=== PATIENT | female | born 1975 | race Caucasian/White ===

== ENCOUNTER 2020-07-16 17:00 | Emergency (ER) | payer MEDICAID ==
[~2020-07-16] VITALS: Ht 160 cm; Wt 83.9 kg
[2020-07-16 20:06] VITALS: BP 154/108
[2020-07-16] MEDS ORDERED: ONDANSETRON ODT 4 MG TAB PO ONE (21:00)
[2020-07-16] MEDS ORDERED: HYDROcodone-ACET 5/325MG TAB PO ONE (21:00)
== END 2020-07-16 21:43 | disposition home or self-care (01) ==
LOC: ER 17:00
DX: K04.7 Periapical abscess without sinus (principal); F17.210 Nicotine dependence, cigarettes, uncomplicated; J45.909 Unspecified asthma, uncomplicated; F15.10 Other stimulant abuse, uncomplicated; Z88.6 Allergy status to analgesic agent
CPT/HCPCS: 70486; 99284; Q0162

== ENCOUNTER 2024-02-20 23:34 | Inpatient (IN) | payer MEDICAID ==
[~2024-02-20] VITALS: Ht 160 cm; Wt 82.0 kg
[2024-02-21] MEDS: hydrALAZINE HCL 20 MG/ML VL IM ONE (00:45)
[2024-02-21 00:54] LABS: Basophils # (auto) 0.1 10 ^3/uL (0-0.2); Basophils % (auto) 0.9 % (0.0-2.0); Eosinophils # (auto) 0 10 ^3/uL (0-0.8); Eosinophils % (auto) 0.5 % (0.0-7.0); Hematocrit 50.8 % (36.0-46.0); Hemoglobin 16.5 g/dL (12.2-16.2); Lymphocytes # (auto) 1.8 10 ^3/uL (0.4-5.4); Lymphocytes % (auto) 23.4 % (10.0-50.0); Mean Corpuscular Hemoglobin 28.7 pg (28.0-32.0); Mean Corpuscular Hgb Conc. 32.5 g/dL (32.0-36.0); Mean Corpuscular Volume 88.1 fL (80.0-100.0); Monocytes # (auto) 0.4 10 ^3/uL (0-1.3); Monocytes % (auto) 5.8 % (0.0-12.0); Neutrophils # (auto) 5.4 10 ^3/uL (1.6-8.6); Neutrophils % (auto) 69.4 % (37.0-80.0); Red Blood Cells 5.76 10^6/uL (4.0-5.20); Red Cell Distribution Width 17.9 % (11.8-14.3); White Blood Cell 7.8 10^3/uL (4.4-10.8)
[2024-02-21 01:08] LABS: Alanine Aminotransferase 27 U/L (7-40); Alkaline Phosphatase 154 U/L (46-116); Anion Gap 9 (5-15); Aspartate Aminotransferase 30 U/L (13-40); BUN/Creatinine Ratio 10.4 (10.0-20.0); Blood Urea Nitrogen 15 mg/dL (9-23); Calcium 9.9 mg/dL (8.7-10.4); Carbon Dioxide 26 mmol/L (20-30); Chloride 107 mmol/L (98-107); Glucose 137 mg/dL (74-106); Potassium 4.8 mmol/L (3.5-5.1); Sodium 142 mmol/L (136-145)
[2024-02-21 01:09] LABS: Bilirubin, Total 1.2 mg/dL (0.2-1.0)
[2024-02-21] MEDS: ASPirin 81 mg TAB PO ONE (01:47)
[2024-02-21] MEDS: NITROGLYCERIN 2% OINT 1GM PKG TD ONE (01:47)
[2024-02-21 02:35] VITALS: PULSE 83; RESP 18; TEMP 98.2; O2SAT 93
[2024-02-21] MEDS ORDERED: ACETAMINOPHEN 325 MG TAB PO PRN (03:00)
[2024-02-21] MEDS ORDERED: ONDANSETRON HCL 4 MG/2 ML VIAL IV PRN (03:00)
[2024-02-21] MEDS ORDERED: DOCUSATE SOD 100 MG CAP PO PRN (03:00)
[2024-02-21] MEDS ORDERED: NITROGLYCERIN 0.4 MG SL TAB SL PRN (03:45)
[2024-02-21 04:24] LABS: Urine Bacteria None Seen /hpf (None Seen)
[2024-02-21 04:36] LABS: Urine Blood TRACE /uL (Negative); Urine Clarity Clear (Clear); Urine Color Light-Yellow (Yellow); Urine Protein, UAD 1+ (Negative); Urine Specific Gravity 1.011 (1.001-1.035); Urine Urobilinogen Normal (Negative); Urine WBC 5 /hpf (0 - 5)
[2024-02-21] MEDS: SODIUM CHLOR 0.9% PF (SALINE LOCK) 10ML VIAL/SYR IV SCH (06:00)
[2024-02-21] MEDS: amLODIPine BESYLATE 5 MG TAB PO ONE (06:41)
[2024-02-21 07:30] VITALS: PULSE 85; RESP 20; O2SAT 95
[2024-02-21] MEDS: hydrALAZINE HCL 20 MG/ML VL IV PRN (08:34)
[2024-02-21 09:47] LABS: Magnesium 1.8 mg/dL (1.6-2.6)
[2024-02-21 10:00] VITALS: BP 147/88; PULSE 92; RESP 18; O2SAT 93
[2024-02-21 10:00] LABS: Amphetamine Screen, Urine Pos (NEGATIVE); Barbiturate Scree,Urine Neg (NEGATIVE); Benzodiazephine Screen, Urine Neg (NEGATIVE); Cocaine Screen, Urine Neg (NEGATIVE); Opiate Scree,Urine Neg (NEGATIVE); Phencyclidine Screen, Urine Neg (NEGATIVE)
[2024-02-21] MEDS ORDERED: CARVEDILOL 12.5 MG TAB PO SCH ×2 (10:00)
[2024-02-21] MEDS ORDERED: amLODIPine BESYLATE 5 MG TAB PO SCH ×2 (10:00)
[2024-02-21] MEDS ORDERED: FUROSEMIDE 40 MG/4 ML VIAL IV SCH ×2 (10:00→18:00)
[2024-02-21] MEDS ORDERED: ASPirin 81 mg TAB PO SCH (10:00)
[2024-02-21 10:01] LABS: Cannabinoid Screen, Urine Neg (NEGATIVE)
[2024-02-21] MEDS ORDERED: ACCU-CHEK COMFORT CURVE STRIP VI ONE (11:15)
[2024-02-21] MEDS ORDERED: MAGNESIUM OXIDE 400 MG TAB PO ONE (11:15)
[2024-02-21] MEDS ORDERED: DEXTROSE (50%) 50ML SYRG IV ONE (11:15)
[2024-02-21] MEDS ORDERED: InsuLIN REG 1unit/0.01ml Soln (100units/ml) SC ONE (11:15)
[2024-02-21] MEDS ORDERED: cefTRIAXone 1GM/50ML D5W 50 ML IV ONE (11:15)
[2024-02-21] MEDS ORDERED: ATORVASTATIN 20 MG TAB PO SCH (22:00)
[2024-02-22] MEDS ORDERED: cefTRIAXone 1GM/50ML D5W 50 ML IV SCH (09:00)
== END 2024-02-21 10:10 | disposition left against medical advice (07) | DRG 383 ==
LOC: ER 23:34 → TELE 02-21 03:48
PROVIDERS: ADMIT Nurse Practitioner Family; ATTEND Internal Medicine
DX: L03.115 Cellulitis of right lower limb (principal); I21.A1 Myocardial infarction type 2; I50.23 Acute on chronic systolic (congestive) heart failure; N17.9 Acute kidney failure, unspecified; I42.7 Cardiomyopathy due to drug and external agent; I16.1 Hypertensive emergency; I13.0 Hypertensive heart and chronic kidney disease with heart failure and stage 1 through stage 4 chronic kidney disease, or unspecified chronic kidney disease; F15.129 Other stimulant abuse with intoxication, unspecified; F17.210 Nicotine dependence, cigarettes, uncomplicated; J44.9 Chronic obstructive pulmonary disease, unspecified; E11.22 Type 2 diabetes mellitus with diabetic chronic kidney disease; N18.9 Chronic kidney disease, unspecified; E66.9 Obesity, unspecified; Z88.5 Allergy status to narcotic agent; Z68.32 Body mass index [BMI] 32.0-32.9, adult; Z91.199 Patient's noncompliance with other medical treatment and regimen due to unspecified reason
CPT/HCPCS: 36415; 71045; 80053; 80061; 80307; 81001; 83036; 83735; 83880; 84443; 84484; 85025; 93005; G0378

== ENCOUNTER 2024-09-09 19:18 | Inpatient (IN) | payer MEDICAID ==
[~2024-09-09] VITALS: Ht 160 cm; Wt 76.0 kg
[~2024-09-09 19:18] MED LIST: ALBU108A5 IN; ATOR10TA PO
--- NOTE | 2024-09-09 19:39 | ED.PDOC ---
HPI Comments A 49 year old female presents to the ED with a chief complaint of chest pain onset yesterday. Patient states she was 6 months sober, did Methamphetamine yesterday ans shortly after began experiencing chest pain as well as shortness of breath. Patient noticed the pain radiates to LT shoulder and LT arm. [place] She is also experiencing cough with phlegm as well as nausea. Has a past medical history of CHF, asthma. No other symptoms or modifying factors present at this time. Chief Complaint: Chest Pain Time Seen by MD: 19:23 Primary Care Provider: SHANE Lee Notes: Medications, Allergies Allergies: Coded Allergies: Codeine (Verified Allergy, Unknown, 07/16/20) Morphine (Verified Allergy, Unknown, 07/16/20) Information Source: Patient Mode of Arrival: Ambulatory Severity: Moderate Timing: Days Duration: Since onset Prehospital treatment: None Location: Chest (L) Radiation: Shoulder (L), Arm (L) Quality: Tightness Cardiac Risk Factors: Drugs Associated Signs and Symptoms: SOB, N/V Past Medical History PAST MEDICAL HISTORY: Asthma, CHF Surgical History: Denies all surgeries [employer] History: No Pertinent [employer] History Family History Family History: Reviewed,noncontributory to illness, No family hx of Cancer, No family hx of DM, No family hx of Heart boo, No family hx of HTN, No family hx ofKidney boo, No family hx of Liver boo, No family hx of Lung boo, No family hx of Stroke Social History Smoker: Cigarettes, Less Than 1 Pack/Day Alcohol: Denies ETOH Use Drugs: Methamphetamine Lives In: Home Constitutional: denies: chills, diaphoresis, fatigue, fever, malaise, sweats, weakness, others EENTM: denies: blurred vision, double vision, ear bleeding, ear discharge, ear drainage, ear pain, ear ringing, eye pain, eye redness, hearing loss, mouth pain, mouth swelling, nasal discharge, nose bleeding, nose congestion, nose pain , photophobia, tearing, throat pain, throat swelling, voice changes, others Respiratory: reports: cough, shortness of breath; denies: hemoptysis, orthopnea, SOB at rest, SOB with excertion, stridor, wheezing, others Cardiovascular: reports: chest pain, left arm pain; denies: dizzy spells, diaphoresis, Dyspnea on exertion, edema, irregular heart beat, lightheadedness, palpitations, PND, syncope, others Gastrointestinal: reports: nausea; denies: abdomen distended, abdominal pain, blood streaked bowels, constipated, diarrhea, dysphagia, difficulty swallowing, hematemesis, melena, poor appetite, poor fluid intake, rectal bleeding, rectal pain, vomiting, others Genitourinary: denies: abnormal vagina bleeding, burning, dyspareunia, dysuria, flank pain, frequency, hematuria, incontinence, pain, , vagina discharge, urgency, others Neurological: denies: dizziness, fainting, headache, left sided numbness, left sided weakness, numbness, paresthesia, pre-existing deficit, right sided numbness, right sided weakness, seizure, speech problems, tingling, tremors, weakness, others Musculoskeletal: denies: back pain, gout, joint pain, joint swelling, muscle pain, muscle stiffness, neck pain, others Integumetry: denies: bruises, change in color, change in hair/nails, dryness, laceration, lesions, lumps, rash, wounds, others Allergic/Immunocompromised: denies: Difficulty Healing, Frequent Infections, Hives, Itching, others Hematologic/Lymphatic: denies: anemia, blood clots, easy bleeding, easy bruising, swollen glands, others Endocrine: denies: excessive hunger, excessive sweating, excessive thirst, excessive urination, flushing, intolerance to cold, intolerance to heat, unexplained weight gain, unexplained weight loss, others Psychiatric: denies: anxiety, bipolar disorder, depression, hopeless, panic disorder, schizophrenia, sleepless, suicidal, others All Other Systems: Reviewed and Negative Physical Exam General Appearance: No Apparent Distress, Normal HEENT: Normal ENT Inspection, Pharynx Normal, TMs Normal Neck: Full Range of Motion, Non-Tender, Normal, Normal Inspection Respiratory: Chest Non-Tender, Lungs Clear, No Accessory Muscle Use, No Respiratory Distress, Normal Breath Sounds Cardiovascular: No Edema, No JVD, No Murmur, No Gallop, Normal Peripheral Pulses, Regular Rate/Rhythm Breast Exam: Deferred Gastrointestinal: No Organomegaly, Non Tender, No Pulsatile Mass, Normal Bowel Sounds, Soft Genitalia: Deferred Pelvic: Deferred Rectal: Deferred Extremities: No calf tenderness, Normal capillary refill, Normal inspection, Normal range of motion, Non-tender, No pedal edema Musculoskeletal : Apperance: Normal Neurologic: Alert, coordinator of genetic services II-XII nml as Tested, No Motor Deficits, Normal Affect, Normal Mood, No Sensory Deficits Cerebellar Function: Normal Reflexes: Normal Skin: Dry, Normal Color, Warm Lymphatic: No Adenopathy Was a procedure done? Was a procedure done?: No CP Differential Dx Differential Diagnosis: MAT, PAC's Differential Diagnosis: HTN Essential, HTN Accelerated Differential Diagnosis: Gastritis, Myocardial Infarction, Pericarditis X-Ray, Labs, Meds, VS Vital Signs Date Time Temp Pulse Resp B/P (MAP) Pulse Ox O2 Delivery O2 Flow Rate FiO2 09/09/24 19:37 97.3 109 22 112/82 (92) 95 09/09/24 19:21 106 Lab Test 09/09/24 19:32 Range/Units White Blood Count 7.8 4.4-10.8 10^3/uL Red Blood Count 5.60 H 4.0-5.20 10^6/uL Hemoglobin 17.2 H 12.2-16.2 g/dL Hematocrit 52.4 H 36.0-46.0 % Mean Corpuscular Volume 93.5 80.0-100.0 fL Mean Corpuscular Hemoglobin 30.6 28.0-32.0 pg Mean Corpuscular Hemoglobin Concent 32.7 32.0-36.0 g/dL Red Cell Distribution Width 15.2 H 11.8-14.3 % Platelet Count 195 140-450 10^3/uL Mean Platelet Volume 8.4 6.9-10.8 fL Neutrophils (%) (Auto) 73.2 37.0-80.0 % Lymphocytes (%) (Auto) 19.5 10.0-50.0 % Monocytes (%) (Auto) 6.2 0.0-12.0 % Eosinophils (%) (Auto) 0.4 0.0-7.0 % Basophils (%) (Auto) 0.7 0.0-2.0 % Neutrophils # (Auto) 5.7 1.6-8.6 10 ^3/uL Lymphocytes # (Auto) 1.5 0.4-5.4 10 ^3/uL Monocytes # (Auto) 0.5 0-1.3 10 ^3/uL Eosinophils # (Auto) 0 0-0.8 10 ^3/uL Basophils # (Auto) 0.1 0-0.2 10 ^3/uL Nucleated Red Blood Cells 0.1 % Sodium Level 141 136-145 mmol/L Potassium Level 3.6 3.5-5.1 mmol/L Chloride Level 104 98-107 mmol/L Carbon Dioxide Level 28 20-31 mmol/L Anion Gap 9 5-15 Blood Urea Nitrogen 12 9-23 mg/dL Creatinine 1.34 H 0.550-1.02 mg/dL Glomerular Filtration Rate Calc 48 >90 mL/min BUN/Creatinine Ratio 9.0 L 10.0-20.0 Serum Glucose 188 H 74-106 mg/dL Calcium Level 9.5 8.7-10.4 mg/dL Troponin I High Sensitivity 366 *H </=34 ng/L [place] [id number] Ph: [phone] DIAGNOSTIC IMAGING Diagnostic Imaging Report : [id number] Signed PATIENT: ZOFIA FUNEZ ACCT: [id number] UNIT: [id number] : 1975 LOC: ER ROOM / BED: / AGE / SEX: 49 / F ADM STATUS: REG ER SERVICE 25 ORDERING PHYSICIAN: TOM LAKHANI MD PROCEDURE(s): CXR2 - CHEST TWO VIEWS ROUTINE REASON: chest pain ORDER NUMBER(s): [id number], ACCESSION NUMBER(s): [id number] CHEST RADIOGRAPH Indication: chest pain Technique: Frontal and lateral view of the chest was obtained Comparison: 02/21/2024 FINDINGS: Lines and Tubes: None Lungs: Clear Pleura: There is a 3-4 cm round soft tissue mass at the right cardiophrenic angle which is not significantly changed from 02/21/2024. No pneumothorax. Cardiomediastinal contours: Unremarkable Bones: Unremarkable IMPRESSION: 1. Stable cardiac size 2. No infiltrates or effusions. 3. Stable soft tissue mass of the right cardiophrenic angle. ATED BY: DARIEL GUILLAUME Jr., DO DICTATED DATE/TIME: 09/09/242004 SIGNED BY: DARIEL GUILLAUME Jr., DO SIGNED DATE/TIME: 09/09/242004 CC: Time of 1ST Reevaluation: 19:53 Reevaluation 1ST: Unchanged Patient Education/Counseling: Diagnosis, Treatment, Prognosis Family Education/Counseling: No Family Present Additional Information I reviewed the following notes from patient's past medical encounters: The following tests were ordered, and results were reviewed by me: TROP, TROP, TROP, EKG, CBC, BMP, XY CHEST 2 VIEWS, EKG, EKG I reviewed and agreed with the following test results read by other providers: XY CHEST 2 VIEWS I discussed treatment and results with medical personnel and: patient Departure 1 Departure Time of Disposition: 21:10 (Patient presented with chest pain that was concerning for possible STEMI, ACS, PE, Pneumonia, Muscle Strain, COPD, Dissection. Data: 1. I ordered and reviewed the result of at least 3 labs including a CBC, BMP, and Troponin. 2. I independently interpreted the following tests: EKG which shows sinus arrythmia and Chest X-ray which shows benign chest.Risk:This patient has a high risk of morbidity due to further diagnostic testing or treatment and may suffer from an acute cardiac or respiratory disorder. Workup reveals nstemi and patient should be admitted for further workup and possible expert consultation. ) Impression: Primary Impression: Acute chest pain Additional Impression: NSTEMI (non-ST elevated myocardial infarction) Disposition: 09 ADMITTED INPATIENT Admit to: Med Surg Condition: Serious Critical Care Note Critical Care Time?: Yes Critical care comment: Acute chest pain Authorized and Performed by: Tom Lakhani MD Total critical care time: Approximately 38 minutes Due to a high probability of clinically significant, life threatening deterioration, the patient required my highest level of preparedness to intervene emergently and I personally spent this critical care time directly and personally managing the patient. This critical care time included obtaining a history; examining the patient; pulse oximetry; ordering and review of studies; arranging urgent treatment with development of a management plan; evaluation of patient's response to treatment; frequent reassessment; and, discussions with other providers. This critical care time was performed to assess and manage the high probability of imminent, life-threatening deterioration that could result in multi-organ failure. It was exclusive of separately billable procedures and treating other patients and teaching time. Please see my other sections and the rest of the note for further information on patient assessment and treatment. Stability Stability form required: No Heart Score Heart Score: Heart Score Response (Comments) Value History Moderate Suspicious 1 EKG Repolarization Disturb 1 Age 45-64 1 Risk Factors 1 or 2 risk factors 1 Troponin >3 x's Normal limit 2 Total 6 I personally scribed for TOM LAKHANI MD ([email or web address]) on 09/09/24 at 19:39. Electronically submitted by Arline Hawley ([email or web address]). I personally scribed for TOM LAKHANI MD ([email or web address]) on 09/09/24 at 19:50. Electronically submitted by Arline Hawley ([email or web address]). I personally scribed for TOM LAKHANI MD ([email or web address]) on 09/09/24 at 20:29. Electronically submitted by Arline Hawley ([email or web address]). TOM LAKHANI MD Sep 09, 2024 19:39
[2024-09-09 19:56] LABS: Basophils # (auto) 0.1 10 ^3/uL (0-0.2); Basophils % (auto) 0.7 % (0.0-2.0); Eosinophils # (auto) 0 10 ^3/uL (0-0.8); Eosinophils % (auto) 0.4 % (0.0-7.0); Hematocrit 52.4 % (36.0-46.0); Hemoglobin 17.2 g/dL (12.2-16.2); Lymphocytes # (auto) 1.5 10 ^3/uL (0.4-5.4); Lymphocytes % (auto) 19.5 % (10.0-50.0); Mean Corpuscular Hemoglobin 30.6 pg (28.0-32.0); Mean Corpuscular Hgb Conc. 32.7 g/dL (32.0-36.0); Mean Corpuscular Volume 93.5 fL (80.0-100.0); Monocytes # (auto) 0.5 10 ^3/uL (0-1.3); Monocytes % (auto) 6.2 % (0.0-12.0); Neutrophils # (auto) 5.7 10 ^3/uL (1.6-8.6); Neutrophils % (auto) 73.2 % (37.0-80.0); Nucleated Red Blood Cells % 0.1 %; Platelet Count (auto) 195 10^3/uL (140-450); Red Cell Distribution Width 15.2 % (11.8-14.3); White Blood Cell 7.8 10^3/uL (4.4-10.8)
[2024-09-09 20:06] LABS: Chloride 104 mmol/L (98-107); Potassium 3.6 mmol/L (3.5-5.1); Sodium 141 mmol/L (136-145)
[2024-09-09 20:07] LABS: Anion Gap 9 (5-15); Calcium 9.5 mg/dL (8.7-10.4); Carbon Dioxide 28 mmol/L (20-31)
--- NOTE | 2024-09-09 20:07 | DVH ---
CHEST RADIOGRAPH Indication: chest pain Technique: Frontal and lateral view of the chest was obtained Comparison: 02/21/2024 FINDINGS: Lines and Tubes: None Lungs: Clear Pleura: There is a 3-4 cm round soft tissue mass at the right cardiophrenic angle which is not signif icantly changed from 02/21/2024. No pneumothorax. Cardiomediastinal contours: Unremarkable Bones: Unremarkable IMPRESSION: 1. Stable cardiac size 2. No infiltrates or effusions. 3. Stable soft tissue mass of the right cardiophrenic angle.
[2024-09-09 20:12] LABS: Blood Urea Nitrogen 12 mg/dL (9-23)
[2024-09-09 20:14] LABS: Glucose 188 mg/dL (74-106)
[2024-09-09] MEDS: NITROGLYCERIN 0.4 MG SL TAB SL ONE (21:30)
[2024-09-09] MEDS: ASPirin 81 mg TAB PO ONE (21:31)
[2024-09-09 21:38] VITALS: PULSE 93; RESP 16; O2SAT 99
[2024-09-09 21:53] LABS: INR 1.16 (0.9-1.15); Partial Thromboplastin Time 26.9 SEC (24.5-34.5); Prothrombin Time 12.2 sec (9.3-11.8)
[2024-09-09] MEDS ORDERED: METOPROLOL SUCCINATE XL 50 MG TAB PO ONE (22:15)
[2024-09-09] MEDS ORDERED: NITROGLYCERIN 0.4 MG SL TAB SL PRN (22:15)
[2024-09-09] MEDS ORDERED: MORPHINE SULFATE INJ 2 MG/ml SYRG IV PRN (22:15)
[2024-09-09] MEDS ORDERED: CLOPIDOGREL BISULFATE 75 MG TAB PO ONE (22:15)
[2024-09-09 22:23] VITALS: PULSE 99; RESP 23; O2SAT 94
[2024-09-09] MEDS: LISINOPRIL 20 MG TAB PO ONE (22:32)
[2024-09-09] MEDS: amLODIPine BESYLATE 5 MG TAB PO ONE (22:33)
--- NOTE | 2024-09-09 22:41 | DVHHPRES ---
History of Present Illness Resident Creating Document: ROSEANNA CORDOVACAROLINA RESIDENT History of Present Illness Patient is a 49-year-old female with a past medical history described below came to the ED after she felt left-sided chest pain and dizziness since the morning. Patient reports that she has a long history of methamphetamine use and was off drugs for the last 6 months but yesterday and today she smoked methamphetamine following which had a brief nosebleed and left-sided chest pain pressure-like, intensity 10/10, radiating to the left neck and the left upper arm, associated with shortness of breath and sweating and palpitations. Patient came to the hospital for further evaluation. On arrival to the ED 12 lead ECG showed sinus rhythm with a heart rate about 100 per minute, no acute ST segment or T-wave abnormalities. Troponins were trended were elevated with 366--> 355-->355. Past medical history: Congestive heart failure, COPD, type 2 diabetes mellitus, hypertension Past surgical history left breast mass lumpectomy, 3 C sections Social history: Patient lives with boyfriend and has a history of methamphetamine smoking for 30 years but was off methamphetamine as reported for the last 6 months, smokes a pack of cigarettes a day for the last 30 years reports to be not smoking since the last 1 month, denies alcohol, marijuana Home medications: Metformin 500 mg b.i.d., metoprolol tartrate 50 mg b.i.d., lisinopril 20 mg q.d., Lasix 20 mg q.d., amlodipine 10 mg q.d., albuterol 2 puffs b.i.d. patient reports that she has not been taking her medications recently the last 2-3 months Review of Systems Review of Systems Patient seen and examined at bedside Elevated blood pressure at 197 /125 mmHg, heart rate 80-95 per minute, SpO2 more than 92% on room air Patient reports headache pressure-like sensation, dizziness, nausea, Denies shortness of breath, chest pain, palpitations. Allergies: Coded Allergies: Codeine (Verified Allergy, Unknown, 07/16/20) Morphine (Verified Allergy, Unknown, 07/16/20) Medications Current Medications Medications Dose Ordered Sig/[facility] Route Start Time Stop Time Status Last Admin Dose Admin Heparin Sodium/ Dextrose 250 ml @ 9 mls/hr Q24H IV 09/09/24 22:30 Nitroglycerin 0.4 mg Q5MINP PRN SL 09/09/24 22:15 Morphine Sulfate 2 mg Q30M PRN IV 09/09/24 22:15 UNV Atorvastatin Calcium 40 mg HS PO 09/10/24 22:00 Exam Vital Signs Vital Signs Date Time Temp Pulse Resp B/P (MAP) Pulse Ox O2 Delivery O2 Flow Rate FiO2 09/09/24 22:33 201/146 09/09/24 21:38 93 16 99 Room Air* 0 99 21 09/09/24 21:34 97.4 97.4 Exam Physical Examination Constitutional: Alert and oriented to time, place and person the patient appears to be in mild distress from the headache and nausea. Gen - no pallor, no icterus, no cyanosis, no clubbing, no LAD, 2 to 3+ pedal edema bilaterally. Skin - Patients skin is warm and dry. HEENT - normocephalic, atraumatic, dry mucous membranes. Neck - full ROM, no LAD, JVD Pulmonary - B/L air entry positive but breath sounds decreased, no crackles , no wheezing cardiovascular - normal S1,S2 heard. no murmurs heard. peripheral pulses radial 2+, pedal 2+. GI - soft abdomen without tenderness to palpation . no hepatospleenomegaly. Bowel sounds normoactive Neurological - Patient is A/O X 3 . Bilateral upper extremity strength 5/5, bilateral lower extremity strength 5/5, no facial muscle weakness, normal speech, no tremor, no sensory deficiets. Labs/Xrays Labs Test 09/09/24 21:00 09/09/24 19:32 Range/Units Troponin I High Sensitivity 355 *H </=34 ng/L White Blood Count 7.8 4.4-10.8 10^3/uL Red Blood Count 5.60 H 4.0-5.20 10^6/uL Hemoglobin 17.2 H 12.2-16.2 g/dL Hematocrit 52.4 H 36.0-46.0 % Mean Corpuscular Volume 93.5 80.0-100.0 fL Mean Corpuscular Hemoglobin 30.6 28.0-32.0 pg Mean Corpuscular Hemoglobin Concent 32.7 32.0-36.0 g/dL Red Cell Distribution Width 15.2 H 11.8-14.3 % Platelet Count 195 140-450 10^3/uL Mean Platelet Volume 8.4 6.9-10.8 fL Neutrophils (%) (Auto) 73.2 37.0-80.0 % Lymphocytes (%) (Auto) 19.5 10.0-50.0 % Monocytes (%) (Auto) 6.2 0.0-12.0 % Eosinophils (%) (Auto) 0.4 0.0-7.0 % Basophils (%) (Auto) 0.7 0.0-2.0 % Neutrophils # (Auto) 5.7 1.6-8.6 10 ^3/uL Lymphocytes # (Auto) 1.5 0.4-5.4 10 ^3/uL Monocytes # (Auto) 0.5 0-1.3 10 ^3/uL Eosinophils # (Auto) 0 0-0.8 10 ^3/uL Basophils # (Auto) 0.1 0-0.2 10 ^3/uL Nucleated Red Blood Cells 0.1 % Prothrombin Time 12.2 H 9.3-11.8 sec Prothrombin Time INR 1.16 H 0.9-1.15 Activated Partial Thromboplast Time 26.9 24.5-34.5 SEC Assessment/Plan Assessment/Plan Assessment # Acute chest pain, NSTEMI # ?NSTEMI type I # ?NSTEMI type II d/t HTN emergency, Methamphetamine use # Hypertensive emergency # Acute exacerbation of chronic heart failure systolic versus diastolic # ?pulmonary HTN # UTI likely acute cystitis # right mild pleural effusion # suspected CAP pneumonia d/t ?gram+/-, ?atypical bacteria # polysubstance abuse Plan - 12 lead ECG shows sinus rhythm, heart rate 100 per minute, no acute ST segment or T-wave abnormalities, right axis deviation - troponins trended 366--> 355--> 355 - head CT without contrast shows no acute intracranial abnormality - chest CT without contrast shows 1. 3.7 x 5.4 cm anterior right pericardial cyst accounting for the abnormality on chest radiograph. 2. Mild cardiomegaly, Small right pleural effusion and chest wall edema. 3. Cluster of tiny nodular and tree-in-bud opacities in the left upper lobe which could reflect atypical infection or respiratory bronchiolitis. 4. Dilatation of the main pulmonary artery which can be seen in the setting of pulmonary hypertension. - given loading dose of aspirin 325 mg and Plavix 300 mg - started on heparin drip - given amlodipine 10 mg, lisinopril 20 mg daily - Lasix 40 mg IV once - on ceftriaxone 1 g IV daily and azithromycin 500mg IV - clonidine 0.1 mg q.4 p.r.n. - echo pending - cardiology consult pending Goals of care discussed with the patient for over 27 minutes. Full code Plan discussed with Dr. Barragan Plan discussed with: Patient My Orders Orders - KIMBERLY CORDOVA RESIDENT Procedure Category Date Status Time Admit ADMIT 09/09/24 Transmitted 22:04 Nitroglycerin PHA 09/09/24 In Process Sublingual (Ntrostat 22:15 Morphine Sulfate PHA 09/09/24 Pending Injection 22:15 Oxygen By Nasal RT 09/09/24 Transmitted Cannula 22:04 Stat Ekg For Chest LIDIA 09/09/24 In Process Pain 22:04 Notify Md Of Changes LIDIA 09/09/24 In Process From Base 22:04 Audiometrist For LIDIA 09/09/24 In Process 24 Hours 22:04 Emergency Dysrhythmia LIDIA 09/09/24 In Process Protocol 22:04 Comprehensive LAB 09/09/24 In Process Metabolic Panel 22:06 B-Type Natriuretic LAB 09/09/24 In Process Peptide 22:06 Urinalysis LAB 09/09/24 Logged 22:06 Drug Screen LAB 09/09/24 Logged 22:06 Covid19 Antigen Maddie LAB 09/09/24 Logged Rapid Influenza A&B LAB 09/09/24 Logged 22:06 Hemoglobin A1c LAB 09/09/24 In Process 22:06 Lipid Panel LAB 09/09/24 In Process 22:06 Thyroid Stimulating LAB 09/09/24 In Process Hormone 22:[address] 09/09/24 Logged 22:11 Test, Urine LAB 09/09/24 Logged 22:11 Atorvastatin (Lipitor) PHA 09/10/24 In Process 22:00 Date of Service: Sep 09, 2024 Billing Provider: OMERO BARRAGAN MD Common Visit Codes: [id number] INP/OBS CARE (HIGH) KIMBERLY CORDOVA RESIDENT Sep 09, 2024 22:41 OMERO BARRAGAN MD Sep 10, 2024 11:52
[2024-09-09 23:00] LABS: Alanine Aminotransferase 26 U/L (7-40); Anion Gap 10 (5-15); Aspartate Aminotransferase 33 U/L (13-40); BUN/Creatinine Ratio 9.2 (10.0-20.0); Bilirubin, Total 1.2 mg/dL (0.2-1.0); Blood Urea Nitrogen 12 mg/dL (9-23); Carbon Dioxide 26 mmol/L (20-31); Cholesterol 105 mg/dL (< 200); HDL Cholesterol 44 mg/dL (40-59); LDL Cholesterol 51 mg/dL (< 100); Potassium 4.9 mmol/L (3.5-5.1); Sodium 144 mmol/L (136-145); Triglycerides 87 mg/dL (< 150)
[2024-09-09 23:02] LABS: Alkaline Phosphatase 166 U/L (46-116); Chloride 108 mmol/L (98-107); Glucose 133 mg/dL (74-106)
[2024-09-09] MEDS: ATORVASTATIN 20 MG TAB PO ONE (23:07)
[2024-09-09] MEDS: FUROSEMIDE 40 MG/4 ML VIAL IV ONE (23:09)
[2024-09-09] MEDS: hydrALAZINE HCL 20 MG/ML VL IV ONE (23:10)
[2024-09-09] MEDS: HEPARIN SODIUM (PORCINE) 5000 UNITS/ML 1ML VIAL IV ONE (23:14)
[2024-09-09 23:29] LABS: COVID19 ANTIGEN SOFIA FIA NEGATIVE (NEGATIVE); Rapid Influenza A Negative (Negative); Rapid Influenza B Negative (Negative)
[2024-09-09] MEDS: HEPARIN DRIP/D5W 100UNITS/ML 250 ML IV SCH (23:32)
--- NOTE | 2024-09-09 23:59 | DVH ---
CLINICAL HISTORY: HTN urg,Headache, numbness weakness r side, r/o acute stroke TECHNIQUE: Helical imaging carried out from skull base to vertex without intravenous contrast. This e xam was performed according to our departmental dose optimization program. Up-to-date CT equipment an d radiation dose reduction techniques are utilized as appropriate. COMPARISON: None FINDINGS: Mild patchy low attenuation throughout the cerebral white matter consistent with nonspecific white ma tter disease. The ventricles and subarachnoid spaces are normal in size and configuration. There is no midline meek ft or mass effect. The archuleta white matter interfaces are maintained. The basal cisterns are patent. Th ere is no evidence of acute intracranial hemorrhage or extra-axial fluid collection. The mastoid air cells and visualized paranasal sinuses are well-aerated aside from mild mucosal thickening of an ante rior right ethmoid air cell.. IMPRESSION: 1. No acute intracranial abnormality. 2. Mild chronic microvascular ischemic change.
[2024-09-10] VITALS (7 sets, daily range): BP systolic 136–155; BP diastolic 72–105; PULSE 86–102; RESP 17–20; TEMP 97.6–98.2; O2SAT 92–97
[2024-09-10 00:40] LABS: Urine Bacteria FEW /hpf (None Seen); Urine Blood 1+ /uL (Negative); Urine Budding Yeast OCCASIONAL /hpf (None Seen); Urine Clarity Clear (Clear); Urine Color Light-Yellow (Yellow); Urine Protein, UAD 2+ (Negative); Urine Specific Gravity 1.009 (1.001-1.035); Urine Squamous Epithelial Cell FEW /hpf (<5); Urine Urobilinogen Normal (Negative); Urine WBC 59 /hpf (0 - 5); Urine WBC Clumps PRESENT /hpf (None Seen)
[2024-09-10] MEDS ORDERED: cloNIDine HCL 0.1 MG TAB PO PRN (00:45)
--- NOTE | 2024-09-10 02:32 | DVH ---
CLINICAL HISTORY: soft tiss. mass r CP angle,rule out pneumonia, pl effusion, TECHNIQUE: CT of the chest was performed without intravenous contrast. This exam was performed accord ing to our departmental dose optimization program. Up-to-date CT equipment and radiation dose reducti on techniques are utilized as appropriate. [Radimetrics Exposure Report] COMPARISON: None FINDINGS: Lower Neck: Unremarkable Axilla, Mediastinum and Linda: No oral axillary or mediastinal lymphadenopathy. Limited evaluation of the linda in the absence of intravenous contrast. Heart and Great Vessels: There is a 3.7 x 5.5 cm anterior right pericardial cyst on series 3 image 40 . There is mild cardiomegaly. Trace pericardial effusion. The thoracic aorta is normal in caliber. D ilatation of the main pulmonary artery measuring 3.7 cm on series 2, image 50. Airway, Lungs and Pleura: Trachea and central airways are patent. There is a small right pleural effu arsh. Linear bibasilar scarring or atelectasis. Cluster of tiny nodular and tree-in-bud opacities in the left upper lobe on series 3, image 17. Upper Abdomen: There is cholelithiasis in a normal caliber gallbladder. Nodular contour of the liver. Atrophic pancreas. Chest Wall and Osseous Structures: Mild chest wall edema. No destructive osseous lesion. Minor thora cic spondylosis. IMPRESSION: 1. There is a 3.7 x 5.4 cm anterior right pericardial cyst accounting for the abnormality on chest ra diograph. 2. Mild cardiomegaly, Small right pleural effusion and chest wall edema. 3. Cluster of tiny nodular and tree-in-bud opacities in the left upper lobe which could reflect atypi eric infection or respiratory bronchiolitis. 4. Dilatation of the main pulmonary artery which can be seen in the setting of pulmonary hypertension . 5. Cholelithiasis. 6. Nodular contour of the liver which could reflect fibrosis or cirrhosis. Correlate with liver enzym es and clinical history.
[2024-09-10] MEDS: MELATONIN 5 MG TAB PO ONE (03:35)
[2024-09-10 04:05] LABS: Amphetamine Screen, Urine Pos (NEGATIVE); Barbiturate Scree,Urine Neg (NEGATIVE); Benzodiazephine Screen, Urine Neg (NEGATIVE); Opiate Scree,Urine Neg (NEGATIVE); Phencyclidine Screen, Urine Neg (NEGATIVE)
[2024-09-10 04:06] LABS: Cannabinoid Screen, Urine Neg (NEGATIVE); Cocaine Screen, Urine Neg (NEGATIVE)
[2024-09-10] MEDS ORDERED: METF-370 PO (04:52)
[2024-09-10] MEDS ORDERED: AMLO1TAB23 PO (04:52)
[2024-09-10] MEDS ORDERED: LISI20TA56 PO (04:52)
[2024-09-10] MEDS ORDERED: METO1TAB77 PO (04:52)
[2024-09-10] MEDS ORDERED: ASPI1TAB20 PO (04:52)
[2024-09-10] MEDS ORDERED: FURO1TAB33 PO (04:52)
[2024-09-10] MEDS ORDERED: ALBU0.084 IN (04:52)
--- NOTE | 2024-09-10 07:12 | ECG ---
[facility] Test Date: 2024-09-09 Test Time: 22:37:51 Pat Name: ZOFIA FUNEZ Department: ER [facility] Gender: F [employer] Photograph: : 1975 Requested By: TOM LAKHANI Order Number: [id number] Reading MD: Hugh Guerrero Measurements Intervals [place] Rate: 95 P: 83 MA: 146 QRS: 143 QRSD: 103 T: -24 QT: 369 QTc: 464 Interpretive Statements Sinus rhythm Biatrial enlargement Low voltage, precordial leads RVH with secondary repolarization abnrm Electronically Signed On 09-10-2024 14:20:45 PST by Hugh Guerrero Please click the below link to view image of tracing.
[2024-09-10 07:23] LABS: INR 1.19 (0.9-1.15); Partial Thromboplastin Time 27.9 SEC (24.5-34.5); Prothrombin Time 12.5 sec (9.3-11.8)
[2024-09-10 08:13] LABS: Basophils # (auto) 0 10 ^3/uL (0-0.2); Basophils % (auto) 0.5 % (0.0-2.0); Eosinophils # (auto) 0 10 ^3/uL (0-0.8); Eosinophils % (auto) 0.4 % (0.0-7.0); Hematocrit 51.3 % (36.0-46.0); Hemoglobin 17.3 g/dL (12.2-16.2); Lymphocytes # (auto) 1.6 10 ^3/uL (0.4-5.4); Lymphocytes % (auto) 19.3 % (10.0-50.0); Mean Corpuscular Hemoglobin 30.8 pg (28.0-32.0); Mean Corpuscular Hgb Conc. 33.7 g/dL (32.0-36.0); Mean Corpuscular Volume 91.6 fL (80.0-100.0); Monocytes # (auto) 0.7 10 ^3/uL (0-1.3); Monocytes % (auto) 8.5 % (0.0-12.0); Neutrophils # (auto) 6.1 10 ^3/uL (1.6-8.6); Neutrophils % (auto) 71.3 % (37.0-80.0); Nucleated Red Blood Cells % 0.2 %; Platelet Count (auto) 174 10^3/uL (140-450); Red Cell Distribution Width 15.2 % (11.8-14.3); White Blood Cell 8.5 10^3/uL (4.4-10.8)
[2024-09-10 08:58] LABS: Chloride 105 mmol/L (98-107); Sodium 140 mmol/L (136-145)
[2024-09-10 08:59] LABS: Anion Gap 9 (5-15); Calcium 9.5 mg/dL (8.7-10.4); Carbon Dioxide 26 mmol/L (20-31); Potassium 3.2 mmol/L (3.5-5.1)
[2024-09-10 09:04] LABS: BUN/Creatinine Ratio 11.3 (10.0-20.0); Blood Urea Nitrogen 12 mg/dL (9-23)
[2024-09-10 09:08] LABS: Glucose 111 mg/dL (74-106)
[2024-09-10] MEDS: ASPirin 81 mg TAB PO SCH (09:10)
[2024-09-10] MEDS: LISINOPRIL 20 MG TAB PO SCH (09:10)
[2024-09-10] MEDS: cefTRIAXone 1GM/50ML D5W 50 ML IV ONE (09:11)
[2024-09-10 10:27] LABS: Hepatitis B Surface Antigen Negative (Negative); Hepatitis C Antibody Negative (Negative)
--- NOTE | 2024-09-10 10:54 | DVHCONRES ---
Date Seen: Sep 10, 2024 Resident Creating Document: DELFINA SIMPSON RESIDENT Referring Physician Darryn Byrne MD History of Present Illness This is a 49-year-old female with a past medical history congestive heart failure, COPD, type 2 diabetes and hypertension presented to ED with a chief complaints of left sided chest pain and dizziness yesterday morning. According to the patient, she has been having chest pain for the past 3 days. It was insidious in onset but yesterday had pressure-like sensation with intensity 10/10, radiating to the left neck and the left upper arm, associated with shortness of breath, sweating and palpitations. Patient denied any known aggravating factors and she did not take any medications to relieve the pain. Patient has decided to come to the ED for evaluation. Patient also noted her legs were swollen bilaterally; And she complains of fatigue with minimal exertion. Patient states she is unable to walk about a block if she walks and come pack comes back she must sit down and catch her breath because she feels extremely tired. she also noticed around the same time that she had a nosebleed. 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 She has has been intermittent with a is and her last usage was 2 days ago. In the ED, initial vitals showed temperature of 97.3, HR:109, RR: 22, BP: 201/146. Initial blood work showed hemoglobin of 17.2, Plt: 195, lipid panels unremarkable; hemoglobin A1c 7.0, Troponin was 366, 355, BNP:1311.93 and toxicology revealed presence of amphetamines. Twelve lead EKG shows sinus tachycardia with without evidence ischemic changes. Her current home medications include: Metformin 500 mg b.i.d ( She does not take)., metoprolol tartrate 50 mg b.i.d., lisinopril 20 mg q.d., Lasix 20 mg q.d., amlodipine 10 mg q.d., albuterol 2 puffs b.i.d. patient reports that she has not been taking her medications recently the last 2-3 months Past Medical History Congestive heart failure, COPD, type 2 diabetes mellitus, hypertension Past Surgical History left breast mass lumpectomy, 3 C sections Family History: Patient reports no known family medical history. 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 Denies alcohol, marijuana Allergies: Coded Allergies: Codeine (Verified Allergy, Unknown, 07/16/20) Morphine (Verified Allergy, Unknown, 07/16/20) Home Meds Reported Medications Albuterol Sulfate (Albuterol Sulfate Hfa) 108 Mcg/Act Aer, 108 MCG IN UD for 28 Days, #18 09/10/24 Atorvastatin Calcium (Lipitor) 10 Mg Tab, 1 TAB PO DAILY for 90 Days, #90 09/10/24 Amlodipine Besylate (Amlodipine Besylate) 10 Mg Tab, 1 TAB PO DAILY, #30 TAB 5 Refills 09/10/24 Metformin Hydrochloride (Metformin Hcl) 500 Mg Tab, 1 TAB PO BID, #60 TAB 3 Refills 09/10/24 Aspirin (Aspir-81) 81 Mg Tab, 1 TAB PO DAILY, #30 TAB 5 Refills 09/10/24 Metoprolol Tartrate (Lopressor) 50 Mg Tab, 1 TAB PO BID, #60 TAB 5 Refills 09/10/24 Lisinopril (Lisinopril) 20 Mg Tab, 1 TAB PO DAILY, #30 TAB 5 Refills 09/10/24 Furosemide (Lasix) 20 Mg Tb, 1 TAB PO DAILY, #90 TAB 1 Refill 09/10/24 Current Medications Current Medications Medications (Trade) Dose Ordered Sig/Carl Route PRN Reason Start Time Stop Time Status Last Admin Heparin Sodium/ Dextrose 250 ml @ 9 mls/hr Q24H IV 09/09/24 22:30 Hold 09/09/24 23:32 Nitroglycerin (Ntrostat Sublingual) 0.4 mg Q5MINP PRN SL FOR CHEST PAIN 09/09/24 22:15 Morphine Sulfate 2 mg Q30M PRN IV FOR CHEST PAIN 09/09/24 22:15 Hold Atorvastatin Calcium (Lipitor) 40 mg HS PO 09/10/24 22:00 Clonidine HCl (Catapres Tablet) 0.1 mg Q4HP PRN PO SBP>170 09/10/24 00:45 Aspirin 81 mg DAILY PO 09/10/24 10:00 09/10/24 09:10 Amlodipine Besylate (Norvasc Tablet) 10 mg DAILY PO 09/11/24 10:00 Lisinopril (Zestril Tablet) 20 mg DAILY PO 09/10/24 10:00 09/10/24 09:10 Ceftriaxone Sodium 50 ml @ 100 mls/hr DAILY@09 IV 09/11/24 09:00 Azithromycin 250 ml @ 125 mls/hr DAILY IV 09/10/24 10:00 Review of Systems Constitutional: Denies fever no chills no feeling of malaise HEENT: headache pressure-like sensation, dizziness, nausea Cardiovascular: Denies chest pain, palpitation, orthopnea, PND; pedal edema Respiratory: shortness of breath, cough, thick whitish sputum production; No hemoptysis, GI: Denies abdominal pain, nausea, vomiting, diarrhea, hematemesis, hematochezia, : urgency and frequency ( on lasix); No hematuria, Endocrine: Denies unintentional weight gain or weight loss, feeling of hot flashes, [place]: Denies easy bruising, bleeding disorders, epistaxis Musculoskeletal: Denies joint pains, muscle aches Psych: No evidence of depression, tyrell, suicidal ideation Vital Signs Vital Signs Date Time Temp Pulse Resp B/P (MAP) Pulse Ox O2 Delivery O2 Flow Rate FiO2 09/10/24 09:10 150/105 09/10/24 09:00 97.6 94 20 92 97.6 09/10/24 04:00 Room Air* 0 21 Physical Exam General examination- Not in acute distress, looked flushed HEENT: PEERLA, no acute nasal discharge Chest: S1-S2 audible, rate and rhythm regular, no murmur; No raised JVP Lung: CTAB, no wheeze or rhonchi Abdomen: Distend, BS+,Mild tenderness, no organomegaly Musculoskeletal: no acute joint swelling or tenderness Lower extremity: resolving venous stasis, leg edema Neurological: cranial nerves intact, no acute dysarthria or dysphagia Psychiatry-- Normal mood and affect Skin- no acute rash or purpura, tattoos Labs/Diagnostic Data Labs Test 09/10/24 06:44 09/10/24 00:00 09/09/24 22:42 09/09/24 22:37 Range/Units White Blood Count 8.5 4.4-10.8 10^3/uL Red Blood Count 5.60 H 4.0-5.20 10^6/uL Hemoglobin 17.3 H 12.2-16.2 g/dL Hematocrit 51.3 H 36.0-46.0 % Mean Corpuscular Volume 91.6 80.0-100.0 fL Mean Corpuscular Hemoglobin 30.8 28.0-32.0 pg Mean Corpuscular Hemoglobin Concent 33.7 32.0-36.0 g/dL Red Cell Distribution Width 15.2 H 11.8-14.3 % Platelet Count 174 140-450 10^3/uL Mean Platelet Volume 8.8 6.9-10.8 fL Neutrophils (%) (Auto) 71.3 37.0-80.0 % Lymphocytes (%) (Auto) 19.3 10.0-50.0 % Monocytes (%) (Auto) 8.5 0.0-12.0 % Eosinophils (%) (Auto) 0.4 0.0-7.0 % Basophils (%) (Auto) 0.5 0.0-2.0 % Neutrophils # (Auto) 6.1 1.6-8.6 10 ^3/uL Lymphocytes # (Auto) 1.6 0.4-5.4 10 ^3/uL Monocytes # (Auto) 0.7 0-1.3 10 ^3/uL Eosinophils # (Auto) 0 0-0.8 10 ^3/uL Basophils # (Auto) 0 0-0.2 10 ^3/uL Nucleated Red Blood Cells 0.2 % Prothrombin Time 12.5 H 9.3-11.8 sec Prothrombin Time INR 1.19 H 0.9-1.15 Activated Partial Thromboplast Time 27.9 24.5-34.5 SEC Sodium Level 140 136-145 mmol/L Potassium Level 3.2 L 3.5-5.1 mmol/L Chloride Level 105 98-107 mmol/L Carbon Dioxide Level 26 20-31 mmol/L Anion Gap 9 5-15 Blood Urea Nitrogen 12 9-23 mg/dL Creatinine 1.06 H 0.550-1.02 mg/dL Glomerular Filtration Rate Calc 64 >90 mL/min BUN/Creatinine Ratio 11.3 10.0-20.0 Serum Glucose 111 H 74-106 mg/dL Calcium Level 9.5 8.7-10.4 mg/dL Hepatitis B Surface Antigen Negative Negative Hepatitis C Antibody Negative Negative Urine Color Light-yellow Yellow Urine Clarity Clear Clear Urine pH 6.0 5.0-9.0 Urine Specific [place] 1.009 1.001-1.035 Urine Protein 2+ H Negative Urine Ketones Negative Negative Urine Blood 1+ H Negative /uL Urine Nitrite Negative Negative Urine Bilirubin Negative Negative Urine Urobilinogen Normal Negative mg/dL Urine Leukocyte Esterase 3+ Negative /uL Urine RBC 19 0 - 4 /hpf Urine WBC 59 0 - 5 /hpf Urine WBC Clumps Present None Seen /hpf Urine Squamous Epithelial Cells Few <5 /hpf Urine Bacteria Few H None Seen /hpf Urine Yeast (Budding) Occasional None Seen /hpf Urine Glucose Normal Normal mg/dL Urine Test Negative Negative Urine Opiates Screen Neg NEGATIVE Urine Fentanyl Screen Neg NEGATIVE Urine Barbiturates Screen Neg NEGATIVE Urine Phencyclidine Screen Neg NEGATIVE Urine Amphetamines Screen Pos NEGATIVE Urine Benzodiazepines Screen Neg NEGATIVE Urine Cocaine Screen Neg NEGATIVE Urine Cannabinoids Screen Neg NEGATIVE Troponin I High Sensitivity 355 *H </=34 ng/L Influenza Type A Antigen Negative Negative Influenza Type B Antigen Negative Negative SARS-CoV-2 Antigen (Rapid) Negative NEGATIVE Test 09/09/24 21:00 09/09/24 19:32 Range/Units Total Bilirubin 1.2 H 0.2-1.0 mg/dL Aspartate Amino Transferase (AST) 33 13-40 U/L Alanine Aminotransferase (ALT) 26 7-40 U/L Alkaline Phosphatase 166 H 46-116 U/L Total Protein 7.0 5.7-8.2 g/dL Albumin 4.0 3.2-4.8 g/dL Triglycerides Level 87 < 150 mg/dL Cholesterol Level 105 < 200 mg/dL LDL Cholesterol 51 < 100 mg/dL HDL Cholesterol 44 40-59 mg/dL Thyroid Stimulating Hormone (TSH) 3.67 0.55-4.78 uIU/mL Hemoglobin A1c 7.0 H <5.7 % A1C B-Type Natriuretic Peptide 1311.93 0-100 pg/mL Assessment Acute on chronic decompensated HFpEF --> BNP: 1311.93 --> Echo: pending --> Lasix 40mg bid ---> Initiate GMDT ( uptitrated as needed Lisinopril, SGLT2i and Carvediol) Critical Pulmonary hypertension --> RVSP: 88 --> Massively dilated RV ---> Continue amlodipine --> CTA to rule out PE (CTA is negative for PE) Acute hypoxic respiratory failure --> obtain ABG --> Spo2 : 91% --> Patient refused the abg NSTEMI type 2 --> Troponin 366,355 --> Ekg shows sinus tachycardia with no evidence of abnormal ST elevation or depression --> Secondary to hypertensive Emergency --> Treat the underlying condition Hypertensive emergency --> BP: 201/146 ( initial reading) --> Lisinopril, Amlodipine and Carvediol --> Hydralazine 10 mg SBP> 150 PRN Diabetes type II --> A1c: 7.0 --> Glucose: 188--> 111 --> sliding scale Amphetamine user --> use for 30 years --> Extensive education on stopping drug use and patient encouraged to see help for detoxification Chronic Kidney Disease --> ( [place] [address]) --> Cr: 1.34--> 1.06 ( Cr: 1.44, February 2024) --> Monitor closely as patient is on Lasix Thank you for allowing us to participate in the care of this patient. Please call if you have any questions or concerns. Plan discussed with: Patient Visit Coding Cardiology RES Date of Service: Sep 10, 2024 Billing Provider: PATRICK OWENS MD Cardiology Common Codes: 94115-[id number] INP/OBS CARE (High) Cardiology Consultation Codes: [id number] CONSULT <45MIN DELFINA SIMPSON RESIDENT Sep 10, 2024 10:54
[2024-09-10] MEDS: FUROSEMIDE 40 MG/4 ML VIAL IV ONE (13:47)
[2024-09-10] MEDS: POTASSIUM CHL 20 Meq TABLET PO ONE (13:47)
[2024-09-10] MEDS: IOHEXOL 350 MG/ML 100ML IJ ONE (14:22)
[2024-09-10] MEDS: AZITHROMYCIN 500MG/ 250ML 250 ML IV SCH (14:42)
--- NOTE | 2024-09-10 15:10 | DVH ---
CTA CHEST INDICATION: Critical pul htn, rule out PE TECHNIQUE: Multidetector CTA of the chest was performed of the chest with 100 cc of intravenous contr ast. PULMONARY ANGIOGRAPHY PROTOCOL was utilized using a bolus-tracking technique centered on the amaya n pulmonary artery. Axial, coronal and sagittal multiplanar and MIP reformats were performed. Radiation Dose Information: CT Dose: CTDI volume is 29.6 mGy. Dose-length product is 711.91 mGy*cm The dose indicators for CT are the volume Computed Tomography (CT) Dose Index (CTDIvol) and the Dose Length Product (DLP), and are measured in units of mGy and mGy-cm, respectively. These indicators are not patient dose, but values generated from the CT scanner acquisition factors. The report includes radiation exposure data for exposures received during this examination. Comparison: 09/09/2024. Findings: Pulmonary artery: There is no evidence of a pulmonary arterial filling defect to suggest pulmonary e mbolism. The main pulmonary artery prominent in size which can be seen in setting of pulmonary arteri al hypertension. Lungs/Pleura: There is stable small right pleural effusion. There is mild atelectasis in the right l ower lobe. There is small area of tree-in-bud nodular opacity in the posterior left upper lobe. There is mild scarring versus atelectasis in the left lower lobe. Heart/Vascular Structures: There is cardiomegaly. There is no pericardial effusion. There is a 5.4 cm pericardial cysts along the right lower heart border. Lymph Nodes: There is no evidence of thoracic lymphadenopathy. Musculoskeletal: No acute osseous abnormality. Upper abdomen: There are gallstones in the gallbladder. IMPRESSION: 1. There is no evidence of a pulmonary arterial filling defect to suggest pulmonary embolism. 2. The main pulmonary artery is prominent in size which can be seen the setting of pulmonary arterial hypertension. 3. Cardiomegaly. Stable 5.4 cm pericardial cyst along the right lower heart border. 4. Stable small right pleural effusion mild atelectasis in the right lower lobe. There is a small are a of tree-in-bud nodular opacity in the posterior left upper lobe. 5. Cholelithiasis. HS:Y
[2024-09-10] MEDS: FLUCONAZOLE 100 MG TAB PO ONE (17:46)
[2024-09-10] MEDS: FUROSEMIDE 40 MG/4 ML VIAL IV SCH (17:46)
--- NOTE | 2024-09-10 17:47 | DVHSR ---
APPROVED REPORT EXAM: Two-dimensional and M-mode echocardiogram with Doppler and color Doppler. Blood Pressure: 136/72 mmHg INDICATION ? acute hf exacerbation RISK FACTORS Height: 5'3, Weight: 146 DIMENSIONS LVDd3.4 (3.8-5.7cm)LA (2D)3.3 (1.9-4.0cm)Aortic Root3.1 (2.0-3.7cm) LVDs2.3 (2.5-4.0cm)LA (MM) (1.9-4.0cm)Aortic Cusp Exc1.8 (1.5-2.0cm) EF (%) 55.0 (55-70%)Rt. Atrium5.7 (1.9-4.0cm)Asc. Aorta cm IVSd1.1 (0.7-1.1cm)RV (D) (1.8-2.4cm) PWd1.4 (0.7-1.1cm) Mitral Valve MitralMitral Stenosis E wave0.52m/sMV Mean GR.mmHg A wave0.89m/sMV Peak GR.96mmHg E/A ratio0.62D MVAcm2 DECEL [id number] 1/2 Timems Aortic Valve Aortic ValveAortic Stenosis V11.10m/Janes Mean GR.4mmHg V21.35m/Janes Peak GR.7mmHg LVOT Diameter2.0 (1.8-2.4cm)Doppler AVA2.56cm2 Pulmonic Valve V20.95m/s Tricuspid Valve TR Velocity4.28m/s [id number] Conclusion Severely dilated right ventricle. Severely reduced right ventricular systolic function severely elev ated right ventricular systolic [id number] mm of mercury. Normal left ventricular size and dimension. Normal left ventricular systolic function, there is D sh aped septum likely due to increased right ventricular pressure. Normal-sized left atrium. Severely dilated right atrium Normal aortic valve structure and function. Normal mitral valve structure and function. There is severe torrential tricuspid valve regurgitation. There is moderate pulmonary valve regurgitation. No significant pericardial effusion.
--- NOTE | 2024-09-10 18:18 | DVHPNRES ---
Progress Note Date Seen: Sep 10, 2024 Resident Creating Document: TAYE ALMONTE RESIDENT Medical Necessity Reason Pt with a Central, PICC or Fol: No Subjective Review of Systems Patient is a 49 years old female with past medical history of congestive heart failure, COPD, diabetes mellitus type 2, hypertension, anxiety, substance abuse methamphetamine came with a complaint of chest pain. As per patient patient has been having chest pain started 2 days before, sudden onset, 10/10 severity maximum, nature, radiating to the neck and left arm, no aggravating. Patient reported she smoked amphetamine 2 days before. Patient reported her shortness of breath has been getting worse for last 7 days. Limited patient also endorsed sweating and palpitation with the chest pain. Patient also reported some dizziness for last few days. On further inquiry patient reported he she has chronic leg swelling endorsed CN lately she has been having increased SOB micturition and urgency. Patient denied any fever, acute joint redness or swelling, sick contact, dysarthria or change in vision. On arrival to the ED 12 lead ECG showed sinus rhythm with a heart rate about 100 per minute, no acute ST segment or T-wave abnormalities. Troponins were trended were elevated with 366--> 355-->355, BNP 1311. Other lab workup revealed polycythemic with a hemoglobin 17.2, serum creatinine 1.31, HGB A1c 7, serum bilirubin 1.2, alkaline phosphatase 166, TSH 3.67, UDS positive for amphetamine. Urinalysis positive for UTI with leukocyte esterase 3+, WBC 59, RBC 19, occasional yeast, bacteria few. cCX-ray revealed-There is a 3-4 cm round soft tissue mass at the right cardiophrenic angle which is not significantly changed from 02/21/2024.1.CT head- No acute intracranial abnormality. Mild chronic microvascular ischemic change.1. There is a 3.7 x 5.4 cm anterior right pericardial cyst accounting for the abnormality on chest radiograph. Mild cardiomegaly, Small right pleural effusion and chest wall edema. Cluster of tiny nodular and tree-in-bud opacities in the left upper lobe which could reflect atypical infection or respiratory bronchiolitis. Dilatation of the main pulmonary artery which can be seen in the setting of pulmonary hypertension. Cholelithiasis. Nodular contour of the liver which could reflect fibrosis or cirrhosis. Correlate with liver enzymes and clinical history. CT angio of the chest- There is no evidence of a pulmonary arterial filling defect to suggest pulmonary embolism. The main pulmonary artery is prominent in size which can be seen the setting of pulmonary arterial hypertension. Cardiomegaly. Stable 5.4 cm pericardial cyst along the right lower heart border. Stable small right pleural effusion mild atelectasis in the right lower lobe. There is a small area of tree-in-bud nodular opacity in the posterior left upper lobe. Cholelithiasis. Echo 2D- Severely dilated right ventricle. Severely reduced right ventricular systolic function severely elevated right ventricular systolic [id number] mm of mercury. Normal left ventricular size and dimension. Normal left ventricular systolic function, there is D shaped septum likely due to increased right ventricular pressure. Normal-sized left atrium. Severely dilated right atrium. There is severe torrential tricuspid valve regurgitation. There is moderate pulmonary valve regurgitation. Past medical history: Congestive heart failure, COPD, type 2 diabetes mellitus, hypertension Past surgical history left breast mass lumpectomy, 3 C sections Social history: Patient lives with boyfriend and has a history of methamphetamine smoking for 30 years but was off methamphetamine as reported for the last 6 months, smokes a pack of cigarettes a day for the last 30 years reports to be not smoking since the last 1 month, denies alcohol, marijuana Home medications: Metformin 500 mg b.i.d., metoprolol tartrate 50 mg b.i.d., lisinopril 20 mg q.d., Lasix 20 mg q.d., amlodipine 10 mg q.d., albuterol 2 puffs b.i.d. patient reports that she has not been taking her medications recently the last 2-3 months ROS Gastrointestinal- denies any rectal bleeding, nausea or vomiting Musculoskeletal-denies acute joint swelling or tenderness or redness Neurological- denies acute dysarthria, dysphagia, change in vision Psychiatry- denies depression or SI or HI Skin- denies acute rash or purpura Objective vital signs Vital Sign Date Time Temp Pulse Resp B/P (MAP) Pulse Ox O2 Delivery O2 Flow Rate FiO2 09/10/24 17:46 148/106 09/10/24 13:00 97.9 90 20 93 97.9 09/10/24 08:00 Room Air* 0 21 Total Intake and Output 09/09/24 09/09/24 09/10/24 15:00 23:00 07:00 Intake Total 258 ml Balance 258 ml medications Current Medications Medications Dose Ordered Sig/Carl Route Start Time Stop Time Status Last Admin Dose Admin Nitroglycerin 0.4 mg Q5MINP PRN SL 09/09/24 22:15 Morphine Sulfate 2 mg Q30M PRN IV 09/09/24 22:15 Hold Atorvastatin Calcium 40 mg HS PO 09/10/24 22:00 Clonidine HCl 0.1 mg Q4HP PRN PO 09/10/24 00:45 Aspirin 81 mg DAILY PO 09/10/24 10:00 09/10/24 09:10 81 MG Amlodipine Besylate 10 mg DAILY PO 09/11/24 10:00 Lisinopril 20 mg DAILY PO 09/10/24 10:00 09/10/24 09:10 20 MG Ceftriaxone Sodium 50 ml @ 100 mls/hr DAILY@09 IV 09/11/24 09:00 Azithromycin 250 ml @ 125 mls/hr DAILY IV 09/10/24 10:00 09/10/24 14:42 125 MLS/HR Carvedilol 12.5 mg Q12HR PO 09/10/24 22:00 Furosemide 40 mg BIDD IV 09/10/24 18:00 09/10/24 17:46 40 MG Fluconazole 100 mg DAILY PO 09/11/24 10:00 Examination General examination- awake, alert, conversant, HEENT- PEERLA, no acute nasal discharge Cardiovascular- S1-S2 audible, rate and rhythm regular, no murmur Respiratory- bilateral lung crackles++ Gastrointestinal-nontender, bowel sound+. Nondistended Musculoskeletal-no acute joint swelling or tenderness or redness# Lower extremity- bilateral leg edema++ Neurological- cranial nerves intact, no acute dysarthria or dysphagia Psychiatry- denies depression or SI or HI Skin- no acute rash or purpura laboratory and microbiology Laboratory Tests 09/10/24 06:44 Test 09/10/24 06:44 Range/Units Serum Glucose 111 H 74-106 mg/dL Problem List/Assessment/Plan Problem List/Assessment/Plan Acute chest pain-rule out ACS Non STEMI type 2 Acute hypoxic respiratory failure due to acute on chronic HFpEF Acute pneumonitis acute on chronic HFrEF Hypertensive emergency Critical pulmonary hypertension Diabetes mellitus type 2 Polycythemia REBEL on CKD UTI COPD Substance abuse amphetamine Anxiety anterior right pericardial cyst Cholelithiasis Dilated right pulmonary artery Suspected liver fibrosis or cirrhosis Echo 2D-Severely dilated right ventricle. Severely reduced right ventricular systolic function severely elevated right ventricular systolic [id number] mm of mercury. Normal left ventricular size and dimension. Normal left ventricular systolic function, there is D shaped septum likely due to increased right ventricular pressure. Normal-sized left atrium. Severely dilated right atrium There is severe torrential tricuspid valve regurgitation. There is moderate pulmonary valve regurgitation. Continue injection Lasix 40 mg IV b.i.d. Continue lisinopril 20 mg p.o. daily Aspirin 81 mg p.o. daily Atorvastatin 40 mg p.o. q.h.s. Continue amlodipine 10 mg p.o. daily Continue ceftriaxone 1 g IV daily Continue azithromycin 5 mg IV daily Continue Diflucan 100 mg p.o. daily Continue other medication as prescribed Continue sildenafil 20 mg p.o. t.i.d. as prescribed Goals of care/advance care planning; FULL CODE; discussed with the patient >15 minutes PUD prophylaxis: Famotidine DVT prophylaxis: Lovenox Plan discussed with Dr. Barragan, nursing staff, patient Total time spent on patient evaluation, chart review, assessment and plan, discussion discussion >30 minutes Plan discussed with: Patient Plan discussed with: Patient, Other (RN) My Orders My Orders Orders - TAYE ALMONTE Procedure Category Date Status Time Fluconazole Tablet PHA 09/11/24 In Process (Diflucan Tablet) 10:00 Date of Service: Sep 10, 2024 Billing Provider: OMERO BARRAGAN MD Common Visit Codes: [id number] INP/OBS CARE(HIGH) TAYE ALMONTE Sep 10, 2024 18:18 OMERO BARRAGAN MD Sep 11, 2024 08:43
[2024-09-10] MEDS ORDERED: SPIRONOLACTONE 25 MG TAB PO ONE (20:15)
[2024-09-10] MEDS: SILDENAFIL CITRATE 20 MG TAB PO SCH (20:27)
[2024-09-10] MEDS: FAMOTIDINE 20 MG TAB PO SCH (21:44)
[2024-09-10] MEDS: ATORVASTATIN 20 MG TAB PO SCH (21:45)
[2024-09-10] MEDS: CARVEDILOL 12.5 MG TAB PO SCH (21:45)
[2024-09-11] VITALS (8 sets, daily range): BP systolic 110–149; BP diastolic 59–80; PULSE 68–90; RESP 16–19; TEMP 97–98.5; O2SAT 90–98
[2024-09-11 07:43] LABS: Basophils # (auto) 0 10 ^3/uL (0-0.2); Basophils % (auto) 0.7 % (0.0-2.0); Eosinophils # (auto) 0 10 ^3/uL (0-0.8); Eosinophils % (auto) 0.7 % (0.0-7.0); Hematocrit 48.7 % (36.0-46.0); Hemoglobin 16.1 g/dL (12.2-16.2); Lymphocytes # (auto) 1.6 10 ^3/uL (0.4-5.4); Lymphocytes % (auto) 21.5 % (10.0-50.0); Mean Corpuscular Hemoglobin 30.5 pg (28.0-32.0); Mean Corpuscular Volume 92.3 fL (80.0-100.0); Monocytes # (auto) 0.5 10 ^3/uL (0-1.3); Monocytes % (auto) 6.7 % (0.0-12.0); Neutrophils # (auto) 5.1 10 ^3/uL (1.6-8.6); Neutrophils % (auto) 70.4 % (37.0-80.0); Platelet Count (auto) 205 10^3/uL (140-450); Red Blood Cells 5.28 10^6/uL (4.0-5.20); Red Cell Distribution Width 14.8 % (11.8-14.3); White Blood Cell 7.3 10^3/uL (4.4-10.8)
[2024-09-11 08:16] LABS: Alanine Aminotransferase 21 U/L (7-40); Anion Gap 7 (5-15); BUN/Creatinine Ratio 15.4 (10.0-20.0); Blood Urea Nitrogen 20 mg/dL (9-23); Calcium 9.6 mg/dL (8.7-10.4); Carbon Dioxide 26 mmol/L (20-31); Chloride 104 mmol/L (98-107); Magnesium 1.9 mg/dL (1.6-2.6); Potassium 3.9 mmol/L (3.5-5.1); Sodium 137 mmol/L (136-145)
[2024-09-11 08:17] LABS: Albumin 3.7 g/dL (3.2-4.8); Aspartate Aminotransferase 24 U/L (13-40); Bilirubin, Total 0.9 mg/dL (0.2-1.0)
[2024-09-11 08:18] LABS: Alkaline Phosphatase 150 U/L (46-116); Glucose 126 mg/dL (74-106); Total Protein 6.3 g/dL (5.7-8.2)
[2024-09-11] MEDS: cefTRIAXone 1GM/50ML D5W 50 ML IV SCH (09:04)
[2024-09-11] MEDS: ENOXAPARIN SOD 40 MG/0.4 ML SYRINGE SC SCH (09:05)
[2024-09-11] MEDS: FLUCONAZOLE 100 MG TAB PO SCH (09:05)
[2024-09-11] MEDS: amLODIPine BESYLATE 5 MG TAB PO SCH (09:07)
[2024-09-11] MEDS: DOXYCYCLINE 100MG/250ML 250 ML IV ONE (09:45)
[2024-09-11] MEDS ORDERED: EMPAGLIFLOZIN 10 MG TAB PO SCH (10:00)
[2024-09-11] MEDS ORDERED: SPIRONOLACTONE 25 MG TAB PO SCH (10:00)
[2024-09-11] MEDS: DOXYCYCLINE 100MG/250ML 250 ML IV SCH (11:34)
--- NOTE | 2024-09-11 16:01 | DVHPN2 ---
Consult Progress Note Date Seen: Sep 11, 2024 Subjective Patient reports: No new complaints Review of Systems: HEENT:Abnormal (Headache) Objective vital signs Vital Sign Date Time Temp Pulse Resp B/P (MAP) Pulse Ox O2 Delivery O2 Flow Rate FiO2 09/11/24 12:46 97.6 86 18 114/75 (88) 92 97.6 09/11/24 07:37 Nasal Cannula* 3 32 Total Intake and Output 09/10/24 09/10/24 09/11/24 15:00 23:00 07:00 Intake Total 50 ml 2050 ml 720 ml Output Total 100 ml Balance 50 ml 2050 ml 620 ml medications Current Medications Medications Dose Ordered Sig/Carl Route Start Time Stop Time Status Last Admin Dose Admin Nitroglycerin 0.4 mg Q5MINP PRN SL 09/09/24 22:15 Hold Morphine Sulfate 2 mg Q30M PRN IV 09/09/24 22:15 Hold Atorvastatin Calcium 40 mg HS PO 09/10/24 22:00 09/10/24 21:45 40 MG Clonidine HCl 0.1 mg Q4HP PRN PO 09/10/24 00:45 Aspirin 81 mg DAILY PO 09/10/24 10:00 09/11/24 09:06 81 MG Amlodipine Besylate 10 mg DAILY PO 09/11/24 10:00 09/11/24 09:07 10 MG Lisinopril 20 mg DAILY PO 09/10/24 10:00 09/11/24 09:05 20 MG Ceftriaxone Sodium 50 ml @ 100 mls/hr DAILY@09 IV 09/11/24 09:00 09/11/24 09:04 100 MLS/HR Carvedilol 12.5 mg Q12HR PO 09/10/24 22:00 09/11/24 09:06 12.5 MG Furosemide 40 mg BIDD IV 09/10/24 18:00 09/11/24 06:26 40 MG Fluconazole 100 mg DAILY PO 09/11/24 10:00 09/11/24 09:05 100 MG Sildenafil Citrate 20 mg TID@08,14,20 PO 09/10/24 20:00 09/11/24 13:43 20 MG Enoxaparin Sodium 40 mg DAILY SC 09/11/24 10:00 09/11/24 09:05 40 MG Famotidine 20 mg Q12HR PO 09/10/24 22:00 09/11/24 09:06 20 MG Doxycycline Hyclate 250 ml @ 125 mls/hr Q12H IV 09/11/24 09:45 09/11/24 11:34 125 MLS/HR Doxycycline Monohydrate 100 mg Q12HR PO 09/12/24 22:00 laboratory and microbiology Laboratory Tests 09/11/24 07:10 Test 09/11/24 07:10 Range/Units Serum Glucose 126 H 74-106 mg/dL Problem List/Assessment/Plan Problem List/Assessment/Plan Acute on chronic decompensated HFpEF --> BNP: 1311.93 --> Echo: EF: 55% --> Lasix 40mg bid ---> Initiate GMDT (uptitrated as needed Lisinopril, SGLT2i and Carvedilol) Critical Pulmonary hypertension --> RVSP: 88 --> Massively dilated RV ---> Sildenafil --> CTA to rule out PE ( CTA is negative for PE) Acute hypoxic respiratory failure --> obtain ABG --> Spo2: 91% --> Patient refused the abg NSTEMI type 2 --> Troponin 366,355 --> Ekg shows sinus tachycardia with no evidence of abnormal ST elevation or depression --> Secondary to hypertensive Emergency --> Treat the underlying condition Hypertensive emergency --> BP: 201/146 ( initial reading) --> Lisinopril, Amlodipine and Carvedilol --> Hydralazine 10 mg SBP> 150 PRN Diabetes type II --> A1c: 7.0 --> Glucose: 188--> 111 --> sliding scale 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 There is not further testing from cardiac standpoint. Will sign off. Please call if you have any questions or concerns or reconsult Plan discussed with: Patient Date of Service: Sep 11, 2024 Billing Provider: PATRICK OWENS MD Cardiology Common Codes: [id number] CARE-EACH +30MIN DELFINA SIMPSON RESIDENT Sep 11, 2024 16:01
--- NOTE | 2024-09-11 19:54 | DVHPNRES ---
Progress Note Date Seen: Sep 11, 2024 Resident Creating Document: TAYE ALMONTE RESIDENT Has the PT tested + for MRSA If YES, has PT been informed?: No Medical Necessity Reason Pt with a Central, PICC or Fol: No Subjective Review of Systems Patient is a 49 years old female with past medical history of congestive heart failure, COPD, diabetes mellitus type 2, hypertension, anxiety, substance abuse methamphetamine came with a complaint of chest pain. As per patient patient has been having chest pain started 2 days before, sudden onset, 10/10 severity maximum, nature, radiating to the neck and left arm, no aggravating. Patient reported she smoked amphetamine 2 days before. Patient reported her shortness of breath has been getting worse for last 7 days. Limited patient also endorsed sweating and palpitation with the chest pain. Patient also reported some dizziness for last few days. On further inquiry patient reported he she has chronic leg swelling endorsed CN lately she has been having increased SOB micturition and urgency. Patient denied any fever, acute joint redness or swelling, sick contact, dysarthria or change in vision. On arrival to the ED 12 lead ECG showed sinus rhythm with a heart rate about 100 per minute, no acute ST segment or T-wave abnormalities. Troponins were trended were elevated with 366--> 355-->355, BNP 1311. Other lab workup revealed polycythemic with a hemoglobin 17.2, serum creatinine 1.31, HGB A1c 7, serum bilirubin 1.2, alkaline phosphatase 166, TSH 3.67, UDS positive for amphetamine. Urinalysis positive for UTI with leukocyte esterase 3+, WBC 59, RBC 19, occasional yeast, bacteria few. cCX-ray revealed-There is a 3-4 cm round soft tissue mass at the right cardiophrenic angle which is not significantly changed from 02/21/2024.1.CT head- No acute intracranial abnormality. Mild chronic microvascular ischemic change.1. There is a 3.7 x 5.4 cm anterior right pericardial cyst accounting for the abnormality on chest radiograph. Mild cardiomegaly, Small right pleural effusion and chest wall edema. Cluster of tiny nodular and tree-in-bud opacities in the left upper lobe which could reflect atypical infection or respiratory bronchiolitis. Dilatation of the main pulmonary artery which can be seen in the setting of pulmonary hypertension. Cholelithiasis. Nodular contour of the liver which could reflect fibrosis or cirrhosis. Correlate with liver enzymes and clinical history. CT angio of the chest- There is no evidence of a pulmonary arterial filling defect to suggest pulmonary embolism. The main pulmonary artery is prominent in size which can be seen the setting of pulmonary arterial hypertension. Cardiomegaly. Stable 5.4 cm pericardial cyst along the right lower heart border. Stable small right pleural effusion mild atelectasis in the right lower lobe. There is a small area of tree-in-bud nodular opacity in the posterior left upper lobe. Cholelithiasis. Echo 2D- Severely dilated right ventricle. Severely reduced right ventricular systolic function severely elevated right ventricular systolic [id number] mm of mercury. Normal left ventricular size and dimension. Normal left ventricular systolic function, there is D shaped septum likely due to increased right ventricular pressure. Normal-sized left atrium. Severely dilated right atrium. There is severe torrential tricuspid valve regurgitation. There is moderate pulmonary valve regurgitation. Past medical history: Congestive heart failure, COPD, type 2 diabetes mellitus, hypertension Past surgical history left breast mass lumpectomy, 3 C sections Social history: Patient lives with boyfriend and has a history of methamphetamine smoking for 30 years but was off methamphetamine as reported for the last 6 months, smokes a pack of cigarettes a day for the last 30 years reports to be not smoking since the last 1 month, denies alcohol, marijuana Home medications: Metformin 500 mg b.i.d., metoprolol tartrate 50 mg b.i.d., lisinopril 20 mg q.d., Lasix 20 mg q.d., amlodipine 10 mg q.d., albuterol 2 puffs b.i.d. patient reports that she has not been taking her medications recently the last 2-3 months ROS Gastrointestinal- denies any rectal bleeding, nausea or vomiting Musculoskeletal-denies acute joint swelling or tenderness or redness Neurological- denies acute dysarthria, dysphagia, change in vision Psychiatry- denies depression or SI or HI Skin- denies acute rash or purpura Patient was seen today for clinical evaluation. Labs and chart reviewed. Clinically improving. By Cardiology, recommendation reviewed and appreciated. Objective vital signs Vital Sign Date Time Temp Pulse Resp B/P (MAP) Pulse Ox O2 Delivery O2 Flow Rate FiO2 09/11/24 18:05 110/71 09/11/24 16:46 98.5 81 18 92 98.5 09/11/24 07:37 Nasal Cannula* 3 32 Total Intake and Output 09/10/24 09/10/24 09/11/24 15:00 23:00 07:00 Intake Total 50 ml 2050 ml 720 ml Output Total 100 ml Balance 50 ml 2050 ml 620 ml medications Current Medications Medications Dose Ordered Sig/Carl Route Start Time Stop Time Status Last Admin Dose Admin Nitroglycerin 0.4 mg Q5MINP PRN SL 09/09/24 22:15 Hold Morphine Sulfate 2 mg Q30M PRN IV 09/09/24 22:15 Hold Atorvastatin Calcium 40 mg HS PO 09/10/24 22:00 09/10/24 21:45 40 MG Clonidine HCl 0.1 mg Q4HP PRN PO 09/10/24 00:45 Aspirin 81 mg DAILY PO 09/10/24 10:00 09/11/24 09:06 81 MG Amlodipine Besylate 10 mg DAILY PO 09/11/24 10:00 09/11/24 09:07 10 MG Lisinopril 20 mg DAILY PO 09/10/24 10:00 09/11/24 09:05 20 MG Ceftriaxone Sodium 50 ml @ 100 mls/hr DAILY@09 IV 09/11/24 09:00 09/11/24 09:04 100 MLS/HR Carvedilol 12.5 mg Q12HR PO 09/10/24 22:00 09/11/24 09:06 12.5 MG Furosemide 40 mg BIDD IV 09/10/24 18:00 09/11/24 18:05 40 MG Fluconazole 100 mg DAILY PO 09/11/24 10:00 09/11/24 09:05 100 MG Sildenafil Citrate 20 mg TID@08,14,20 PO 09/10/24 20:00 09/11/24 13:43 20 MG Enoxaparin Sodium 40 mg DAILY SC 09/11/24 10:00 09/11/24 09:05 40 MG Doxycycline Hyclate 250 ml @ 125 mls/hr Q12H IV 09/11/24 09:45 09/11/24 11:34 125 MLS/HR Doxycycline Monohydrate 100 mg Q12HR PO 09/12/24 22:00 Famotidine 20 mg DAILY PO 09/12/24 10:00 Examination General examination- awake, alert, conversant, HEENT- PEERLA, no acute nasal discharge Cardiovascular- S1-S2 audible, rate and rhythm regular, no murmur Respiratory- bilateral lung crackles++ Gastrointestinal-nontender, bowel sound+. Nondistended Musculoskeletal-no acute joint swelling or tenderness or redness# Lower extremity- bilateral leg edema++ Neurological- cranial nerves intact, no acute dysarthria or dysphagia Psychiatry- denies depression or SI or HI Skin- no acute rash or purpura laboratory and microbiology Laboratory Tests 09/11/24 07:10 Test 09/11/24 07:10 Range/Units Serum Glucose 126 H 74-106 mg/dL Problem List/Assessment/Plan Problem List/Assessment/Plan Acute chest pain-rule out ACS Non STEMI type 2 Acute hypoxic respiratory failure due to acute on chronic HFpEF Acute pneumonitis acute on chronic HFrEF Hypertensive emergency Critical pulmonary hypertension Diabetes mellitus type 2 Polycythemia REBEL on CKD UTI COPD Substance abuse amphetamine Anxiety anterior right pericardial cyst Cholelithiasis Dilated right pulmonary artery Suspected liver fibrosis or cirrhosis Echo 2D-Severely dilated right ventricle. Severely reduced right ventricular systolic function severely elevated right ventricular systolic [id number] mm of mercury. Normal left ventricular size and dimension. Normal left ventricular systolic function, there is D shaped septum likely due to increased right ventricular pressure. Normal-sized left atrium. Severely dilated right atrium There is severe torrential tricuspid valve regurgitation. There is moderate pulmonary valve regurgitation. Continue injection Lasix 40 mg IV b.i.d. Continue lisinopril 20 mg p.o. daily Aspirin 81 mg p.o. daily Atorvastatin 40 mg p.o. q.h.s. Continue amlodipine 10 mg p.o. daily Carvedilol 12.5 mg p.o. q.12 hours Continue ceftriaxone 1 g IV daily Continue doxycycline 100 mg p.o. b.i.d. Continue Diflucan 100 mg p.o. daily Continue other medication as prescribed Continue sildenafil 20 mg p.o. t.i.d. as prescribed Goals of care/advance care planning; FULL CODE; discussed with the patient >15 minutes PUD prophylaxis: Famotidine DVT prophylaxis: Lovenox Plan discussed with Dr. Barragan, nursing staff, patient Total time spent on patient evaluation, chart review, assessment and plan, discussion discussion >30 minutes Plan discussed with: Patient Plan discussed with: Patient, Other (RN) My Orders My Orders Orders - BABU,MOHAMMED RESIDENT Procedure Category Date Status Time Doxycycline PHA 09/11/24 In Process 100mg/250ml 09:45 Doxycycline Tablet PHA 09/12/24 In Process (Vibramycin Tablet) 22:00 Famotidine Tablet PHA 09/12/24 In Process (Pepcid Tablet) 10:00 Pharmacy [facility] 09/11/24 In Process Clarification: 18:30 Date of Service: Sep 12, 2024 Billing Provider: OMERO BARRAGAN MD Common Visit Codes: [id number] INP/OBS CARE(MOD) TAYE ALMONTE RESIDENT Sep 11, 2024 19:54 OMERO BARRAGAN MD Sep 12, 2024 10:36
[2024-09-12 01:00] VITALS: BP_SYST 119; BP_SYST 135; BP_DIAS 50; BP_DIAS 70; PULSE 77; PULSE 88; RESP 18; TEMP 97.8; O2SAT 93
[2024-09-12 05:00] VITALS: BP 129/84; PULSE 79; RESP 18; TEMP 98.6; O2SAT 95
[2024-09-12 08:00] VITALS: PULSE 82; RESP 16; O2SAT 98
[2024-09-12 09:00] VITALS: BP 147/66; PULSE 76; RESP 18; TEMP 97.4; O2SAT 93
[2024-09-12] MEDS: FAMOTIDINE 20 MG TAB PO SCH (09:31)
[2024-09-12 10:13] LABS: Basophils # (auto) 0 10 ^3/uL (0-0.2); Basophils % (auto) 0.5 % (0.0-2.0); Eosinophils # (auto) 0 10 ^3/uL (0-0.8); Eosinophils % (auto) 0.3 % (0.0-7.0); Hematocrit 47.7 % (36.0-46.0); Hemoglobin 16.3 g/dL (12.2-16.2); Lymphocytes # (auto) 1.6 10 ^3/uL (0.4-5.4); Lymphocytes % (auto) 21.6 % (10.0-50.0); Mean Corpuscular Hemoglobin 31.2 pg (28.0-32.0); Mean Corpuscular Hgb Conc. 34.2 g/dL (32.0-36.0); Mean Corpuscular Volume 91.3 fL (80.0-100.0); Monocytes # (auto) 0.5 10 ^3/uL (0-1.3); Monocytes % (auto) 6.7 % (0.0-12.0); Neutrophils # (auto) 5.2 10 ^3/uL (1.6-8.6); Neutrophils % (auto) 70.9 % (37.0-80.0); Nucleated Red Blood Cells % 0.1 %; Platelet Count (auto) 210 10^3/uL (140-450); Red Blood Cells 5.22 10^6/uL (4.0-5.20); Red Cell Distribution Width 14.8 % (11.8-14.3); White Blood Cell 7.3 10^3/uL (4.4-10.8)
[2024-09-12 10:22] LABS: Alanine Aminotransferase 17 U/L (7-40); Anion Gap 9 (5-15); Aspartate Aminotransferase 27 U/L (13-40); BUN/Creatinine Ratio 15.2 (10.0-20.0); Calcium 9.5 mg/dL (8.7-10.4); Carbon Dioxide 28 mmol/L (20-31); Chloride 100 mmol/L (98-107); Magnesium 1.7 mg/dL (1.6-2.6); Potassium 3.5 mmol/L (3.5-5.1); Sodium 137 mmol/L (136-145)
[2024-09-12 10:23] LABS: Albumin 3.7 g/dL (3.2-4.8); Bilirubin, Total 0.8 mg/dL (0.2-1.0); Total Protein 6.4 g/dL (5.7-8.2)
[2024-09-12 10:31] LABS: Alkaline Phosphatase 147 U/L (46-116); Blood Urea Nitrogen 23 mg/dL (9-23); Glucose 175 mg/dL (74-106)
[2024-09-12] MEDS ORDERED: AMOX875T4 PO (10:33)
[2024-09-12] MEDS ORDERED: DOXY-286 PO (10:33)
[2024-09-12] MEDS ORDERED: FURO1TAB33 PO (10:34)
[2024-09-12] MEDS ORDERED: SILD20TA12 OR (10:36)
--- NOTE | 2024-09-12 10:39 | DVHDSRES ---
Discharge Summary Date of Admission Resident Creating Document: TAYE ALMONTE RESIDENT Sep 09, 2024 at 22:04 Date of Discharge: Sep 12, 2024 Admitting Diagnosis Acute hypoxic respiratory failure Labs/Diagnostic Data: Laboratory Results Test 09/12/24 09:40 09/10/24 06:44 09/10/24 00:00 09/09/24 22:42 White Blood Count 7.3 10^3/uL (4.4-10.8) Red Blood Count 5.22 10^6/uL (4.0-5.20) Hemoglobin 16.3 g/dL (12.2-16.2) Hematocrit 47.7 % (36.0-46.0) Mean Corpuscular Volume 91.3 fL (80.0-100.0) Mean Corpuscular Hemoglobin 31.2 pg (28.0-32.0) Mean Corpuscular Hemoglobin Concent 34.2 g/dL (32.0-36.0) Red Cell Distribution Width 14.8 % (11.8-14.3) Platelet Count 210 10^3/uL (140-450) Mean Platelet Volume 8.2 fL (6.9-10.8) Neutrophils (%) (Auto) 70.9 % (37.0-80.0) Lymphocytes (%) (Auto) 21.6 % (10.0-50.0) Monocytes (%) (Auto) 6.7 % (0.0-12.0) Eosinophils (%) (Auto) 0.3 % (0.0-7.0) Basophils (%) (Auto) 0.5 % (0.0-2.0) Neutrophils # (Auto) 5.2 10 ^3/uL (1.6-8.6) Lymphocytes # (Auto) 1.6 10 ^3/uL (0.4-5.4) Monocytes # (Auto) 0.5 10 ^3/uL (0-1.3) Eosinophils # (Auto) 0 10 ^3/uL (0-0.8) Basophils # (Auto) 0 10 ^3/uL (0-0.2) Nucleated Red Blood Cells 0.1 % Sodium Level 137 mmol/L (136-145) Potassium Level 3.5 mmol/L (3.5-5.1) Chloride Level 100 mmol/L (98-107) Carbon Dioxide Level 28 mmol/L (20-31) Anion Gap 9 (5-15) Blood Urea Nitrogen 23 mg/dL (9-23) Creatinine 1.51 mg/dL (0.550-1.02) Glomerular Filtration Rate Calc 42 mL/min (>90) BUN/Creatinine Ratio 15.2 (10.0-20.0) Serum Glucose 175 mg/dL (74-106) Calcium Level 9.5 mg/dL (8.7-10.4) Magnesium Level 1.7 mg/dL (1.6-2.6) Total Bilirubin 0.8 mg/dL (0.2-1.0) Aspartate Amino Transferase (AST) 27 U/L (13-40) Alanine Aminotransferase (ALT) 17 U/L (7-40) Alkaline Phosphatase 147 U/L (46-116) Total Protein 6.4 g/dL (5.7-8.2) Albumin 3.7 g/dL (3.2-4.8) Prothrombin Time 12.5 sec (9.3-11.8) Prothrombin Time INR 1.19 (0.9-1.15) Activated Partial Thromboplast Time 27.9 SEC (24.5-34.5) Hepatitis B Surface Antigen Negative (Negative) Hepatitis C Antibody Negative (Negative) Urine Color Light-yellow (Yellow) Urine Clarity Clear (Clear) Urine pH 6.0 (5.0-9.0) Urine Specific [place] 1.009 (1.001-1.035) Urine Protein 2+ (Negative) Urine Ketones Negative (Negative) Urine Blood 1+ /uL (Negative) Urine Nitrite Negative (Negative) Urine Bilirubin Negative (Negative) Urine Urobilinogen Normal mg/dL (Negative) Urine Leukocyte Esterase 3+ /uL (Negative) Urine RBC 19 /hpf (0 - 4) Urine WBC 59 /hpf (0 - 5) Urine WBC Clumps Present /hpf (None Seen) Urine Squamous Epithelial Cells Few /hpf (<5) Urine Bacteria Few /hpf (None Seen) Urine Yeast (Budding) Occasional /hpf (None Urine Glucose Normal mg/dL (Normal) Urine Test Negative (Negative) Urine Opiates Screen Neg (NEGATIVE) Urine Fentanyl Screen Neg (NEGATIVE) Urine Barbiturates Screen Neg (NEGATIVE) Urine Phencyclidine Screen Neg (NEGATIVE) Urine Amphetamines Screen Pos (NEGATIVE) Urine Benzodiazepines Screen Neg (NEGATIVE) Urine Cocaine Screen Neg (NEGATIVE) Urine Cannabinoids Screen Neg (NEGATIVE) Troponin I High Sensitivity 355 ng/L (</=34) Test 09/09/24 22:37 09/09/24 21:00 09/09/24 19:32 Influenza Type A Antigen Negative (Negative) Influenza Type B Antigen Negative (Negative) SARS-CoV-2 Antigen (Rapid) Negative (NEGATIVE) Triglycerides Level 87 mg/dL (< 150) Cholesterol Level 105 mg/dL (< 200) LDL Cholesterol 51 mg/dL (< 100) HDL Cholesterol 44 mg/dL (40-59) Thyroid Stimulating Hormone (TSH) 3.67 uIU/mL (0.55-4.78) Hemoglobin A1c 7.0 % A1C (<5.7) B-Type Natriuretic Peptide 1311.93 pg/mL (0-100) Other Laboratory Tests 09/12/24 09:40 Brief Hx & Hospital Course: Patient is a 49 years old female with past medical history of congestive heart failure, COPD, diabetes mellitus type 2, hypertension, anxiety, substance abuse methamphetamine came with a complaint of chest pain. As per patient patient has been having chest pain started 2 days before, sudden onset, 10/10 severity maximum, nature, radiating to the neck and left arm, no aggravating. Patient reported she smoked amphetamine 2 days before. Patient reported her shortness of breath has been getting worse for last 7 days. Limited patient also endorsed sweating and palpitation with the chest pain. Patient also reported some dizziness for last few days. On further inquiry patient reported he she has chronic leg swelling endorsed CN lately she has been having increased SOB micturition and urgency. Patient denied any fever, acute joint redness or swelling, sick contact, dysarthria or change in vision. On arrival to the ED 12 lead ECG showed sinus rhythm with a heart rate about 100 per minute, no acute ST segment or T-wave abnormalities. Troponins were trended were elevated with 366--> 355-->355, BNP 1311. Other lab workup revealed polycythemic with a hemoglobin 17.2, serum creatinine 1.31, HGB A1c 7, serum bilirubin 1.2, alkaline phosphatase 166, TSH 3.67, UDS positive for amphetamine. Urinalysis positive for UTI with leukocyte esterase 3+, WBC 59, RBC 19, occasional yeast, bacteria few. cCX-ray revealed-There is a 3-4 cm round soft tissue mass at the right cardiophrenic angle which is not significantly changed from 02/21/2024.1.CT head- No acute intracranial abnormality. Mild chronic microvascular ischemic change.1. There is a 3.7 x 5.4 cm anterior right pericardial cyst accounting for the abnormality on chest radiograph. Mild cardiomegaly, Small right pleural effusion and chest wall edema. Cluster of tiny nodular and tree-in-bud opacities in the left upper lobe which could reflect atypical infection or respiratory bronchiolitis. Dilatation of the main pulmonary artery which can be seen in the setting of pulmonary hypertension. Cholelithiasis. Nodular contour of the liver which could reflect fibrosis or cirrhosis. Correlate with liver enzymes and clinical history. CT angio of the chest- There is no evidence of a pulmonary arterial filling defect to suggest pulmonary embolism. The main pulmonary artery is prominent in size which can be seen the setting of pulmonary arterial hypertension. Cardiomegaly. Stable 5.4 cm pericardial cyst along the right lower heart border. Stable small right pleural effusion mild atelectasis in the right lower lobe. There is a small area of tree-in-bud nodular opacity in the posterior left upper lobe. Cholelithiasis. Echo 2D- Severely dilated right ventricle. Severely reduced right ventricular systolic function severely elevated right ventricular systolic [id number] mm of mercury. Normal left ventricular size and dimension. Normal left ventricular systolic function, there is D shaped septum likely due to increased right ventricular pressure. Normal-sized left atrium. Severely dilated right atrium. There is severe torrential tricuspid valve regurgitation. There is moderate pulmonary valve regurgitation. During hospitalization patient was treated conservatively. Patient was seen by Cardiology, recommendation reviewed and appreciated. patient's symptoms improved gradually. Patient was adamant about going home. And was breathing well in room temperature. Patient was discharged home with Augmentin 875 mg p.o. b.i.d. for 7 days, doxycycline 1 tab p.o. b.i.d. for 7 days, Lasix 20 mg p.o. b.i.d. , sildenafil sided 20 mg p.o. t.i.d.. Patient was also advised to resume other home medications. Patient was advised to follow up at the discharge clinic at [facility] in 1 week. Patient was also advised to follow up with the cardiovascular specialist in 2-4 weeks. Patient was counseled about the effect of substance abuse on health. Patient's meds were sent to the pharmacy electronically. Patient was clinically stable on discharge Past medical history: Congestive heart failure, COPD, type 2 diabetes mellitus, hypertension Past surgical history left breast mass lumpectomy, 3 C sections Social history: Patient lives with boyfriend and has a history of methamphetamine smoking for 30 years but was off methamphetamine as reported for the last 6 months, smokes a pack of cigarettes a day for the last 30 years reports to be not smoking since the last 1 month, denies alcohol, marijuana Home medications: Metformin 500 mg b.i.d., metoprolol tartrate 50 mg b.i.d., lisinopril 20 mg q.d., Lasix 20 mg q.d., amlodipine 10 mg q.d., albuterol 2 puffs b.i.d. patient reports that she has not been taking her medications recently the last 2-3 months General examination- awake, alert, conversant, HEENT- PEERLA, no acute nasal discharge Cardiovascular- S1-S2 audible, rate and rhythm regular, no murmur Respiratory- bilateral lung crackles+ Gastrointestinal-nontender, bowel sound+. Nondistended Musculoskeletal-no acute joint swelling or tenderness or redness Lower extremity- bilateral leg edema+ Neurological- cranial nerves intact, no acute dysarthria or dysphagia Psychiatry- denies depression or SI or HI Skin- no acute rash or purpura Operations or Procedures Diagnostic Imaging Report : [id number] Signed PATIENT: ZOFIA FUNEZ ACCT: [id number] UNIT: [id number] : 1975 LOC: ER ROOM / BED: / AGE / SEX: 49 / F ADM STATUS: REG ER SERVICE 25 ORDERING PHYSICIAN: TOM LAKHANI MD PROCEDURE(s): CXR2 - CHEST TWO VIEWS ROUTINE REASON: chest pain ORDER NUMBER(s): [id number], ACCESSION NUMBER(s): [id number] CHEST RADIOGRAPH Indication: chest pain Technique: Frontal and lateral view of the chest was obtained Comparison: 02/21/2024 FINDINGS: Lines and Tubes: None Lungs: Clear Pleura: There is a 3-4 cm round soft tissue mass at the right cardiophrenic angle which is not significantly changed from 02/21/2024. No pneumothorax. Cardiomediastinal contours: Unremarkable Bones: Unremarkable IMPRESSION: 1. Stable cardiac size 2. No infiltrates or effusions. 3. Stable soft tissue mass of the right cardiophrenic angle. ATED BY: DARIEL GUILLAUME Jr., DO DICTATED DATE/TIME: 09/09/242004 SIGNED BY: DARIEL GUILLAUME Jr., SIGNED DATE/TIME: 09/09/242004 CC: DIAGNOSTIC IMAGING Diagnostic Imaging Report : [id number] Signed PATIENT: ZOFIA FUNEZ ACCT: [id number] UNIT: [id number] : 1975 LOC: TELE ROOM / BED: [address] [place] [address] AGE / SEX: 49 / F ADM STATUS: ADM IN SERVICE 10 ORDERING PHYSICIAN: KIMBERLY CORDOVA RESIDENT PROCEDURE(s): HWOCT - HEAD WITHOUT CONTRAST REASON: HTN urg,Headache, numbness weakness r side, r/o acute stroke ORDER NUMBER(s): [id number], ACCESSION NUMBER(s): [id number] CLINICAL HISTORY: HTN urg,Headache, numbness weakness r side, r/o acute stroke TECHNIQUE: Helical imaging carried out from skull base to vertex without intravenous contrast. This exam was performed according to our departmental dose optimization program. Up-to-date CT equipment and radiation dose reduction techniques are utilized as appropriate. COMPARISON: None FINDINGS: Mild patchy low attenuation throughout the cerebral white matter consistent with nonspecific white matter disease. The ventricles and subarachnoid spaces are normal in size and configuration. There is no midline shift or mass effect. The archuleta white matter interfaces are maintained. The basal cisterns are patent. There is no evidence of acute intracranial hemorrhage or extra-axial fluid collection. The mastoid air cells and visualized paranasal sinuses are well-aerated aside from mild mucosal thickening of an anterior right ethmoid air cell.. IMPRESSION: 1. No acute intracranial abnormality. 2. Mild chronic microvascular ischemic change. ATED BY: SIS SCHUMACHER MD DICTATED DATE/TIME: 09/09/24 8485 SIGNED BY: SIS SCHUMACHER MD SIGNED DATE/TIME: 09/09/24 0829 CC: DIAGNOSTIC IMAGING Diagnostic Imaging Report : [id number] Signed PATIENT: ZOFIA FUNEZ ACCT: [id number] UNIT: [id number] : 1975 LOC: TELE ROOM / BED: 1016-ERT / A AGE / SEX: 49 / F ADM STATUS: ADM IN SERVICE 50 ORDERING PHYSICIAN: KIMBERLY CORDOVA RESIDENT PROCEDURE(s): CX2CT - CHEST WITHOUT CONTRAST REASON: soft tiss. mass r CP angle,rule out pneumonia, pl effusion, ORDER NUMBER(s): [id number], ACCESSION NUMBER(s): [id number] CLINICAL HISTORY: soft tiss. mass r CP angle,rule out pneumonia, pl effusion, TECHNIQUE: CT of the chest was performed without intravenous contrast. This exam was performed according to our departmental dose optimization program. Up-to-date CT equipment and radiation dose reduction techniques are utilized as appropriate. [Radimetrics Exposure Report] COMPARISON: None FINDINGS: Lower Neck: Unremarkable Axilla, Mediastinum and Linda: No oral axillary or mediastinal lymphadenopathy. Limited evaluation of the linda in the absence of intravenous contrast. Heart and Great Vessels: There is a 3.7 x 5.5 cm anterior right pericardial cyst on series 3 image 40. There is mild cardiomegaly. Trace pericardial effusion. The thoracic aorta is normal in caliber. Dilatation of the main pulmonary artery measuring 3.7 cm on series 2, image 50. Airway, Lungs and Pleura: Trachea and central airways are patent. There is a small right pleural effusion. Linear bibasilar scarring or atelectasis. Cluster of tiny nodular and tree-in-bud opacities in the left upper lobe on series 3, image 17. Upper Abdomen: There is cholelithiasis in a normal caliber gallbladder. Nodular contour of the liver. Atrophic pancreas. Chest Wall and Osseous Structures: Mild chest wall edema. No destructive osseous lesion. Minor thoracic spondylosis. IMPRESSION: 1. There is a 3.7 x 5.4 cm anterior right pericardial cyst accounting for the abnormality on chest radiograph. 2. Mild cardiomegaly, Small right pleural effusion and chest wall edema. 3. Cluster of tiny nodular and tree-in-bud opacities in the left upper lobe which could reflect atypical infection or respiratory bronchiolitis. 4. Dilatation of the main pulmonary artery which can be seen in the setting of pulmonary hypertension. 5. Cholelithiasis. 6. Nodular contour of the liver which could reflect fibrosis or cirrhosis. Correlate with liver enzymes and clinical history. ATED BY: SIS SCHUMACHER MD DICTATED DATE/TIME: 09/10/24229 SIGNED BY: SIS SCHUMACHER MD SIGNED DATE/TIME: 09/10/24229 CC: DIAGNOSTIC IMAGING Diagnostic Imaging Report : [id number] Signed PATIENT: ZOFIA FUNEZ ACCT: [id number] UNIT: [id number] : 1975 LOC: [facility] ROOM / BED: 029 / A AGE / SEX: 49 / F ADM STATUS: ADM IN SERVICE 1143 ORDERING PHYSICIAN: DELFINA SIMPSON RESIDENT PROCEDURE(s): CTACH - CT ANGIO CHEST CONTRAST REASON: Critical pul htn, rule out PE ORDER NUMBER(s): [id number], ACCESSION NUMBER(s): [id number] CTA CHEST INDICATION: Critical pul htn, rule out PE TECHNIQUE: Multidetector CTA of the chest was performed of the chest with 100 cc of intravenous contrast. PULMONARY ANGIOGRAPHY PROTOCOL was utilized using a bolus-tracking technique centered on the main pulmonary artery. Axial, coronal and sagittal multiplanar and MIP reformats were performed. Radiation Dose Information: CT Dose: CTDI volume is 29.6 mGy. Dose-length product is 711.91 mGy*cm The dose indicators for CT are the volume Computed Tomography (CT) Dose Index (CTDIvol) and the Dose Length Product (DLP), and are measured in units of mGy and mGy-cm, respectively. These indicators are not patient dose, but values generated from the CT scanner acquisition factors. The report includes radiation exposure data for exposures received during this examination. Comparison: 09/09/2024. Findings: Pulmonary artery: There is no evidence of a pulmonary arterial filling defect to suggest pulmonary embolism. The main pulmonary artery prominent in size which can be seen in setting of pulmonary arterial hypertension. Lungs/Pleura: There is stable small right pleural effusion. There is mild atelectasis in the right lower lobe. There is small area of tree-in-bud nodular opacity in the posterior left upper lobe. There is mild scarring versus atelectasis in the left lower lobe. Heart/Vascular Structures: There is cardiomegaly. There is no pericardial effusion. There is a 5.4 cm pericardial cysts along the right lower heart border. Lymph Nodes: There is no evidence of thoracic lymphadenopathy. Musculoskeletal: No acute osseous abnormality. Upper abdomen: There are gallstones in the gallbladder. IMPRESSION: 1. There is no evidence of a pulmonary arterial filling defect to suggest pulmonary embolism. 2. The main pulmonary artery is prominent in size which can be seen the setting of pulmonary arterial hypertension. 3. Cardiomegaly. Stable 5.4 cm pericardial cyst along the right lower heart border. 4. Stable small right pleural effusion mild atelectasis in the right lower lobe. There is a small area of tree-in-bud nodular opacity in the posterior left upper lobe. 5. Cholelithiasis. HS:Y ATED BY: NICHOLAS CARBONE MD DICTATED DATE/TIME: 09/10/24 150 SIGNED BY: NICHOLAS CARBONE MD SIGNED DATE/TIME: 09/10/24 150 CC: Condition at Discharge: Stable Final Diagnosis/Problems List Acute chest pain-likely from methamphetamine use Non STEMI type 2 Acute hypoxic respiratory failure due to acute on chronic HFpEF Acute pneumonitis acute on chronic HFpEF Hypertensive emergency Critical pulmonary hypertension Diabetes mellitus type 2 Polycythemia REBEL on CKD UT COPD Substance abuse amphetamine Anxiety anterior right pericardial cyst Cholelithiasis Dilated right pulmonary artery Suspected liver fibrosis or cirrhosis Discharge Disposition: Home Discharge Instruct/Medications Diet: Consistent carbohydrate, Cardiac 2g Na,low cholest Activity: Light activity Follow Up/Referral: Please follow up at the discharge clinic at [facility] in 1 week Please follow up with the cardiovascular specialist in 2-4 weeks Please be compliant with the meds as prescribed Patient was counseled about the effect of methamphetamine on health Medications: Lasix 20 mg p.o. b.i.d. Sildenafil 20 mg p.o. t.i.d. Aspirin 81 mg p.o. daily Atorvastatin 40 mg q.h.s. Doxycycline 100 mg p.o. b.i.d. Augmentin 875 mg p.o. b.i.d. for 5 days Diflucan 100 mg p.o. daily for 3 days Resume other home medications Discharge Statement: "Patient was advised to return to the ER or call 911 if any headaches, dizziness, shortness of breath, chest pain, abdominal pain, bleeding, fevers, or worsening of medical condition. Patient was counseled about treatment plan, medications, possible side effects, patientverbalized understanding. All questions were answered to the best of my ability. This discharge took greater then 30 minutes in planning, reviewing documentation, counseling the patient, and discussing with other team members." ASSESSMENT ASSESSMENT Assessment Acute chest pain-likely from methamphetamine use Non STEMI type 2 Acute hypoxic respiratory failure due to acute on chronic HFpEF Acute pneumonitis acute on chronic HFpEF Hypertensive emergency Critical pulmonary hypertension Diabetes mellitus type 2 Polycythemia REBEL on CKD UTI COPD Substance abuse amphetamine Anxiety anterior right pericardial cyst Cholelithiasis Dilated right pulmonary artery Suspected liver fibrosis or cirrhosis Date of Service: Sep 12, 2024 Billing Provider: OMERO BARRAGAN MD Common Visit Codes: 11645-NRA/OBS DISCH DAY >30min TAYE ALMONTE RESIDENT Sep 12, 2024 10:39 OMERO BARRAGAN MD Sep 13, 2024 10:20
[2024-09-12 12:46] VITALS: BP 114/64; PULSE 91; RESP 18; TEMP 98.7; O2SAT 92
[2024-09-12 13:36] VITALS: BP 147/66; PULSE 76; RESP 16; TEMP 37.1; O2SAT 97
[2024-09-12] MEDS ORDERED: FLUC100T PO (14:52)
[2024-09-12] MEDS ORDERED: DOXYCYCLINE 100 MG TAB/CAP PO SCH (22:00)
--- NOTE | 2024-09-13 05:07 | ECG ---
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
--- NOTE | 2024-09-14 13:00 | ECG ---
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
== END 2024-09-12 17:05 | disposition home or self-care (01) | DRG 133 ==
LOC: ER 19:18 → TELE 22:04 → TELE-WESTW 09-10 02:30
PROVIDERS: ADMIT Internal Medicine; ATTEND Internal Medicine
DX: J96.01 Acute respiratory failure with hypoxia (principal); I21.A1 Myocardial infarction type 2; I50.43 Acute on chronic combined systolic (congestive) and diastolic (congestive) heart failure; N17.9 Acute kidney failure, unspecified; I27.20 Pulmonary hypertension, unspecified; J15.9 Unspecified bacterial pneumonia; I13.0 Hypertensive heart and chronic kidney disease with heart failure and stage 1 through stage 4 chronic kidney disease, or unspecified chronic kidney disease; E11.22 Type 2 diabetes mellitus with diabetic chronic kidney disease; D75.1 Secondary polycythemia; F17.210 Nicotine dependence, cigarettes, uncomplicated; I16.1 Hypertensive emergency; F41.9 Anxiety disorder, unspecified; K80.20 Calculus of gallbladder without cholecystitis without obstruction; N39.0 Urinary tract infection, site not specified; N18.9 Chronic kidney disease, unspecified; J44.89 Other specified chronic obstructive pulmonary disease; I07.1 Rheumatic tricuspid insufficiency; I37.1 Nonrheumatic pulmonary valve insufficiency; T43.625A Adverse effect of amphetamines, initial encounter; J98.4 Other disorders of lung; K74.00 Hepatic fibrosis, unspecified; K74.60 Unspecified cirrhosis of liver; Z79.4 Long term (current) use of insulin; Q24.8 Other specified congenital malformations of heart; Y92.89 Other specified places as the place of occurrence of the external cause; Z79.899 Other long term (current) drug therapy
CPT/HCPCS: 36415; 70450; 71046; 71250; 71275; 80048; 80053; 80061; 80307; 81001; 81025; 83036; 83735; 83880; 84443; 84484; 85025; 85610; 85730; 86803; 87340; 87426; 87804; 93005; 93306; 96374; 96375; 99291; G0378; J3490

== ENCOUNTER 2024-12-07 23:26 | Inpatient (IN) | payer MEDICAID ==
[~2024-12-07] VITALS: Ht 160 cm; Wt 85.2 kg
[~2024-12-07 23:26] MED LIST changes: +AMLO1TAB23 PO; +AMOX875T4 PO; +ASPI1TAB20 PO; +DOXY-286 PO; +FLUC100T PO; +FURO1TAB33 PO; +FURO20TA3 PO; +LISI20TA56 PO; +METF-370 PO; +METO1TAB77 PO; +SILD20TA12 OR
[2024-12-08] VITALS (8 sets, daily range): BP systolic 106–140; BP diastolic 63–90; PULSE 80–95; RESP 18–23; O2SAT 92–99
[2024-12-08 01:00] LABS: Basophils # (auto) 0.1 10 ^3/uL (0-0.2); Basophils % (auto) 1.3 % (0.0-2.0); Eosinophils # (auto) 0 10 ^3/uL (0-0.8); Eosinophils % (auto) 0.1 % (0.0-7.0); Hematocrit 52.7 % (36.0-46.0); Hemoglobin 17.2 g/dL (12.2-16.2); Lymphocytes # (auto) 1.4 10 ^3/uL (0.4-5.4); Lymphocytes % (auto) 21.3 % (10.0-50.0); Mean Corpuscular Hemoglobin 30.7 pg (28.0-32.0); Mean Corpuscular Hgb Conc. 32.6 g/dL (32.0-36.0); Monocytes # (auto) 0.4 10 ^3/uL (0-1.3); Monocytes % (auto) 6.2 % (0.0-12.0); Neutrophils # (auto) 4.8 10 ^3/uL (1.6-8.6); Neutrophils % (auto) 71.1 % (37.0-80.0); Nucleated Red Blood Cells % 0.2 %; Platelet Count (auto) 192 10^3/uL (140-450); Red Blood Cells 5.61 10^6/uL (4.0-5.20); Red Cell Distribution Width 16.5 % (11.8-14.3); White Blood Cell 6.8 10^3/uL (4.4-10.8)
[2024-12-08] MEDS: cloNIDine HCL 0.1 MG TAB PO ONE (01:04)
[2024-12-08 01:18] LABS: Alanine Aminotransferase 30 U/L (7-40); Albumin 4.1 g/dL (3.2-4.8); Anion Gap 10 (5-15); BUN/Creatinine Ratio 11.2 (10.0-20.0); Blood Urea Nitrogen 14 mg/dL (9-23); Calcium 10.1 mg/dL (8.7-10.4); Carbon Dioxide 26 mmol/L (20-31); Chloride 106 mmol/L (98-107); Potassium 3.9 mmol/L (3.5-5.1); Sodium 142 mmol/L (136-145); Total Protein 6.8 g/dL (5.7-8.2)
[2024-12-08 01:25] LABS: Alkaline Phosphatase 160 U/L (46-116); Aspartate Aminotransferase 40 U/L (13-40); Bilirubin, Total 1.9 mg/dL (0.2-1.0); Glucose 127 mg/dL (74-106)
--- NOTE | 2024-12-08 01:25 | DVH ---
CHEST RADIOGRAPH Indication: SOB Technique: Single frontal view of the chest was obtained COMPARISON: XY CHEST PORTABLE on DOS: 09/09/2024 FINDINGS / IMPRESSION: Lines and Tubes: None Lungs / Pleura: Lung volumes are low. Small right-sided pleural effusion and atelectasis/consolidatio n at the right lung base. Pulmonary vascular congestion. Cardiomediastinal contours: Mild cardiomegaly.
[2024-12-08] MEDS: FUROSEMIDE 40 MG/4 ML VIAL IV ONE ×2 (01:34→10:57)
[2024-12-08] MEDS: ASPirin 325 MG TAB PO ONE (01:34)
[2024-12-08] MEDS: HYDROcodone-ACET 5/325MG TAB PO ONE (02:09)
[2024-12-08] MEDS: NITROGLYCERIN 0.4 MG SL TAB SL ONE (02:14)
[2024-12-08] MEDS: hydrALAZINE HCL 20 MG/ML VL IV ONE (02:14)
[2024-12-08 02:23] LABS: Urine Bacteria None Seen /hpf (None Seen)
--- NOTE | 2024-12-08 02:25 | ED.PDOC ---
SOB-HPI HPI Comments 49-year-old female with past medical history pertinent for HTN, CHF, asthma, presents to ED for shortness of breath x2 weeks, associated with chest pressure and left shoulder pain. Patient currently rates her pain as 9/10 in severity. Patient denies any fever, chills, nausea, vomiting. She reports using meth yesterday. She states that she is noncompliant with her prescribed medications. Chief Complaint: Shortness of Breath Time Seen by MD: 23:42 Primary Care Provider: SHANE Lee notes: Nurses Notes, Medications, Allergies Mode of Arrival: Ambulatory Past Medical History PAST MEDICAL HISTORY: Asthma, CHF, HTN Surgical History: Denies all surgeries SALES SUPPORT SPECIALIST History: No Pertinent SALES SUPPORT SPECIALIST History Family History Family History: Reviewed,noncontributory to illness, No family hx of Cancer, No family hx of DM, No family hx of Heart boo, No family hx of HTN, No family hx o fKidney boo, No family hx of Liver boo, No family hx of Lung boo, No family hx of Stroke Social History Smoker: Cigarettes, Less Than 1 Pack/Day Alcohol: Denies ETOH Use Drugs: Methamphetamine Lives In: Home Constitutional: denies: chills, diaphoresis, fatigue, fever, malaise, sweats, weakness, others EENTM: denies: blurred vision, double vision, ear bleeding, ear discharge, ear drainage, ear pain, ear ringing, eye pain, eye redness, hearing loss, mouth pain, mouth swelling, nasal discharge, nose bleeding, nose congestion, nose pain, photophobia, tearing, throat pain, throat swelling, voice changes, others Respiratory: reports: SOB at rest, shortness of breath, SOB with excertion; denies: cough, hemoptysis, orthopnea, stridor, wheezing, others Cardiovascular: reports: chest pain; denies: dizzy spells, diaphoresis, Dyspnea on exertion, edema, irregular heart beat, left arm pain, lightheadedness, palpitations, PND, syncope, others Gastrointestinal: denies: abdomen distended, abdominal pain, blood streaked bowels, constipated, diarrhea, dysphagia, difficulty swallowing, hematemesis, melena, nausea, poor appetite, poor fluid intake, rectal bleeding, rectal pain, vomiting, others Genitourinary: denies: abnormal vagina bleeding, burning, dyspareunia, dysuria, flank pain, frequency, hematuria, incontinence, pain, , vagina di scharge, urgency, others Neurological: denies: dizziness, fainting, headache, left sided numbness, left sided weakness, numbness, paresthesia, pre-existing deficit, right sided numbness, right sided weakness, seizure, speech problems, tingling, tremors, weakness, others Musculoskeletal: denies: back pain, gout, joint pain, joint swelling, muscle pain, muscle stiffness, neck pain, others Integumetry: denies: bruises, change in color, change in hair/nails, dryness, laceration, lesions, lumps, rash, wounds, others Allergic/Immunocompromised: denies: Difficulty Healing, Frequent Infections, Hives, Itching, others Hematologic/Lymphatic: denies: anemia, blood clots, easy bleeding, easy bruising, swollen glands, others Endocrine: denies: excessive hunger, excessive sweating, excessive thirst, excessive urination, flushing, intolerance to cold, intolerance to heat, unexplained weight gain, unexplained weight loss, others Psychiatric: denies: anxiety, bipolar disorder, depression, hopeless, panic disorder, schizophrenia, sleepless, suicidal, others All Other Systems: Reviewed and Negative Physical Exam General Appearance: Mild Distress, Normal HEENT: Normal ENT Inspection, Pharynx Normal, TMs Normal Neck: Full Range of Motion, Non-Tender, Normal, Normal Inspection Respiratory: Chest Non-Tender, No Accessory Muscle Use, Respiratory Distress, Other (Decreased breath sounds in all lung rudolph.) Cardiovascular: No Edema, No JVD, No Murmur, No Gallop, Normal Peripheral Pulses, Regular Rate/Rhythm Breast Exam: Deferred Gastrointestinal: No Organomegaly, Non Tender, No Pulsatile Mass, Normal Bowel Sounds, Soft Genitalia: Deferred Pelvic: Deferred Rectal: Deferred Extremities: Leg edema (2+ pitting edema bilaterally.), No calf tenderness, Normal capillary refill, Normal inspection, Normal range of motion, Non-tender Musculoskeletal : Apperance: Normal Neurologic: Alert, gas analyst II-XII nml as Tested, No Motor Deficits, Normal Affect, Normal Mood, No Sensory Deficits Cerebellar Function: Normal Reflexes: Normal Skin: Dry, Normal Color, Warm Lymphatic: No Adenopathy EKG EKG : Pulse Rate (adult): 92 Pledger: Normal Cardiac Rhythm: NSR Block: None Hypertrophy: LAE ST: Nonsp Was a procedure done? Was a procedure done?: No Differential Dx Differential Diagnosis: Asthma, Bronchitis, CHF, Myocardial infarction, Pneumothorax X-Ray, Labs, Meds, VS Vital Signs Date Time Temp Pulse Resp B/P (MAP) Pulse Ox O2 Delivery O2 Flow Rate FiO2 12/08/24 02:28 93 24 172/107 (128) 12/08/24 02:25 92 12/08/24 02:14 206/146 12/08/24 02:04 206/146 12/08/24 02:00 22 206/146 (166) 92 12/08/24 01:34 185/140 12/08/24 01:04 196/143 12/08/24 00:53 90 20 92 Nasal Cannula* 3 32 12/08/24 00:51 98.0 92 25 199/135 (156) 91 98.0 12/08/24 00:36 93 12/08/24 00:06 92 12/07/24 23:50 94 Nasal Cannula* 4 36 12/07/24 23:50 97.9 98 24 195/137 (156) 88 97.9 Lab Test 12/08/24 01:17 12/08/24 00:25 Range/Units Troponin I High Sensitivity 342 *H 331 *H </=34 ng/L White Blood Count 6.8 4.4-10.8 10^3/uL Red Blood Count 5.61 H 4.0-5.20 10^6/uL Hemoglobin 17.2 H 12.2-16.2 g/dL Hematocrit 52.7 H 36.0-46.0 % Mean Corpuscular Volume 94.0 80.0-100.0 fL Mean Corpuscular Hemoglobin 30.7 28.0-32.0 pg Mean Corpuscular Hemoglobin Concent 32.6 32.0-36.0 g/dL Red Cell Distribution Width 16.5 H 11.8-14.3 % Platelet Count 192 140-450 10^3/uL Mean Platelet Volume 8.0 6.9-10.8 fL Neutrophils (%) (Auto) 71.1 37.0-80.0 % Lymphocytes (%) (Auto) 21.3 10.0-50.0 % Monocytes (%) (Auto) 6.2 0.0-12.0 % Eosinophils (%) (Auto) 0.1 0.0-7.0 % Basophils (%) (Auto) 1.3 0.0-2.0 % Neutrophils # (Auto) 4.8 1.6-8.6 10 ^3/uL Lymphocytes # (Auto) 1.4 0.4-5.4 10 ^3/uL Monocytes # (Auto) 0.4 0-1.3 10 ^3/uL Eosinophils # (Auto) 0 0-0.8 10 ^3/uL Basophils # (Auto) 0.1 0-0.2 10 ^3/uL Nucleated Red Blood Cells 0.2 % Sodium Level 142 136-145 mmol/L Potassium Level 3.9 3.5-5.1 mmol/L Chloride Level 106 98-107 mmol/L Carbon Dioxide Level 26 20-31 mmol/L Anion Gap 10 5-15 Blood Urea Nitrogen 14 9-23 mg/dL Creatinine 1.25 H 0.550-1.02 mg/dL Glomerular Filtration Rate Calc 52 >90 mL/min BUN/Creatinine Ratio 11.2 10.0-20.0 Serum Glucose 127 H 74-106 mg/dL Lactic Acid Level 1.9 0.4-2.0 mmol/L Calcium Level 10.1 8.7-10.4 mg/dL Total Bilirubin 1.9 H 0.2-1.0 mg/dL Aspartate Amino Transferase (AST) 40 13-40 U/L Alanine Aminotransferase (ALT) 30 7-40 U/L Alkaline Phosphatase 160 H 46-116 U/L B-Type Natriuretic Peptide 1331.91 0-100 pg/mL Total Protein 6.8 5.7-8.2 g/dL Albumin 4.1 3.2-4.8 g/dL Current Medications Medications (Trade) Dose Ordered Sig/Carl Route Start Time Stop Time Status Last Admin Clonidine HCl (Catapres Tablet) 0.2 mg ONCE ONCE PO 12/08/24 01:00 12/08/24 01:01 DC 12/08/24 01:04 Furosemide (Lasix Injection) 40 mg ONCE ONCE IV 12/08/24 01:15 12/08/24 01:16 DC 12/08/24 01:34 Aspirin 325 mg ONCE ONCE PO 12/08/24 01:30 12/08/24 01:31 DC 12/08/24 01:34 Acetaminophen/ Hydrocodone Bitart ([place] 5/325MG Tab) 1 tab ONCE ONCE PO 12/08/24 02:00 12/08/24 02:06 DC 12/08/24 02:09 Hydralazine HCl (Apresoline Injection) 20 mg ONCE ONCE IV 12/08/24 02:15 12/08/24 02:16 DC 12/08/24 02:14 X-Ray, Labs, Meds, VS Comment CXR FINDINGS / IMPRESSION: Lines and Tubes: None Lungs / Pleura: Lung volumes are low. Small right-sided pleural effusion and at electasis/consolidation at the right lung base. Pulmonary vascular congestion. Cardiomediastinal contours: Mild cardiomegaly. MDM: Patient with history as above presented with shortness of breath. History obtained from patient. Patient was nontoxic, stable, afebrile, ambulatory, mild distress. Exam as above. Labs reviewed. CBC did not show leukocytosis. CMP did not show significant electrolyte abnormalities. Creatinine mildly elevated at 1.25. BUN within normal limits. Troponin was elevated 331 and 342. Pending 3rd troponin. BNP elevated at 1331.9. Urinalysis pending. Independently reviewed imaging. Chest x-ray showed pulmonary vascular congestion with pleural effusion. Reviewed external records. All findings were discussed with the christ ent. Differential diagnosis considered. Overall presentation is consistent with NSTEMI, CHF exacerbation, hypertensive emergency. Low suspicion for STEMI, pneumonia. Patient was treated with clonidine, hydralazine, IV Lasix, however her blood pressure remained high. Also ordered nitroglycerin, however patient denied because she states it makes her "pass out". Patient also continued to have shortness of breath with 2 L on nasal cannula. Patient will be placed on an oxygen mask. Patient will be admitted for further evaluation due to NSTEMI and acute CHF exacerbation. Disposition: Admit This medical document was created using the Wheel[employer] dictation system. Although this document has been carefully reviewed, there may still be some phonetic and typographical errors, which are due to imperfections of the software program, and do not reflect any compromise in the patient's medical care. Time of 1ST Reevaluation: 02:21 Reevaluation 1ST: Unchanged Patient Education/Counseling: Diagnosis, Treatment, Prognosis, Need For Follow Up Family Education/Counseling: No Family Present Departure 1 Departure Time of Disposition: 02:21 Impression: Primary Impression: Non-STEMI (non-ST elevated myocardial infarction) Additional Impressions: CHF exacerbation Qualified Codes: I50.9 - Heart failure, unspecified Elevated troponin Hypertensive emergency Disposition: 09 ADMITTED INPATIENT Condition: Fair Critical Care Note Critical Care Time?: Yes (30 min-critical care time only) Critical care comment: The patient's condition required urgent complex decision-making to assess and prevent vital organ system failure. In order to prevent imminent or life threatening deterioration in the patient's condition, management required frequent reassessment of the clinical status at bedside, of vital signs, res ponse to interventions and consultations with other providers. Stability Stability form required: No Heart Score Heart Score: Heart Score Response (Comments) Value History Moderate Suspicious 1 EKG Repolarization Disturb 1 Age 45-64 1 Risk Factors >3 or Hx ASHD 2 Troponin >3 x's Normal limit 2 Total 7 SAULMAYELIN RACHEL [facility] Dec 08, 2024 02:25
[2024-12-08 02:43] LABS: Urine Blood 3+ /uL (Negative); Urine Clarity Turbid (Clear); Urine Color Yellow (Yellow); Urine Hyaline Cast FEW /lpf (0 - 2); Urine Mucus FEW (None Seen); Urine Protein, UAD 3+ (Negative); Urine Specific Gravity 1.027 (1.001-1.035); Urine Squamous Epithelial Cell MOD /hpf (<5); Urine Urobilinogen 4 mg/dL (Negative); Urine WBC 14 /HPF (0-5)
[2024-12-08] MEDS: LORazepam 2MG/ML-1ML VIAL IV ONE (02:45)
[2024-12-08] MEDS: FUROSEMIDE 100 MG/10ML VIAL IV ONE (04:03)
[2024-12-08] MEDS ORDERED: NITROGLYCERIN 0.4 MG SL TAB SL PRN (04:15)
[2024-12-08] MEDS ORDERED: MORPHINE SULFATE INJ 2 MG/ml SYRG IV PRN (04:15)
[2024-12-08] MEDS ORDERED: ACETAMINOPHEN 325 MG TAB PO PRN (04:15)
[2024-12-08] MEDS ORDERED: ONDANSETRON HCL 4 MG/2 ML VIAL IV PRN (04:15)
--- NOTE | 2024-12-08 04:42 | DVHHP2 ---
History of Present Illness Reason for Visit: Shortness of breath History of Present Illness 49-year-old female presents for evaluation of shortness for breath. Patient with a history of congestive heart failure is noncompliant with her medications. She is last reported using methamphetamine yesterday. Reports worsening short ness for breath over the past one-week with associated chest pressure and lower extremity swelling. No cough or fever. No other acute complaints reported. Past Medical History Hypertension, asthma, congestive heart failure, dyslipidemia, pulmonary hypertension Past Surgical History Denies Family History Noncontributory Smoke: <1 pack per day ALCOHOL: occassional Drugs: Other (Methamphetamine) Review of Systems Review of Systems Review of systems are currently negative otherwise addressed in HPI. Allergies: Coded Allergies: Codeine (Verified Allergy, Unknown, 07/16/20) Morphine (Verified Allergy, Unknown, 07/16/20) Medications Current Medications Medications Dose Ordered Sig/Carl Route Start Time Stop Time Status Last Admin Dose Admin Furosemide 20 mg BIDD IV 12/08/24 06:00 Sildenafil Citrate 20 mg TID@08,14,20 PO 12/08/24 08:00 Atorvastatin Calcium 10 mg HS PO 12/08/24 22:00 Amlodipine Besylate 10 mg DAILY PO 12/08/24 10:00 Lisinopril 20 mg DAILY PO 12/08/24 10:00 Metoprolol Tartrate 50 mg BID PO 12/08/24 10:00 Hydralazine HCl 10 mg Q6HP PRN IV 12/08/24 04:15 Ondansetron HCl 4 mg Q4HP PRN IV 12/08/24 04:15 Acetaminophen 650 mg Q6HP PRN PO 12/08/24 04:15 Nitroglycerin 0.4 mg Q5MINP PRN SL 12/08/24 04:15 Morphine Sulfate 2 mg Q30M PRN IV 12/08/24 04:15 Aspirin 162 mg DAILY PO 12/08/24 10:00 Exam Vital Signs Vital Signs Date Time Temp Pulse Resp B/P (MAP) Pulse Ox O2 Delivery O2 Flow Rate FiO2 12/08/24 03:30 90 22 141/90 (107) 92 12/08/24 03:00 97.8 97.8 12/08/24 00:53 Nasal Cannula* 3 32 Exam Gen: 49-year-old female in mild distress Skin: Warm, dry, normal color and texture, no rash. HEENT: Normocephalic atraumatic, mucous membranes moist and pink. Neck: Cervical and supraclavicular nodes normal without enlargement, trachea is midline, thyroid gland is normal without masses. Pulmonary: Clear to auscultation and percussion bilaterally. Cardiac: Regular rate and rhythm. No murmur Abdomen: Soft, nontender, nondistended, bowel sounds present all 4 quadrants, no guarding, no rigidity, no organomegaly. Extremities: No cyanosis, clubbing, plus two bilateral pedal edema Neuro: Cranial nerves II through XII grossly intact, normal affect and speech, no focal motor deficits. Labs/Xrays ORDERING PHYSICIAN: MAYELIN HUGHES PROCEDURE(s): CXRP - CHEST PORTABLE REASON: SOB ORDER NUMBER(s): [id number], ACCESSION NUMBER(s): [id number] CHEST RADIOGRAPH Indication: SOB Technique: Single frontal view of the chest was obtained COMPARISON: XY CHEST PORTABLE on DOS: 09/09/2024 FINDINGS / IMPRESSION: Lines and Tubes: None Lungs / Pleura: Lung volumes are low. Small right-sided pleural effusion and atelectasis/consolidation at the right lung base. Pulmonary vascular congestion. Cardiomediastinal contours: Mild cardiomegaly. ATED BY: CODEY GONG MD ORDERING PHYSICIAN: KIMBERLY CORDOVA RESIDENT PROCEDURE(s): ECIDC - ECHO 2D MODE CARDIAC DOP REASON: ?acute hf exacerbation ORDER NUMBER(s): [id number], ACCESSION NUMBER(s): [id number] APPROVED REPORT EXAM: Two-dimensional and M-mode echocardiogram with Doppler and color Doppler. Blood Pressure: 136/72 mmHg INDICATION ? acute hf exacerbation RISK FACTORS Height: 5'3, Weight: 146 DIMENSIONS LVDd 3.4 (3.8-5.7cm) LA (2D) 3.3 (1.9-4.0cm) Aortic Root 3.1 (2.0- 3.7cm) LVDs 2.3 (2.5-4.0cm) LA (MM) (1.9-4.0cm) Aortic Cusp Exc 1.8 (1.5-2.0cm) EF (%) 55.0 (55-70%) Rt. Atrium 5.7 (1.9-4.0cm) Asc. Aorta cm IVSd 1.1 (0.7-1.1cm) RV (D) (1.8-2.4cm) PWd 1.4 (0.7-1.1cm) Mitral Valve Mitral Mitral Stenosis E wave 0.52m/s MV Mean GR. mmHg A wave 0.89m/s MV Peak GR. 96mmHg E/A ratio 0.6 2D MVA cm2 DECEL Time 140ms PRESS 1/2 Time ms Aortic Valve Aortic Valve Aortic Stenosis V1 1.10m/s AO Mean GR. 4mmHg V2 1.35m/s AO Peak GR. 7mmHg LVOT Diameter 2.0 (1.8-2.4cm) Doppler ETHAN 2.56cm2 Pulmonic Valve V2 0.95m/s Tricuspid Valve TR Velocity 4.28m/s RVSP 88mmHg Conclusion Severely dilated right ventricle. Severely reduced right ventricular systolic function severely elevated right ventricular systolic [id number] mm of mercury. Normal left ventricular size and dimension. Normal left ventricular systolic function, there is D shaped septum likely due to increased right ventricular pressure. Normal-sized left atrium. Severely dilated right atrium Normal aortic valve structure and function. Normal mitral valve structure and function. There is severe torrential tricuspid valve regurgitation. There is moderate pulmonary valve regurgitation. No significant pericardial effusion. SIGNED BY: PATRICK OWENS MD SIGNED DATE/TIME: 09/10/24 4837 Labs Test 12/08/24 03:20 12/08/24 00:25 12/08/24 00:15 Range/Units Troponin I High Sensitivity 323 *H </=34 ng/L White Blood Count 6.8 4.4-10.8 10^3/uL Red Blood Count 5.61 H 4.0-5.20 10^6/uL Hemoglobin 17.2 H 12.2-16.2 g/dL Hematocrit 52.7 H 36.0-46.0 % Mean Corpuscular Volume 94.0 80.0-100.0 fL Mean Corpuscular Hemoglobin 30.7 28.0-32.0 pg Mean Corpuscular Hemoglobin Concent 32.6 32.0-36.0 g/dL Red Cell Distribution Width 16.5 H 11.8-14.3 % Platelet Count 192 140-450 10^3/uL Mean Platelet Volume 8.0 6.9-10.8 fL Neutrophils (%) (Auto) 71.1 37.0-80.0 % Lymphocytes (%) (Auto) 21.3 10.0-50.0 % Monocytes (%) (Auto) 6.2 0.0-12.0 % Eosinophils (%) (Auto) 0.1 0.0-7.0 % Basophils (%) (Auto) 1.3 0.0-2.0 % Neutrophils # (Auto) 4.8 1.6-8.6 10 ^3/uL Lymphocytes # (Auto) 1.4 0.4-5.4 10 ^3/uL Monocytes # (Auto) 0.4 0-1.3 10 ^3/uL Eosinophils # (Auto) 0 0-0.8 10 ^3/uL Basophils # (Auto) 0.1 0-0.2 10 ^3/uL Nucleated Red Blood Cells 0.2 % Sodium Level 142 136-145 mmol/L Potassium Level 3.9 3.5-5.1 mmol/L Chloride Level 106 98-107 mmol/L Carbon Dioxide Level 26 20-31 mmol/L Anion Gap 10 5-15 Blood Urea Nitrogen 14 9-23 mg/dL Creatinine 1.25 H 0.550-1.02 mg/dL Glomerular Filtration Rate Calc 52 >90 mL/min BUN/Creatinine Ratio 11.2 10.0-20.0 Serum Glucose 127 H 74-106 mg/dL Lactic Acid Level 1.9 0.4-2.0 mmol/L Calcium Level 10.1 8.7-10.4 mg/dL Total Bilirubin 1.9 H 0.2-1.0 mg/dL Aspartate Amino Transferase (AST) 40 13-40 U/L Alanine Aminotransferase (ALT) 30 7-40 U/L Alkaline Phosphatase 160 H 46-116 U/L B-Type Natriuretic Peptide 1331.91 0-100 pg/mL Total Protein 6.8 5.7-8.2 g/dL Albumin 4.1 3.2-4.8 g/dL Urine Color Yellow Yellow Urine Clarity Turbid H Clear Urine pH 6.0 5.0-9.0 Urine Specific [place] 1.027 1.001-1.035 Urine Protein 3+ H Negative Urine Ketones Negative Negative Urine Blood 3+ H Negative /uL Urine Nitrite Negative Negative Urine Bilirubin 1+ H Negative Urine Urobilinogen 4 H Negative mg/dL Urine Leukocyte Esterase Trace Negative /uL Urine RBC 102 0 - 4 /hpf Urine Microscopic WBC 14 H 0-5 /HPF Urine Squamous Epithelial Cells Mod <5 /hpf Urine Calcium Oxalate Crystals Mod None Seen Urine Bacteria None seen None Seen /hpf Urine Hyaline Casts Few 0 - 2 /lpf Urine Mucus Few None Seen Urine Glucose Normal Normal mg/dL Assessment/Plan Assessment/Plan Assessment Acute on chronic congestive heart failure NSTEMI type 2 Hypertensive urgency Methamphetamine abuse Noncompliant Pulmonary hypertension Plan Admit the patient to telemetry to the hospitalist Cardiology consultation Resume home medications Continue treatment per orders. Plan discussed with: Patient My Orders Orders - HAWKINSALYSON RUBI AGACNP Procedure Category Date Status Time * Cardiology Consult CONS 12/08/24 Transmitted 04:01 Furosemide Injection PHA 12/08/24 In Process (Lasix Injection) 06:00 Sildenafil Citrate PHA 12/08/24 In Process (Revatio) 08:00 Atorvastatin (Lipitor) PHA 12/08/24 In Process 22:00 Amlodipine Tablet PHA 12/08/24 In Process (Norvasc Tablet) 10:00 Lisinopril Tablet PHA 12/08/24 In Process (Zestril Tablet) 10:00 Metoprolol Tartrate PHA 12/08/24 In Process Tablet (Lopressor Ta 10:00 Hydralazine Injection PHA 12/08/24 In Process (Apresoline Inject 04:15 Basic Metabolic Panel LAB 12/09/24 Verified 04:00 Admit ADMIT 12/08/24 Transmitted 04:01 Ondansetron Hcl PHA 12/08/24 In Process (Zofran) 04:15 Cardiac DIET 12/08/24 Transmitted Diet-2gna,Lofat,Lochol Breakfast Condition: Fair [facility] 12/08/24 In Process 04:01 Acetaminophen Tablet PHA 12/08/24 In Process (Tylenol Tablet) 04:15 Bedrest With Bathroom [facility] 12/08/24 In Process Privileg 04:01 Nitroglycerin PHA 12/08/24 In Process Sublingual (Ntrostat 04:15 Morphine Sulfate PHA 12/08/24 In Process Injection 04:15 Stat Ekg For Chest [facility] 12/08/24 In Process Pain 04:01 Notify Md Of Changes [facility] 12/08/24 In Process From Base 04:01 Bulldozer Operator For [facility] 12/08/24 In Process 24 Hours 04:01 Emergency Dysrhythmia [facility] 12/08/24 In Process Protocol 04:01 Rhythm Strips Once [facility] 12/08/24 In Process Every Shift 04:01 Oxygen By Nasal RT 12/08/24 Transmitted Cannula 04:01 Aspirin Tablet [facility] 12/08/24 In Process 10:00 Date of Service: Dec 08, 2024 Billing Provider: ALYSON HAWKINS Common Visit Codes: [id number] INP/OBS CARE (HIGH) ALYSON HAWKINS Dec 08, 2024 04:42
[2024-12-08 05:23] LABS: COVID19 ANTIGEN SOFIA FIA NEGATIVE (NEGATIVE); Rapid Influenza A Negative (Negative); Rapid Influenza B Negative (Negative)
[2024-12-08] MEDS: FUROSEMIDE 20 MG/2 ML VIAL IV SCH ×2 (06:00→18:17)
[2024-12-08] MEDS: hydrALAZINE HCL 20 MG/ML VL IV PRN (07:22)
[2024-12-08] MEDS: SILDENAFIL CITRATE 20 MG TAB PO SCH (09:10)
[2024-12-08 09:30] LABS: Base Excess 0.9 mmol/L (-2.0-3.0)
--- NOTE | 2024-12-08 09:44 | DVH ---
Bilateral lower extremity venous duplex Clinical History: to rule out DVT Comparison: None Technique: Duplex Doppler evaluation of the deep venous systems of both lower extremities from the co mmon femoral veins to the popliteal veins including color Doppler and spectral/pulsed waveform analys is was performed. Findings: RIGHT SIDE: The common femoral vein demonstrates appropriate compressibility and waveform variability. There is compressibility/patency of the great saphenous vein at the proximal thigh. The femoral vein demonstrates appropriate compressibility and waveform variability. The deep femoral vein demonstrates appropriate compressibility and waveform variability. The popliteal vein demonstrates appropriate compressibility and waveform variability. There is color flow at the tibioperoneal trunk and in the posterior tibial vein. LEFT SIDE: The common femoral vein demonstrates appropriate compressibility and waveform variability. There is compressibility/patency of the great saphenous vein at the proximal thigh. The femoral vein demonstrates appropriate compressibility and waveform variability. The deep femoral vein demonstrates appropriate compressibility and waveform variability. The popliteal vein demonstrates appropriate compressibility and waveform variability. There is color flow at the tibioperoneal trunk and in the posterior tibial vein. Impression: 1. No right or left femoropopliteal venous thrombosis.
--- NOTE | 2024-12-08 09:50 | DVHINCON2 ---
Date Seen: Dec 08, 2024 Referring Physician MARYA Glynn Reason for Consultation CHF History of Present Illness This is a 49-year-old female who presented to the emergency room with a chief complaint of shortness of breath for two weeks. At time of assessment, the patient was found agitated and with acute SOB and associated SPO2s at 80% on 6LPM via simple mask. Information mostly obtained from records which indicate the patient presented with complaints of progressive shortness of breath associated with KINSEY, bilateral lower extremity edema, and substernal chest pain radiating to the left upper extremity. She admits to recent methamphetamine use the day prior to admission. She underwent multiple 12 lead electrocardiogram revealing a sinus rhythm with nonspecific ST changes. Troponin levels have remained flat in the 300s ng/L. Denies following up in the outpatient setting with a primary certifed refrigeration operator. SBP upon arrival was found up to the 200s mmHg. 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 Past Medical History Past medical history reviewed. No other significant than mentioned above. Past Surgical History Left lumpectomy C-sections x3 Abortions x4 Family History: Patient reports no known family medical history. Family History Family history reviewed. Social History See HPI. Denies any use of alcohol. Allergies: Coded Allergies: Codeine (Verified Allergy, Unknown, 07/16/20) Morphine (Verified Allergy, Unknown, 07/16/20) Home Meds Active Scripts Sildenafil Citrate (SILDENAFIL CITRATE) 20 Mg Tab, 20 MG OR TID for 30 Days, #90 TAB Prov:TAYE ALMONTE RESIDENT 09/12/24 Reported Medications Furosemide (Furosemide) 20 Mg Tab, 1 TAB PO DAILY for 90 Days, #90 12/08/24 Albuterol Sulfate (Albuterol Sulfate Hfa) 108 Mcg/Act Aer, 108 MCG IN UD for 28 Days, #18 09/10/24 Atorvastatin Calcium (Lipitor) 10 Mg Tab, 1 TAB PO DAILY for 90 Days, #90 09/10/24 Amlodipine Besylate (Amlodipine Besylate) 10 Mg Tab, 1 TAB PO DAILY for 90 Days, #90 09/10/24 Metformin Hydrochloride (Metformin Hcl) 500 Mg Tab, 1 TAB PO BID for 90 Days, #180 09/10/24 Aspirin (Aspir-81) 81 Mg Tab, 1 TAB PO DAILY for 30 Days, #30 09/10/24 Metoprolol Tartrate (Lopressor) 50 Mg Tab, 1 TAB PO BID for 90 Days, #180 09/10/24 Lisinopril (Lisinopril) 20 Mg Tab, 1 TAB PO DAILY for 90 Days, #90 09/10/24 Home Meds Home medications reviewed. Current Medications Current Medications Medications (Trade) Dose Ordered Sig/Carl Route PRN Reason Start Time Stop Time Status Last Admin Furosemide (Lasix Injection) 20 mg BIDD IV 12/08/24 06:00 Sildenafil Citrate (Revatio) 20 mg TID@08,14,20 PO 12/08/24 08:00 12/08/24 09:10 Atorvastatin Calcium (Lipitor) 10 mg HS PO 12/08/24 22:00 Amlodipine Besylate (Norvasc Tablet) 10 mg DAILY PO 12/08/24 10:00 Lisinopril (Zestril Tablet) 20 mg DAILY PO 12/08/24 10:00 Metoprolol Tartrate (Lopressor Tablet) 50 mg BID PO 12/08/24 10:00 Hydralazine HCl (Apresoline Injection) 10 mg Q6HP PRN IV SBP>150 12/08/24 04:15 12/08/24 07:22 Ondansetron HCl (Zofran) 4 mg Q4HP PRN IV NAUSEA / VOMITING 12/08/24 04:15 Acetaminophen (Tylenol Tablet) 650 mg Q6HP PRN PO PAIN SCALE 1-3 OR TEMP>100.4 12/08/24 04:15 Nitroglycerin (Ntrostat Sublingual) 0.4 mg Q5MINP PRN SL FOR CHEST PAIN 12/08/24 04:15 Morphine Sulfate 2 mg Q30M PRN IV FOR CHEST PAIN 12/08/24 04:15 Aspirin 162 mg DAILY PO 12/08/24 10:00 Review of Systems Constitutional: No symptom reported Ears, Nose, & Throat: No symptom reported Eyes: No symptom reported Neurological: No symptoms reported Pulmonary/Respiratory: SOB Cardiovascular: Chest pain Gastrointestinal: No symptom reported Genitourinary: No symptom reported Musculoskeletal: No symptom reported Skin: No symptom reported Psychiatric: No symptom reported Endocrine: No symptom reported Hemotologic/Lymphatic: No symptom reported Vital Signs Vital Signs Date Time Temp Pulse Resp B/P (MAP) Pulse Ox O2 Delivery O2 Flow Rate FiO2 12/08/24 08:00 Simple Mask* 6 50 12/08/24 08:00 96.9 88 22 103/59 (74 93 96.9 Physical Exam General Appearance: Agitated. Chronically ill. Unkept. Moderate acute respiratory distress Head Exam: Normal inspection Neck Exam: Normal inspection. Non-tender. Normal alignment Pulmonary/Respiratory: Chest non-tender. Crackles to bilateral breath sounds Cardiovascular/Chest: Regular rate and rhythm. S1, S2. Sinus rhythm. Diastolic murmur II/. Positive JVD. Peripheral Pulses: 2+ Radial (R). 2+ Radial (L). 2+ Pedal (R). 2+ Pedal (L) Abdominal Exam: Normal bowel sounds. Soft. Nontender. No hepatospenomegaly. No masses Ankle Exam: Positive ankle pitting edema, 2+ Lower extremities: Positive lower extremity pitting edema, 2+ Neuro/Mental Status: A&O x4. Coherent Thoughts/Psych: Normal thought pattern. Agitated, anxious Appearance: Moderate acute respiratory distress Skin Exam: Erythema to bilateral lower extremities Labs/Diagnostic Data Labs Test 12/08/24 09:23 12/08/24 09:00 12/08/24 04:51 12/08/24 03:20 Range/Units Blood Gas Specimen Type Arterial Blood Gas Sample Site Right radial Blood Gas Patient Temperature 37.0 Arterial Blood Date Drawn [id number] Arterial Blood pH 7.535 H 7.350-7.450 Arterial Blood Partial Pressure CO2 26.0 L 32.0-45.0 mmHg Arterial Blood Partial Pressure O2 49.7 *L 83.0-108.0 mmHg Arterial Blood HCO3 21.5 21.0-28.0 mmol/L Arterial Blood Oxygen Saturation 86.3 L 94.0-98.0 % Arterial Blood Base Excess 0.9 -2.0-3.0 mmol/L Arterial Blood Oxyhemoglobin 85.3 L 94.0-98.0 % Arterial Blood Carboxyhemoglobin 0.8 0.5-1.5 % Arterial Blood Methemoglobin 0.4 0.0-1.5 % Pieter Test Yes Blood Gas Total Hemoglobin 18.30 *H 12.0-16.0 g/dL Blood Gas Liter Flow 0.00 Blood Gas Modality Room air FiO2 % 21.0 Specimen Drawn By Freezer Machine Operator luke castañeda Blood Gas Critical Value Read Back Yes Blood Gas Notified Whom jono Trivedi Blood Gas Notified Time [id number] Blood Gas Notified By Freezer Machine Operator mychal goodson Influenza Type A Antigen Negative Negative Influenza Type B Antigen Negative Negative SARS-CoV-2 Antigen (Rapid) Negative NEGATIVE Troponin I High Sensitivity 323 *H </=34 ng/L Thyroid Stimulating Hormone (TSH) 4.37 0.55-4.78 uIU/mL Test 12/08/24 00:25 12/08/24 00:15 Range/Units White Blood Count 6.8 4.4-10.8 10^3/uL Red Blood Count 5.61 H 4.0-5.20 10^6/uL Hemoglobin 17.2 H 12.2-16.2 g/dL Hematocrit 52.7 H 36.0-46.0 % Mean Corpuscular Volume 94.0 80.0-100.0 fL Mean Corpuscular Hemoglobin 30.7 28.0-32.0 pg Mean Corpuscular Hemoglobin Concent 32.6 32.0-36.0 g/dL Red Cell Distribution Width 16.5 H 11.8-14.3 % Platelet Count 192 140-450 10^3/uL Mean Platelet Volume 8.0 6.9-10.8 fL Neutrophils (%) (Auto) 71.1 37.0-80.0 % Lymphocytes (%) (Auto) 21.3 10.0-50.0 % Monocytes (%) (Auto) 6.2 0.0-12.0 % Eosinophils (%) (Auto) 0.1 0.0-7.0 % Basophils (%) (Auto) 1.3 0.0-2.0 % Neutrophils # (Auto) 4.8 1.6-8.6 10 ^3/uL Lymphocytes # (Auto) 1.4 0.4-5.4 10 ^3/uL Monocytes # (Auto) 0.4 0-1.3 10 ^3/uL Eosinophils # (Auto) 0 0-0.8 10 ^3/uL Basophils # (Auto) 0.1 0-0.2 10 ^3/uL Nucleated Red Blood Cells 0.2 % Sodium Level 142 136-145 mmol/L Potassium Level 3.9 3.5-5.1 mmol/L Chloride Level 106 98-107 mmol/L Carbon Dioxide Level 26 20-31 mmol/L Anion Gap 10 5-15 Blood Urea Nitrogen 14 9-23 mg/dL Creatinine 1.25 H 0.550-1.02 mg/dL Glomerular Filtration Rate Calc 52 >90 mL/min BUN/Creatinine Ratio 11.2 10.0-20.0 Serum Glucose 127 H 74-106 mg/dL Hemoglobin A1c 6.6 H <5.7 % A1C Lactic Acid Level 1.9 0.4-2.0 mmol/L Calcium Level 10.1 8.7-10.4 mg/dL Total Bilirubin 1.9 H 0.2-1.0 mg/dL Aspartate Amino Transferase (AST) 40 13-40 U/L Alanine Aminotransferase (ALT) 30 7-40 U/L Alkaline Phosphatase 160 H 46-116 U/L B-Type Natriuretic Peptide 1331.91 0-100 pg/mL Total Protein 6.8 5.7-8.2 g/dL Albumin 4.1 3.2-4.8 g/dL Urine Color Yellow Yellow Urine Clarity Turbid H Clear Urine pH 6.0 5.0-9.0 Urine Specific [place] 1.027 1.001-1.035 Urine Protein 3+ H Negative Urine Ketones Negative Negative Urine Blood 3+ H Negative /uL Urine Nitrite Negative Negative Urine Bilirubin 1+ H Negative Urine Urobilinogen 4 H Negative mg/dL Urine Leukocyte Esterase Trace Negative /uL Urine RBC 102 0 - 4 /hpf Urine Microscopic WBC 14 H 0-5 /HPF Urine Squamous Epithelial Cells Mod <5 /hpf Urine Calcium Oxalate Crystals Mod None Seen Urine Bacteria None seen None Seen /hpf Urine Hyaline Casts Few 0 - 2 /lpf Urine Mucus Few None Seen Urine Glucose Normal Normal mg/dL Assessment Critical pulmonary hypertension, likely type 1 2/2 amphetamine abuse Acute on chronic decompensated HFpEF Acute hypoxic respiratory failure Hypertensive emergency NSTEMI type 2 secondary to above Htz-hhsilzl-[id number] diabetes mellitus Chronic kidney disease stage IIIA Medical non-adherence Methamphetamine/tobacco abuse Obesity Plan/Recommendation (Dr. Guerrero) Recent transthoracic echocardiogram revealed EF 55% with critical pulmonary hypertension including pressures of 88 mmHg. Initiate preload and afterload reduction as tolerated. Initiate GDMT for CHF, strict I&Os, daily weight, and fluid restrictions. O2 support per primary care team. Strongly counseled on methamphetamine and tobacco use cessation as well as medical compliance. Initiate DVT/VTE prophylaxis. Conservative management only. Thank you for allowing us to participate in this patient's care. Please call if you have any questions or concerns. Critical care time: 40 min. This medical document was created using an electronic medical record system with voice recognition software and computerized dictation system. Although this document has been carefully reviewed, there might still be some phonetic and typographical errors. Occasional wrong-word or ``sound-alike substitutions may have occurred due to the inherent limitations of voice recognition software. These areas are purely typographical due to imperfections of the software programs and do not reflect any compromise in the patient's medical care. Please read the chart carefully and recognize, using context, where these substitutions have occurred. Plan discussed with: Patient, Other NYHA Physical activity limitations: Class4(Severe)discomfort (w any activit,symptoms at rest) Date of Service: Dec 08, 2024 Billing Provider: MONIE RICE Cardiology Common Codes: 42194-VHPRUMHW CARE 30-74 MIN MONIE RICE Dec 08, 2024 09:50
[2024-12-08] MEDS ORDERED: LISINOPRIL 20 MG TAB PO SCH (10:00)
[2024-12-08] MEDS ORDERED: METOPROLOL TARTRATE 50 MG TAB PO SCH (10:00)
[2024-12-08] MEDS ORDERED: amLODIPine BESYLATE 5 MG TAB PO SCH (10:00)
[2024-12-08] MEDS: METOPROLOL TARTRATE 50 MG TAB PO SCH (10:22)
[2024-12-08] MEDS: LISINOPRIL 20 MG TAB PO SCH (10:23)
[2024-12-08] MEDS: ASPirin 81 mg TAB PO SCH (10:24)
[2024-12-08 11:15] LABS: Amphetamine Screen, Urine Pos (NEGATIVE); Barbiturate Scree,Urine Neg (NEGATIVE); Benzodiazephine Screen, Urine Neg (NEGATIVE); Cannabinoid Screen, Urine Neg (NEGATIVE); Cocaine Screen, Urine Neg (NEGATIVE); Opiate Scree,Urine Neg (NEGATIVE); Phencyclidine Screen, Urine Neg (NEGATIVE)
[2024-12-08 12:34] LABS: Base Excess -0.1 mmol/L (-2.0-3.0)
[2024-12-08] MEDS: ENOXAPARIN SOD 40 MG/0.4 ML SYRINGE SC ONE (12:49)
--- NOTE | 2024-12-08 13:25 | DVHPNRES ---
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 During my assessment the patient was agitated withacute shortness of breath and was complaining of tiredness but was not giving a the full history and information anal mostly from the record and also the bedside n mentioned the time of admission she was also complaining of bilateral leg swelling and intermittent chest pain for last few weeks. initial 12 lead EKG revealed sinus rhythm with nonspecific ST changes and troponin level flats in the 300s ng/L. Patient was seen and examined on the bedside. She is alert oriented X 2 with acute shortness of breath and desaturating. patient is now on BiPAP Constitutional: No: Fever, Chills, Sweats, Weakness, Malaise, Other Eyes: No: Pain, Vision change, Conjunctivae inflammation, Eyelid inflammation, Other, Redness ENT: No: Ear pain, Ear discharge, Nose pain, Nose discharge, Nose congestion, Mouth pain, Mouth swelling, Throat pain, Throat swelling, Other Respiratory: Shortness of breath, No: Cough, Dry,Wheezing, Hemoptysis, Pleuritic Pain, Sputum, Wheezing, Other Cardiovascular: No: Chest Pain, Palpitations, Orthopnea, Paroxysmal Noc. Dyspnea, Edema, Lt Headedness, Other Gastrointestinal: No: Nausea, Vomiting, Abdominal Pain, Diarrhea, Constipation, Melena, Hematochezia, Other Musculoskeletal: No: other, neck pain, shoulder pain, arm pain, back pain, hand pain, leg pain, foot pain Neurological:; No: Weakness, Numbness, Incoordination, Change in speech, Confusion, Seizures Objective vital signs Vital Sign Date Time Temp Pulse Resp B/P (MAP) Pulse Ox O2 Delivery O2 Flow Rate FiO2 12/08/24 12:45 88 18 129/78 95 100 12/08/24 12:42 Facial BiPAP Mask 12/08/24 08:00 6 12/08/24 08:00 96.9 96.9 Total Intake and Output 12/07/24 12/07/24 12/08/24 15:00 23:00 07:00 Output Total 2000 ml Balance -2000 ml medications Current Medications Medications Dose Ordered Sig/Carl Route Start Time Stop Time Status Last Admin Dose Admin Sildenafil Citrate 20 mg TID@08,14,20 PO 12/08/24 08:00 12/08/24 09:10 20 MG Hydralazine HCl 10 mg Q6HP PRN IV 12/08/24 04:15 12/08/24 07:22 10 MG Ondansetron HCl 4 mg Q4HP PRN IV 12/08/24 04:15 Acetaminophen 650 mg Q6HP PRN PO 12/08/24 04:15 Nitroglycerin 0.4 mg Q5MINP PRN SL 12/08/24 04:15 Hold Morphine Sulfate 2 mg Q30M PRN IV 12/08/24 04:15 Furosemide 40 mg BIDD IV 12/08/24 18:00 Lisinopril 5 mg DAILY PO 12/08/24 10:00 12/08/24 10:23 5 MG Metoprolol Tartrate 12.5 mg BID PO 12/08/24 10:00 12/08/24 10:22 12.5 MG Aspirin 81 mg DAILY PO 12/09/24 10:00 Enoxaparin Sodium 40 mg DAILY SC 12/09/24 10:00 Examination Physical examination: General Appearance: Alert, Oriented X2, Cooperative, Moderate distress and on bipap HEENT: Atraumatic, PERRLA, EOMI, Mucous membrane moist/pink Respiratory: Bilateral crackles. Cardiovascular: Regular rate, Normal S1, Normal S2, No murmurs, no chest wall tenderness Abdominal: Normal bowel sounds, Soft, No tenderness, No hepatospenomegaly, No masses Extremities: Bilateral pedal edema+, No clubbing, No cyanosis, Normal pulses Skin: No rashes, No breakdown, No significant lesion Neuro: Normal gait, Normal speech, Strength at 5/5 X4 ext, Normal tone, grossly intact cranial nerves. Psych/Mental Status: Mental status NL, Mood NL laboratory and microbiology Laboratory Tests 12/08/24 00:25 Test 12/08/24 00:25 Range/Units Serum Glucose 127 H 74-106 mg/dL Labs and/or images reviewed: Labs reviewed by me, Image(s) reviewed by me Problem List/Assessment/Plan Problem List/Assessment/Plan Assessment and plan: # Acute hypoxic respiratory failure likely due to acute on chronic diastolic heart failure # Pulmonary arterial hypertension secondary to methamphetamine abuse # NSTEMI likely type 2 secondary to above # Large pericardial cyst along the right heart border measuring 5.4 cm - EKG revealed sinus rhythm with nonspecific ST-T changes and troponin levels remain flat in 300s mg/L - Echo on 09/08 demonstrated left ventricular systolic function, severely reduced right ventricular systolic function and severely elevated right ventricular systolic pressure 88 mm of mercury. severe torrential tricuspid valve regurgitation and moderate pulmonary valve regurgitation. - Doppler scan of the lower limb revealed no right or left femoro-popliteal venous thrombosis - BNP is elevated - Patient is on BiPAP - Cardiology on board - IV Lasix 40 mg b.i.d. - Sildenafil 20 mg PO TID - Aspirin 81 mg p.o. daily # Hypertensive emergency - Continue metoprolol tartrate 12.5 mg b.i.d., lisinopril 5 mg daily - IV hydralazine 10 mg q.6 p.r.n. # REBEL on CKD stage 3A likely hemodynamically mediated /VMN - Monitor BMP # Hypebilirubinemia with transaminitis likely due to hepatic congestion # Cirrhotic liver likely secondary to right heart failure - Monitor CMP # Type 2 diabetes mellitus, hemoglobin A1c 6.6 - Mild sliding scale of insulin. # Asymptomatic pyuria - Ordered urine bacterial culture # DVT prophylaxis - Lovenox 40 mg sc daily Goal of care discussed with the patient for more than 15 minutes full code Plan discussed with Dr. Angulo Plan discussed with: Patient My Orders My Orders Orders - LOGAN COUGHLIN Procedure Category Date Status Time Abg W/ Co-Ox RT 12/08/24 Logged 08:35 Bilat Lower Dvt US 12/08/24 Resulted 08:35 BIPAP RT 12/08/24 Logged 10:50 Abg W/ Co-Ox RT 12/08/24 Logged 11:50 LOGAN COUGHLIN Dec 08, 2024 13:25
[2024-12-08] MEDS ORDERED: ATORVASTATIN 20 MG TAB PO SCH (22:00)
[2024-12-09] VITALS (11 sets, daily range): BP systolic 94–109; BP diastolic 58–69; PULSE 74–86; RESP 17–19; TEMP 97.6–98.2; O2SAT 92–97
--- NOTE | 2024-12-09 05:18 | DVH ---
EXAM: XR Chest, 1 View CLINICAL INDICATION: CHF/PAH TECHNIQUE: Frontal view of the chest. COMPARISON: XY CHEST PORTABLE on DOS: 12/08/24, XY CHEST PORTABLE on DOS: 02/21/24 FINDINGS: LUNGS AND PLEURAL SPACES: See below. HEART: Cardiomegaly with mild congestion. MEDIASTINUM: Unremarkable. Normal mediastinal contour. BONES/JOINTS: Unremarkable. No acute fracture. OTHER FINDINGS: . IMPRESSION: Cardiomegaly with mild congestion.
[2024-12-09 06:21] LABS: Basophils # (auto) 0.1 10 ^3/uL (0-0.2); Basophils % (auto) 1.2 % (0.0-2.0); Eosinophils # (auto) 0 10 ^3/uL (0-0.8); Eosinophils % (auto) 0.2 % (0.0-7.0); Hematocrit 48.7 % (36.0-46.0); Hemoglobin 16.6 g/dL (12.2-16.2); Lymphocytes # (auto) 1.4 10 ^3/uL (0.4-5.4); Mean Corpuscular Hemoglobin 31.3 pg (28.0-32.0); Mean Corpuscular Hgb Conc. 34.2 g/dL (32.0-36.0); Mean Corpuscular Volume 91.6 fL (80.0-100.0); Monocytes # (auto) 0.5 10 ^3/uL (0-1.3); Monocytes % (auto) 6.7 % (0.0-12.0); Neutrophils # (auto) 5.3 10 ^3/uL (1.6-8.6); Neutrophils % (auto) 72.9 % (37.0-80.0); Nucleated Red Blood Cells % 0.1 %; Platelet Count (auto) 201 10^3/uL (140-450); Red Blood Cells 5.31 10^6/uL (4.0-5.20); Red Cell Distribution Width 15.8 % (11.8-14.3); White Blood Cell 7.3 10^3/uL (4.4-10.8)
[2024-12-09 06:36] LABS: Anion Gap 10 (5-15); Calcium 9.1 mg/dL (8.7-10.4); Carbon Dioxide 26 mmol/L (20-31); Chloride 103 mmol/L (98-107); Sodium 139 mmol/L (136-145)
[2024-12-09 06:42] LABS: BUN/Creatinine Ratio 16.9 (10.0-20.0); Blood Urea Nitrogen 23 mg/dL (9-23)
[2024-12-09 06:45] LABS: Glucose 141 mg/dL (74-106); Potassium 3.2 mmol/L (3.5-5.1)
[2024-12-09] MEDS ORDERED: DEXTROSE (50%) 50ML SYRG IV PRN (08:00)
[2024-12-09] MEDS: POTASSIUM CHL 20 Meq TABLET PO ONE (09:39)
[2024-12-09] MEDS: ASPirin 81 mg TAB PO SCH (09:40)
[2024-12-09] MEDS: ENOXAPARIN SOD 40 MG/0.4 ML SYRINGE SC SCH (09:42)
--- NOTE | 2024-12-09 10:24 | DVHPN2 ---
Consult Progress Note Date Seen: Dec 09, 2024 Subjective Review of Systems: CVS:Normal, RESPIRATORY:Normal, NEURO:Normal Objective vital signs Vital Sign Date Time Temp Pulse Resp B/P (MAP) Pulse Ox O2 Delivery O2 Flow Rate FiO2 12/09/24 09:41 101/80 12/09/24 09:40 86 12/09/24 09:30 17 94 12/09/24 07:45 Nasal Cannula* 4 36 12/09/24 07:45 98.5 98.5 Total Intake and Output 12/08/24 12/08/24 12/09/24 15:00 23:00 07:00 Output Total 1500 ml 1700 ml Balance -1500 ml -1700 ml medications Current Medications Medications Dose Ordered Sig/Carl Route Start Time Stop Time Status Last Admin Dose Admin Sildenafil Citrate 20 mg TID@08,14,20 PO 12/08/24 08:00 12/09/24 09:43 20 MG Hydralazine HCl 10 mg Q6HP PRN IV 12/08/24 04:15 12/08/24 07:22 10 MG Ondansetron HCl 4 mg Q4HP PRN IV 12/08/24 04:15 Acetaminophen 650 mg Q6HP PRN PO 12/08/24 04:15 Nitroglycerin 0.4 mg Q5MINP PRN SL 12/08/24 04:15 Hold Morphine Sulfate 2 mg Q30M PRN IV 12/08/24 04:15 Furosemide 40 mg BIDD IV 12/08/24 18:00 12/09/24 05:54 40 MG Lisinopril 5 mg DAILY PO 12/08/24 10:00 12/09/24 09:41 5 MG Metoprolol Tartrate 12.5 mg BID PO 12/08/24 10:00 12/09/24 09:40 12.5 MG Aspirin 81 mg DAILY PO 12/09/24 10:00 12/09/24 09:40 81 MG Enoxaparin Sodium 40 mg DAILY SC 12/09/24 10:00 12/09/24 09:42 40 MG Diagnostic Test (Pha) 1 strip ACHS 12/09/24 11:30 Insulin Human Regular ACHS SC 12/09/24 11:30 Dextrose 50 ml UD PRN IV 12/09/24 08:00 Examination: GENERAL:Abnormal (Unkept), LUNGS:Abnormal (O2 via NC), CVS:Normal (NSR), NEURO:Normal laboratory and microbiology Laboratory Tests 12/09/24 05:56 Test 12/09/24 05:56 Range/Units Serum Glucose 141 H 74-106 mg/dL Problem List/Assessment/Plan Problem List/Assessment/Plan Critical pulmonary hypertension, likely type 1 2/2 amphetamine abuse Acute on chronic decompensated HFpEF Acute hypoxic respiratory failure Hypertensive emergency NSTEMI type 2 secondary to above Sya-[id number]-[id number] diabetes mellitus Chronic kidney disease stage IIIA Medical non-adherence Methamphetamine/tobacco abuse Obesity Plan/Recommendation (Dr. Guerrero) Recent transthoracic echocardiogram revealed EF 55% with critical pulmonary hypertension including pressures of 88 mmHg. Continue preload and afterload reduction as tolerated. Continue GDMT for CHF, strict I&Os, daily weight, and fluid restrictions. Once medically compliant, the patient could benefit from an outpatient cardiac catheterization. Strongly counseled on methamphetamine and tobacco use cessation as well as medical compliance. DVT/VTE prophylaxis. Conservative management only. Cardiac stable at this time. Kindly call if in need to re-consult. Thank you for allowing us to participate in this patient's care. This medical document was created using an electronic medical record system with voice recognition software and computerized dictation system. Although this document has been carefully reviewed, there might still be some phonetic and typographical errors. Occasional wrong-word or ``sound-alike substitutions may have occurred due to the inherent limitations of voice recognition software. These areas are purely typographical due to imperfections of the software programs and do not reflect any compromise in the patient's medical care. Please read the chart carefully and recognize, using context, where these substitutions have occurred. Plan discussed with: Patient, Other Date of Service: Dec 09, 2024 Billing Provider: MONIE RICE Cardiology Common Codes: [id number] INP/OBS CARE(Mod) MONIE RICE Dec 09, 2024 10:24
[2024-12-09] MEDS: InsuLIN REG 1unit/0.01ml Soln (100units/ml) SC SCH (11:30)
--- NOTE | 2024-12-09 11:43 | DVH ---
INDICATION: Vaginal bleeding TECHNIQUE: Multiple real-time grayscale transabdominal sonographic images along with color and duplex Doppler of the uterus and ovaries were obtained. COMPARISON: None FINDINGS: The uterus measures 11.1 x 7.5 x 6.2 cm. There is a intrauterine fibroid measuring 3.3 cm. The endometrial stripe measures 1.2 cm. The right ovary is not well visualized. The left ovary measures 2.8 x 2.8 x 2.9 cm. Subsequent color and duplex Doppler interrogation of the ovaries demonstrated symmetric vascular flow to both ovaries, though this does not exclude the possibility of torsion due to the dual blood suppl y. IMPRESSION: Heterogeneous uterus. Intrauterine fibroid measures 3.3 cm. Endometrium measures 1.2 cm and appears heterogeneous. If postmenopausal abnormal uterine bleeding, d ifferential considerations include endometrial hyperplasia, endometrial polyp or endometrial cancer.
[2024-12-09] MEDS: ACCU-CHEK COMFORT CURVE STRIP VI SCH (14:13)
--- NOTE | 2024-12-09 15:08 | DVHPNRES ---
Progress Note Date Seen: Dec 09, 2024 Resident Creating Document: LOGAN COUGHLIN RESIDENT Medical Necessity Reason Pt with a Central, PICC or Fol: Yes Subjective Review of Systems Patient was seen and examined on the bedside. She is alert oriented x3. Mentioned Improved shortness of breath and currently on 4 L oxygen through nasal cannula saturating 97% and complaining of per vaginal foul-smelling discharge and bleeding. Ordered pelvic ultrasound and consulted OBGYN for further evaluation and management. Objective vital signs Vital Sign Date Time Temp Pulse Resp B/P (MAP) Pulse Ox O2 Delivery O2 Flow Rate FiO2 12/09/24 14:00 98.0 80 20 118/78 (91) 94 98.0 12/09/24 10:45 Nasal Cannula* 4 36 Total Intake and Output 12/08/24 12/08/24 12/09/24 15:00 23:00 07:00 Output Total 1500 ml 1700 ml Balance -1500 ml -1700 ml medications Current Medications Medications Dose Ordered Sig/Carl Route Start Time Stop Time Status Last Admin Dose Admin Sildenafil Citrate 20 mg TID@08,14,20 PO 12/08/24 08:00 12/09/24 14:13 20 MG Hydralazine HCl 10 mg Q6HP PRN IV 12/08/24 04:15 12/08/24 07:22 10 MG Ondansetron HCl 4 mg Q4HP PRN IV 12/08/24 04:15 Acetaminophen 650 mg Q6HP PRN PO 12/08/24 04:15 Nitroglycerin 0.4 mg Q5MINP PRN SL 12/08/24 04:15 Hold Morphine Sulfate 2 mg Q30M PRN IV 12/08/24 04:15 Lisinopril 5 mg DAILY PO 12/08/24 10:00 12/09/24 09:41 5 MG Metoprolol Tartrate 12.5 mg BID PO 12/08/24 10:00 12/09/24 09:40 12.5 MG Aspirin 81 mg DAILY PO 12/09/24 10:00 12/09/24 09:40 81 MG Enoxaparin Sodium 40 mg DAILY SC 12/09/24 10:00 12/09/24 09:42 40 MG Diagnostic Test (Pha) 1 strip ACHS 12/09/24 11:30 12/09/24 14:13 1 STRIP Insulin Human Regular ACHS SC 12/09/24 11:30 Dextrose 50 ml UD PRN IV 12/09/24 08:00 Furosemide 20 mg BIDD IV 12/09/24 18:00 Examination Physical examination: General Appearance: Alert, Oriented X3, Cooperative, mild distress and on nasal cannula 4 L HEENT: Atraumatic, PERRLA, EOMI, Mucous membrane moist/pink Respiratory: Bilateral crackles. Cardiovascular: Regular rate, Normal S1, Normal S2, No murmurs, no chest wall tenderness Abdominal: Normal bowel sounds, Soft, No tenderness, No hepatospenomegaly, No masses Extremities: Bilateral pedal edema+, No clubbing, No cyanosis, Normal pulses Skin: No rashes, No breakdown, No significant lesion Neuro: Normal gait, Normal speech, Strength at 5/5 X4 ext, Normal tone, grossly intact cranial nerves. 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 severe torrential tricuspid valve regurgitation and moderate pulmonary valve regurgitation. - Doppler scan of the lower limb revealed no right or left femoro-popliteal venous thrombosis - BNP is elevated - Patient is on BiPAP - Cardiology the patient and recommended conservative management and also mentioned once patient is medically complaint the patient can benefit from outpatient cardiac catheterization. - IV Lasix 20 mg b.i.d. - Sildenafil 20 mg PO TID - Aspirin 81 mg p.o. daily # postmenopausal per vaginal bleeding - Pelvic ultrasound showed thickened endometrium, heterogeneous uterus and Intrauterine fibroid measures 3.3 cm. - Consulted Obgyn. # Hypertensive emergency - Continue metoprolol tartrate 12.5 mg b.i.d., lisinopril 5 mg daily - IV hydralazine 10 mg q.6 p.r.n. # REBEL on CKD stage 3A likely hemodynamically mediated /VMN - Monitor BMP # Hypebilirubinemia with transaminitis likely due to hepatic congestion # Cirrhotic liver likely secondary to right heart failure - Monitor CMP # Type 2 diabetes mellitus, hemoglobin A1c 6.6 - Mild sliding scale of insulin. # Asymptomatic pyuria - Ordered urine bacterial culture # DVT prophylaxis - Lovenox 40 mg sc daily Goal of care discussed with the patient for more than 15 minutes full code Plan discussed with Dr. Angulo Plan discussed with: Patient, Other My Orders My Orders Orders - LOGAN COUGHLIN Procedure Category Date Status Time Glucose Blood PHA 12/09/24 In Process (Accu-Chek Comfort 11:30 Insulin R (Human) PHA 12/09/24 In Process (Insulin R) 11:30 Dextrose 50% Syringe PHA 12/09/24 In Process 08:00 Transfer Orders XFER 12/09/24 Transmitted 10:10 * Construction Services Technician Consultation CONS 12/09/24 Transmitted 10:12 Pelvic US 12/09/24 Resulted 10:12 * Television News Reporter CONS 12/09/24 Transmitted Consult LOGAN COUGHLIN Dec 09, 2024 15:08
--- NOTE | 2024-12-09 15:32 | DVHINCON2 ---
Date of service: Dec 09, 2024 Referring Physician HOSPITALIST Reason for Consultation POSTMENOPAUSAL BLEEDING History of Present Illness PT IS ADMITTED FOR SOB,HEART FAILURE AND REPORTED SOME VAG BLEEDING .LAST MENSES WAS A YR AGO .HER LAST PAP WAS IN 2022 CURRENTLY SHE IS NOT BLEEDING.SONO SHOWS 11 WKS SIZE UTERUS WITH ENDOMETRIAL THICKNESS OF 1.3=2CM Past Medical History HTN,CHF,ANEMIA,PULMONARY HTN Past Surgical History NA Family History NA Social History POS FOR TOBACCO AND METH Patient Family History: Patient reports no known family medical history. Allergies: Coded Allergies: Codeine (Verified Allergy, Unknown, 07/16/20) Morphine (Verified Allergy, Unknown, 07/16/20) Home Meds Active Scripts Sildenafil Citrate (SILDENAFIL CITRATE) 20 Mg Tab, 20 MG OR TID for 30 Days, #90 TAB Prov:TAYE ALMONTE RESIDENT 09/12/24 Reported Medications Furosemide (Furosemide) 20 Mg Tab, 1 TAB PO DAILY for 90 Days, #90 12/08/24 Albuterol Sulfate (Albuterol Sulfate Hfa) 108 Mcg/Act Aer, 108 MCG IN UD for 28 Days, #18 09/10/24 Atorvastatin Calcium (Lipitor) 10 Mg Tab, 1 TAB PO DAILY for 90 Days, #90 09/10/24 Amlodipine Besylate (Amlodipine Besylate) 10 Mg Tab, 1 TAB PO DAILY for 90 Days, #90 09/10/24 Metformin Hydrochloride (Metformin Hcl) 500 Mg Tab, 1 TAB PO BID for 90 Days, #180 09/10/24 Aspirin (Aspir-81) 81 Mg Tab, 1 TAB PO DAILY for 30 Days, #30 09/10/24 Metoprolol Tartrate (Lopressor) 50 Mg Tab, 1 TAB PO BID for 90 Days, #180 09/10/24 Lisinopril (Lisinopril) 20 Mg Tab, 1 TAB PO DAILY for 90 Days, #90 09/10/24 Current Medications Current Medications Medications (Trade) Dose Ordered Sig/Carl Route PRN Reason Start Time Stop Time Status Last Admin Atorvastatin Calcium (Lipitor) 10 mg HS PO 12/08/24 22:00 12/08/24 12:31 DC Furosemide (Lasix Injection) 40 mg BIDD IV 12/08/24 18:00 12/09/24 10:24 DC 12/09/24 05:54 Aspirin 81 mg DAILY PO 12/09/24 10:00 12/09/24 09:40 Enoxaparin Sodium (Lovenox) 40 mg DAILY SC 12/09/24 10:00 12/09/24 09:42 Diagnostic Test (Pha) (Accu-Chek Comfort Curve T) 1 strip ACHS 12/09/24 11:30 12/09/24 14:13 Insulin Human Regular (InsuLIN R) ACHS SC 12/09/24 11:30 Dextrose 50 ml UD PRN IV Blood Sugar LESS THAN 60 12/09/24 08:00 Furosemide (Lasix Injection) 20 mg BIDD IV 12/09/24 18:00 Review of Systems Constitutional: no fever, chill, weight loss HEENT: no eye pain, no hearing loss, no oral lesion, no scleral icterus Heart: no chest pain, no chest pressure Lung: no cough, no dyspnea with exertion Abdomen: see HPI : no pain with urination, normal appearing urine Musculoskeletal: no joint pain, no muscle pain Neurological: no seizure, no loss of sensation, no weakness in extremities Pysch: no depression, no anxiety Derm: no rash, no jaundice Vital Signs Vital Signs Date Time Temp Pulse Resp B/P (MAP) Pulse Ox O2 Delivery O2 Flow Rate FiO2 12/09/24 14:00 98.0 80 20 118/78 (91) 94 98.0 12/09/24 10:45 Nasal Cannula* 4 36 Physical Exam HEENT -WNL NECK: [NL] CARDIAC: [RRR] PULMONARY: [CTA] ABDOMEN: [SOFT,NT] PELVIC-11 WKS SIZE UTERUS ,NO BLEEDING ,CX NL Labs/Diagnostic Data Labs Test 12/09/24 14:20 12/09/24 05:56 12/08/24 12:18 12/08/24 09:23 Range/Units POC Glucose 120 H 70-106 mg/dl White Blood Count 7.3 4.4-10.8 10^3/uL Red Blood Count 5.31 H 4.0-5.20 10^6/uL Hemoglobin 16.6 H 12.2-16.2 g/dL Hematocrit 48.7 H 36.0-46.0 % Mean Corpuscular Volume 91.6 80.0-100.0 fL Mean Corpuscular Hemoglobin 31.3 28.0-32.0 pg Mean Corpuscular Hemoglobin Concent 34.2 32.0-36.0 g/dL Red Cell Distribution Width 15.8 H 11.8-14.3 % Platelet Count 201 140-450 10^3/uL Mean Platelet Volume 8.3 6.9-10.8 fL Neutrophils (%) (Auto) 72.9 37.0-80.0 % Lymphocytes (%) (Auto) 19.0 10.0-50.0 % Monocytes (%) (Auto) 6.7 0.0-12.0 % Eosinophils (%) (Auto) 0.2 0.0-7.0 % Basophils (%) (Auto) 1.2 0.0-2.0 % Neutrophils # (Auto) 5.3 1.6-8.6 10 ^3/uL Lymphocytes # (Auto) 1.4 0.4-5.4 10 ^3/uL Monocytes # (Auto) 0.5 0-1.3 10 ^3/uL Eosinophils # (Auto) 0 0-0.8 10 ^3/uL Basophils # (Auto) 0.1 0-0.2 10 ^3/uL Nucleated Red Blood Cells 0.1 % Sodium Level 139 136-145 mmol/L Potassium Level 3.2 L 3.5-5.1 mmol/L Chloride Level 103 98-107 mmol/L Carbon Dioxide Level 26 20-31 mmol/L Anion Gap 10 5-15 Blood Urea Nitrogen 23 9-23 mg/dL Creatinine 1.36 H 0.550-1.02 mg/dL Glomerular Filtration Rate Calc 47 >90 mL/min BUN/Creatinine Ratio 16.9 10.0-20.0 Serum Glucose 141 H 74-106 mg/dL Calcium Level 9.1 8.7-10.4 mg/dL Blood Gas Specimen Type Arterial Blood Gas Sample Site Right brachial Blood Gas Patient Temperature 37.0 Arterial Blood Date Drawn [id number] Arterial Blood pH 7.478 H 7.350-7.450 Arterial Blood Partial Pressure CO2 30.4 L 32.0-45.0 mmHg Arterial Blood Partial Pressure O2 78.2 L 83.0-108.0 mmHg Arterial Blood HCO3 22.0 21.0-28.0 mmol/L Arterial Blood Oxygen Saturation 95.2 94.0-98.0 % Arterial Blood Base Excess -0.1 -2.0-3.0 mmol/L Arterial Blood Oxyhemoglobin 94.2 94.0-98.0 % Arterial Blood Carboxyhemoglobin 0.6 0.5-1.5 % Arterial Blood Methemoglobin 0.5 0.0-1.5 % Pieter Test N/a Blood Gas Total Hemoglobin 18.20 *H 12.0-16.0 g/dL Blood Gas Modality Mask - bipap FiO2 % 100.0 Blood Gas Critical Value Read Back Yes Blood Gas Notified Whom reza Murray md Blood Gas Notified Time [id number] Blood Gas Notified By bridgette Oleary rrt Blood Gas Liter Flow 0.00 Specimen Drawn By Complaint Manager luke castañeda Test 12/08/24 09:00 12/08/24 04:51 12/08/24 03:20 12/08/24 00:25 Range/Units Ammonia 22 11-32 umol/L Influenza Type A Antigen Negative Negative Influenza Type B Antigen Negative Negative SARS-CoV-2 Antigen (Rapid) Negative NEGATIVE Magnesium Level 2.0 1.6-2.6 mg/dL Troponin I High Sensitivity 323 *H </=34 ng/L Triglycerides Level 79 < 150 mg/dL Cholesterol Level 115 < 200 mg/dL LDL Cholesterol 59 < 100 mg/dL HDL Cholesterol 40 40-59 mg/dL Thyroid Stimulating Hormone (TSH) 4.37 0.55-4.78 uIU/mL Hemoglobin A1c 6.6 H <5.7 % A1C Lactic Acid Level 1.9 0.4-2.0 mmol/L Total Bilirubin 1.9 H 0.2-1.0 mg/dL Aspartate Amino Transferase (AST) 40 13-40 U/L Alanine Aminotransferase (ALT) 30 7-40 U/L Alkaline Phosphatase 160 H 46-116 U/L B-Type Natriuretic Peptide 1331.91 0-100 pg/mL Total Protein 6.8 5.7-8.2 g/dL Albumin 4.1 3.2-4.8 g/dL Test 12/08/24 00:15 12/07/24 00:15 Range/Units Urine Color Yellow Yellow Urine Clarity Turbid H Clear Urine pH 6.0 5.0-9.0 Urine Specific [place] 1.027 1.001-1.035 Urine Protein 3+ H Negative Urine Ketones Negative Negative Urine Blood 3+ H Negative /uL Urine Nitrite Negative Negative Urine Bilirubin 1+ H Negative Urine Urobilinogen 4 H Negative mg/dL Urine Leukocyte Esterase Trace Negative /uL Urine RBC 102 0 - 4 /hpf Urine Microscopic WBC 14 H 0-5 /HPF Urine Squamous Epithelial Cells Mod <5 /hpf Urine Calcium Oxalate Crystals Mod None Seen Urine Bacteria None seen None Seen /hpf Urine Hyaline Casts Few 0 - 2 /lpf Urine Mucus Few None Seen Urine Glucose Normal Normal mg/dL Urine Opiates Screen Neg NEGATIVE Urine Fentanyl Screen Neg NEGATIVE Urine Barbiturates Screen Neg NEGATIVE Urine Phencyclidine Screen Neg NEGATIVE Urine Amphetamines Screen Pos NEGATIVE Urine Benzodiazepines Screen Neg NEGATIVE Urine Cocaine Screen Neg NEGATIVE Urine Cannabinoids Screen Neg NEGATIVE Microbiology Date/Time Source Procedure Growth Status 12/08/24 00:15 Voided Urine Urine Culture - Preliminary Resulted Primary Diagnosis R/O POSTMENOPAUSAL BLEEDING 2' Diagnosis/Comorbidities CHF,HTN,PULMONARY HTN Plan RECOMMEND OUTPT FOLLOW UP MAY DO FSH,LH,TSH,ESTRADIOL ,TESTOSTERONE LEVEL TO ESTABLISH MENOPAUSAL STATUS OR NOT .PT IS NOT CURRENTLY BLEEDING SHE NEEDS TO FU OUTPT.THANK YOU WILL SIGN OFF Plan discussed with: Patient Visit Coding OBGYN Date of Service: Dec 09, 2024 Billing Provider: AILYN GERARD DO OVERLOCK HEMMER Common Visit Codes: 52973-XWG/OBS SAME DATE (HIGH) OVERLOCK HEMMER Consultation Codes: 33898-[id number] CONSULT <110MIN AILYN GERARD DO Dec 09, 2024 15:32
[2024-12-09] MEDS: FUROSEMIDE 20 MG/2 ML VIAL IV SCH (18:43)
[2024-12-09] MEDS: LORazepam 0.5 MG TAB PO ONE (22:15)
[2024-12-10 01:00] VITALS: BP_SYST 137; BP_SYST 96; BP_DIAS 46; BP_DIAS 89; PULSE 83; PULSE 85; RESP 18; RESP 19; TEMP 97.6; TEMP 98.1; O2SAT 96; O2SAT 97
[2024-12-10 06:05] LABS: Basophils # (auto) 0.1 10 ^3/uL (0-0.2); Basophils % (auto) 0.8 % (0.0-2.0); Eosinophils # (auto) 0 10 ^3/uL (0-0.8); Eosinophils % (auto) 0.7 % (0.0-7.0); Hematocrit 49.7 % (36.0-46.0); Hemoglobin 16.3 g/dL (12.2-16.2); Lymphocytes # (auto) 1.6 10 ^3/uL (0.4-5.4); Lymphocytes % (auto) 24.8 % (10.0-50.0); Mean Corpuscular Hemoglobin 30.4 pg (28.0-32.0); Mean Corpuscular Hgb Conc. 32.9 g/dL (32.0-36.0); Mean Corpuscular Volume 92.5 fL (80.0-100.0); Monocytes # (auto) 0.6 10 ^3/uL (0-1.3); Monocytes % (auto) 9.4 % (0.0-12.0); Neutrophils # (auto) 4.1 10 ^3/uL (1.6-8.6); Neutrophils % (auto) 64.3 % (37.0-80.0); Nucleated Red Blood Cells % 0.3 %; Platelet Count (auto) 200 10^3/uL (140-450); Red Blood Cells 5.38 10^6/uL (4.0-5.20); Red Cell Distribution Width 16.2 % (11.8-14.3); White Blood Cell 6.4 10^3/uL (4.4-10.8)
[2024-12-10 06:07] LABS: Anion Gap 8 (5-15); Carbon Dioxide 26 mmol/L (20-31); Chloride 102 mmol/L (98-107); Potassium 3.7 mmol/L (3.5-5.1); Sodium 136 mmol/L (136-145)
[2024-12-10 06:08] LABS: Calcium 9.2 mg/dL (8.7-10.4)
[2024-12-10 06:13] LABS: BUN/Creatinine Ratio 18.9 (10.0-20.0)
[2024-12-10 06:17] LABS: Blood Urea Nitrogen 25 mg/dL (9-23); Glucose 130 mg/dL (74-106)
--- NOTE | 2024-12-10 06:31 | ECG ---
[facility] Test Date: 2024-12-08 Test Time: 00:06:46 Pat Name: ZOFIA FUNEZ Department: ER Room: [facility]1T A Gender: F Offal Baler: EMILY : 1975 Requested By: MAYELIN HUGHES Order Number: [id number] Reading MD: Hugh Guerrero Measurements Intervals [place] Rate: 92 P: 47 CA: 162 QRS: 143 QRSD: 108 T: -36 QT: 375 QTc: 464 Interpretive Statements Sinus rhythm Probable left atrial enlargement Low voltage, precordial leads Probable RVH w/ secondary repol abnormality Probable anterolateral infarct, age indeterm Electronically Signed On 12-10-2024 14:00:31 PDT by Hugh Guerrero Please click the below link to view image of tracing.
[2024-12-10 08:00] VITALS: PULSE 74; RESP 20; O2SAT 92
[2024-12-10 08:40] VITALS: BP 115/86; PULSE 74; RESP 20; TEMP 98.4; O2SAT 92
--- NOTE | 2024-12-10 20:44 | DVHDSRES ---
Discharge Summary Date of Admission Resident Creating Document: LOGAN MURRAY RESIDENT Dec 08, 2024 at 04:01 Date of Discharge: Dec 10, 2024 Admitting Diagnosis Acute hypoxic respiratory failure likely due to acute on chronic diastolic heart failure Wounds: No wound was present Labs/Diagnostic Data: Laboratory Results Test 12/10/24 06:00 12/10/24 04:46 12/08/24 12:18 12/08/24 09:23 POC Glucose 145 mg/dl (70-106) White Blood Count 6.4 10^3/uL (4.4-10.8) Red Blood Count 5.38 10^6/uL (4.0-5.20) Hemoglobin 16.3 g/dL (12.2-16.2) Hematocrit 49.7 % (36.0-46.0) Mean Corpuscular Volume 92.5 fL (80.0-100.0) Mean Corpuscular Hemoglobin 30.4 pg (28.0-32.0) Mean Corpuscular Hemoglobin Concent 32.9 g/dL (32.0-36.0) Red Cell Distribution Width 16.2 % (11.8-14.3) Platelet Count 200 10^3/uL (140-450) Mean Platelet Volume 8.4 fL (6.9-10.8) Neutrophils (%) (Auto) 64.3 % (37.0-80.0) Lymphocytes (%) (Auto) 24.8 % (10.0-50.0) Monocytes (%) (Auto) 9.4 % (0.0-12.0) Eosinophils (%) (Auto) 0.7 % (0.0-7.0) Basophils (%) (Auto) 0.8 % (0.0-2.0) Neutrophils # (Auto) 4.1 10 ^3/uL (1.6-8.6) Lymphocytes # (Auto) 1.6 10 ^3/uL (0.4-5.4) Monocytes # (Auto) 0.6 10 ^3/uL (0-1.3) Eosinophils # (Auto) 0 10 ^3/uL (0-0.8) Basophils # (Auto) 0.1 10 ^3/uL (0-0.2) Nucleated Red Blood Cells 0.3 % Sodium Level 136 mmol/L (136-145) Potassium Level 3.7 mmol/L (3.5-5.1) Chloride Level 102 mmol/L (98-107) Carbon Dioxide Level 26 mmol/L (20-31) Anion Gap 8 (5-15) Blood Urea Nitrogen 25 mg/dL (9-23) Creatinine 1.32 mg/dL (0.550-1.02) Glomerular Filtration Rate Calc 49 mL/min (>90) BUN/Creatinine Ratio 18.9 (10.0-20.0) Serum Glucose 130 mg/dL (74-106) Calcium Level 9.2 mg/dL (8.7-10.4) Blood Gas Specimen Type Arterial Blood Gas Sample Site Right brachial Blood Gas Patient Temperature 37.0 Arterial Blood Date Drawn [id number] Arterial Blood pH 7.478 (7.350-7.450) Arterial Blood Partial Pressure CO2 30.4 mmHg (32.0-45.0) Arterial Blood Partial Pressure O2 78.2 mmHg (83.0-108.0) Arterial Blood HCO3 22.0 mmol/L (21.0-28.0) Arterial Blood Oxygen Saturation 95.2 % (94.0-98.0) Arterial Blood Base Excess -0.1 mmol/L (-2.0-3.0) Arterial Blood Oxyhemoglobin 94.2 % (94.0-98.0) Arterial Blood Carboxyhemoglobin 0.6 % (0.5-1.5) Arterial Blood Methemoglobin 0.5 % (0.0-1.5) Pieter Test N/a Blood Gas Total Hemoglobin 18.20 g/dL (12.0-16.0) Blood Gas Modality Mask - bipap FiO2 % 100.0 Blood Gas Critical Value Read Back Yes Blood Gas Notified Whom reza Murray md Blood Gas Notified Time [id number] Blood Gas Notified By bridgette Oleary senior scientist Blood Gas Liter Flow 0.00 Specimen Drawn By Mixed Crop Farmer luke castañeda 12/08/24 09:00 12/08/24 04:51 12/08/24 03:20 12/08/24 00:25 Ammonia 22 umol/L (11-32) Influenza Type A Antigen Negative (Negative) Influenza Type B Antigen Negative (Negative) SARS-CoV-2 Antigen (Rapid) Negative (NEGATIVE) Magnesium Level 2.0 mg/dL (1.6-2.6) Troponin I High Sensitivity 323 ng/L (</=34) Triglycerides Level 79 mg/dL (< 150) Cholesterol Level 115 mg/dL (< 200) LDL Cholesterol 59 mg/dL (< 100) HDL Cholesterol 40 mg/dL (40-59) Thyroid Stimulating Hormone (TSH) 4.37 uIU/mL (0.55-4.78) Hemoglobin A1c 6.6 % A1C (<5.7) Lactic Acid Level 1.9 mmol/L (0.4-2.0) Total Bilirubin 1.9 mg/dL (0.2-1.0) Aspartate Amino Transferase (AST) 40 U/L (13-40) Alanine Aminotransferase (ALT) 30 U/L (7-40) Alkaline Phosphatase 160 U/L (46-116) B-Type Natriuretic Peptide 1331.91 pg/mL (0-100) Total Protein 6.8 g/dL (5.7-8.2) Albumin 4.1 g/dL (3.2-4.8) Test 12/08/24 00:15 12/07/24 00:15 Urine Color Yellow (Yellow) Urine Clarity Turbid (Clear) Urine pH 6.0 (5.0-9.0) Urine Specific [place] 1.027 (1.001-1.035) Urine Protein 3+ (Negative) Urine Ketones Negative (Negative) Urine Blood 3+ /uL (Negative) Urine Nitrite Negative (Negative) Urine Bilirubin 1+ (Negative) Urine Urobilinogen 4 mg/dL (Negative) Urine Leukocyte Esterase Trace /uL (Negative) Urine RBC 102 /hpf (0 - 4) Urine Microscopic WBC 14 /HPF (0-5) Urine Squamous Epithelial Cells Mod /hpf (<5) Urine Calcium Oxalate Crystals Mod (None Seen) Urine Bacteria None seen /hpf (None Seen) Urine Hyaline Casts Few /lpf (0 - 2) Urine Mucus Few (None Seen) Urine Glucose Normal mg/dL (Normal) Urine Opiates Screen Neg (NEGATIVE) Urine Fentanyl Screen Neg (NEGATIVE) Urine Barbiturates Screen Neg (NEGATIVE) Urine Phencyclidine Screen Neg (NEGATIVE) Urine Amphetamines Screen Pos (NEGATIVE) Urine Benzodiazepines Screen Neg (NEGATIVE) Urine Cocaine Screen Neg (NEGATIVE) Urine Cannabinoids Screen Neg (NEGATIVE) Other Laboratory Tests 12/10/24 04:46 Brief Hx & Hospital Course: This is a 49-year-old female with past medical history of CHF, critical pulmonary hypertension likely type 1, pericardial cyst along the right lower heart border measuring 5.4 cm, hypertension, chronic kidney disease, COPD, methamphetamine abuse and obesity presented to the ED with a chief complaint of shortness of breath for 2 weeks. During my assessment the patient was agitated withacute shortness of breath and was complaining of tiredness but was not giving a the full history and information anal mostly from the record and also the bedside n mentioned the time of admission she was also complaining of bilateral leg swelling and intermittent chest pain for last few weeks. initial 12 lead EKG revealed sinus rhythm with nonspecific ST changes and troponin level flats in the 300s ng/L. Hospital course: EKG revealed sinus rhythm with nonspecific ST-T changes and troponin levels remain flat in 300s mg/L. UDS was positive for methamphetamine. Doppler scan of the lower limb revealed no right or left femoro-popliteal venous thrombosis. Echo on 09/08 demonstrated left ventricular systolic function, severely reduced right ventricular systolic function and severely elevated right ventricular systolic pressure 88 mm of mercury. severe torrential tricuspid valve regurgitation and moderate pulmonary valve regurgitation. Cardiology evaluated the patient and recommended conservative management and also mentioned once patient is medically complaint the patient can benefit from outpatient cardiac catheterization. Patient was treated with IV Lasix 20 mg b.i.d., BiPAP, aspirin 81 mg p.o. daily and resumed sildenafil 20 mg PO TID. Obgyn was consulted for possible postmenopausal per vaginal bleeding and recommended outpatient follow up with OBGYN . Patient left AMA. Consults/Reason for consult Cardiology and Obgyn were consulted. Operations or Procedures EXAM: XR Chest, 1 View CLINICAL INDICATION: CHF/PAH TECHNIQUE: Frontal view of the chest. COMPARISON: XY CHEST PORTABLE on DOS: 12/08/24, XY CHEST PORTABLE on DOS: 02/21/24 FINDINGS: LUNGS AND PLEURAL SPACES: See below. HEART: Cardiomegaly with mild congestion. MEDIASTINUM: Unremarkable. Normal mediastinal contour. BONES/JOINTS: Unremarkable. No acute fracture. OTHER FINDINGS: . IMPRESSION: Cardiomegaly with mild congestion. INDICATION: Vaginal bleeding TECHNIQUE: Multiple real-time grayscale transabdominal sonographic images along with color and duplex Doppler of the uterus and ovaries were obtained. COMPARISON: None FINDINGS: The uterus measures 11.1 x 7.5 x 6.2 cm. There is a intrauterine fibroid measuring 3.3 cm. The endometrial stripe measures 1.2 cm. The right ovary is not well visualized. The left ovary measures 2.8 x 2.8 x 2.9 cm. Subsequent color and duplex Doppler interrogation of the ovaries demonstrated symmetric vascular flow to both ovaries, though this does not exclude the possibility of torsion due to the dual blood supply. IMPRESSION: Heterogeneous uterus. Intrauterine fibroid measures 3.3 cm. Endometrium measures 1.2 cm and appears heterogeneous. If postmenopausal abnormal uterine bleeding, differential considerations include endometrial hyperplasia, endometrial polyp or endometrial cancer. 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 # NSTEMI likely type 2 secondary to above # Large pericardial cyst along the right heart border measuring 5.4 cm # Possible postmenopausal per vaginal bleeding # Hypertensive emergency # REBEL on CKD stage 3A likely hemodynamically mediated /VMN # Hypebilirubinemia with transaminitis likely due to hepatic congestion # Cirrhotic liver likely secondary to right heart failure # Type 2 diabetes mellitus, hemoglobin A1c 6.6 # Asymptomatic pyuria Discharge Disposition: AMA Discharge Statement: "Patient was advised to return to the ER or call 911 if any headaches, dizziness, shortness of breath, chest pain, abdominal pain, bleeding, fevers, or worsening of medical condition. Patient was counseled about treatment plan, medications, possible side effects, patientverbalized understanding. All questions were answered to the best of my ability. This discharge took greater then 30 minutes in planning, reviewing documentation, counseling the patient, and discussing with other team members." ASSESSMENT ASSESSMENT Assessment LOGAN MURRAY RESIDENT Dec 10, 2024 20:44
== END 2024-12-10 10:30 | disposition left against medical advice (07) | DRG 133 ==
LOC: ER 23:26 → OVERFLOW 12-08 04:01 → TELE-WESTW 12-08 04:07
PROVIDERS: ADMIT Student in an Organized Health Care Education/Training Program; ATTEND Student in an Organized Health Care Education/Training Program
PROC: 5A09357 Assistance with Respiratory Ventilation, Less than 24 Consecutive Hours, Continuous Positive Airway Pressure (ICD-10-PCS; principal; 2024-12-08)
DX: J96.01 Acute respiratory failure with hypoxia (principal); I21.A1 Myocardial infarction type 2; I50.33 Acute on chronic diastolic (congestive) heart failure; I27.20 Pulmonary hypertension, unspecified; I13.0 Hypertensive heart and chronic kidney disease with heart failure and stage 1 through stage 4 chronic kidney disease, or unspecified chronic kidney disease; F15.10 Other stimulant abuse, uncomplicated; F17.210 Nicotine dependence, cigarettes, uncomplicated; J45.909 Unspecified asthma, uncomplicated; Z91.199 Patient's noncompliance with other medical treatment and regimen due to unspecified reason; E78.5 Hyperlipidemia, unspecified; I16.1 Hypertensive emergency; E66.9 Obesity, unspecified; E11.22 Type 2 diabetes mellitus with diabetic chronic kidney disease; N18.31 Chronic kidney disease, stage 3a; N95.0 Postmenopausal bleeding; Z79.84 Long term (current) use of oral hypoglycemic drugs; Z91.148 Patient's other noncompliance with medication regimen for other reason; Z79.82 Long term (current) use of aspirin; Z79.899 Other long term (current) drug therapy; Z88.5 Allergy status to narcotic agent; Z98.891 History of uterine scar from previous surgery
CPT/HCPCS: 36415; 36600; 71045; 76856; 80048; 80053; 80061; 80307; 81001; 82140; 82805; 82962; 83036; 83605; 83735; 83880; 84443; 84484; 85025; 87086; 87426; 87804; 93005; 93970; 94660; 99291; G0378; J1815

== ENCOUNTER 2024-12-11 03:06 | Inpatient (IN) | payer MEDICAID ==
[~2024-12-11] VITALS: Ht 160 cm; Wt 69.0 kg
[~2024-12-11 03:06] MED LIST changes: -AMOX875T4 PO; -DOXY-286 PO; -FLUC100T PO; -FURO1TAB33 PO
[2024-12-11 03:46] LABS: Chloride 102 mmol/L (98-107); Potassium 3.8 mmol/L (3.5-5.1); Sodium 138 mmol/L (136-145)
--- NOTE | 2024-12-11 03:50 | ED.PDOC ---
HPI Comments 49-year-old female came to ER for chest pains. Patient was admitted here for 3 days, but signed the AMA yesterday. 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 Patient coming in again complaining of chest pains radiating to the back and shortness of breath. Chief Complaint: Chest Pain Time Seen by MD: 03:50 Primary Care Provider: SHANE Reviewed Notes: Nurses Notes Allergies: Coded Allergies: Codeine (Verified Allergy, Unknown, 07/16/20) Morphine (Verified Allergy, Unknown, 07/16/20) Home Meds Active Scripts Sildenafil Citrate (SILDENAFIL CITRATE) 20 Mg Tab, 20 MG OR TID for 30 Days, #90 TAB Prov:TAYE ALMONTE RESIDENT 09/12/24 Reported Medications Furosemide (Furosemide) 20 Mg Tab, 1 TAB PO DAILY for 90 Days, #90 12/08/24 Albuterol Sulfate (Albuterol Sulfate Hfa) 108 Mcg/Act Aer, 108 MCG IN UD for 28 Days, #18 09/10/24 Atorvastatin Calcium (Lipitor) 10 Mg Tab, 1 TAB PO DAILY for 90 Days, #90 09/10/24 Amlodipine Besylate (Amlodipine Besylate) 10 Mg Tab, 1 TAB PO DAILY for 90 Days, #90 09/10/24 Metformin Hydrochloride (Metformin Hcl) 500 Mg Tab, 1 TAB PO BID for 90 Days, #180 09/10/24 Aspirin (Aspir-81) 81 Mg Tab, 1 TAB PO DAILY for 30 Days, #30 09/10/24 Metoprolol Tartrate (Lopressor) 50 Mg Tab, 1 TAB PO BID for 90 Days, #180 09/10/24 Lisinopril (Lisinopril) 20 Mg Tab, 1 TAB PO DAILY for 90 Days, #90 09/10/24 Information Source: Patient Mode of Arrival: Ambulatory Severity: Moderate Timing: Hours Duration: Since onset Prehospital treatment: None Location: Chest (L) Radiation: Back Quality: Pressure Onset: With Light Exertion Cardiac Risk Factors: HTN, Diabetes History of: Similar pain in past, PR Associated Signs and Symptoms: SOB, Palpitations, Diaphoresis, Back Pain Past Medical History PAST MEDICAL HISTORY: Asthma, CHF, HTN Surgical History: Denies all surgeries Surgical History (Other): Polysubstance abuse SUBSYSTEMS ENGINEER History: No Pertinent SUBSYSTEMS ENGINEER History Family History Family History: Reviewed,noncontributory to illness, No family hx of Cancer, No family hx of DM, No family hx of Heart boo, No family hx of HTN, No family hx ofKidney boo, No family hx of Liver boo, No family hx of Lung boo, No family hx of Stroke Social History Smoker: Cigarettes, Less Than 1 Pack/Day Alcohol: Denies ETOH Use Drugs: Marijuana, Methamphetamine Lives In: Home Constitutional: reports: fatigue, malaise, weakness; denies: chills, diaphoresis, fever, sweats, others EENTM: denies: blurred vision, double vision, ear bleeding, ear discharge, ear drainage, ear pain, ear ringing, eye pain, eye redness, hearing loss, mouth pain, mouth swelling, nasal discharge, nose bleeding, nose congestion, nose pain, photophobia, tearing, throat pain, throat swelling, voice changes, others Respiratory: reports: SOB at rest, shortness of breath, SOB with excertion; denies: cough, hemoptysis, orthopnea, stridor, wheezing, others Cardiovascular: reports: chest pain, dizzy spells, diaphoresis; denies: Dyspnea on exertion, edema, irregular heart beat, left arm pain, lightheadedness, palpitations, PND, syncope, others Gastrointestinal: denies: abdomen distended, abdominal pain, blood streaked bowels, constipated, diarrhea, dysphagia, difficulty swallowing, hematemesis, melena, nausea, poor appetite, poor fluid intake, rectal bleeding, rectal pain, vomiting, others Genitourinary: denies: abnormal vagina bleeding, burning, dyspareunia, dysuria, flank pain, frequency, hematuria, incontinence, pain, , vagina discharge, urgency, others Neurological: denies: dizziness, fainting, headache, left sided numbness, left sided weakness, numbness, paresthesia, pre-existing deficit, right sided numbness, right sided weakness, seizure, speech problems, tingling, tremors, weakness, others Musculoskeletal: reports: back pain; denies: gout, joint pain, joint swelling, muscle pain, muscle stiffness, neck pain, others Integumetry: denies: bruises, change in color, change in hair/nails, dryness, laceration, lesions, lumps, rash, wounds, others Allergic/Immunocompromised: denies: Difficulty Healing, Frequent Infections, Hives, Itching, others Hematologic/Lymphatic: denies: anemia, blood clots, easy bleeding, easy bruising, swollen glands, others Endocrine: denies: excessive hunger, excessive sweating, excessive thirst, excessive urination, flushing, intolerance to cold, intolerance to heat, unexpla ined weight gain, unexplained weight loss, others Psychiatric: denies: anxiety, bipolar disorder, depression, hopeless, panic disorder, schizophrenia, sleepless, suicidal, others Physical Exam General Appearance: No Apparent Distress, Normal HEENT: Normal ENT Inspection, Pharynx Normal, TMs Normal Neck: Full Range of Motion, Non-Tender, Normal, Normal Inspection Respiratory: Chest Non-Tender, Lungs Clear, No Accessory Muscle Use, No Respiratory Distress, Normal Breath Sounds Cardiovascular: No Edema, No JVD, No Murmur, No Gallop, Normal Peripheral Pulses, Regular Rate/Rhythm Breast Exam: Deferred Gastrointestinal: No Organomegaly, Non Tender, No Pulsatile Mass, Normal Bowel Sounds, Soft Genitalia: Deferred Pelvic: Deferred Rectal: Deferred Extremities: No calf tenderness, Normal capillary refill, Normal inspection, Normal range of motion, Non-tender, No pedal edema Musculoskeletal : Apperance: Normal Neurologic: Alert, dental officer II-XII nml as Tested, No Motor Deficits, Normal Affect, Normal Mood, No Sensory Deficits Cerebellar Function: Normal Reflexes: Normal Skin: Dry, Normal Color, Warm Lymphatic: No Adenopathy Was a procedure done? Was a procedure done?: No CP Differential Dx Differential Diagnosis: Angina, Anxiety / Panic Attack, Electrolyte Disorder, Hyperventilation Differential Diagnosis: Angina, Chest Wall Pain, Costochondritis, Esophageal reflux/spasm, Gastritis, Myocardial Infarction X-Ray, Labs, Meds, VS Vital Signs Date Time Temp Pulse Resp B/P (MAP) Pulse Ox O2 Delivery O2 Flow Rate FiO2 3/28/25 03:19 104 12/11/24 03:12 98.2 104 20 161/100 (120) 93 98.2 Lab Test 12/11/24 04:15 12/11/24 03:25 Range/Units Troponin I High Sensitivity Pending 1575 *H </=34 ng/L White Blood Count 6.5 4.4-10.8 10^3/uL Red Blood Count 5.52 H 4.0-5.20 10^6/uL Hemoglobin 17.0 H 12.2-16.2 g/dL Hematocrit 51.2 H 36.0-46.0 % Mean Corpuscular Volume 92.6 80.0-100.0 fL Mean Corpuscular Hemoglobin 30.8 28.0-32.0 pg Mean Corpuscular Hemoglobin Concent 33.3 32.0-36.0 g/dL Red Cell Distribution Width 15.8 H 11.8-14.3 % Platelet Count 179 140-450 10^3/uL Mean Platelet Volume 8.3 6.9-10.8 fL Neutrophils (%) (Auto) 86.3 H 37.0-80.0 % Lymphocytes (%) (Auto) 6.5 L 10.0-50.0 % Monocytes (%) (Auto) 6.4 0.0-12.0 % Eosinophils (%) (Auto) 0.3 0.0-7.0 % Basophils (%) (Auto) 0.5 0.0-2.0 % Neutrophils # (Auto) 5.6 1.6-8.6 10 ^3/uL Lymphocytes # (Auto) 0.4 0.4-5.4 10 ^3/uL Monocytes # (Auto) 0.4 0-1.3 10 ^3/uL Eosinophils # (Auto) 0 0-0.8 10 ^3/uL Basophils # (Auto) 0 0-0.2 10 ^3/uL Nucleated Red Blood Cells 0.2 % Sodium Level 138 136-145 mmol/L Potassium Level 3.8 3.5-5.1 mmol/L Chloride Level 102 98-107 mmol/L Carbon Dioxide Level 28 20-31 mmol/L Anion Gap 8 5-15 Blood Urea Nitrogen 19 9-23 mg/dL Creatinine 1.20 H 0.550-1.02 mg/dL Glomerular Filtration Rate Calc 55 >90 mL/min BUN/Creatinine Ratio 15.8 10.0-20.0 Serum Glucose 130 H 74-106 mg/dL Calcium Level 10.0 8.7-10.4 mg/dL B-Type Natriuretic Peptide 1105.19 0-100 pg/mL CHEST RADIOGRAPH Indication: sob Technique: Single frontal view of the chest was obtained Comparison: XY CHEST PORTABLE on DOS: 12/09/24, XY CHEST PORTABLE on DOS: 12/08/24, XY CHEST PORTABLE on DOS: 02/21/24 IMPRESSION: The heart is enlarged. There is a small right pleural effusion. No focal airspace opacity or pneumothorax. Time of 1ST Reevaluation: 04:13 Reevaluation 1ST: Unchanged Patient Education/Counseling: Diagnosis, Treatment Family Education/Counseling: No Family Present Departure 1 Departure Time of Disposition: 04:30 (Patient presented with chest pain that was concerning for possible STEMI, ACS, PE, Pneumonia, Muscle Strain, COPD, Dissection. Data: 1. I ordered and reviewed the result of at least 3 labs in cluding a CBC, BMP, and Troponin. 2. I independently interpreted the following tests: EKG which shows sinus arrhythmia and Chest X-ray which shows chronic findings.Risk:This patient has a high risk of morbidity due to further diagnostic testing or treatment and may suffer from an acute cardiac or respiratory disorder. Workup reveals concern for NSTEMI and patient should be admitted for further workup and possible expert consultation. ) Impression: Primary Impression: NSTEMI (non-ST elevated myocardial infarction) Additional Impression: Acute chest pain Disposition: ADMITTED INPATIENT Admit to: Tele Condition: Guarded Critical Care Note Critical Care Time?: Yes (35 min-critical care time only) Critical care comment: Shortness of breath, chest pains Authorized and Performed by: Tom Gr MD Total critical care time: Approximately 39 minutes Due to a high probability of clinically significant, life threatening deterioration, the patient required my highest level of preparedness to intervene emergently and I personally spent this critical care time directly and personally managing the patient. This critical care time included obtaining a history; examining the patient; pulse oximetry; ordering and review of studies; arranging urgent treatment with development of a management plan; evaluation of patient's response to treatment; frequent reassessment; and, discussions with other providers. This critical care time was performed to assess and manage the high probability of imminent, life-threatening deterioration that could result in multi-organ failure. It was exclusive of separately billable procedures and treating other patients and teaching time. Please see my other sections and the rest of the note for further information on patient assessment and treatment. Stability Stability form required: No Heart Score Heart Score: Heart Score Response (Comments) Value History Highly Suspicious 2 EKG Repolarization Disturb 1 Age 45-64 1 Risk Factors >3 or Hx ASHD 2 Troponin >3 x's Normal limit 2 Total 8 I personally scribed for TOM GR MD ([facility] on 12/11/24 at 03:50. Electronically submitted by Anselmo Arzate ([employer]). I personally scribed for TOM GR MD ([email or web address]) on 12/11/24 at 04:15. Elec tronically submitted by Anselmo Arzate ([employer]). TOM GR MD Dec 11, 2024 03:50
[2024-12-11 03:51] LABS: Anion Gap 8 (5-15); Carbon Dioxide 28 mmol/L (20-31)
--- NOTE | 2024-12-11 03:53 | DVH ---
CHEST RADIOGRAPH Indication: sob Technique: Single frontal view of the chest was obtained Comparison: XY CHEST PORTABLE on DOS: 12/09/24, XY CHEST PORTABLE on DOS: 12/08/24, XY CHEST PORTABLE o n DOS: 02/21/24 IMPRESSION: The heart is enlarged. There is a small right pleural effusion. No focal airspace opacity or pneumo thorax.
[2024-12-11 03:55] LABS: BUN/Creatinine Ratio 15.8 (10.0-20.0); Blood Urea Nitrogen 19 mg/dL (9-23)
[2024-12-11 03:58] LABS: Basophils # (auto) 0 10 ^3/uL (0-0.2); Basophils % (auto) 0.5 % (0.0-2.0); Eosinophils # (auto) 0 10 ^3/uL (0-0.8); Eosinophils % (auto) 0.3 % (0.0-7.0); Hematocrit 51.2 % (36.0-46.0); Lymphocytes # (auto) 0.4 10 ^3/uL (0.4-5.4); Lymphocytes % (auto) 6.5 % (10.0-50.0); Mean Corpuscular Hemoglobin 30.8 pg (28.0-32.0); Mean Corpuscular Hgb Conc. 33.3 g/dL (32.0-36.0); Mean Corpuscular Volume 92.6 fL (80.0-100.0); Monocytes # (auto) 0.4 10 ^3/uL (0-1.3); Monocytes % (auto) 6.4 % (0.0-12.0); Neutrophils # (auto) 5.6 10 ^3/uL (1.6-8.6); Neutrophils % (auto) 86.3 % (37.0-80.0); Nucleated Red Blood Cells % 0.2 %; Platelet Count (auto) 179 10^3/uL (140-450); Red Blood Cells 5.52 10^6/uL (4.0-5.20); Red Cell Distribution Width 15.8 % (11.8-14.3); White Blood Cell 6.5 10^3/uL (4.4-10.8)
[2024-12-11 04:05] LABS: Glucose 130 mg/dL (74-106)
[2024-12-11 05:49] LABS: INR 1.14 (0.9-1.15); Partial Thromboplastin Time 28.2 SEC (24.5-34.5); Prothrombin Time 11.9 sec (9.3-11.8)
--- NOTE | 2024-12-11 07:11 | ECG ---
[facility] Test Date: 2024-12-11 Test Time: 03:19:15 Pat Name: ZOFIA FUNEZ Department: ER Room: [address] [place] [address] Gender: F [facility] Dentist: MARCELINO : 1975 Requested By: TOM LAKHANI Order Number: [id number] Reading MD: Hugh Guerrero Measurements Intervals [place] Rate: 104 P: 45 PA: 162 QRS: 141 QRSD: 103 T: -37 QT: 336 QTc: 442 Interpretive Statements Sinus tachycardia Biatrial enlargement Low voltage, precordial leads Right ventricular hypertrophy Nonspecific T abnormalities, inferior leads Electronically Signed On 12-11-2024 11:58:28 PDT by Hugh Guerrero Please click the below link to view image of tracing.
--- NOTE | 2024-12-11 07:12 | ECG ---
[facility] Test Date: 2024-12-11 Test Time: 04:33:40 Pat Name: ZOFIA FUNEZ Department: ER Room: [address] [place] [address] Gender: F Icu Staff Nurse: MARCELINO : 1975 Requested By: TOM LAKHANI Order Number: [id number] Reading MD: Hugh Guerrero Measurements Intervals [place] Rate: 109 P: 73 MO: 144 QRS: 151 QRSD: 101 T: -35 QT: 331 QTc: 446 Interpretive Statements Sinus tachycardia Biatrial enlargement Low voltage, precordial leads Right ventricular hypertrophy Anterolateral infarct, age indeterminate Baseline wander in lead(s) V2 Electronically Signed On 12-11-2024 11:58:53 PDT by Hugh Guerrero Please click the below link to view image of tracing.
[2024-12-11 07:30] VITALS: PULSE 114; RESP 24; O2SAT 88
[2024-12-11] MEDS ORDERED: MORPHINE SULFATE INJ 2 MG/ml SYRG IV PRN (07:30)
[2024-12-11] MEDS ORDERED: MORPHINE SULFATE 4 MG/ML SYR/VIAL IV PRN (07:30)
[2024-12-11] MEDS ORDERED: NITROGLYCERIN 0.4 MG SL TAB SL PRN ×2 (07:30)
--- NOTE | 2024-12-11 07:41 | DVHHP2 ---
History of Present Illness Reason for Visit: Chest pain History of Present Illness Charley Guy is a 49-year-old female with past medical history of hypertension, hyperlipidemia, pulmonary hypertension, asthma, CHF, breast surgery, and who presents to the ED with chest pain that is currently 10/10 radiating to her right shoulder right-sided for head that is burning and constant. Patient also endorses a headache and ear infection. Patient reports that she is homeless. She also states that she smokes cigarettes uses meth and drinks alcohol. Upon examination her lower extremities are discolored and swollen. Cardiovascular: CHF, HTN, hyperipidemia Pulmonary: Asthma Past Medical History Pulmonary hypertension Past Surgical History: , Other (Breast surgery) Family History: Hypertension, Other (Mother and father with hypertension) Smoke: <1 pack per day ALCOHOL: occassional Drugs: Other (Methamphetamine) Lives: Homeless Domestic Violence: Neg Review of Systems Cardiovascular: Chest Pain Allergies: Coded Allergies: Codeine (Verified Allergy, Unknown, 07/16/20) Morphine (Verified Allergy, Unknown, 07/16/20) Medications Current Medications Medications Dose Ordered Sig/Carl Route Start Time Stop Time Status Last Admin Dose Admin Heparin Sodium/ Dextrose 250 ml @ 10 mls/hr Q24H IV 12/11/24 06:30 Aspirin 81 mg DAILY PO 12/11/24 10:00 UNV Atorvastatin Calcium 40 mg HS PO 12/11/24 22:00 UNV Morphine Sulfate 2 mg Q30MP PRN IV 12/11/24 07:30 UNV Acetaminophen 650 mg Q6HP PRN PO 12/11/24 07:30 UNV Nitroglycerin 0.4 mg Q5MINP PRN SL 12/11/24 07:30 UNV Nitroglycerin 0.4 mg Q5MINP PRN SL 12/11/24 07:30 UNV Morphine Sulfate 2 mg Q30M PRN IV 12/11/24 07:30 UNV Ceftriaxone Sodium 50 ml @ 100 mls/hr DAILY@09 IV 12/11/24 07:45 UNV Exam Vital Signs Vital Signs Date Time Temp Pulse Resp B/P (MAP) Pulse Ox O2 Delivery O2 Flow Rate FiO2 12/11/24 04:33 109 12/11/24 03:12 98.2 20 161/100 (120) 93 98.2 General Appearance: Alert, Oriented X3, Cooperative, No acute distress HEENT: PERRLA, EOMI Respiratory: Normal air movement Cardiovascular: Normal S1, Normal S2, No murmurs Abdominal: Soft Extremities: No clubbing, No cyanosis Neuro: Normal tone, Sensation intact Psych/Mental Status: Mental status NL Labs/Xrays Labs Test 12/11/24 06:15 12/11/24 03:25 Range/Units Troponin I High Sensitivity 1482 *H </=34 ng/L White Blood Count 6.5 4.4-10.8 10^3/uL Red Blood Count 5.52 H 4.0-5.20 10^6/uL Hemoglobin 17.0 H 12.2-16.2 g/dL Hematocrit 51.2 H 36.0-46.0 % Mean Corpuscular Volume 92.6 80.0-100.0 fL Mean Corpuscular Hemoglobin 30.8 28.0-32.0 pg Mean Corpuscular Hemoglobin Concent 33.3 32.0-36.0 g/dL Red Cell Distribution Width 15.8 H 11.8-14.3 % Platelet Count 179 140-450 10^3/uL Mean Platelet Volume 8.3 6.9-10.8 fL Neutrophils (%) (Auto) 86.3 H 37.0-80.0 % Lymphocytes (%) (Auto) 6.5 L 10.0-50.0 % Monocytes (%) (Auto) 6.4 0.0-12.0 % Eosinophils (%) (Auto) 0.3 0.0-7.0 % Basophils (%) (Auto) 0.5 0.0-2.0 % Neutrophils # (Auto) 5.6 1.6-8.6 10 ^3/uL Lymphocytes # (Auto) 0.4 0.4-5.4 10 ^3/uL Monocytes # (Auto) 0.4 0-1.3 10 ^3/uL Eosinophils # (Auto) 0 0-0.8 10 ^3/uL Basophils # (Auto) 0 0-0.2 10 ^3/uL Nucleated Red Blood Cells 0.2 % Prothrombin Time 11.9 H 9.3-11.8 sec Prothrombin Time INR 1.14 0.9-1.15 Activated Partial Thromboplast Time 28.2 24.5-34.5 SEC Sodium Level 138 136-145 mmol/L Potassium Level 3.8 3.5-5.1 mmol/L Chloride Level 102 98-107 mmol/L Carbon Dioxide Level 28 20-31 mmol/L Anion Gap 8 5-15 Blood Urea Nitrogen 19 9-23 mg/dL Creatinine 1.20 H 0.550-1.02 mg/dL Glomerular Filtration Rate Calc 55 >90 mL/min BUN/Creatinine Ratio 15.8 10.0-20.0 Serum Glucose 130 H 74-106 mg/dL Calcium Level 10.0 8.7-10.4 mg/dL B-Type Natriuretic Peptide 1105.19 0-100 pg/mL Bilateral lower extremity venous duplex Clinical History: swelling and discoloration Comparison: US BILAT LOWER DVT on DOS: 12/08/24 Technique: Duplex Doppler evaluation of the deep venous systems of both lower extremities from the common femoral veins to the popliteal veins including color Doppler and spectral/pulsed waveform analysis was performed. Findings: RIGHT SIDE: The common femoral vein demonstrates appropriate compressibility and waveform variability. There is compressibility/patency of the great saphenous vein at the proximal thigh. The femoral vein demonstrates appropriate compressibility and waveform varia bility. The deep femoral vein demonstrates appropriate compressibility and waveform variability. The popliteal vein demonstrates appropriate compressibility and waveform variability. There is normal compressibility at the tibioperoneal trunk. LEFT SIDE: The common femoral vein demonstrates appropriate compressibility and waveform variability. There is compressibility/patency of the great saphenous vein at the proximal thigh. The femoral vein demonstrates appropriate compressibility and waveform vari ability. The deep femoral vein demonstrates appropriate compressibility and waveform variability. The popliteal vein demonstrates appropriate compressibility and waveform variability. There is normal compressibility at the tibioperoneal trunk. Impression: No right or left femoropopliteal venous thrombosis. CHEST RADIOGRAPH Indication: sob Technique: Single frontal view of the chest was obtained Comparison: XY CHEST PORTABLE on DOS: 12/09/24, XY CHEST PORTABLE on DOS: 12/08/24, XY CHEST PORTABLE on DOS: 02/21/24 IMPRESSION: The heart is enlarged. There is a small right pleural effusion. No focal airspace opacity or pneumothorax. Assessment/Plan Assessment/Plan Assessment NSTEMI Hypertensive urgency Pulmonary hypertension Acute on chronic decompensated heart failure Severe torrential tricuspid valve regurgitation Pyrexia Diabetes type 2 Medical noncompliance Methamphetamine use Tobacco use Obesity History of hyperlipidemia History of asthma History of breast surgery History of Plan Admit to tele Heparin drip started in ED Troponin EKG PT/PTT Chest x-ray BNP Diurese Ultrasound bilateral lower extremity venous UA UDS TSH Lipid panel A1c Daily weights Strict I&Os Aspirin Statin IV antibiotics-ceftriaxone Mag level Mag rider Cardiology consult Home medications reconciled DVT prophylaxis-patient on heparin drip PUD prophylaxis-Protonix Discussed plan of care with patient and nurse Plan discussed with: Patient My Orders Orders - ALLY BRADSHAW Philip MALIK Procedure Category Date Status Time Admit ADMIT 12/11/24 Transmitted 07:30 Code Status CODE 12/11/24 Transmitted 07:30 Vital Signs LIDIA 12/11/24 In Process 07:30 Dock Hand LIDIA 12/11/24 In Process 07:30 Aspirin Tablet PHA 12/11/24 Logged 10:00 Atorvastatin (Lipitor) PHA 12/11/24 Logged 22:00 Morphine Sulfate PHA 12/11/24 Logged Injection 07:30 Acetaminophen Tablet PHA 12/11/24 Logged (Tylenol Tablet) 07:30 Complete Blood Count LAB 12/12/24 Verified 04:00 Basic Metabolic Panel LAB 12/12/24 Verified 04:00 Echo 2d Mode Cardiac US 12/11/24 Logged DOP 07:30 Nitroglycerin PHA 12/11/24 Logged Sublingual (Ntrostat 07:30 Electrocardigram EKG 12/11/24 Logged 07:30 Troponin-I Hs LAB 12/11/24 Logged 07:30 Cardiac LIDIA 12/11/24 In Process Rehabilitation - Outpa Nitroglycerin PHA 12/11/24 Logged Sublingual (Ntrostat 07:30 Morphine Sulfate PHA 12/11/24 Logged Injection 07:30 Notify Of Changes [facility] 12/11/24 In Process From Base 07:30 Equipment Cleaner For [facility] 12/11/24 In Process 24 Hours 07:30 Emergency Dysrhythmia LIDIA 12/11/24 In Process Protocol 07:30 Rhythm Strips Once [facility] 12/11/24 In Process Every Shift 07:30 Oxygen By Nasal RT 12/11/24 Transmitted Cannula 07:30 Urinalysis LAB 12/11/24 Logged 07:32 Drug Screen LAB 12/11/24 Logged 07:32 Thyroid Stimulating LAB 12/11/24 Logged Hormone 07:32 Lipid Panel LAB 12/11/24 Logged 07:32 * Cardiology Consult CONS 12/11/24 Transmitted 07:32 Ceftriaxone 1gm/50ml PHA 12/11/24 Logged D5w (Rocephin) 07:45 Date of Service: Dec 11, 2024 Billing Provider: ALLY BRADSHAW Common Visit Codes: 99732-[id number] INP/OBS CARE (HIGH) ALLY BRADSHAW Dec 11, 2024 07:41
[2024-12-11] MEDS: HEPARIN SODIUM (PORCINE) 5000 UNITS/ML 1ML VIAL IV ONE (07:44)
[2024-12-11] MEDS: HEPARIN DRIP/D5W 100UNITS/ML 250 ML IV SCH ×2 (07:51→23:02)
[2024-12-11] MEDS: cefTRIAXone 1GM/50ML D5W 50 ML IV SCH (07:57)
[2024-12-11] MEDS: ACETAMINOPHEN 325 MG TAB PO PRN (08:01)
[2024-12-11 08:08] LABS: Triglycerides 83 mg/dL (< 150)
[2024-12-11 08:09] LABS: LDL Cholesterol 53 mg/dL (< 100)
[2024-12-11 08:10] LABS: Cholesterol 104 mg/dL (< 200)
[2024-12-11 08:12] LABS: HDL Cholesterol 34 mg/dL (40-59)
--- NOTE | 2024-12-11 08:53 | CONS ---
Pharmacy Clinical Information: Heparin Per Pharmacy Protocol Spoke with ARPAN Rojo Bolus 12/11/24 at 0744 at 4000 units/hr aPTT 28.2 on 12/11/24 at 03:25 Infusion: 1000 units/hr at 07:51 next aPTT reading at 14:00 on 12/11/24 SCOTTY CHEN PHARMACIST Dec 11, 2024 08:53
--- NOTE | 2024-12-11 09:05 | DVH ---
Bilateral lower extremity venous duplex Clinical History: swelling and discoloration Comparison: US BILAT LOWER DVT on DOS: 12/08/24 Technique: Duplex Doppler evaluation of the deep venous systems of both lower extremities from the common femora l veins to the popliteal veins including color Doppler and spectral/pulsed waveform analysis was perf ormed. Findings: RIGHT SIDE: The common femoral vein demonstrates appropriate compressibility and waveform variability. There is compressibility/patency of the great saphenous vein at the proximal thigh. The femoral vein demonstrates appropriate compressibility and waveform variability. The deep femoral vein demonstrates appropriate compressibility and waveform variability. The popliteal vein demonstrates appropriate compressibility and waveform variability. There is normal compressibility at the tibioperoneal trunk. LEFT SIDE: The common femoral vein demonstrates appropriate compressibility and waveform variability. There is compressibility/patency of the great saphenous vein at the proximal thigh. The femoral vein demonstrates appropriate compressibility and waveform variability. The deep femoral vein demonstrates appropriate compressibility and waveform variability. The popliteal vein demonstrates appropriate compressibility and waveform variability. There is normal compressibility at the tibioperoneal trunk. Impression: No right or left femoropopliteal venous thrombosis.
[2024-12-11] MEDS: hydrALAZINE HCL 20 MG/ML VL IV ONE (09:15)
[2024-12-11] MEDS ORDERED: traMADol HCL 50 MG TAB PO PRN (09:15)
--- NOTE | 2024-12-11 09:46 | DVHINCON2 ---
Date Seen: Dec 11, 2024 Referring Physician MARYA Morrison Reason for Consultation Elevated troponin History of Present Illness This is a 49-year-old female patient who presents to the emergency room with multiple chief complaints. The patient reports she was experiencing pain in her mouth, chest pain, and abdominal pain. The patient was recently admitted at to this facility and left against medical advice yesterday on 12/10/24. She now returns with same complaints as previous visit. She also admits to methamphetamine use prior to emergency room arrival. The patient states that she left against medical advice because she felt as though that she was not being treated for all of the symptoms that she was presenting with. She now returns for further care. The patient states that she was experiencing chest pain for approximately two weeks. She states that the pain initially began in her mouth and radiates down her neck and travels to her chest. She describes it as provoked, constant, burning in nature, substernal with radiation across both sides of her chest traveling up towards her neck area. Associated symptoms include shortness of breath. Initial twelve lead electrocardiogram reveals sinus tachycardia with diffuse nonspecific ST segment changes. Initial troponin level of 1575ng/L with down trend thereafter. 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 Patient does not see a soft sugar operator head in the outpatient setting. Past Medical History Past medical history reviewed. No other significant than mentioned above. Past Surgical History Left lumpectomy x 3 Abortions x4 Family History: Hypertension G8 MOTHER G8 FATHER Family History Family history reviewed. Social History Patient has a 11 pack-year history, smokes two cigarettes per day now Patient admits to recent methamphetamine use yesterday Denies any alcohol use Allergies: Coded Allergies: Codeine (Verified Allergy, Unknown, 07/16/20) Morphine (Verified Allergy, Unknown, 07/16/20) Home Meds Active Scripts Sildenafil Citrate (SILDENAFIL CITRATE) 20 Mg Tab, 20 MG OR TID for 30 Days, #90 TAB Prov:TAYE ALMONTE RESIDENT 09/12/24 Reported Medications Furosemide (Furosemide) 20 Mg Tab, 1 TAB PO DAILY for 90 Days, #90 12/08/24 Albuterol Sulfate (Albuterol Sulfate Hfa) 108 Mcg/Act Aer, 108 MCG IN UD for 28 Days, #18 09/10/24 Atorvastatin Calcium (Lipitor) 10 Mg Tab, 1 TAB PO DAILY for 90 Days, #90 09/10/24 Amlodipine Besylate (Amlodipine Besylate) 10 Mg Tab, 1 TAB PO DAILY for 90 Days, #90 09/10/24 Metformin Hydrochloride (Metformin Hcl) 500 Mg Tab, 1 TAB PO BID for 90 Days, #180 09/10/24 Aspirin (Aspir-81) 81 Mg Tab, 1 TAB PO DAILY for 30 Days, #30 09/10/24 Metoprolol Tartrate (Lopressor) 50 Mg Tab, 1 TAB PO BID for 90 Days, #180 09/10/24 Lisinopril (Lisinopril) 20 Mg Tab, 1 TAB PO DAILY for 90 Days, #90 09/10/24 Home Meds Home medications reviewed. Current Medications Current Medications Medications (Trade) Dose Ordered Sig/Carl Route PRN Reason Start Time Stop Time Status Last Admin Heparin Sodium/ Dextrose 250 ml @ 10 mls/hr Q24H IV 12/11/24 06:30 12/11/24 07:51 Aspirin 81 mg DAILY PO 12/11/24 10:00 Atorvastatin Calcium (Lipitor) 40 mg HS PO 12/11/24 22:00 Morphine Sulfate 2 mg Q30MP PRN IV FOR CHEST PAIN 12/11/24 07:30 Hold Acetaminophen (Tylenol Tablet) 650 mg Q6HP PRN PO MILD PAIN (1-3 PAIN SCALE) 12/11/24 07:30 12/11/24 08:01 Nitroglycerin (Ntrostat Sublingual) 0.4 mg Q5MINP PRN SL FOR CHEST PAIN 12/11/24 07:30 Nitroglycerin (Ntrostat Sublingual) 0.4 mg Q5MINP PRN SL FOR CHEST PAIN 12/11/24 07:30 12/11/24 07:51 DC Morphine Sulfate 2 mg Q30M PRN IV FOR CHEST PAIN 12/11/24 07:30 12/11/24 07:52 DC Ceftriaxone Sodium 50 ml @ 100 mls/hr DAILY@09 IV 12/11/24 07:45 12/11/24 07:57 Furosemide (Lasix Injection) 40 mg BIDD IV 12/11/24 18:00 Ipratropium [place] (Atrovent Medneb) 0.5 mg Q4HPRN PRN NEB SHORTNESS OF BREATH 12/11/24 09:15 Tramadol HCl (Ultram) 30 mg Q4HP PRN PO SEVERE PAIN (7-10 PAIN SCALE) 12/11/24 09:15 Review of Systems Constitutional: No symptom reported Ears, Nose, & Throat: Mouth pain Eyes: No symptom reported Neurological: No symptoms reported Pulmonary/Respiratory: No symptoms reported Cardiovascular: Chest pain Gastrointestinal: Abdominal pain Genitourinary: No symptom reported Musculoskeletal: Neck pain Skin: No symptom reported Psychiatric: No symptom reported Endocrine: No symptom reported Hematologic/Lymphatic: No symptom reported Vital Signs Vital Signs Date Time Temp Pulse Resp B/P (MAP) Pulse Ox O2 Delivery O2 Flow Rate FiO2 12/11/24 09:08 100.2 12/11/24 08:00 114 19 169/94 (119) 91 12/11/24 07:30 Room Air* 0 21 Physical Exam General Appearance: Cooperative. Unkempt. Obese Pulmonary/Respiratory: Clear, bilateral breaths sounds. Cardiovascular/Chest: Regular rate and rhythm. Diastolic murmur Peripheral Pulses: 2+ Radial (R). 2+ Radial (L). 2+ Pedal (R). 2+ Pedal (L) Abdominal Exam: Normal bowel sounds. Ankle Exam: 2+ pitting edema Lower extremities: 2+ pitting edema Neuro/Mental Status: A/OX4, coherent. Thoughts/Psych: Normal thought pattern. Appropriate mood and affect. Good judgment and insight. Appearance: No acute distress. Skin Exam: Normal inspection. Normal color. Warm and dry. Labs/Diagnostic Data Labs Test 12/11/24 07:39 12/11/24 03:25 Range/Units Troponin I High Sensitivity 1461 *H </=34 ng/L Triglycerides Level 83 < 150 mg/dL Cholesterol Level 104 < 200 mg/dL LDL Cholesterol 53 < 100 mg/dL HDL Cholesterol 34 L 40-59 mg/dL Thyroid Stimulating Hormone (TSH) 2.40 0.55-4.78 uIU/mL White Blood Count 6.5 4.4-10.8 10^3/uL Red Blood Count 5.52 H 4.0-5.20 10^6/uL Hemoglobin 17.0 H 12.2-16.2 g/dL Hematocrit 51.2 H 36.0-46.0 % Mean Corpuscular Volume 92.6 80.0-100.0 fL Mean Corpuscular Hemoglobin 30.8 28.0-32.0 pg Mean Corpuscular Hemoglobin Concent 33.3 32.0-36.0 g/dL Red Cell Distribution Width 15.8 H 11.8-14.3 % Platelet Count 179 140-450 10^3/uL Mean Platelet Volume 8.3 6.9-10.8 fL Neutrophils (%) (Auto) 86.3 H 37.0-80.0 % Lymphocytes (%) (Auto) 6.5 L 10.0-50.0 % Monocytes (%) (Auto) 6.4 0.0-12.0 % Eosinophils (%) (Auto) 0.3 0.0-7.0 % Basophils (%) (Auto) 0.5 0.0-2.0 % Neutrophils # (Auto) 5.6 1.6-8.6 10 ^3/uL Lymphocytes # (Auto) 0.4 0.4-5.4 10 ^3/uL Monocytes # (Auto) 0.4 0-1.3 10 ^3/uL Eosinophils # (Auto) 0 0-0.8 10 ^3/uL Basophils # (Auto) 0 0-0.2 10 ^3/uL Nucleated Red Blood Cells 0.2 % Prothrombin Time 11.9 H 9.3-11.8 sec Prothrombin Time INR 1.14 0.9-1.15 Activated Partial Thromboplast Time 28.2 24.5-34.5 SEC Sodium Level 138 136-145 mmol/L Potassium Level 3.8 3.5-5.1 mmol/L Chloride Level 102 98-107 mmol/L Carbon Dioxide Level 28 20-31 mmol/L Anion Gap 8 5-15 Blood Urea Nitrogen 19 9-23 mg/dL Creatinine 1.20 H 0.550-1.02 mg/dL Glomerular Filtration Rate Calc 55 >90 mL/min BUN/Creatinine Ratio 15.8 10.0-20.0 Serum Glucose 130 H 74-106 mg/dL Calcium Level 10.0 8.7-10.4 mg/dL B-Type Natriuretic Peptide 1105.19 0-100 pg/mL Assessment NSTEMI Hypertensive urgency Critical pulmonary hypertension, likely type 1 secondary to amphetamine abuse Acute on chronic decompensated HFpEF, NYHA class III Severe torrential tricuspid valve regurgitation Pyrexia Mia-vwnppoa-myouqnsop diabetes mellitus Chronic kidney disease stage IIIA Medical non-adherence Methamphetamine/tobacco abuse Obesity Plan/Recommendation We will continue following plan/recommendations (Dr. Carbone): Patient seen and examined at bedside with . We will proceed with obtaining transthoracic echocardiogram to evaluate cardiac function. Previous echocardiogram from 09/10/2024 reveals EF 55%, RVSP 88 mmHg. Initiate guideline directed medical therapy for CHF. Continue strict intake and output, daily weights, and maintaining fluid restrictions. Continue preload and afterload reduction as tolerated. Restart sildenafil, consider pulmonary consultation. At this time, the patient is not an ideal candidate for any invasive cardiac procedures given methamphetamine use and medical noncompliance. Consider ischemic workup once patient is compliant and can abstain from polysubstance use. Proceed with conservative medical management. Continue with the aggressive blood pressure control and close cardiac surveillance. Thank you for allowing us to care for this patient. Please call with any questions or concerns. Critical care time spent: 44 minutes This medical document was created using an electronic medical record system with voice recognition software and computerized dictation system. Although this document has been carefully reviewed, there might still be some phonetic and typographical errors. Occasional wrong-word or ``sound-alike substitutions may have occurred due to the inherent limitations of voice recognition software. These areas are purely typographical due to imperfections of the software programs and do not reflect any compromise in the patient's medical care. Please read the chart carefully and recognize, using context, where these substitutions have occurred. Plan discussed with: Patient NYHA Physical activity limitations: Class3(Marked) ordinary Date of Service: Dec 11, 2024 Billing Provider: KING OLSON Cardiology Common Codes: [id number] INP/OBS CARE (High) Cardiology Consultation Codes: [id number] CONSULT <45MIN KING OLSON Dec 11, 2024 09:46
[2024-12-11] MEDS: ASPirin 81 mg TAB PO SCH (10:01)
[2024-12-11] MEDS: LISINOPRIL 5 MG TAB PO SCH (11:03)
[2024-12-11] MEDS: METOPROLOL TARTRATE 25 MG TAB PO SCH (11:03)
[2024-12-11 11:24] VITALS: BP 140/93; PULSE 105; RESP 22; TEMP 100.2; O2SAT 90
[2024-12-11] MEDS: traMADol HCL 50 MG TAB PO PRN (11:30)
[2024-12-11] MEDS: MAGNESIUM SULFATE 1GM/100ML 100 ML IV ONE (13:01)
[2024-12-11] MEDS: FUROSEMIDE 40 MG/4 ML VIAL IV SCH ×2 (13:08→18:16)
[2024-12-11] MEDS: SILDENAFIL CITRATE 20 MG TAB PO SCH (14:25)
[2024-12-11 15:01] LABS: Lactic Acid w/Reflex 2.4 mmol/L (0.4-2.0)
[2024-12-11 15:09] LABS: INR 1.35 (0.9-1.15); Prothrombin Time 13.9 sec (9.3-11.8)
[2024-12-11 15:13] LABS: Partial Thromboplastin Time 72.6 SEC (24.5-34.5)
--- NOTE | 2024-12-11 15:21 | CONS ---
Pharmacy Clinical Information: HEPARIN PER RX PROTOCOL APTT 72.6 AT 14:12 12/11/24 NO CHANGE. CONTINUE HEPARIN 1000 UNITS/HR NEXT APTT DRAW AT 2200 12/11/24 SPOKE TO SCOTTY BURCIAGA PHARMACIST Dec 11, 2024 15:21
--- NOTE | 2024-12-11 21:17 | DVHINCON2 ---
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 Patient describes her pain as provoked, constant, burning in nature, substernal with radiation across both sides of her chest radiating up towards her neck area. Patient was recently admitted to [facility] on 12/08 and left against medical advice yesterday on 12/10/24 due to her feeling like she was not being treated for all of the symptoms that she was presenting with. Patient also admits to methamphetamine use prior to arrival. Initial twelve lead electrocardiogram reveals sinus tachycardia with diffuse nonspecific ST segment changes. Initial troponin level of 1575ng/L with down trend thereafter. Patient denies seeing a flotation operator in the outpatient setting. Chest x-ray showed the heart is enlarged. There is a small right pleural effusion. Patient was admitted to the hospital. I am asked to consult on this patient. Past Medical History Past medical history reviewed. No other significant than mentioned above. Past Surgical History Left lumpectomy x 3 Abortions x4 Family History: Hypertension G8 MOTHER G8 FATHER Allergies: Coded Allergies: Codeine (Verified Allergy, Unknown, 07/16/20) Morphine (Verified Allergy, Unknown, 07/16/20) Home Meds Active Scripts Sildenafil Citrate (SILDENAFIL CITRATE) 20 Mg Tab, 20 MG OR TID for 30 Days, #90 TAB Prov:TAYE ALMONTE RESIDENT 09/12/24 Reported Medications Furosemide (Furosemide) 20 Mg Tab, 1 TAB PO DAILY for 90 Days, #90 12/08/24 Albuterol Sulfate (Albuterol Sulfate Hfa) 108 Mcg/Act Aer, 108 MCG IN UD for 28 Days, #18 09/10/24 Atorvastatin Calcium (Lipitor) 10 Mg Tab, 1 TAB PO DAILY for 90 Days, #90 09/10/24 Amlodipine Besylate (Amlodipine Besylate) 10 Mg Tab, 1 TAB PO DAILY for 90 Days, #90 09/10/24 Metformin Hydrochloride (Metformin Hcl) 500 Mg Tab, 1 TAB PO BID for 90 Days, #180 09/10/24 Aspirin (Aspir-81) 81 Mg Tab, 1 TAB PO DAILY for 30 Days, #30 09/10/24 Metoprolol Tartrate (Lopressor) 50 Mg Tab, 1 TAB PO BID for 90 Days, #180 09/10/24 Lisinopril (Lisinopril) 20 Mg Tab, 1 TAB PO DAILY for 90 Days, #90 09/10/24 Current Medications Current Medications Medications (Trade) Dose Ordered Sig/Carl Route PRN Reason Start Time Stop Time Status Last Admin Heparin Sodium/ Dextrose 250 ml @ 10 mls/hr Q24H IV 12/11/24 06:30 12/11/24 07:51 Aspirin 81 mg DAILY PO 12/11/24 10:00 12/11/24 10:01 Atorvastatin Calcium (Lipitor) 40 mg HS PO 12/11/24 22:00 Morphine Sulfate 2 mg Q30MP PRN IV FOR CHEST PAIN 12/11/24 07:30 Hold Acetaminophen (Tylenol Tablet) 650 mg Q6HP PRN PO MILD PAIN (1-3 PAIN SCALE) 12/11/24 07:30 12/11/24 08:01 Nitroglycerin (Ntrostat Sublingual) 0.4 mg Q5MINP PRN SL FOR CHEST PAIN 12/11/24 07:30 Hold Nitroglycerin (Ntrostat Sublingual) 0.4 mg Q5MINP PRN SL FOR CHEST PAIN 12/11/24 07:30 12/11/24 07:51 DC Morphine Sulfate 2 mg Q30M PRN IV FOR CHEST PAIN 12/11/24 07:30 12/11/24 07:52 DC Ceftriaxone Sodium 50 ml @ 100 mls/hr DAILY@09 IV 12/11/24 07:45 12/11/24 07:57 Furosemide (Lasix Injection) 40 mg BIDD IV 12/11/24 18:00 Ipratropium [place] (Atrovent Medneb) 0.5 mg Q4HPRN PRN NEB SHORTNESS OF BREATH 12/11/24 09:15 Tramadol HCl (Ultram) 30 mg Q4HP PRN PO SEVERE PAIN (7-10 PAIN SCALE) 12/11/24 09:15 Cancel Tramadol HCl (Ultram) 50 mg Q4HP PRN PO SEVERE PAIN (7-10 PAIN SCALE) 12/11/24 10:00 12/11/24 11:30 Lisinopril (Zestril Tablet) 5 mg DAILY PO 12/11/24 10:00 12/11/24 11:03 Metoprolol Tartrate (Lopressor Tablet) 25 mg BID PO 12/11/24 10:00 12/11/24 11:03 Sildenafil Citrate (Revatio) 20 mg TID@08,14,20 PO 12/11/24 14:00 Furosemide (Lasix Injection) 40 mg BIDD IV 12/11/24 13:00 12/11/24 13:08 Review of Systems Constitutional: No symptom reported Ears, Nose, & Throat: Mouth pain Eyes: No symptom reported Neurological: No symptoms reported Pulmonary/Respiratory: No symptoms reported Cardiovascular: Chest pain Gastrointestinal: Abdominal pain Genitourinary: No symptom reported Musculoskeletal: Neck pain Skin: No symptom reported Psychiatric: No symptom reported Endocrine: No symptom reported Hematologic/Lymphatic: No symptom reported Vital Signs Vital Signs Date Time Temp Pulse Resp B/P (MAP) Pulse Ox O2 Delivery O2 Flow Rate FiO2 12/11/24 13:08 142/90 12/11/24 12:03 93 12/11/24 12:00 26 90 12/11/24 11:24 100.2 4.0 36 100.2 12/11/24 07:30 Room Air* Physical Exam GENERAL: Awake, alert, oriented. Unkempt. Obese. LUNGS: Clear. CARDIOVASCULAR: Regular rate and rhythm. Diastolic murmur. ABDOMEN: Soft. EXT: 2+ pitting edema. Labs/Diagnostic Data Labs Test 12/11/24 07:39 12/11/24 03:25 Range/Units Magnesium Level 1.8 1.6-2.6 mg/dL Troponin I High Sensitivity 1461 *H </=34 ng/L Triglycerides Level 83 < 150 mg/dL Cholesterol Level 104 < 200 mg/dL LDL Cholesterol 53 < 100 mg/dL HDL Cholesterol 34 L 40-59 mg/dL Thyroid Stimulating Hormone (TSH) 2.40 0.55-4.78 uIU/mL White Blood Count 6.5 4.4-10.8 10^3/uL Red Blood Count 5.52 H 4.0-5.20 10^6/uL Hemoglobin 17.0 H 12.2-16.2 g/dL Hematocrit 51.2 H 36.0-46.0 % Mean Corpuscular Volume 92.6 80.0-100.0 fL Mean Corpuscular Hemoglobin 30.8 28.0-32.0 pg Mean Corpuscular Hemoglobin Concent 33.3 32.0-36.0 g/dL Red Cell Distribution Width 15.8 H 11.8-14.3 % Platelet Count 179 140-450 10^3/uL Mean Platelet Volume 8.3 6.9-10.8 fL Neutrophils (%) (Auto) 86.3 H 37.0-80.0 % Lymphocytes (%) (Auto) 6.5 L 10.0-50.0 % Monocytes (%) (Auto) 6.4 0.0-12.0 % Eosinophils (%) (Auto) 0.3 0.0-7.0 % Basophils (%) (Auto) 0.5 0.0-2.0 % Neutrophils # (Auto) 5.6 1.6-8.6 10 ^3/uL Lymphocytes # (Auto) 0.4 0.4-5.4 10 ^3/uL Monocytes # (Auto) 0.4 0-1.3 10 ^3/uL Eosinophils # (Auto) 0 0-0.8 10 ^3/uL Basophils # (Auto) 0 0-0.2 10 ^3/uL Nucleated Red Blood Cells 0.2 % Prothrombin Time 11.9 H 9.3-11.8 sec Prothrombin Time INR 1.14 0.9-1.15 Activated Partial Thromboplast Time 28.2 24.5-34.5 SEC Sodium Level 138 136-145 mmol/L Potassium Level 3.8 3.5-5.1 mmol/L Chloride Level 102 98-107 mmol/L Carbon Dioxide Level 28 20-31 mmol/L Anion Gap 8 5-15 Blood Urea Nitrogen 19 9-23 mg/dL Creatinine 1.20 H 0.550-1.02 mg/dL Glomerular Filtration Rate Calc 55 >90 mL/min BUN/Creatinine Ratio 15.8 10.0-20.0 Serum Glucose 130 H 74-106 mg/dL Calcium Level 10.0 8.7-10.4 mg/dL B-Type Natriuretic Peptide 1105.19 0-100 pg/mL Assessment NSTEMI. Hypertensive urgency. 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 Acute on chronic decompensated HFpEF, NYHA class III. Severe torrential tricuspid valve regurgitation. Pyrexia. [id number] diabetes mellitus. Chronic kidney disease stage IIIA. Medical non-adherence. Methamphetamine/tobacco abuse. Obesity. Plan/Recommendation I agree with your ongoing assessment and care of plan. Patient has been seen by Rosy Francois NP on my behalf, her and I discussed the plan with the patient. We will proceed with obtaining transthoracic echocardiogram to evaluate cardiac function. Previous echocardiogram from 09/10/2024 reveals EF 55%, RVSP 88 mmHg. Initiate guideline directed medical therapy for CHF. Continue strict intake and output, daily weights, and maintaining fluid restrictions. Continue preload and afterload reduction as tolerated. Restart sildenafil, consider pulmonary consultation. At this time, the patient is not an ideal candidate for any invasive cardiac procedures given methamphetamine use and medical noncompliance. Consider ischemic workup once patient is compliant and can abstain from polysubstance use. Proceed with conservative medical management. Continue with the aggressive blood pressure control and close cardiac surveillance. Additional plan as per the hospital course. Plan discussed with: Patient NYHA Physical activity limitations: Class3(Marked) ordinary Date of Service: Dec 11, 2024 Billing Provider: LILLIAN LOVE MD Cardiology Common Codes: [id number] INP/OBS CARE (High) Cardiology Consultation Codes: [id number] CONSULT <45MIN LILLIAN LOVE MD Dec 11, 2024 13:48
[2024-12-11] MEDS: ATORVASTATIN 20 MG TAB PO SCH (21:35)
[2024-12-11 21:42] LABS: INR 1.3 (0.9-1.15); Prothrombin Time 13.4 sec (9.3-11.8)
[2024-12-11 21:51] LABS: Partial Thromboplastin Time 124.6 SEC (24.5-34.5)
[2024-12-11 23:01] VITALS: O2SAT 94
[2024-12-12] MEDS: IBUPROFEN 400 MG TAB PO PRN (00:34)
[2024-12-12 05:27] LABS: Hematocrit 51.3 % (36.0-46.0); Mean Corpuscular Hemoglobin 30.4 pg (28.0-32.0); Mean Corpuscular Hgb Conc. 33.1 g/dL (32.0-36.0); Mean Corpuscular Volume 91.9 fL (80.0-100.0); Platelet Count (auto) 135 10^3/uL (140-450); Red Blood Cells 5.58 10^6/uL (4.0-5.20); Red Cell Distribution Width 15.9 % (11.8-14.3); White Blood Cell 4.1 10^3/uL (4.4-10.8)
[2024-12-12 05:32] LABS: Basophils % (manual) 0 (0.0-2.0); Blast Cells 0; Chloride 101 mmol/L (98-107); Eosinophils % (manual) 0 (0-7); Metamyelocytes % 0; Myelocytes % 0; Promyelocytes % 0; Sodium 138 mmol/L (136-145)
[2024-12-12 05:33] LABS: Anion Gap 8 (5-15); Carbon Dioxide 29 mmol/L (20-31)
[2024-12-12 05:34] LABS: Calcium 9.1 mg/dL (8.7-10.4)
[2024-12-12 05:37] LABS: Potassium 3.4 mmol/L (3.5-5.1)
[2024-12-12 05:39] LABS: BUN/Creatinine Ratio 13.8 (10.0-20.0); Blood Urea Nitrogen 22 mg/dL (9-23)
[2024-12-12 05:53] LABS: Glucose 108 mg/dL (74-106)
[2024-12-12 07:02] LABS: Band Neutrophils % (manual) 3; Lymphocytes % (manual) 10 (10.0-50.0); Monocytes % (manual) 21 (0-12); Reactive Lymphocytes 3
[2024-12-12 07:03] LABS: Platelet Estimate Decreased
[2024-12-12] MEDS: HEPARIN DRIP/D5W 100UNITS/ML 250 ML IV SCH (07:07)
[2024-12-12 08:09] VITALS: PULSE 77; RESP 24; O2SAT 95
[2024-12-12] MEDS: IPRATROPIUM BROM 0.5 MG/2.5ML INH SOL NEB PRN (08:09)
[2024-12-12 08:15] VITALS: PULSE 76; RESP 16; O2SAT 96
[2024-12-12 08:30] VITALS: PULSE 77; RESP 25; O2SAT 94
--- NOTE | 2024-12-12 12:46 | DVHPN2 ---
Reviewed: Care Plan, H&P, Labs, Medications, Previous Orders, Radiology Changes from previous H/P or p: No Changes Cardiovascular: Chest Pain Objective Vitals Vital Signs Date Time Temp Pulse Resp B/P (MAP) Pulse Ox O2 Delivery O2 Flow Rate FiO2 12/12/24 10:47 150/84 12/12/24 10:46 79 12/12/24 10:37 95 Oxymizer 10 N/A 12/12/24 10:00 21 12/12/24 08:30 98.4 98.4 Intake/Output Intake and Output 12/12/24 06:59 Intake Total 360 ml Balance 360 ml Intake IV Total 360 ml Medications Current Medications Medications Dose Ordered Sig/Carl Route Start Time Stop Time Status Last Admin Dose Admin Aspirin 81 mg DAILY PO 12/11/24 10:00 12/12/24 10:47 81 MG Atorvastatin Calcium 40 mg HS PO 12/11/24 22:00 12/11/24 21:35 40 MG Morphine Sulfate 2 mg Q30MP PRN IV 12/11/24 07:30 Hold Acetaminophen 650 mg Q6HP PRN PO 12/11/24 07:30 Hold 12/11/24 15:09 650 MG Nitroglycerin 0.4 mg Q5MINP PRN SL 12/11/24 07:30 Hold Ceftriaxone Sodium 50 ml @ 100 mls/hr DAILY@09 IV 12/11/24 07:45 12/12/24 09:44 100 MLS/HR Furosemide 40 mg BIDD IV 12/11/24 18:00 12/12/24 05:54 40 MG Ipratropium [place] 0.5 mg Q4HPRN PRN NEB 12/11/24 09:15 12/12/24 08:09 0.5 MG Tramadol HCl 30 mg Q4HP PRN PO 12/11/24 09:15 Cancel Tramadol HCl 50 mg Q4HP PRN PO 12/11/24 10:00 12/11/24 11:30 50 MG Lisinopril 5 mg DAILY PO 12/11/24 10:00 12/12/24 10:47 5 MG Metoprolol Tartrate 25 mg BID PO 12/11/24 10:00 12/12/24 10:46 25 MG Sildenafil Citrate 20 mg TID@08,14,20 PO 12/11/24 14:00 12/12/24 09:44 20 MG Furosemide 40 mg BIDD IV 12/11/24 13:00 12/11/24 13:08 40 MG Ibuprofen 400 mg Q8HP PRN PO 12/11/24 18:00 12/12/24 00:34 400 MG Heparin Sodium/ Dextrose 250 ml @ 4 mls/hr Q24H IV 12/12/24 07:00 12/12/24 07:07 4 MLS/HR Laboratory Results Laboratory Tests 12/12/24 05:10 Chemistry Test 12/12/24 05:10 Calcium Level 9.1 mg/dL (8.7-10.4) Coagulation Test 12/11/24 14:12 12/11/24 20:37 12/12/24 05:10 Prothrombin Time 13.9 sec (9.3-11.8) H 13.4 sec (9.3-11.8) H Prothrombin Time INR 1.35 (0.9-1.15) H 1.30 (0.9-1.15) H Activated Partial Thromboplast Time 72.6 SEC (24.5-34.5) *H 124.6 SEC (24.5-34.5) *H 128.7 SEC (24.5-34.5) *H Labs and/or images reviewed: Labs reviewed by me, Image(s) reviewed by me Assessment/Plan Assessment/Plan Acute hypoxic respiratory failure on oxygen 10 L by oxygen by oximizer NSTEMI. Hypertensive urgency. 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 Restarted sildenafil, pulmonary consult Acute on chronic decompensated HFpEF, NYHA class III. Severe torrential tricuspid valve regurgitation. Pyrexia. Lac-bcmccei-xkmbngpsh diabetes mellitus. Chronic kidney disease stage IIIA. Medical non-adherence. Methamphetamine/tobacco abuse. Obesity. Not a candidate for any invasive cardiac procedure per Time spent 70 minutes Advanced care planning 20 minutes Patient is full code Condition serious Plan discussed with: Patient My Orders Orders - TROY DOAN MD Procedure Category Date Status Time Chest Without Contrast CT 12/12/24 Taken 10:58 *Consult CONS 12/12/24 Transmitted / 10:58 Date of Service: Dec 12, 2024 Billing Provider: TROY DOAN MD Common Visit Codes: [id number] CARE 30-74 MIN TROY DOAN MD Dec 12, 2024 12:46
[2024-12-12 13:17] LABS: INR 1.35 (0.9-1.15); Partial Thromboplastin Time 55.5 SEC (24.5-34.5); Prothrombin Time 13.9 sec (9.3-11.8)
--- NOTE | 2024-12-12 13:29 | DVH ---
Indication: SOB Technique: CT axial images of the chest are obtained without contrast. Coronal and sagittal reformats were obtained. Radiation Dose Information: CTDI volume is 11.27 mGy. Dose-length product is 404.38 mGy*cm Comparison: CT CHEST WITHOUT CONTRAST on DOS: 09/09/24 FINDINGS: Trachea is patent. No pneumothorax. Right lower lobe airspace consolidation. There is a moderate-siz ed right pleural effusion. Left upper lobe tree-in-bud nodularity. Left lower lobe atelectasis. Heart enlarged. Pericardial cyst measuring 5.7 x 3.8 cm. Pretracheal lymph node measuring 8 mm. No supraclavicular, axillary lymphadenopathy. Soft tissue edema /anasarca. Mesenteric edema. Cirrhotic morphology liver. No aggressive osseous process. IMPRESSION: 1. Moderate size right pleural effusion. 2. Right lower lobe airspace consolidation. 3. Left upper lobe tree-in-bud nodularity which could be secondary to atypical infection, bronchiolit is. 4. Cardiomegaly. 5.7 cm pericardial cyst. 5. Cirrhotic morphology liver.
[2024-12-12] MEDS: DOXYCYCLINE 100MG/100ML 100 ML IV SCH (14:54)
[2024-12-12 15:47] LABS: Rapid Influenza A Negative (Negative); Rapid Influenza B Negative (Negative)
[2024-12-12 15:48] LABS: COVID19 ANTIGEN SOFIA FIA NEGATIVE (NEGATIVE)
[2024-12-12] MEDS: POTASSIUM EFFERVESENT TAB 25 MEQ PO ONE (16:14)
[2024-12-12 20:00] VITALS: PULSE 80; RESP 19; O2SAT 93
[2024-12-12 20:05] LABS: INR 1.29 (0.9-1.15); Partial Thromboplastin Time 51.5 SEC (24.5-34.5); Prothrombin Time 13.3 sec (9.3-11.8)
[2024-12-12 20:44] VITALS: O2SAT 93
--- NOTE | 2024-12-12 21:45 | DVHINCON2 ---
Date of service: Dec 12, 2024 Referring Physician Araceli Morrison NP Reason for Consultation Acute hypoxic respiratory failure, pneumonia, pleural effusion, atelectasis History of Present Illness A 49-year-old woman with past medical history of pulmonary hypertension, asthma, hypertension, hyperlipidemia, and CHF who presented to ED on 12/11/24 with c/o chest pain described as 10/10, radiating to right shoulder and right-sided forehead; reported as burning and constant. Patient also c/o associated headache and ear infection. Patient is homeless, smokes cigarettes, uses meth, and drinks alcohol. Upon examination in ER, her lower extremities were noted to be discolored and swollen. Patient was admitted for further care and pulmonary consultation is requested for evaluation and management of acute hypoxic respiratory failure, pneumonia and pleural effusion. Review of Systems: 14-point review of systems negative unless otherwise noted above. Past Medical History: hypertension, hyperlipidemia, pulmonary hypertension, asthma, CHF Past Surgical History: , breast surgery Medications: Reviewed. Allergies: Codeine and morphine. Family History: Mother and father with hypertension Social History: Patient is homeless Smoker, smokes <1 pack per day. Occasional alcohol use. Drugs: Methamphetamine Family History: Hypertension G8 MOTHER G8 FATHER Allergies: Coded Allergies: Codeine (Verified Allergy, Unknown, 07/16/20) Morphine (Verified Allergy, Unknown, 07/16/20) Home Meds Active Scripts Sildenafil Citrate (SILDENAFIL CITRATE) 20 Mg Tab, 20 MG OR TID for 30 Days, #90 TAB Prov:TAYE ALMONTE RESIDENT 09/12/24 Reported Medications Furosemide (Furosemide) 20 Mg Tab, 1 TAB PO DAILY for 90 Days, #90 12/08/24 Albuterol Sulfate (Albuterol Sulfate Hfa) 108 Mcg/Act Aer, 108 MCG IN UD for 28 Days, #18 09/10/24 Atorvastatin Calcium (Lipitor) 10 Mg Tab, 1 TAB PO DAILY for 90 Days, #90 09/10/24 Amlodipine Besylate (Amlodipine Besylate) 10 Mg Tab, 1 TAB PO DAILY for 90 Days, #90 09/10/24 Metformin Hydrochloride (Metformin Hcl) 500 Mg Tab, 1 TAB PO BID for 90 Days, #180 09/10/24 Aspirin (Aspir-81) 81 Mg Tab, 1 TAB PO DAILY for 30 Days, #30 09/10/24 Metoprolol Tartrate (Lopressor) 50 Mg Tab, 1 TAB PO BID for 90 Days, #180 09/10/24 Lisinopril (Lisinopril) 20 Mg Tab, 1 TAB PO DAILY for 90 Days, #90 09/10/24 Current Medications Current Medications Medications (Trade) Dose Ordered Sig/Carl Route PRN Reason Start Time Stop Time Status Last Admin Atorvastatin Calcium (Lipitor) 40 mg HS PO 12/11/24 22:00 12/11/24 21:35 Heparin Sodium/ Dextrose 250 ml @ 700 mls/hr Q22M IV 12/11/24 22:55 12/12/24 06:09 DC 12/11/24 23:02 Heparin Sodium/ Dextrose 250 ml @ 4 mls/hr Q24H IV 12/12/24 07:00 12/12/24 07:07 Doxycycline Hyclate 100 ml @ 50 mls/hr Q12H IV 12/12/24 14:30 12/12/24 14:54 Fluconazole 100 ml @ 100 mls/hr 10,11 IV 12/13/24 10:00 Vital Signs Vital Signs Date Time Temp Pulse Resp B/P (MAP) Pulse Ox O2 Delivery O2 Flow Rate FiO2 12/12/24 20:44 93 Oxymizer 8.0 12/12/24 20:44 N/A 12/12/24 19:00 79 23 116/86 (96) 12/12/24 16:00 98.3 98.3 Physical Exam Gen.: Patient lying in bed in no apparent distress. On supplemental oxygen. Head: Normocephalic, atraumatic. Eyes: EOMI/PERRLA. Ears: Normal hearing. Normal anatomy. Neck/trachea: Trachea midline, supple. Nose: Normal external anatomy. Mouth: Moist mucous membranes. Chest: Decreased air entry bilaterally. No wheezing or rhonchi. Cardiovascular: Positive S1, positive S2. Regular rate and rhythm. Abdomen: Positive bowel sounds in all 4 quadrants. Soft, non-tender, non- distended. : Deferred. Rectal: Deferred. Skin: Warm, dry. Intact. Extremities: 2+ radial pulses bilaterally. Bilateral lower extremity edema. Neuro: Awake, alert, oriented x3. No gross motor or sensory deficits. Cranial nerves II through XII intact. Gait not assessed. Labs/Diagnostic Data Labs Test 12/12/24 19:02 12/12/24 14:55 12/12/24 05:10 12/11/24 15:47 Range/Units Prothrombin Time 13.3 H 9.3-11.8 sec Prothrombin Time INR 1.29 H 0.9-1.15 Activated Partial Thromboplast Time 51.5 H 24.5-34.5 SEC Influenza Type A Antigen Negative Negative Influenza Type B Antigen Negative Negative SARS-CoV-2 Antigen (Rapid) Negative NEGATIVE White Blood Count 4.1 #L 4.4-10.8 10^3/uL Red Blood Count 5.58 H 4.0-5.20 10^6/uL Hemoglobin 17.0 H 12.2-16.2 g/dL Hematocrit 51.3 H 36.0-46.0 % Mean Corpuscular Volume 91.9 80.0-100.0 fL Mean Corpuscular Hemoglobin 30.4 28.0-32.0 pg Mean Corpuscular Hemoglobin Concent 33.1 32.0-36.0 g/dL Red Cell Distribution Width 15.9 H 11.8-14.3 % Platelet Count 135 L 140-450 10^3/uL Mean Platelet Volume 8.5 6.9-10.8 fL Neutrophils (%) (Auto) 37.0-80.0 % Lymphocytes (%) (Auto) 10.0-50.0 % Monocytes (%) (Auto) 0.0-12.0 % Basophils (%) (Auto) 0.0-2.0 % Neutrophils # (Auto) 1.6-8.6 10 ^3/uL Lymphocytes # (Auto) 0.4-5.4 10 ^3/uL Monocytes # (Auto) 0-1.3 10 ^3/uL Differential Total Cells Counted 100.0 100 Neutrophils % (Manual) 63 37.0-80.0 Band Neutrophils % (Manual) 3 Lymphocytes % (Manual) 10 10.0-50.0 Monocytes % (Manual) 21 H 0-12 Eosinophils % (Manual) 0 0-7 Basophils % (Manual) 0 0.0-2.0 Metamyelocytes % (manual) 0 Myelocytes % (Manual) 0 Promyelocytes % (Manual) 0 Blast Cells % (Manual) 0 Reactive Lymphocytes 3 Platelet Estimate Decreased Sodium Level 138 136-145 mmol/L Potassium Level 3.4 L 3.5-5.1 mmol/L Chloride Level 101 98-107 mmol/L Carbon Dioxide Level 29 20-31 mmol/L Anion Gap 8 5-15 Blood Urea Nitrogen 22 9-23 mg/dL Creatinine 1.60 #H 0.550-1.02 mg/dL Glomerular Filtration Rate Calc 39 >90 mL/min BUN/Creatinine Ratio 13.8 10.0-20.0 Serum Glucose 108 H 74-106 mg/dL Calcium Level 9.1 8.7-10.4 mg/dL Lactic Acid Level 2.2 *H 0.4-2.0 mmol/L Test 12/11/24 07:39 12/11/24 03:25 Range/Units Magnesium Level 1.8 1.6-2.6 mg/dL Troponin I High Sensitivity 1461 *H </=34 ng/L Triglycerides Level 83 < 150 mg/dL Cholesterol Level 104 < 200 mg/dL LDL Cholesterol 53 < 100 mg/dL HDL Cholesterol 34 L 40-59 mg/dL Thyroid Stimulating Hormone (TSH) 2.40 0.55-4.78 uIU/mL Eosinophils (%) (Auto) 0.3 0.0-7.0 % Eosinophils # (Auto) 0 0-0.8 10 ^3/uL Basophils # (Auto) 0 0-0.2 10 ^3/uL Nucleated Red Blood Cells 0.2 % B-Type Natriuretic Peptide 1105.19 0-100 pg/mL Assessment Impression: Acute hypoxic respiratory failure Dependence on supplemental oxygen Non-ST elevation [place]. Pleural effusion Atelectasis Pneumonia Nicotine dependence Methamphetamine use Homelessness Obesity BMI 31.9 Plan: Supplemental oxygen 10 LPM Oxymizer Titrate to keep O2 sats above 92%. Taper O2 as tolerated Increased O2 requirements CT chest reviewed, demonstrates moderate right pleural effusion Obtain consent for right thoracentesis Continue antibiotics, doxycycline Add Diflucan Incentive spirometry Diurese as tolerated w/ Lasix BID Monitor renal function. Monitor electrolytes. Supplement as necessary. Monitor ins and outs. Smoking cessation discussed for greater than 10 minutes Counseled against drug use. DVT prophylaxis. Prognosis: Poor given patient's multiple co-morbidities. Rest of plan per hospitalist and other consultants. Thank you, MARYA Morrison, for allowing me to participate in this patient's care. Further recommendations will depend on the patient's clinical course. Please do not hesitate to contact me if you have any questions or concerns. This medical document was created using an electronic medical record system with [employer] computerized dictation system. Although these documentations are being carefully reviewed, there may still be some phonetic and typographical changes. The errors are purely typographical, due to imperfection on the software program, and do not reflect any compromise in the patient's medical care. Plan discussed with: Patient, Other (ARPAN Sanchez/MARYA Morrison/) ALYSSIA PÉREZ MD Dec 12, 2024 21:45
[2024-12-12 22:49] LABS: Urine Bacteria None Seen /hpf (None Seen)
[2024-12-12 22:58] LABS: Urine Blood 3+ /uL (Negative); Urine Clarity Turbid (Clear); Urine Color Colorless (Yellow); Urine Protein, UAD TRACE (Negative); Urine Specific Gravity 1.007 (1.001-1.035); Urine Squamous Epithelial Cell None Seen /hpf (<5); Urine Urobilinogen Normal (Negative); Urine WBC 1 /HPF (0-5); Urine pH 5.5 (5.0-9.0)
[2024-12-12 23:15] LABS: Amphetamine Screen, Urine Pos (NEGATIVE)
[2024-12-12 23:18] LABS: Barbiturate Scree,Urine Neg (NEGATIVE); Benzodiazephine Screen, Urine Neg (NEGATIVE); Cocaine Screen, Urine Neg (NEGATIVE); Opiate Scree,Urine Neg (NEGATIVE); Phencyclidine Screen, Urine Neg (NEGATIVE)
[2024-12-12 23:19] LABS: Cannabinoid Screen, Urine Neg (NEGATIVE)
[2024-12-13] VITALS (18 sets, daily range): BP systolic 101–126; BP diastolic 49–85; PULSE 79–100; RESP 16–21; TEMP 98.6–99.2; O2SAT 92–98
--- NOTE | 2024-12-13 00:18 | DVHPN2 ---
Progress Note - Dictate Date Seen: Dec 12, 2024 Medical Necessity Reason Pt with a Central, PICC or Fol: No Subjective Patient was seen and evaluated in follow up. Patient is complaining of a headache and SOB. Patient is on [address] chest shows a moderate size right pleural effusion, right lower lobe airspace consolidation, left upper lobe tree-in-bud nodularity which could be secondary to atypical infection, bronchiolitis, cardiomegaly. 5.7 cm pericardial cyst, cirrhotic morphology liver. Telemetry reviewed. vital signs Vital Sign Date Time Temp Pulse Resp B/P (MAP) Pulse Ox O2 Delivery O2 Flow Rate FiO2 12/12/24 20:44 93 Oxymizer 8.0 12/12/24 20:44 N/A 12/12/24 19:00 79 23 116/86 (96) 12/12/24 16:00 98.3 98.3 Total Intake and Output 12/11/24 12/11/24 12/12/24 15:00 23:00 07:00 Intake Total 320 ml 40 ml Balance 320 ml 40 ml medications Current Medications Medications Dose Ordered Sig/Carl Route Start Time Stop Time Status Last Admin Dose Admin Aspirin 81 mg DAILY PO 12/11/24 10:00 12/12/24 10:47 81 MG Atorvastatin Calcium 40 mg HS PO 12/11/24 22:00 12/11/24 21:35 40 MG Morphine Sulfate 2 mg Q30MP PRN IV 12/11/24 07:30 Hold Acetaminophen 650 mg Q6HP PRN PO 12/11/24 07:30 Hold 12/11/24 15:09 650 MG Nitroglycerin 0.4 mg Q5MINP PRN SL 12/11/24 07:30 Hold Ceftriaxone Sodium 50 ml @ 100 mls/hr DAILY@09 IV 12/11/24 07:45 12/12/24 09:44 100 MLS/HR Furosemide 40 mg BIDD IV 12/11/24 18:00 12/12/24 18:23 40 MG Ipratropium Page 0.5 mg Q4HPRN PRN NEB 12/11/24 09:15 12/12/24 08:09 0.5 MG Tramadol HCl 30 mg Q4HP PRN PO 12/11/24 09:15 Cancel Tramadol HCl 50 mg Q4HP PRN PO 12/11/24 10:00 12/12/24 13:04 50 MG Lisinopril 5 mg DAILY PO 12/11/24 10:00 12/12/24 10:47 5 MG Metoprolol Tartrate 25 mg BID PO 12/11/24 10:00 12/12/24 10:46 25 MG Sildenafil Citrate 20 mg TID@08,14,20 PO 12/11/24 14:00 12/12/24 14:40 20 MG Ibuprofen 400 mg Q8HP PRN PO 12/11/24 18:00 12/12/24 16:15 400 MG Heparin Sodium/ Dextrose 250 ml @ 4 mls/hr Q24H IV 12/12/24 07:00 12/12/24 07:07 4 MLS/HR Doxycycline Hyclate 100 ml @ 50 mls/hr Q12H IV 12/12/24 14:30 12/12/24 14:54 50 MLS/HR Fluconazole 100 ml @ 100 mls/hr 10,11 IV 12/13/24 10:00 objective GENERAL: Awake, alert, oriented. Unkempt. Obese. LUNGS: Clear. CARDIOVASCULAR: Regular rate and rhythm. Diastolic murmur. ABDOMEN: Soft. EXT: 2+ pitting edema. laboratory and microbiology Laboratory Tests 12/12/24 05:10 Test 12/12/24 05:10 Range/Units Serum Glucose 108 H 74-106 mg/dL Problem List NSTEMI. Hypertensive urgency. 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 Acute on chronic decompensated HFpEF, NYHA class III. Severe torrential tricuspid valve regurgitation. Pyrexia. Gqj-rdmktxa-dfholozem diabetes mellitus. Chronic kidney disease stage IIIA. Medical non-adherence. Methamphetamine/tobacco abuse. Obesity. Assessment/Plan Continued all current supportive medical care. Aspirin, Metoprolol. Diuretics with Lasix. IV antibiotics as ordered. Heparin drip per pharmacy. Additional plan as per the hospital course. Plan discussed with: Patient LILLIAN LOVE MD Dec 12, 2024 21:29
--- NOTE | 2024-12-13 00:48 | DVHSR ---
APPROVED REPORT EXAM: LIMITED Two-dimensional and M-mode echocardiogram with Doppler and color Doppler. Blood Pressure: 161/100 mmHg INDICATION Chest Pain RISK FACTORS Height: 63, Weight: 180 DIMENSIONS LVDd2.7 (3.8-5.7cm)LA (2D) (1.9-4.0cm)Aortic Root (2.0-3.7cm) LVDs1.9 (2.5-4.0cm)LA (MM) (1.9-4.0cm)Aortic Cusp Exc (1.5-2.0cm) EF (%) 61.0 (55-70%)Rt. Atrium7.3 (1.9-4.0cm)Asc. Aorta cm Mitral Valve MitralMitral Stenosis E/A ratio0.02D MVAcm2 Tricuspid Valve TR Velocity4.88m/s [id number] Other Information Technically limited study due to limited for EF. Conclusion REMARKABLY DILATED RV SEVERE RV GLOBAL HYPOKINESIS IT IS SEVERE RV FAILURE CRITICAL PULMONARY HYPERTENSION RVSP IS 110 MM OF HG AND IS VERY HIGH NORMAL LV FUNCTION LV EF IS 65% NORMAL VALVES NO EFFUSION
[2024-12-13 01:40] LABS: INR 1.35 (0.9-1.15); Partial Thromboplastin Time 50.2 SEC (24.5-34.5); Prothrombin Time 13.9 sec (9.3-11.8)
--- NOTE | 2024-12-13 04:54 | DVH ---
CHEST RADIOGRAPH Indication: PNEUMONIA Technique: Single frontal view of the chest was obtained COMPARISON: XY CHEST PORTABLE on DOS: 12/11/24, XY CHEST PORTABLE on DOS: 12/09/24, XY CHEST PORTABLE o n DOS: 12/08/24, XY CHEST PORTABLE on DOS: 02/21/24 FINDINGS: Lines and Tubes: None Lungs: Equivocal to slight interval decrease in right pleural effusion. Remaining lung zones are herlinda sly clear. No pneumothorax. Cardiomediastinal contours: Stable cardiomegaly. Bones: Unremarkable IMPRESSION: 1. Equivocal to slightly decreased status of right pleural effusion. 2. Cardiomegaly.
[2024-12-13 05:38] LABS: Basophils # (auto) 0 10 ^3/uL (0-0.2); Basophils % (auto) 0.2 % (0.0-2.0); Eosinophils # (auto) 0 10 ^3/uL (0-0.8); Eosinophils % (auto) 0.1 % (0.0-7.0); Hematocrit 49.2 % (36.0-46.0); Hemoglobin 16.1 g/dL (12.2-16.2); Lymphocytes # (auto) 0.6 10 ^3/uL (0.4-5.4); Lymphocytes % (auto) 16.6 % (10.0-50.0); Mean Corpuscular Hemoglobin 30.4 pg (28.0-32.0); Mean Corpuscular Hgb Conc. 32.8 g/dL (32.0-36.0); Mean Corpuscular Volume 92.8 fL (80.0-100.0); Monocytes # (auto) 0.7 10 ^3/uL (0-1.3); Monocytes % (auto) 17.7 % (0.0-12.0); Neutrophils # (auto) 2.5 10 ^3/uL (1.6-8.6); Neutrophils % (auto) 65.4 % (37.0-80.0); Nucleated Red Blood Cells % 0.5 %; Platelet Count (auto) 136 10^3/uL (140-450); Red Cell Distribution Width 16.2 % (11.8-14.3); White Blood Cell 3.8 10^3/uL (4.4-10.8)
--- NOTE | 2024-12-13 07:24 | DVHPN2 ---
Reviewed: Care Plan, H&P, Labs, Medications, Previous Orders, Radiology Changes from previous H/P or p: No Changes Cardiovascular: Chest Pain Objective Vitals Vital Signs Date Time Temp Pulse Resp B/P (MAP) Pulse Ox O2 Delivery O2 Flow Rate FiO2 12/13/24 07:08 93 Nasal Cannula* 4 36 12/13/24 07:00 143/84 12/13/24 04:00 75 17 12/13/24 01:00 97.7 97.7 Intake/Output Intake and Output 12/13/24 07:00 Intake Total 295 ml Balance 295 ml Intake IV Total 295 ml # Bowel Movements 1 Medications Current Medications Medications Dose Ordered Sig/Carl Route Start Time Stop Time Status Last Admin Dose Admin Aspirin 81 mg DAILY PO 12/11/24 10:00 12/12/24 10:47 81 MG Atorvastatin Calcium 40 mg HS PO 12/11/24 22:00 12/12/24 21:46 40 MG Morphine Sulfate 2 mg Q30MP PRN IV 12/11/24 07:30 Hold Acetaminophen 650 mg Q6HP PRN PO 12/11/24 07:30 Hold 12/11/24 15:09 650 MG Nitroglycerin 0.4 mg Q5MINP PRN SL 12/11/24 07:30 Hold Ceftriaxone Sodium 50 ml @ 100 mls/hr DAILY@09 IV 12/11/24 07:45 12/12/24 09:44 100 MLS/HR Furosemide 40 mg BIDD IV 12/11/24 18:00 12/13/24 07:00 40 MG Ipratropium Winkelman 0.5 mg Q4HPRN PRN NEB 12/11/24 09:15 12/12/24 08:09 0.5 MG Tramadol HCl 30 mg Q4HP PRN PO 12/11/24 09:15 Cancel Tramadol HCl 50 mg Q4HP PRN PO 12/11/24 10:00 12/13/24 06:59 50 MG Lisinopril 5 mg DAILY PO 12/11/24 10:00 12/12/24 10:47 5 MG Metoprolol Tartrate 25 mg BID PO 12/11/24 10:00 12/12/24 10:46 25 MG Sildenafil Citrate 20 mg TID@08,14,20 PO 12/11/24 14:00 12/12/24 20:00 20 MG Ibuprofen 400 mg Q8HP PRN PO 12/11/24 18:00 12/12/24 16:15 400 MG Heparin Sodium/ Dextrose 250 ml @ 4 mls/hr Q24H IV 12/12/24 07:00 12/13/24 07:17 4 MLS/HR Doxycycline Hyclate 100 ml @ 50 mls/hr Q12H IV 12/12/24 14:30 12/13/24 02:42 50 MLS/HR Fluconazole 100 ml @ 100 mls/hr 10,11 IV 12/13/24 10:00 Laboratory Results Laboratory Tests 12/12/24 05:10 12/13/24 05:28 Coagulation Test 12/12/24 12:52 12/12/24 19:02 12/13/24 01:05 Prothrombin Time 13.9 sec (9.3-11.8) H 13.3 sec (9.3-11.8) H 13.9 sec (9.3-11.8) H Prothrombin Time INR 1.35 (0.9-1.15) H 1.29 (0.9-1.15) H 1.35 (0.9-1.15) H Activated Partial Thromboplast Time 55.5 SEC (24.5-34.5) H 51.5 SEC (24.5-34.5) H 50.2 SEC (24.5-34.5) H Urinalysis Test 12/12/24 22:40 Urine Color Colorless (Yellow) Urine Clarity Turbid (Clear) H Urine pH 5.5 (5.0-9.0) Urine Specific [place] 1.007 (1.001-1.035) Urine Protein Trace (Negative) H Urine Ketones Negative (Negative) Urine Blood 3+ /uL (Negative) H Urine Nitrite Negative (Negative) Urine Bilirubin Negative (Negative) Urine Urobilinogen Normal mg/dL (Negative) Urine Leukocyte Esterase Negative /uL (Negative) Urine RBC 924 /hpf (0 - 4) Urine Microscopic WBC 1 /HPF (0-5) Urine Squamous Epithelial Cells None seen /hpf (<5) Urine Bacteria None seen /hpf (None Seen) Urine Glucose Normal mg/dL (Normal) Labs and/or images reviewed: Labs reviewed by me, Image(s) reviewed by me Assessment/Plan Assessment/Plan Acute hypoxic respiratory failure on oxygen 10 L by oxygen by oximizer Right pleural effusion: Dr. Grullon planning for thoracentesis NSTEMI. Hypertensive urgency. 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 Restarted sildenafil, pulmonary consult Acute on chronic decompensated HFpEF, NYHA class III. Severe torrential tricuspid valve regurgitation. Vta-gvyyqmi-zisybifok diabetes mellitus. Chronic kidney disease stage IIIA. Medical non-adherence. Methamphetamine/tobacco abuse. Obesity. Not a candidate for any invasive cardiac procedure per secondary to meth abuse Time spent 65 minutes Patient is full code Condition serious Patient FRANCIE admission Seen in the ER bed 5. Plan discussed with: Patient My Orders Orders - TROY DOAN MD Procedure Category Date Status Time Chest Without Contrast CT 12/12/24 Resulted 10:58 *Consult CONS 12/12/24 Transmitted / 10:58 Cardiac DIET 12/12/24 Transmitted Diet-2gna,Lofat,Lochol Lunch Date of Service: Dec 13, 2024 Billing Provider: TROY DOAN MD Common Visit Codes: [id number] CARE 30-74 MIN TROY DOAN MD Dec 13, 2024 07:24
[2024-12-13 11:08] LABS: INR 1.25 (0.9-1.15); Partial Thromboplastin Time 53.8 SEC (24.5-34.5)
[2024-12-13] MEDS: FLUCONAZOLE 200MG/100ML 100 ML IV SCH (12:23)
[2024-12-13 14:47] LABS: INR 1.2 (0.9-1.15); Prothrombin Time 12.5 sec (9.3-11.8)
[2024-12-13] MEDS ORDERED: hydrALAZINE HCL 20 MG/ML VL IV PRN (21:00)
--- NOTE | 2024-12-13 22:22 | DVHPN2 ---
Progress Note - Dictate Date Seen: Dec 13, 2024 Medical Necessity Reason Pt with a Central, PICC or Fol: No Subjective Patient seen and examined at bedside. Remains on supplemental oxygen Overnight events reviewed. vital signs Vital Sign Date Time Temp Pulse Resp B/P (MAP) Pulse Ox O2 Delivery O2 Flow Rate FiO2 12/13/24 21:17 90 115/85 12/13/24 20:42 99.2 20 94 99.2 12/13/24 18:03 Nasal Cannula 6.0 12/13/24 18:03 44 Total Intake and Output 12/12/24 12/12/24 12/13/24 15:00 23:00 07:00 Intake Total 70 ml 132 ml 97 ml Balance 70 ml 132 ml 97 ml medications Current Medications Medications Dose Ordered Sig/Carl Route Start Time Stop Time Status Last Admin Dose Admin Aspirin 81 mg DAILY PO 12/11/24 10:00 12/13/24 10:14 81 MG Atorvastatin Calcium 40 mg HS PO 12/11/24 22:00 12/13/24 21:18 40 MG Morphine Sulfate 2 mg Q30MP PRN IV 12/11/24 07:30 Hold Acetaminophen 650 mg Q6HP PRN PO 12/11/24 07:30 Hold 12/11/24 15:09 650 MG Nitroglycerin 0.4 mg Q5MINP PRN SL 12/11/24 07:30 Hold Ceftriaxone Sodium 50 ml @ 100 mls/hr DAILY@09 IV 12/11/24 07:45 12/13/24 08:55 100 MLS/HR Furosemide 40 mg BIDD IV 12/11/24 18:00 12/13/24 18:04 40 MG Ipratropium Matthews 0.5 mg Q4HPRN PRN NEB 12/11/24 09:15 12/13/24 18:03 0.5 MG Tramadol HCl 30 mg Q4HP PRN PO 12/11/24 09:15 Cancel Tramadol HCl 50 mg Q4HP PRN PO 12/11/24 10:00 12/13/24 06:59 50 MG Lisinopril 5 mg DAILY PO 12/11/24 10:00 12/13/24 10:15 5 MG Metoprolol Tartrate 25 mg BID PO 12/11/24 10:00 12/13/24 21:17 25 MG Sildenafil Citrate 20 mg TID@08,14,20 PO 12/11/24 14:00 12/13/24 21:17 20 MG Ibuprofen 400 mg Q8HP PRN PO 12/11/24 18:00 12/12/24 16:15 400 MG Heparin Sodium/ Dextrose 250 ml @ 4 mls/hr Q24H IV 12/12/24 07:00 12/13/24 07:17 4 MLS/HR Doxycycline Hyclate 100 ml @ 50 mls/hr Q12H IV 12/12/24 14:30 12/13/24 14:54 50 MLS/HR Fluconazole 100 ml @ 100 mls/hr 10,11 IV 12/13/24 10:00 12/13/24 13:34 100 MLS/HR Hydralazine HCl 10 mg Q2HPRN PRN IV 12/13/24 21:00 UNV objective Gen.: Patient lying in bed in no apparent distress. On supplemental oxygen. Head: Normocephalic, atraumatic. Eyes: EOMI/PERRLA. Ears: Normal hearing. Normal anatomy. Neck/trachea: Trachea midline, supple. Nose: Normal external anatomy. Mouth: Moist mucous membranes. Chest: Decreased air entry bilaterally. No wheezing or rhonchi. Cardiovascular: Positive S1, positive S2. Regular rate and rhythm. Abdomen: Positive bowel sounds in all 4 quadrants. Soft, non-tender, non- distended. : Deferred. Rectal: Deferred. Skin: Warm, dry. Intact. Extremities: 2+ radial pulses bilaterally. No lower extremity edema. Neuro: Awake, alert, oriented x3. No gross motor or sensory deficits. Cranial nerves II through XII intact. Gait not assessed. laboratory and microbiology Laboratory Tests 12/13/24 05:28 12/12/24 05:10 Test 12/12/24 05:10 Range/Units Serum Glucose 108 H 74-106 mg/dL Assessment/Plan Impression: Acute hypoxic respiratory failure Dependence on supplemental oxygen Non-ST elevation [place]. Pleural effusion Atelectasis Pneumonia Nicotine dependence Methamphetamine use Homelessness Events: Remains on supplemental oxygen, currently 6 LPM [place] Taper O2 as tolerated Improved O2 requirements (down from 10 LPM Oxymizer) Continue bronchodilators Continue antibiotics - doxycycline and ceftriaxone Continue Diflucan Incentive spirometry Diurese as tolerated w/ Lasix BID Monitor renal function. Monitor electrolytes. Supplement as necessary. Consult IR for right thoracentesis, otherwise plan for thoracentesis tomorrow Labs and imaging reviewed. Rest of plan as noted below. Plan: Supplemental oxygen Titrate to keep O2 sats above 92%. CT chest reviewed, demonstrates moderate right pleural effusion Obtain consent for right thoracentesis Continue bronchodilators Continue antibiotics Continue Diflucan Incentive spirometry Diurese as tolerated w/ Lasix BID Monitor renal function. Monitor electrolytes. Supplement as necessary. Monitor ins and outs. Smoking cessation discussed for greater than 10 minutes Counseled against drug use. DVT prophylaxis. Prognosis: Poor given patient's multiple co-morbidities. Rest of plan per hospitalist and other consultants. Thank you, MARYA Morrison, for allowing me to participate in this patient's care. Further recommendations will depend on the patient's clinical course. Please do not hesitate to contact me if you have any questions or concerns. This medical document was created using an electronic medical record system with [employer] dictation system. Although these documentations are being carefully reviewed, there may still be some phonetic and typographical changes. The errors are purely typographical, due to imperfection on the software program, and do not reflect any compromise in the patient's medical care. Plan discussed with: Patient, Other (ARPAN Wu) ALYSSIA PÉREZ MD Dec 13, 2024 22:22
--- NOTE | 2024-12-13 23:45 | DVHPN2 ---
Progress Note - Dictate Date Seen: Dec 13, 2024 Medical Necessity Reason Pt with a Central, PICC or Fol: No Subjective Patient was seen and evaluated in follow up. Patient is complaining of SOB. Patient is on 4 LPM NC. Chest x-ray shows equivocal to slightly decreased status of right pleural effusion and cardiomegaly. Patient on heparin drip. Telemetry reviewed. vital signs Vital Sign Date Time Temp Pulse Resp B/P (MAP) Pulse Ox O2 Delivery O2 Flow Rate FiO2 12/13/24 13:18 93 Nasal Cannula 4.0 12/13/24 13:18 36 12/13/24 12:59 98.6 93 16 108/68 (81) 98.6 Total Intake and Output 12/12/24 12/12/24 12/13/24 15:00 23:00 07:00 Intake Total 70 ml 132 ml 97 ml Balance 70 ml 132 ml 97 ml medications Current Medications Medications Dose Ordered Sig/Carl Route Start Time Stop Time Status Last Admin Dose Admin Aspirin 81 mg DAILY PO 12/11/24 10:00 12/13/24 10:14 81 MG Atorvastatin Calcium 40 mg HS PO 12/11/24 22:00 12/12/24 21:46 40 MG Morphine Sulfate 2 mg Q30MP PRN IV 12/11/24 07:30 Hold Acetaminophen 650 mg Q6HP PRN PO 12/11/24 07:30 Hold 12/11/24 15:09 650 MG Nitroglycerin 0.4 mg Q5MINP PRN SL 12/11/24 07:30 Hold Ceftriaxone Sodium 50 ml @ 100 mls/hr DAILY@09 IV 12/11/24 07:45 12/13/24 08:55 100 MLS/HR Furosemide 40 mg BIDD IV 12/11/24 18:00 12/13/24 07:00 40 MG Ipratropium [place] 0.5 mg Q4HPRN PRN NEB 12/11/24 09:15 12/12/24 08:09 0.5 MG Tramadol HCl 30 mg Q4HP PRN PO 12/11/24 09:15 Cancel Tramadol HCl 50 mg Q4HP PRN PO 12/11/24 10:00 12/13/24 06:59 50 MG Lisinopril 5 mg DAILY PO 12/11/24 10:00 12/13/24 10:15 5 MG Metoprolol Tartrate 25 mg BID PO 12/11/24 10:00 12/13/24 10:15 25 MG Sildenafil Citrate 20 mg TID@08,14,20 PO 12/11/24 14:00 12/13/24 08:00 20 MG Ibuprofen 400 mg Q8HP PRN PO 12/11/24 18:00 12/12/24 16:15 400 MG Heparin Sodium/ Dextrose 250 ml @ 4 mls/hr Q24H IV 12/12/24 07:00 12/13/24 07:17 4 MLS/HR Doxycycline Hyclate 100 ml @ 50 mls/hr Q12H IV 12/12/24 14:30 12/13/24 02:42 50 MLS/HR Fluconazole 100 ml @ 100 mls/hr 10,11 IV 12/13/24 10:00 12/13/24 13:34 100 MLS/HR objective GENERAL: Awake, alert, oriented. Unkempt. Obese. LUNGS: Clear. CARDIOVASCULAR: Regular rate and rhythm. Diastolic murmur. ABDOMEN: Soft. EXT: 2+ pitting edema. laboratory and microbiology Laboratory Tests 12/13/24 05:28 12/12/24 05:10 Test 12/12/24 05:10 Range/Units Serum Glucose 108 H 74-106 mg/dL Problem List NSTEMI. Hypertensive urgency. 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 Acute on chronic decompensated HFpEF, NYHA class III. Severe torrential tricuspid valve regurgitation. Pyrexia. Cnd-vyncvqb-lgotbxiom diabetes mellitus. Chronic kidney disease stage IIIA. Medical non-adherence. Methamphetamine/tobacco abuse. Obesity. Assessment/Plan Continued all current supportive medical care. Aspirin, Lipitor, Metoprolol. IV antibiotics as ordered. Diuretics with Lasix. Heparin drip per pharmacy. Additional plan as per the hospital course. Plan discussed with: Patient LILLIAN LOVE MD Dec 13, 2024 14:53
[2024-12-14] VITALS (12 sets, daily range): BP systolic 100–124; BP diastolic 64–76; PULSE 65–87; RESP 16–20; TEMP 97.5–101.4; O2SAT 91–97
[2024-12-14 06:15] LABS: Basophils # (auto) 0 10 ^3/uL (0-0.2); Basophils % (auto) 0.3 % (0.0-2.0); Eosinophils # (auto) 0 10 ^3/uL (0-0.8); Hematocrit 47.2 % (36.0-46.0); Hemoglobin 15.9 g/dL (12.2-16.2); Lymphocytes # (auto) 0.8 10 ^3/uL (0.4-5.4); Lymphocytes % (auto) 22.3 % (10.0-50.0); Mean Corpuscular Hgb Conc. 33.7 g/dL (32.0-36.0); Monocytes # (auto) 0.4 10 ^3/uL (0-1.3); Monocytes % (auto) 10.2 % (0.0-12.0); Neutrophils # (auto) 2.4 10 ^3/uL (1.6-8.6); Neutrophils % (auto) 67.2 % (37.0-80.0); Nucleated Red Blood Cells % 0.2 %; Platelet Count (auto) 122 10^3/uL (140-450); Red Blood Cells 5.13 10^6/uL (4.0-5.20); White Blood Cell 3.6 10^3/uL (4.4-10.8)
[2024-12-14 06:33] LABS: Alanine Aminotransferase 32 U/L (7-40); Albumin 3.3 g/dL (3.2-4.8); Anion Gap 8 (5-15); BUN/Creatinine Ratio 14.2 (10.0-20.0); Bilirubin, Total 0.6 mg/dL (0.2-1.0); Blood Urea Nitrogen 19 mg/dL (9-23); Carbon Dioxide 30 mmol/L (20-31); Glucose 97 mg/dL (74-106); Magnesium 1.7 mg/dL (1.6-2.6); Total Protein 5.8 g/dL (5.7-8.2)
[2024-12-14 06:35] LABS: Alkaline Phosphatase 122 U/L (46-116); Aspartate Aminotransferase 79 U/L (13-40); Calcium 8.5 mg/dL (8.7-10.4); Chloride 95 mmol/L (98-107); Phosphorus 2.3 mg/dL (2.4-5.1); Sodium 133 mmol/L (136-145)
[2024-12-14 06:36] LABS: INR 1.18 (0.9-1.15); Partial Thromboplastin Time 52.9 SEC (24.5-34.5); Prothrombin Time 12.3 sec (9.3-11.8)
--- NOTE | 2024-12-14 14:10 | DVHPN2 ---
Subjective 49-year-old female with a history of hypertension hyperlipidemia and pulmonary hypertension came with shortness of breaths and chest pain. She was very hypoxic now she is down to 5 L nasal cannula now The patient is homeless Reviewed: Care Plan, H&P, Labs, Medications, Previous Orders, Radiology Changes from previous H/P or p: Changes Cardiovascular: Chest Pain Objective Vitals Vital Signs Date Time Temp Pulse Resp B/P (MAP) Pulse Ox O2 Delivery O2 Flow Rate FiO2 12/14/24 13:19 98.3 65 20 100/68 (79) 91 98.3 12/14/24 11:08 6.0 44 12/14/24 10:00 Nasal Cannula* Intake/Output Intake and Output 12/14/24 07:00 Intake Total 1898 ml Output Total 5250 ml Balance -3352 ml Intake Oral 1420 ml IV Total 478 ml Output Urine Total 5250 ml General Appearance: Alert, Oriented X3, moderate distress Lungs: Other (Bilateral rhonchi) Cardiovascular: Regular rate, Normal S1, Normal S2 Abdomen: Normal bowel sounds, Soft, No tenderness Extremities: No edema Medications Current Medications Medications Dose Ordered Sig/Carl Route Start Time Stop Time Status Last Admin Dose Admin Aspirin 81 mg DAILY PO 12/11/24 10:00 12/14/24 10:03 81 MG Atorvastatin Calcium 40 mg HS PO 12/11/24 22:00 12/13/24 21:18 40 MG Morphine Sulfate 2 mg Q30MP PRN IV 12/11/24 07:30 Hold Acetaminophen 650 mg Q6HP PRN PO 12/11/24 07:30 Hold 12/11/24 15:09 650 MG Nitroglycerin 0.4 mg Q5MINP PRN SL 12/11/24 07:30 Hold Ceftriaxone Sodium 50 ml @ 100 mls/hr DAILY@09 IV 12/11/24 07:45 12/14/24 08:38 100 MLS/HR Furosemide 40 mg BIDD IV 12/11/24 18:00 12/13/24 18:04 40 MG Ipratropium [place] 0.5 mg Q4HPRN PRN NEB 12/11/24 09:15 12/13/24 18:03 0.5 MG Tramadol HCl 30 mg Q4HP PRN PO 12/11/24 09:15 Cancel Tramadol HCl 50 mg Q4HP PRN PO 12/11/24 10:00 12/13/24 06:59 50 MG Lisinopril 5 mg DAILY PO 12/11/24 10:00 12/14/24 10:04 5 MG Metoprolol Tartrate 25 mg BID PO 12/11/24 10:00 12/14/24 10:04 25 MG Sildenafil Citrate 20 mg TID@08,14,20 PO 12/11/24 14:00 12/14/24 13:03 20 MG Ibuprofen 400 mg Q8HP PRN PO 12/11/24 18:00 12/14/24 04:44 400 MG Heparin Sodium/ Dextrose 250 ml @ 4 mls/hr Q24H IV 12/12/24 07:00 12/14/24 06:49 4 MLS/HR Doxycycline Hyclate 100 ml @ 50 mls/hr Q12H IV 12/12/24 14:30 12/14/24 13:03 50 MLS/HR Fluconazole 100 ml @ 100 mls/hr 10,11 IV 12/13/24 10:00 12/14/24 11:22 100 MLS/HR Hydralazine HCl 10 mg Q2HPRN PRN IV 12/13/24 21:00 UNV Laboratory Results Laboratory Tests 12/14/24 04:24 Chemistry Test 12/14/24 04:24 Albumin 3.3 g/dL (3.2-4.8) Calcium Level 8.5 mg/dL (8.7-10.4) L Magnesium Level 1.7 mg/dL (1.6-2.6) Phosphorus Level 2.3 mg/dL (2.4-5.1) L Total Protein 5.8 g/dL (5.7-8.2) Coagulation Test 12/14/24 04:24 Prothrombin Time 12.3 sec (9.3-11.8) H Prothrombin Time INR 1.18 (0.9-1.15) H Activated Partial Thromboplast Time 52.9 SEC (24.5-34.5) H LFT Test 12/14/24 04:24 Alanine Aminotransferase (ALT) 32 U/L (7-40) Alkaline Phosphatase 122 U/L (46-116) H Aspartate Amino Transferase (AST) 79 U/L (13-40) H Total Bilirubin 0.6 mg/dL (0.2-1.0) Urinalysis Test 12/12/24 22:40 Urine Color Colorless (Yellow) Urine Clarity Turbid (Clear) H Urine pH 5.5 (5.0-9.0) Urine Specific [place] 1.007 (1.001-1.035) Urine Protein Trace (Negative) H Urine Ketones Negative (Negative) Urine Blood 3+ /uL (Negative) H Urine Nitrite Negative (Negative) Urine Bilirubin Negative (Negative) Urine Urobilinogen Normal mg/dL (Negative) Urine Leukocyte Esterase Negative /uL (Negative) Urine RBC 924 /hpf (0 - 4) Urine Microscopic WBC 1 /HPF (0-5) Urine Squamous Epithelial Cells None seen /hpf (<5) Urine Bacteria None seen /hpf (None Seen) Urine Glucose Normal mg/dL (Normal) Assessment/Plan Assessment/Plan Acute hypoxic respiratory failure due to CHF exacerbation Diastolic HF Severe pulmonary hypertension Right pleural effusion NSTEMI. Hypertensive urgency. Severe tricuspid valve regurgitation. DM2 Chronic kidney disease stage IIIA. Medical non-adherence. Methamphetamine/tobacco abuse. Obesity. Homeless Hypokalemia Hypomagnesemia Right lower lobe pneumonia Left upper lobe with tree-in-bud nodularity could be due to fungal infection PLAN: Replace K+ & Mg DC Villa IV Lasix DC Ibuprofen due to CKD Heparin drip IV antibiotics Rocephin and doxycycline Diflucan IV Pulmonary consultation Cardiology consult the echocardiogram shows preserved ejection fraction with but very high pulmonary hypertension Full code advance directives discussed for 20 minutes Plan discussed with: Patient My Orders Orders - ANA BLAIR MD Procedure Category Date Status Time D/C Villa LIDIA 12/14/24 In Process 13:57 Magnesium [place] PHA 12/14/24 Transmitted 15:00 Potassium Er Tablet PHA 12/14/24 Transmitted (Klor-Con Tablet) 14:15 Date of Service: Dec 14, 2024 Billing Provider: ANA BLAIR MD Common Visit Codes: [id number] INP/OBS CARE(HIGH) Secondary Visit Codes: [id number] CARE PLAN 30 MINUTES ANA BLAIR MD Dec 14, 2024 14:10
[2024-12-14] MEDS: MAGNESIUM SULFATE 1GM/100ML 100 ML IV SCH (14:22)
[2024-12-14] MEDS: POTASSIUM CHL 20 Meq TABLET PO ONE (14:23)
--- NOTE | 2024-12-14 16:31 | DVH ---
CHEST RADIOGRAPH Indication: s/p right thoracentesis r/o PTX Technique: Single frontal view of the chest was obtained COMPARISON: XY CHEST XRAY 1 VIEW on DOS: 12/13/24, XY CHEST PORTABLE on DOS: 12/11/24, XY CHEST PORTABL E on DOS: 12/09/24, XY CHEST PORTABLE on DOS: 12/08/24, XY CHEST PORTABLE on DOS: 02/21/24 FINDINGS: Lines and Tubes: None Lungs: Clear Pleura: No effusion. No pneumothorax. Cardiomediastinal contours: Unremarkable Bones: Unremarkable IMPRESSION: No appreciable pneumothorax
--- NOTE | 2024-12-14 19:26 | DVHPN2 ---
Progress Note - Dictate Date Seen: Dec 14, 2024 Medical Necessity Reason Pt with a Central, PICC or Fol: No Subjective Patient seen and examined at bedside. Remains on supplemental oxygen Overnight events reviewed. vital signs Vital Sign Date Time Temp Pulse Resp B/P (MAP) Pulse Ox O2 Delivery O2 Flow Rate FiO2 12/14/24 18:51 93 Nasal Cannula 6.0 12/14/24 18:51 44 12/14/24 17:51 120/73 12/14/24 13:19 98.3 65 20 98.3 Total Intake and Output 12/13/24 12/13/24 12/14/24 15:00 23:00 07:00 Intake Total 150 ml 948 ml 800 ml Output Total 1500 ml 950 ml 2800 ml Balance -1350 ml -2 ml -2000 ml medications Current Medications Medications Dose Ordered Sig/Carl Route Start Time Stop Time Status Last Admin Dose Admin Aspirin 81 mg DAILY PO 12/11/24 10:00 12/14/24 10:03 81 MG Atorvastatin Calcium 40 mg HS PO 12/11/24 22:00 12/13/24 21:18 40 MG Morphine Sulfate 2 mg Q30MP PRN IV 12/11/24 07:30 Hold Acetaminophen 650 mg Q6HP PRN PO 12/11/24 07:30 Hold 12/11/24 15:09 650 MG Nitroglycerin 0.4 mg Q5MINP PRN SL 12/11/24 07:30 Hold Ceftriaxone Sodium 50 ml @ 100 mls/hr DAILY@09 IV 12/11/24 07:45 12/14/24 08:38 100 MLS/HR Furosemide 40 mg BIDD IV 12/11/24 18:00 12/14/24 17:51 40 MG Ipratropium [place] 0.5 mg Q4HPRN PRN NEB 12/11/24 09:15 12/13/24 18:03 0.5 MG Tramadol HCl 30 mg Q4HP PRN PO 12/11/24 09:15 Cancel Tramadol HCl 50 mg Q4HP PRN PO 12/11/24 10:00 12/13/24 06:59 50 MG Lisinopril 5 mg DAILY PO 12/11/24 10:00 12/14/24 10:04 5 MG Metoprolol Tartrate 25 mg BID PO 12/11/24 10:00 12/14/24 10:04 25 MG Sildenafil Citrate 20 mg TID@08,14,20 PO 12/11/24 14:00 12/14/24 13:03 20 MG Heparin Sodium/ Dextrose 250 ml @ 4 mls/hr Q24H IV 12/12/24 07:00 12/14/24 06:49 4 MLS/HR Doxycycline Hyclate 100 ml @ 50 mls/hr Q12H IV 12/12/24 14:30 12/14/24 13:03 50 MLS/HR Fluconazole 100 ml @ 100 mls/hr 10,11 IV 12/13/24 10:00 12/14/24 11:22 100 MLS/HR Hydralazine HCl 10 mg Q2HPRN PRN IV 12/13/24 21:00 UNV objective Gen.: Patient lying in bed in no apparent distress. On supplemental oxygen. Head: Normocephalic, atraumatic. Eyes: EOMI/PERRLA. Ears: Normal hearing. Normal anatomy. Neck/trachea: Trachea midline, supple. Nose: Normal external anatomy. Mouth: Moist mucous membranes. Chest: Decreased air entry bilaterally. No wheezing or rhonchi. Cardiovascular: Positive S1, positive S2. Regular rate and rhythm. Abdomen: Positive bowel sounds in all 4 quadrants. Soft, non-tender, non- distended. : Deferred. Rectal: Deferred. Skin: Warm, dry. Intact. Extremities: 2+ radial pulses bilaterally. No lower extremity edema. Neuro: Awake, alert, oriented x3. No gross motor or sensory deficits. Cranial nerves II through XII intact. Gait not assessed. laboratory and microbiology Laboratory Tests 12/14/24 04:24 Test 12/14/24 04:24 Range/Units Serum Glucose 97 74-106 mg/dL Assessment/Plan Impression: Acute hypoxic respiratory failure Dependence on supplemental oxygen Non-ST elevation ME. Pleural effusion Atelectasis Pneumonia Nicotine dependence Methamphetamine use Homelessness Events: Remains on supplemental oxygen, currently 2 LPM NC Taper O2 as tolerated Improved O2 requirements S/p right thoracentesis today w/ 250 mL karina fluid drained from right pleural space. See separate procedure note for details. Follow up pleural fluid cultures and cytology Continue bronchodilators Continue antibiotics - doxycycline and ceftriaxone Continue Diflucan Incentive spirometry Continue diuresis as tolerated w/ Lasix BID Monitor renal function. Monitor electrolytes. Supplement as necessary. Labs and imaging reviewed. Rest of plan as noted below. Plan: Supplemental oxygen Titrate to keep O2 sats above 92%. Continue bronchodilators Continue antibiotics Continue Diflucan Incentive spirometry Diurese as tolerated w/ Lasix BID Monitor renal function. Monitor electrolytes. Supplement as necessary. Monitor ins and outs. Smoking cessation discussed for greater than 10 minutes Counseled against drug use. DVT prophylaxis. Prognosis: Poor given patient's multiple co-morbidities. Rest of plan per hospitalist and other consultants. Thank you, MARYA Morrison, for allowing me to participate in this patient's care. Further recommendations will depend on the patient's clinical course. Please do not hesitate to contact me if you have any questions or concerns. This medical document was created using an electronic medical record system with [employer] dictation system. Although these documentations are being carefully reviewed, there may still be some phonetic and typographical changes. The errors are purely typographical, due to imperfection on the software program, and do not reflect any compromise in the patient's medical care. Dietary Evaluation Review Comments: 1. Glucerna 240ml BID 2. CCHO 60+ cardiac diet 3. Continue current plan of care Expected Outcomes/Goals: Pt will meet >75% estimated needs Fu 3-5 days Plan discussed with: Patient, Other (ARPAN Frederick) ALYSSIA PÉREZ MD Dec 14, 2024 19:26
[2024-12-14 19:58] LABS: Body Fluid Red Blood Cells 15722 CUMM (0-2000); Body Fluid White Blood Cells 1378 CUMM (0-200)
--- NOTE | 2024-12-14 23:17 | DVHPN2 ---
Progress Note - Dictate Date Seen: Dec 14, 2024 Medical Necessity Reason Pt with a Central, PICC or Fol: No Subjective Patient was seen and evaluated in follow up. Patient is complaining of increased SOB. Patient is now on 6 LPM NC. Chest x-ray shows NAD. K 3.0, Visual Merchandising Manager 1.34. Patient remains on heparin drip. Telemetry reviewed. vital signs Vital Sign Date Time Temp Pulse Resp B/P (MAP) Pulse Ox O2 Delivery O2 Flow Rate FiO2 12/14/24 21:23 78 124/76 12/14/24 21:00 97.5 19 97 97.5 12/14/24 18:51 Nasal Cannula 6.0 12/14/24 18:51 44 Total Intake and Output 12/13/24 12/13/24 12/14/24 15:00 23:00 07:00 Intake Total 150 ml 948 ml 800 ml Output Total 1500 ml 950 ml 2800 ml Balance -1350 ml -2 ml -2000 ml medications Current Medications Medications Dose Ordered Sig/Carl Route Start Time Stop Time Status Last Admin Dose Admin Aspirin 81 mg DAILY PO 12/11/24 10:00 12/14/24 10:03 81 MG Atorvastatin Calcium 40 mg HS PO 12/11/24 22:00 12/14/24 21:23 40 MG Morphine Sulfate 2 mg Q30MP PRN IV 12/11/24 07:30 Hold Acetaminophen 650 mg Q6HP PRN PO 12/11/24 07:30 Hold 12/11/24 15:09 650 MG Nitroglycerin 0.4 mg Q5MINP PRN SL 12/11/24 07:30 Hold Ceftriaxone Sodium 50 ml @ 100 mls/hr DAILY@09 IV 12/11/24 07:45 12/14/24 08:38 100 MLS/HR Furosemide 40 mg BIDD IV 12/11/24 18:00 12/14/24 17:51 40 MG Ipratropium [place] 0.5 mg Q4HPRN PRN NEB 12/11/24 09:15 12/13/24 18:03 0.5 MG Tramadol HCl 30 mg Q4HP PRN PO 12/11/24 09:15 Cancel Tramadol HCl 50 mg Q4HP PRN PO 12/11/24 10:00 12/13/24 06:59 50 MG Lisinopril 5 mg DAILY PO 12/11/24 10:00 12/14/24 10:04 5 MG Metoprolol Tartrate 25 mg BID PO 12/11/24 10:00 12/14/24 21:23 25 MG Sildenafil Citrate 20 mg TID@08,14,20 PO 12/11/24 14:00 12/14/24 20:02 20 MG Heparin Sodium/ Dextrose 250 ml @ 4 mls/hr Q24H IV 12/12/24 07:00 12/14/24 06:49 4 MLS/HR Doxycycline Hyclate 100 ml @ 50 mls/hr Q12H IV 12/12/24 14:30 12/14/24 13:03 50 MLS/HR Fluconazole 100 ml @ 100 mls/hr 10,11 IV 12/13/24 10:00 12/14/24 11:22 100 MLS/HR Hydralazine HCl 10 mg Q2HPRN PRN IV 12/13/24 21:00 UNV objective GENERAL: Awake, alert, oriented. Unkempt. Obese. LUNGS: Clear. CARDIOVASCULAR: Regular rate and rhythm. Diastolic murmur. ABDOMEN: Soft. EXT: 2+ pitting edema. laboratory and microbiology Laboratory Tests 12/14/24 04:24 Test 12/14/24 04:24 Range/Units Serum Glucose 97 74-106 mg/dL Problem List NSTEMI. Hypertensive urgency. 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 Acute on chronic decompensated HFpEF, NYHA class III. Severe torrential tricuspid valve regurgitation. Pyrexia. Ere-hjsjofn-iulqqlfaz diabetes mellitus. Chronic kidney disease stage IIIA. Medical non-adherence. Methamphetamine/tobacco abuse. Obesity. Assessment/Plan Continued all current supportive medical care. Aspirin, Lipitor, Metoprolol. IV antibiotics as ordered. Diuretics with Lasix. Heparin drip per pharmacy. Additional plan as per the hospital course. Dietary Evaluation Review Comments: 1. Glucerna 240ml BID 2. CCHO 60+ cardiac diet 3. Continue current plan of care Expected Outcomes/Goals: Pt will meet >75% estimated needs Fu 3-5 days Plan discussed with: Patient LILLIAN LOVE MD Dec 14, 2024 23:17
[2024-12-15] VITALS (13 sets, daily range): BP systolic 101–136; BP diastolic 62–79; PULSE 73–85; RESP 16–20; TEMP 98–101.2; O2SAT 91–95
[2024-12-15] MEDS: guaiFENesin-DM 100/10mg/5ml SYR PO PRN (01:41)
--- NOTE | 2024-12-15 04:59 | DVHNC2 ---
Procedure - Ultrasound-guided Right Thoracentesis procedure note: Physician: Dr Lucy Grullon Dishwasher Busser: Dr Byrne RN: Yoly Patient medications and allergies reviewed. The risks and benefits of the procedure and the sedation options and risk were discussed with the patient's healthcare proxy. All questions were answered and informed consent was obtai pb. Patient identification and proposed procedure were verified prior to the procedure by the physician, and a nurse in the patient's room. The heart rate, respiratory rate, oxygen saturations, blood pressure, adequacy of pulmonary ventilation, and response to care were monitored throughout the procedure. The physical status of the patient was reassessed after the procedure. Date: 12/14/2024 Consent: Consent was obtained from patient's healthcare proxy prior to procedure. Indication, risks, and benefits were explained at length. Procedure summary: A time out was performed and a chest x-ray was reviewed prior to procedure. The appropriate site was confirmed and marked. My hands were washed immediately prior to the procedure, I wore a surgical cap, mask with protective eyewear, sterile gown and sterile gloves throughout the procedure. The patient was prepped and draped in a sterile manner using chlorhexidine scrub after the appropriate level was percussed and confirmed by ultrasound. 1% lidocaine was used to anesthetize the skin, subcutaneous tissue, superior aspect of the rib periosteum and parietal pleura. A finder needle was then introduced over the superior aspect of the rib to locate the pleural fluid; whitish sanguinous fluid was aspirated. Thoracentesis needle was then introduced through the skin incision into the right pleural space using negative aspiration pressure. The thoracentesis catheter was then threaded without difficulty. 250 mL's of karina colored fluid were removed without difficulty. The catheter was then removed. No immediate complications were noted during the procedure. A post-procedure chest x-ray is pending at the time of this note. The pleural fluid will be sent for cultures and cytology. Estimated blood loss is less than 5 mL's. CPT: 09057 ALYSSIA GRULLON MD Dec 15, 2024 04:59
[2024-12-15 06:16] LABS: Basophils # (auto) 0 10 ^3/uL (0-0.2); Basophils % (auto) 0.4 % (0.0-2.0); Eosinophils # (auto) 0 10 ^3/uL (0-0.8); Hematocrit 45.4 % (36.0-46.0); Hemoglobin 15.6 g/dL (12.2-16.2); INR 1.17 (0.9-1.15); Lymphocytes # (auto) 0.5 10 ^3/uL (0.4-5.4); Mean Corpuscular Hemoglobin 31.3 pg (28.0-32.0); Mean Corpuscular Hgb Conc. 34.3 g/dL (32.0-36.0); Mean Corpuscular Volume 91.3 fL (80.0-100.0); Monocytes # (auto) 0.3 10 ^3/uL (0-1.3); Monocytes % (auto) 11.1 % (0.0-12.0); Neutrophils % (auto) 69.5 % (37.0-80.0); Partial Thromboplastin Time 65.9 SEC (24.5-34.5); Platelet Count (auto) 101 10^3/uL (140-450); Prothrombin Time 12.2 sec (9.3-11.8); Red Blood Cells 4.98 10^6/uL (4.0-5.20); Red Cell Distribution Width 15.7 % (11.8-14.3); White Blood Cell 2.8 10^3/uL (4.4-10.8)
[2024-12-15 06:36] LABS: Alanine Aminotransferase 39 U/L (7-40); Albumin 3.4 g/dL (3.2-4.8); Anion Gap 9 (5-15); Blood Urea Nitrogen 19 mg/dL (9-23); Carbon Dioxide 28 mmol/L (20-31); Glucose 103 mg/dL (74-106); Magnesium 1.9 mg/dL (1.6-2.6); Total Protein 5.9 g/dL (5.7-8.2)
[2024-12-15 06:37] LABS: Bilirubin, Total 0.6 mg/dL (0.2-1.0)
[2024-12-15 06:40] LABS: Alkaline Phosphatase 131 U/L (46-116); Aspartate Aminotransferase 97 U/L (13-40); Calcium 8.5 mg/dL (8.7-10.4); Chloride 95 mmol/L (98-107); Potassium 3.4 mmol/L (3.5-5.1); Sodium 132 mmol/L (136-145)
--- NOTE | 2024-12-15 11:01 | DVHPN2 ---
Subjective He is still on 6 L nasal cannula She is still hypoxic Complaining of cough Reviewed: Care Plan, H&P, Labs, Medications, Previous Orders, Radiology Changes from previous H/P or p: Changes Cardiovascular: Chest Pain Objective Vitals Vital Signs Date Time Temp Pulse Resp B/P (MAP) Pulse Ox O2 Delivery O2 Flow Rate FiO2 12/15/24 10:11 70 104/72 12/15/24 09:58 94 Nasal Cannula 6.0 12/15/24 09:58 44 12/15/24 09:00 100.4 20 100.4 Intake/Output Intake and Output 12/15/24 07:00 Intake Total 1790 ml Output Total 2840 ml Balance -1050 ml Intake Oral 1140 ml IV Total 650 ml Output Urine Total 2840 ml # Bowel Movements 2 General Appearance: Alert, Oriented X3, moderate distress Lungs: Other (Bilateral rhonchi) Cardiovascular: Regular rate, Normal S1, Normal S2 Abdomen: Normal bowel sounds, Soft, No tenderness Extremities: No edema Medications Current Medications Medications Dose Ordered Sig/Carl Route Start Time Stop Time Status Last Admin Dose Admin Aspirin 81 mg DAILY PO 12/11/24 10:00 12/15/24 09:10 81 MG Atorvastatin Calcium 40 mg HS PO 12/11/24 22:00 12/14/24 21:23 40 MG Morphine Sulfate 2 mg Q30MP PRN IV 12/11/24 07:30 Hold Acetaminophen 650 mg Q6HP PRN PO 12/11/24 07:30 Hold 12/11/24 15:09 650 MG Nitroglycerin 0.4 mg Q5MINP PRN SL 12/11/24 07:30 Hold Ceftriaxone Sodium 50 ml @ 100 mls/hr DAILY@09 IV 12/11/24 07:45 12/15/24 08:15 100 MLS/HR Furosemide 40 mg BIDD IV 12/11/24 18:00 12/15/24 05:22 40 MG Ipratropium [place] 0.5 mg Q4HPRN PRN NEB 12/11/24 09:15 12/13/24 18:03 0.5 MG Tramadol HCl 30 mg Q4HP PRN PO 12/11/24 09:15 Cancel Tramadol HCl 50 mg Q4HP PRN PO 12/11/24 10:00 12/13/24 06:59 50 MG Lisinopril 5 mg DAILY PO 12/11/24 10:00 12/15/24 09:10 5 MG Metoprolol Tartrate 25 mg BID PO 12/11/24 10:00 12/15/24 09:11 25 MG Sildenafil Citrate 20 mg TID@08,14,20 PO 12/11/24 14:00 12/15/24 08:15 20 MG Heparin Sodium/ Dextrose 250 ml @ 4 mls/hr Q24H IV 12/12/24 07:00 12/15/24 07:02 4 MLS/HR Doxycycline Hyclate 100 ml @ 50 mls/hr Q12H IV 12/12/24 14:30 12/15/24 02:41 50 MLS/HR Fluconazole 100 ml @ 100 mls/hr 10,11 IV 12/13/24 10:00 12/15/24 10:28 100 MLS/HR Hydralazine HCl 10 mg Q2HPRN PRN IV 12/13/24 21:00 UNV Guaifenesin/ Dextromethorphan 10 ml Q6HPRN PRN PO 12/15/24 01:15 12/15/24 01:41 10 ML Laboratory Results Laboratory Tests 12/15/24 04:33 Chemistry Test 12/15/24 04:33 Albumin 3.4 g/dL (3.2-4.8) Calcium Level 8.5 mg/dL (8.7-10.4) L Magnesium Level 1.9 mg/dL (1.6-2.6) Total Protein 5.9 g/dL (5.7-8.2) Coagulation Test 12/15/24 04:33 Prothrombin Time 12.2 sec (9.3-11.8) H Prothrombin Time INR 1.17 (0.9-1.15) H Activated Partial Thromboplast Time 65.9 SEC (24.5-34.5) H LFT Test 12/15/24 04:33 Alanine Aminotransferase (ALT) 39 U/L (7-40) Alkaline Phosphatase 131 U/L (46-116) H Aspartate Amino Transferase (AST) 97 U/L (13-40) H Total Bilirubin 0.6 mg/dL (0.2-1.0) Urinalysis Test 12/12/24 22:40 Urine Color Colorless (Yellow) Urine Clarity Turbid (Clear) H Urine pH 5.5 (5.0-9.0) Urine Specific [place] 1.007 (1.001-1.035) Urine Protein Trace (Negative) H Urine Ketones Negative (Negative) Urine Blood 3+ /uL (Negative) H Urine Nitrite Negative (Negative) Urine Bilirubin Negative (Negative) Urine Urobilinogen Normal mg/dL (Negative) Urine Leukocyte Esterase Negative /uL (Negative) Urine RBC 924 /hpf (0 - 4) Urine Microscopic WBC 1 /HPF (0-5) Urine Squamous Epithelial Cells None seen /hpf (<5) Urine Bacteria None seen /hpf (None Seen) Urine Glucose Normal mg/dL (Normal) Assessment/Plan Assessment/Plan Acute hypoxic respiratory failure due to CHF exacerbation Diastolic HF Severe pulmonary hypertension Right pleural effusion NSTEMI. Hypertensive urgency. Severe tricuspid valve regurgitation. DM2 Chronic kidney disease stage IIIA. Medical non-adherence. Methamphetamine/tobacco abuse. Obesity. Homeless Hypokalemia Hypomagnesemia Right lower lobe pneumonia Left upper lobe with tree-in-bud nodularity could be due to fungal infection PLAN: Replace K+ & Mg DC Villa IV Lasix DC Ibuprofen due to CKD Heparin drip IV antibiotics Rocephin and doxycycline Diflucan IV Pulmonary consultation Cardiology consult the echocardiogram shows preserved ejection fraction with but very high pulmonary hypertension Full code advance directives discussed for 20 minutes 12/15/2024: IV antibiotics Rocephin and doxycycline and fluconazole Heparin drip Aspirin Lasix IV Lipitor Lisinopril Metoprolol Cardiology consult is following Pulmonary consult is following The patient is homeless: Consult forensic social worker Hypokalemia: Replace Hyponatremia Sepsis Leukopenia Thrombocytopenia Plan discussed with: Patient My Orders Orders - ANA BLAIR MD Procedure Category Date Status Time D/C Villa LIDIA 12/14/24 In Process 13:57 * Scheduling Coordinator CONS 12/14/24 Transmitted Consult Date of Service: Dec 15, 2024 Billing Provider: ANA BLAIR MD Common Visit Codes: [id number] INP/OBS CARE(HIGH) ANA BLAIR MD Dec 15, 2024 11:01
[2024-12-15] MEDS: POTASSIUM CHL 20 Meq TABLET PO ONE (11:56)
[2024-12-15] MEDS ORDERED: ACETAMINOPHEN 325 MG TAB PO PRN (19:45)
--- NOTE | 2024-12-15 21:12 | DVHPN2 ---
Progress Note - Dictate Date Seen: Dec 15, 2024 Medical Necessity Reason Pt with a Central, PICC or Fol: No Subjective Patient seen and examined at bedside. Remains on supplemental oxygen Overnight events reviewed. vital signs Vital Sign Date Time Temp Pulse Resp B/P (MAP) Pulse Ox O2 Delivery O2 Flow Rate FiO2 12/15/24 21:00 98.0 78 20 136/79 (98) 95 98.0 12/15/24 19:29 Nasal Cannula 6.0 12/15/24 19:29 44 Total Intake and Output 12/14/24 12/14/24 12/15/24 15:00 23:00 07:00 Intake Total 250 ml 1040 ml 500 ml Output Total 1100 ml 1320 ml 420 ml Balance -850 ml -280 ml 80 ml medications Current Medications Medications Dose Ordered Sig/Carl Route Start Time Stop Time Status Last Admin Dose Admin Aspirin 81 mg DAILY PO 12/11/24 10:00 12/15/24 09:10 81 MG Atorvastatin Calcium 40 mg HS PO 12/11/24 22:00 12/14/24 21:23 40 MG Morphine Sulfate 2 mg Q30MP PRN IV 12/11/24 07:30 Hold Acetaminophen 650 mg Q6HP PRN PO 12/11/24 07:30 Hold 12/11/24 15:09 650 MG Nitroglycerin 0.4 mg Q5MINP PRN SL 12/11/24 07:30 Hold Ceftriaxone Sodium 50 ml @ 100 mls/hr DAILY@09 IV 12/11/24 07:45 12/15/24 08:15 100 MLS/HR Furosemide 40 mg BIDD IV 12/11/24 18:00 12/15/24 18:49 40 MG Ipratropium [place] 0.5 mg Q4HPRN PRN NEB 12/11/24 09:15 12/13/24 18:03 0.5 MG Tramadol HCl 30 mg Q4HP PRN PO 12/11/24 09:15 Cancel Tramadol HCl 50 mg Q4HP PRN PO 12/11/24 10:00 12/15/24 20:06 50 MG Lisinopril 5 mg DAILY PO 12/11/24 10:00 12/15/24 09:10 5 MG Metoprolol Tartrate 25 mg BID PO 12/11/24 10:00 12/15/24 09:11 25 MG Sildenafil Citrate 20 mg TID@08,14,20 PO 12/11/24 14:00 12/15/24 20:16 20 MG Heparin Sodium/ Dextrose 250 ml @ 4 mls/hr Q24H IV 12/12/24 07:00 12/15/24 07:02 4 MLS/HR Doxycycline Hyclate 100 ml @ 50 mls/hr Q12H IV 12/12/24 14:30 12/15/24 13:10 50 MLS/HR Fluconazole 100 ml @ 100 mls/hr 10,11 IV 12/13/24 10:00 12/15/24 10:28 100 MLS/HR Hydralazine HCl 10 mg Q2HPRN PRN IV 12/13/24 21:00 UNV Guaifenesin/ Dextromethorphan 10 ml Q6HPRN PRN PO 12/15/24 01:15 12/15/24 01:41 10 ML Acetaminophen 650 mg Q6HP PRN PO 12/15/24 19:45 objective Gen.: Patient lying in bed in no apparent distress. On supplemental oxygen. Head: Normocephalic, atraumatic. Eyes: EOMI/PERRLA. Ears: Normal hearing. Normal anatomy. Neck/trachea: Trachea midline, supple. Nose: Normal external anatomy. Mouth: Moist mucous membranes. Chest: Decreased air entry bilaterally. No wheezing or rhonchi. Cardiovascular: Positive S1, positive S2. Regular rate and rhythm. Abdomen: Positive bowel sounds in all 4 quadrants. Soft, non-tender, non- distended. : Deferred. Rectal: Deferred. Skin: Warm, dry. Intact. Extremities: 2+ radial pulses bilaterally. No lower extremity edema. Neuro: Awake, alert, oriented x3. No gross motor or sensory deficits. Cranial nerves II through XII intact. Gait not assessed. laboratory and microbiology Laboratory Tests 12/15/24 04:33 Test 12/15/24 04:33 Range/Units Serum Glucose 103 74-106 mg/dL Assessment/Plan Impression: Acute hypoxic respiratory failure Dependence on supplemental oxygen Non-ST elevation [place]. Pleural effusion Atelectasis Pneumonia Nicotine dependence Methamphetamine use Homelessness Events: Remains on supplemental oxygen 6 LPM NC Taper O2 as tolerated Chest x-ray shows no pleural effusion or pneumothorax. No acute opacities. S/p right thoracentesis on 12/14/24 w/ 250 mL karina fluid drained from right pleural space. See separate procedure note for details. Follow up pleural fluid cultures and cytology Continue bronchodilators Revatio for pulmonary hypertension Continue antibiotics - doxycycline and ceftriaxone Continue Diflucan Incentive spirometry Antitussive for cough Heparin drip. Continue diuresis as tolerated w/ Lasix BID Monitor renal function. Monitor electrolytes. Supplement as necessary. Labs and imaging reviewed. Rest of plan as noted below. Plan: Supplemental oxygen Titrate to keep O2 sats above 92%. Continue bronchodilators Continue antibiotics Continue Diflucan Incentive spirometry Diurese as tolerated w/ Lasix BID Monitor renal function. Monitor electrolytes. Supplement as necessary. Monitor ins and outs. Smoking cessation discussed for greater than 10 minutes Counseled against drug use. DVT prophylaxis. Prognosis: Poor given patient's multiple co-morbidities. Rest of plan per hospitalist and other consultants. Thank you, MARYA Morrison, for allowing me to participate in this patient's care. Further recommendations will depend on the patient's clinical course. Please do not hesitate to contact me if you have any questions or concerns. This medical document was created using an electronic medical record system with [employer] dictation system. Although these documentations are being carefully reviewed, there may still be some phonetic and typographical changes. The errors are purely typographical, due to imperfection on the software program, and do not reflect any compromise in the patient's medical care. Dietary Evaluation Review Comments: 1. Glucerna 240ml BID 2. CCHO 60+ cardiac diet 3. Continue current plan of care Expected Outcomes/Goals: Pt will meet >75% estimated needs Fu 3-5 days Plan discussed with: Patient, Other (ARPAN Amato) ALYSSIA PÉREZ MD Dec 15, 2024 21:12
--- NOTE | 2024-12-15 22:52 | DVHPN2 ---
Progress Note - Dictate Date Seen: Dec 15, 2024 Medical Necessity Reason Pt with a Central, PICC or Fol: No Subjective Patient was seen and evaluated in follow up. Patient is complaining of SOB. Patient is on 6 LPM NC. 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 Patient underwent ultrasound-guided right thoracentesis with 250 mL's of karina colored fluid removed without difficulty. Telemetry reviewed. vital signs Vital Sign Date Time Temp Pulse Resp B/P (MAP) Pulse Ox O2 Delivery O2 Flow Rate FiO2 12/15/24 21:47 78 136/79 12/15/24 21:00 98.0 20 95 98.0 12/15/24 19:29 Nasal Cannula 6.0 12/15/24 19:29 44 Total Intake and Output 12/14/24 12/14/24 12/15/24 15:00 23:00 07:00 Intake Total 250 ml 1040 ml 500 ml Output Total 1100 ml 1320 ml 420 ml Balance -850 ml -280 ml 80 ml medications Current Medications Medications Dose Ordered Sig/Carl Route Start Time Stop Time Status Last Admin Dose Admin Aspirin 81 mg DAILY PO 12/11/24 10:00 12/15/24 09:10 81 MG Atorvastatin Calcium 40 mg HS PO 12/11/24 22:00 12/15/24 21:34 40 MG Morphine Sulfate 2 mg Q30MP PRN IV 12/11/24 07:30 Hold Acetaminophen 650 mg Q6HP PRN PO 12/11/24 07:30 Hold 12/11/24 15:09 650 MG Nitroglycerin 0.4 mg Q5MINP PRN SL 12/11/24 07:30 Hold Ceftriaxone Sodium 50 ml @ 100 mls/hr DAILY@09 IV 12/11/24 07:45 12/15/24 08:15 100 MLS/HR Furosemide 40 mg BIDD IV 12/11/24 18:00 12/15/24 18:49 40 MG Ipratropium [place] 0.5 mg Q4HPRN PRN NEB 12/11/24 09:15 12/13/24 18:03 0.5 MG Tramadol HCl 30 mg Q4HP PRN PO 12/11/24 09:15 Cancel Tramadol HCl 50 mg Q4HP PRN PO 12/11/24 10:00 12/15/24 20:06 50 MG Lisinopril 5 mg DAILY PO 12/11/24 10:00 12/15/24 09:10 5 MG Metoprolol Tartrate 25 mg BID PO 12/11/24 10:00 12/15/24 21:47 25 MG Sildenafil Citrate 20 mg TID@08,14,20 PO 12/11/24 14:00 12/15/24 20:16 20 MG Heparin Sodium/ Dextrose 250 ml @ 4 mls/hr Q24H IV 12/12/24 07:00 12/15/24 07:02 4 MLS/HR Doxycycline Hyclate 100 ml @ 50 mls/hr Q12H IV 12/12/24 14:30 12/15/24 13:10 50 MLS/HR Fluconazole 100 ml @ 100 mls/hr 10,11 IV 12/13/24 10:00 12/15/24 10:28 100 MLS/HR Hydralazine HCl 10 mg Q2HPRN PRN IV 12/13/24 21:00 UNV Guaifenesin/ Dextromethorphan 10 ml Q6HPRN PRN PO 12/15/24 01:15 12/15/24 01:41 10 ML Acetaminophen 650 mg Q6HP PRN PO 12/15/24 19:45 objective GENERAL: Awake, alert, oriented. Unkempt. Obese. LUNGS: Clear. CARDIOVASCULAR: Regular rate and rhythm. Diastolic murmur. ABDOMEN: Soft. EXT: 2+ pitting edema. laboratory and microbiology Laboratory Tests 12/15/24 04:33 Test 12/15/24 04:33 Range/Units Serum Glucose 103 74-106 mg/dL Problem List NSTEMI. Hypertensive urgency. 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 Acute on chronic decompensated HFpEF, NYHA class III. Severe torrential tricuspid valve regurgitation. Pyrexia. Llo-noftnaq-rosustmhm diabetes mellitus. Chronic kidney disease stage IIIA. Medical non-adherence. Methamphetamine/tobacco abuse. Obesity. Assessment/Plan Continued all current supportive medical care. Aspirin, Lipitor, Metoprolol. IV antibiotics as ordered. Diuretics with Lasix. Heparin drip per pharmacy. Lisinopril. Additional plan as per the hospital course. Dietary Evaluation Review Comments: 1. Glucerna 240ml BID 2. CCHO 60+ cardiac diet 3. Continue current plan of care Expected Outcomes/Goals: Pt will meet >75% estimated needs Fu 3-5 days Plan discussed with: Patient LILLIAN LOVE MD Dec 15, 2024 22:52
[2024-12-16] VITALS (13 sets, daily range): BP systolic 77–125; BP diastolic 48–71; PULSE 68–73; RESP 15–22; TEMP 97.7–98.8; O2SAT 90–99
[2024-12-16 06:13] LABS: Basophils # (auto) 0 10 ^3/uL (0-0.2); Basophils % (auto) 0.6 % (0.0-2.0); Eosinophils # (auto) 0 10 ^3/uL (0-0.8); Hematocrit 47.5 % (36.0-46.0); Hemoglobin 16.1 g/dL (12.2-16.2); Lymphocytes # (auto) 0.6 10 ^3/uL (0.4-5.4); Lymphocytes % (auto) 22.2 % (10.0-50.0); Mean Corpuscular Hgb Conc. 33.8 g/dL (32.0-36.0); Mean Corpuscular Volume 91.5 fL (80.0-100.0); Monocytes # (auto) 0.4 10 ^3/uL (0-1.3); Monocytes % (auto) 14.9 % (0.0-12.0); Neutrophils # (auto) 1.7 10 ^3/uL (1.6-8.6); Neutrophils % (auto) 62.3 % (37.0-80.0); Nucleated Red Blood Cells % 0.4 %; Platelet Count (auto) 81 10^3/uL (140-450); Red Blood Cells 5.19 10^6/uL (4.0-5.20); Red Cell Distribution Width 15.6 % (11.8-14.3); White Blood Cell 2.7 10^3/uL (4.4-10.8)
[2024-12-16 06:34] LABS: Albumin 3.4 g/dL (3.2-4.8); Anion Gap 7 (5-15); BUN/Creatinine Ratio 16.9 (10.0-20.0); Blood Urea Nitrogen 21 mg/dL (9-23); Glucose 100 mg/dL (74-106); Magnesium 1.7 mg/dL (1.6-2.6)
[2024-12-16 06:35] LABS: Bilirubin, Total 0.7 mg/dL (0.2-1.0); INR 1.17 (0.9-1.15); Prothrombin Time 12.2 sec (9.3-11.8)
[2024-12-16 06:36] LABS: Alanine Aminotransferase 83 U/L (7-40); Alkaline Phosphatase 160 U/L (46-116); Aspartate Aminotransferase 218 U/L (13-40); Calcium 8.6 mg/dL (8.7-10.4); Carbon Dioxide 32 mmol/L (20-31); Chloride 94 mmol/L (98-107); Potassium 3.4 mmol/L (3.5-5.1); Sodium 133 mmol/L (136-145)
[2024-12-16 06:57] LABS: Partial Thromboplastin Time 84.6 SEC (24.5-34.5)
[2024-12-16 07:52] LABS: Giant Platelets Moderate; Platelet Estimate Decreased
[2024-12-16 13:49] LABS: INR 1.14 (0.9-1.15); Partial Thromboplastin Time 67.7 SEC (24.5-34.5); Prothrombin Time 11.9 sec (9.3-11.8)
[2024-12-16 14:07] LABS: Protein, Body Fluid 3.1 g/dL (.)
--- NOTE | 2024-12-16 15:27 | DVHPN2 ---
Subjective She is still on 6 L nasal cannula Platelets dropped to 81 White count 2.7 Reviewed: Care Plan, H&P, Labs, Medications, Previous Orders, Radiology Changes from previous H/P or p: Changes Cardiovascular: Chest Pain Objective Vitals Vital Signs Date Time Temp Pulse Resp B/P (MAP) Pulse Ox O2 Delivery O2 Flow Rate FiO2 12/16/24 11:42 98.0 70 15 101/66 (78) 91 98.0 12/16/24 09:28 Nasal Cannula 6.0 12/16/24 09:28 N/A Intake/Output Intake and Output 12/16/24 07:00 Intake Total 1310 ml Output Total 200 ml Balance 1110 ml Intake Oral 860 ml IV Total 450 ml Output Urine Total 200 ml # Voids 6 # Bowel Movements 3 General Appearance: Alert, Oriented X3, moderate distress Lungs: Other (Bilateral rhonchi) Cardiovascular: Regular rate, Normal S1, Normal S2 Abdomen: Normal bowel sounds, Soft, No tenderness Extremities: No edema Medications Current Medications Medications Dose Ordered Sig/Carl Route Start Time Stop Time Status Last Admin Dose Admin Aspirin 81 mg DAILY PO 12/11/24 10:00 12/15/24 09:10 81 MG Atorvastatin Calcium 40 mg HS PO 12/11/24 22:00 12/15/24 21:34 40 MG Morphine Sulfate 2 mg Q30MP PRN IV 12/11/24 07:30 Hold Acetaminophen 650 mg Q6HP PRN PO 12/11/24 07:30 Hold 12/11/24 15:09 650 MG Nitroglycerin 0.4 mg Q5MINP PRN SL 12/11/24 07:30 Hold Furosemide 40 mg BIDD IV 12/11/24 18:00 12/16/24 05:27 40 MG Ipratropium [place] 0.5 mg Q4HPRN PRN NEB 12/11/24 09:15 12/16/24 09:28 0.5 MG Tramadol HCl 30 mg Q4HP PRN PO 12/11/24 09:15 Cancel Tramadol HCl 50 mg Q4HP PRN PO 12/11/24 10:00 12/16/24 05:27 50 MG Lisinopril 5 mg DAILY PO 12/11/24 10:00 12/16/24 09:51 5 MG Metoprolol Tartrate 25 mg BID PO 12/11/24 10:00 12/16/24 09:50 25 MG Sildenafil Citrate 20 mg TID@08,14,20 PO 12/11/24 14:00 12/16/24 13:35 20 MG Doxycycline Hyclate 100 ml @ 50 mls/hr Q12H IV 12/12/24 14:30 12/16/24 14:53 50 MLS/HR Fluconazole 100 ml @ 100 mls/hr 10,11 IV 12/13/24 10:00 12/16/24 13:35 100 MLS/HR Hydralazine HCl 10 mg Q2HPRN PRN IV 12/13/24 21:00 UNV Guaifenesin/ Dextromethorphan 10 ml Q6HPRN PRN PO 12/15/24 01:15 12/15/24 01:41 10 ML Acetaminophen 650 mg Q6HP PRN PO 12/15/24 19:45 Meropenem 50 ml @ 17 mls/hr Q8HR IV 12/16/24 22:00 Laboratory Results Laboratory Tests 12/16/24 05:17 Chemistry Test 12/16/24 05:17 Albumin 3.4 g/dL (3.2-4.8) Calcium Level 8.6 mg/dL (8.7-10.4) L Magnesium Level 1.7 mg/dL (1.6-2.6) Total Protein 6.0 g/dL (5.7-8.2) Coagulation Test 12/16/24 05:17 12/16/24 13:24 Prothrombin Time 12.2 sec (9.3-11.8) H 11.9 sec (9.3-11.8) H Prothrombin Time INR 1.17 (0.9-1.15) H 1.14 (0.9-1.15) Activated Partial Thromboplast Time 84.6 SEC (24.5-34.5) *H 67.7 SEC (24.5-34.5) H LFT Test 12/16/24 05:17 Alanine Aminotransferase (ALT) 83 U/L (7-40) H Alkaline Phosphatase 160 U/L (46-116) H Aspartate Amino Transferase (AST) 218 U/L (13-40) H Total Bilirubin 0.7 mg/dL (0.2-1.0) Urinalysis Test 12/12/24 22:40 Urine Color Colorless (Yellow) Urine Clarity Turbid (Clear) H Urine pH 5.5 (5.0-9.0) Urine Specific [place] 1.007 (1.001-1.035) Urine Protein Trace (Negative) H Urine Ketones Negative (Negative) Urine Blood 3+ /uL (Negative) H Urine Nitrite Negative (Negative) Urine Bilirubin Negative (Negative) Urine Urobilinogen Normal mg/dL (Negative) Urine Leukocyte Esterase Negative /uL (Negative) Urine RBC 924 /hpf (0 - 4) Urine Microscopic WBC 1 /HPF (0-5) Urine Squamous Epithelial Cells None seen /hpf (<5) Urine Bacteria None seen /hpf (None Seen) Urine Glucose Normal mg/dL (Normal) Microbiology Microbiology Date/Time Source Procedure Growth Status 12/14/24 15:35 Pleural Fluid Gram Stain - Final Resulted 12/14/24 15:35 Pleural Fluid Body Fluid Culture - Preliminary Resulted Assessment/Plan Assessment/Plan Acute hypoxic respiratory failure due to CHF exacerbation Diastolic HF Severe pulmonary hypertension Right pleural effusion NSTEMI. Hypertensive urgency. Severe tricuspid valve regurgitation. DM2 Chronic kidney disease stage IIIA. Medical non-adherence. Methamphetamine/tobacco abuse. Obesity. Homeless Hypokalemia Hypomagnesemia Right lower lobe pneumonia Left upper lobe with tree-in-bud nodularity could be due to fungal infection PLAN: Replace K+ & Mg DC [place] IV Lasix DC Ibuprofen due to CKD Heparin drip IV antibiotics Rocephin and doxycycline Diflucan IV Pulmonary consultation Cardiology consult the echocardiogram shows preserved ejection fraction with but very high pulmonary hypertension Full code advance directives discussed for 20 minutes 12/15/2024: IV antibiotics Rocephin and doxycycline and fluconazole Heparin drip Aspirin Lasix IV Lipitor Lisinopril Metoprolol Cardiology consult is following Pulmonary consult is following The patient is homeless: Consult social service coordinator Hypokalemia: Replace Hyponatremia Sepsis Leukopenia Thrombocytopenia 12/16/2024: Discontinue Rocephin Switch to meropenem IV Continue doxycycline and Diflucan Discontinue heparin drip Neutropenic isolation Continue side sildenafil Pulmonary consult The patient is homeless Plan discussed with: Patient My Orders Orders - ANA BLAIR MD Procedure Category Date Status Time Acetaminophen Tablet PHA 12/15/24 In Process (Tylenol Tablet) 19:45 Blood Culture TRISTIN 12/15/24 In Process 19:42 Meropenem 1gm Ivpb PHA 12/16/24 In Process (Merrem 1gm/ Ns) 22:00 Date of Service: Dec 16, 2024 Billing Provider: ANA BLAIR MD Common Visit Codes: [id number] INP/OBS CARE(HIGH) ANA BLAIR MD Dec 16, 2024 15:27
[2024-12-16] MEDS: MEROPENEM 1GM IVPB 50 ML IV ONE (17:35)
--- NOTE | 2024-12-16 21:56 | DVHPN2 ---
Progress Note - Dictate Date Seen: Dec 16, 2024 Medical Necessity Reason Pt with a Central, PICC or Fol: No Subjective Patient seen and examined at bedside. Remains on supplemental oxygen Overnight events reviewed. vital signs Vital Sign Date Time Temp Pulse Resp B/P (MAP) Pulse Ox O2 Delivery O2 Flow Rate FiO2 12/16/24 21:36 73 125/71 12/16/24 21:00 97.8 15 91 97.8 12/16/24 18:15 Hi-Flow NC 6 N/A Total Intake and Output 12/15/24 12/15/24 12/16/24 15:00 23:00 07:00 Intake Total 250 ml 660 ml 400 ml Output Total 200 ml Balance 250 ml 460 ml 400 ml medications Current Medications Medications Dose Ordered Sig/Carl Route Start Time Stop Time Status Last Admin Dose Admin Aspirin 81 mg DAILY PO 12/11/24 10:00 12/15/24 09:10 81 MG Atorvastatin Calcium 40 mg HS PO 12/11/24 22:00 12/15/24 21:34 40 MG Morphine Sulfate 2 mg Q30MP PRN IV 12/11/24 07:30 Hold Acetaminophen 650 mg Q6HP PRN PO 12/11/24 07:30 Hold 12/11/24 15:09 650 MG Nitroglycerin 0.4 mg Q5MINP PRN SL 12/11/24 07:30 Hold Furosemide 40 mg BIDD IV 12/11/24 18:00 12/16/24 17:35 40 MG Ipratropium [place] 0.5 mg Q4HPRN PRN NEB 12/11/24 09:15 12/16/24 09:28 0.5 MG Tramadol HCl 30 mg Q4HP PRN PO 12/11/24 09:15 Cancel Tramadol HCl 50 mg Q4HP PRN PO 12/11/24 10:00 12/16/24 20:41 50 MG Lisinopril 5 mg DAILY PO 12/11/24 10:00 12/16/24 09:51 5 MG Metoprolol Tartrate 25 mg BID PO 12/11/24 10:00 12/16/24 09:50 25 MG Sildenafil Citrate 20 mg TID@08,14,20 PO 12/11/24 14:00 12/16/24 20:58 20 MG Doxycycline Hyclate 100 ml @ 50 mls/hr Q12H IV 12/12/24 14:30 12/16/24 14:53 50 MLS/HR Fluconazole 100 ml @ 100 mls/hr 10,11 IV 12/13/24 10:00 12/16/24 13:35 100 MLS/HR Hydralazine HCl 10 mg Q2HPRN PRN IV 12/13/24 21:00 UNV Guaifenesin/ Dextromethorphan 10 ml Q6HPRN PRN PO 12/15/24 01:15 12/15/24 01:41 10 ML Acetaminophen 650 mg Q6HP PRN PO 12/15/24 19:45 Meropenem 50 ml @ 17 mls/hr Q8HR IV 12/16/24 22:00 objective Gen.: Patient lying in bed in no apparent distress. On supplemental oxygen. Head: Normocephalic, atraumatic. Eyes: EOMI/PERRLA. Ears: Normal hearing. Normal anatomy. Neck/trachea: Trachea midline, supple. Nose: Normal external anatomy. Mouth: Moist mucous membranes. Chest: Decreased air entry bilaterally. No wheezing or rhonchi. Cardiovascular: Positive S1, positive S2. Regular rate and rhythm. Abdomen: Positive bowel sounds in all 4 quadrants. Soft, non-tender, non- distended. : Deferred. Rectal: Deferred. Skin: Warm, dry. Intact. Extremities: 2+ radial pulses bilaterally. No lower extremity edema. Neuro: Awake, alert, oriented x3. No gross motor or sensory deficits. Cranial nerves II through XII intact. Gait not assessed. laboratory and microbiology Laboratory Tests 12/16/24 05:17 Test 12/16/24 05:17 Range/Units Serum Glucose 100 74-106 mg/dL Assessment/Plan Impression: Acute hypoxic respiratory failure Dependence on supplemental oxygen Non-ST elevation [place]. Pleural effusion Atelectasis Pneumonia Nicotine dependence Methamphetamine use Homelessness Events: Remains on supplemental oxygen 6 LPM [place] Taper O2 as tolerated Hemoptysis - quantify. Continue bronchodilators Revatio for pulmonary hypertension Continue antibiotics - doxycycline and ceftriaxone Continue Diflucan Incentive spirometry Antitussive for cough Heparin drip. Continue diuresis as tolerated w/ Lasix BID Monitor renal function. Monitor electrolytes. Supplement as necessary. S/p right thoracentesis on 12/14/24 w/ 250 mL karina fluid drained from right pleural space. See separate procedure note for details. Pleural fluid cultures showed no growth Labs and imaging reviewed. Rest of plan as noted below. Plan: Supplemental oxygen Titrate to keep O2 sats above 92%. Continue bronchodilators Continue antibiotics Continue Diflucan Incentive spirometry Diurese as tolerated w/ Lasix BID Monitor renal function. Monitor electrolytes. Supplement as necessary. Monitor ins and outs. Smoking cessation discussed for greater than 10 minutes Counseled against drug use. DVT prophylaxis. Prognosis: Poor given patient's multiple co-morbidities. Rest of plan per hospitalist and other consultants. Thank you, GEAR TOOTH GRINDING MACHINE OPERATOR Prince, for allowing me to participate in this patient's care. Further recommendations will depend on the patient's clinical course. Please do not hesitate to contact me if you have any questions or concerns. This medical document was created using an electronic medical record system with [employer] dictation system. Although these documentations are being carefully reviewed, there may still be some phonetic and typographical changes. The errors are purely typographical, due to imperfection on the software program, and do not reflect any compromise in the patient's medical care. Dietary Evaluation Review Comments: 1. Glucerna 240ml BID 2. CCHO 60+ cardiac diet 3. Continue current plan of care Expected Outcomes/Goals: Pt will meet >75% estimated needs Fu 3-5 days Plan discussed with: Patient, Other (ARPAN [place]) ALYSSIA PÉREZ MD Dec 16, 2024 21:56
[2024-12-16] MEDS: MEROPENEM 1GM IVPB 50 ML IV SCH (22:00)
--- NOTE | 2024-12-16 23:56 | DVHPN2 ---
Progress Note - Dictate Date Seen: Dec 16, 2024 Medical Necessity Reason Pt with a Central, PICC or Fol: No Subjective Patient was seen and evaluated in follow up. Patient is complaining of SOB. Patient remains on 6 LPM NC. Remains on heparin drip. WBC 2.7, K 3.4, CL 94, CO2 32, [place]EL MERCHANDISER 1.24, AST 218, ALT 83. Telemetry reviewed. vital signs Vital Sign Date Time Temp Pulse Resp B/P (MAP) Pulse Ox O2 Delivery O2 Flow Rate FiO2 12/16/24 11:42 98.0 70 15 101/66 (78) 91 98.0 12/16/24 09:28 Nasal Cannula 6.0 12/16/24 09:28 N/A Total Intake and Output 12/15/24 12/15/24 12/16/24 15:00 23:00 07:00 Intake Total 250 ml 660 ml 400 ml Output Total 200 ml Balance 250 ml 460 ml 400 ml medications Current Medications Medications Dose Ordered Sig/Carl Route Start Time Stop Time Status Last Admin Dose Admin Aspirin 81 mg DAILY PO 12/11/24 10:00 12/15/24 09:10 81 MG Atorvastatin Calcium 40 mg HS PO 12/11/24 22:00 12/15/24 21:34 40 MG Morphine Sulfate 2 mg Q30MP PRN IV 12/11/24 07:30 Hold Acetaminophen 650 mg Q6HP PRN PO 12/11/24 07:30 Hold 12/11/24 15:09 650 MG Nitroglycerin 0.4 mg Q5MINP PRN SL 12/11/24 07:30 Hold Ceftriaxone Sodium 50 ml @ 100 mls/hr DAILY@09 IV 12/11/24 07:45 12/16/24 11:09 100 MLS/HR Furosemide 40 mg BIDD IV 12/11/24 18:00 12/16/24 05:27 40 MG Ipratropium [place] 0.5 mg Q4HPRN PRN NEB 12/11/24 09:15 12/16/24 09:28 0.5 MG Tramadol HCl 30 mg Q4HP PRN PO 12/11/24 09:15 Cancel Tramadol HCl 50 mg Q4HP PRN PO 12/11/24 10:00 12/16/24 05:27 50 MG Lisinopril 5 mg DAILY PO 12/11/24 10:00 12/16/24 09:51 5 MG Metoprolol Tartrate 25 mg BID PO 12/11/24 10:00 12/16/24 09:50 25 MG Sildenafil Citrate 20 mg TID@08,14,20 PO 12/11/24 14:00 12/16/24 09:51 20 MG Heparin Sodium/ Dextrose 250 ml @ 4 mls/hr Q24H IV 12/12/24 07:00 12/16/24 06:55 4 MLS/HR Doxycycline Hyclate 100 ml @ 50 mls/hr Q12H IV 12/12/24 14:30 12/16/24 02:20 50 MLS/HR Fluconazole 100 ml @ 100 mls/hr 10,11 IV 12/13/24 10:00 12/16/24 09:51 100 MLS/HR Hydralazine HCl 10 mg Q2HPRN PRN IV 12/13/24 21:00 UNV Guaifenesin/ Dextromethorphan 10 ml Q6HPRN PRN PO 12/15/24 01:15 12/15/24 01:41 10 ML Acetaminophen 650 mg Q6HP PRN PO 12/15/24 19:45 objective GENERAL: Awake, alert, oriented. Unkempt. Obese. LUNGS: Clear. CARDIOVASCULAR: Regular rate and rhythm. Diastolic murmur. ABDOMEN: Soft. EXT: 2+ pitting edema. laboratory and microbiology Laboratory Tests 12/16/24 05:17 Test 12/16/24 05:17 Range/Units Serum Glucose 100 74-106 mg/dL Problem List NSTEMI. Hypertensive urgency. 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 Acute on chronic decompensated HFpEF, NYHA class III. Severe torrential tricuspid valve regurgitation. Pyrexia. [id number] diabetes mellitus. Chronic kidney disease stage IIIA. Medical non-adherence. Methamphetamine/tobacco abuse. Obesity. Assessment/Plan Continued all current supportive medical care. Aspirin, Lipitor, Metoprolol. IV antibiotics as ordered. Diuretics with Lasix. Heparin drip per pharmacy. Lisinopril. Additional plan as per the hospital course. Dietary Evaluation Review Comments: 1. Glucerna 240ml BID 2. CCHO 60+ cardiac diet 3. Continue current plan of care Expected Outcomes/Goals: Pt will meet >75% estimated needs Fu 3-5 days Plan discussed with: Patient LILLIAN LOVE MD Dec 16, 2024 13:06
[2024-12-17] VITALS (12 sets, daily range): BP systolic 96–181; BP diastolic 63–130; PULSE 65–80; RESP 15–20; TEMP 97.8–98.9; O2SAT 85–94
[2024-12-17 05:49] LABS: Hematocrit 45.6 % (36.0-46.0); Hemoglobin 15.7 g/dL (12.2-16.2); Mean Corpuscular Hemoglobin 31.5 pg (28.0-32.0); Mean Corpuscular Hgb Conc. 34.4 g/dL (32.0-36.0); Mean Corpuscular Volume 91.5 fL (80.0-100.0); Platelet Count (auto) 84 10^3/uL (140-450); Red Blood Cells 4.98 10^6/uL (4.0-5.20); Red Cell Distribution Width 15.9 % (11.8-14.3); White Blood Cell 3.4 10^3/uL (4.4-10.8)
[2024-12-17 06:05] LABS: Albumin 3.4 g/dL (3.2-4.8); Anion Gap 7 (5-15); BUN/Creatinine Ratio 16.7 (10.0-20.0); Bilirubin, Total 0.6 mg/dL (0.2-1.0); Calcium 8.7 mg/dL (8.7-10.4); Glucose 80 mg/dL (74-106); Magnesium 1.8 mg/dL (1.6-2.6); Potassium 3.5 mmol/L (3.5-5.1); Total Protein 5.9 g/dL (5.7-8.2)
[2024-12-17 06:12] LABS: Basophils % (manual) 0 (0.0-2.0); Blast Cells 0; Eosinophils % (manual) 0 (0-7); Metamyelocytes % 0; Monocytes % (manual) 0 (0-12); Myelocytes % 0; Promyelocytes % 0; Reactive Lymphocytes 0
[2024-12-17 06:31] LABS: Alanine Aminotransferase 114 U/L (7-40); Alkaline Phosphatase 183 U/L (46-116); Aspartate Aminotransferase 289 U/L (13-40); Blood Urea Nitrogen 27 mg/dL (9-23); Carbon Dioxide 34 mmol/L (20-31); Chloride 94 mmol/L (98-107); Sodium 135 mmol/L (136-145)
[2024-12-17 07:44] LABS: Band Neutrophils % (manual) 3; Lymphocytes % (manual) 42 (10.0-50.0)
[2024-12-17 07:45] LABS: Platelet Estimate Decreased
--- NOTE | 2024-12-17 10:03 | DVHPN2 ---
Subjective She is not eating She looks dehydrated She is denying pain She is still hypoxic 6-8 L nasal cannula Reviewed: Care Plan, H&P, Labs, Medications, Previous Orders, Radiology Changes from previous H/P or p: Changes Cardiovascular: Chest Pain Objective Vitals Vital Signs Date Time Temp Pulse Resp B/P (MAP) Pulse Ox O2 Delivery O2 Flow Rate FiO2 12/17/24 09:00 100/64 12/17/24 08:59 74 12/17/24 05:00 98.9 16 93 98.9 12/16/24 19:00 Nasal Cannula* 6 44 Intake/Output Intake and Output 12/17/24 07:00 Intake Total 1000 ml Balance 1000 ml Intake Oral 850 ml IV Total 150 ml # Voids 1 # Bowel Movements 1 General Appearance: Alert, Oriented X3, moderate distress Lungs: Other (Bilateral rhonchi) Cardiovascular: Regular rate, Normal S1, Normal S2 Abdomen: Normal bowel sounds, Soft, No tenderness Extremities: No edema Medications Current Medications Medications Dose Ordered Sig/Carl Route Start Time Stop Time Status Last Admin Dose Admin Aspirin 81 mg DAILY PO 12/11/24 10:00 12/17/24 08:59 81 MG Atorvastatin Calcium 40 mg HS PO 12/11/24 22:00 12/15/24 21:34 40 MG Morphine Sulfate 2 mg Q30MP PRN IV 12/11/24 07:30 Hold Acetaminophen 650 mg Q6HP PRN PO 12/11/24 07:30 Hold 12/11/24 15:09 650 MG Nitroglycerin 0.4 mg Q5MINP PRN SL 12/11/24 07:30 Hold Ipratropium [place] 0.5 mg Q4HPRN PRN NEB 12/11/24 09:15 12/16/24 09:28 0.5 MG Tramadol HCl 30 mg Q4HP PRN PO 12/11/24 09:15 Cancel Tramadol HCl 50 mg Q4HP PRN PO 12/11/24 10:00 12/16/24 20:41 50 MG Lisinopril 5 mg DAILY PO 12/11/24 10:00 12/16/24 09:51 5 MG Metoprolol Tartrate 25 mg BID PO 12/11/24 10:00 12/16/24 09:50 25 MG Sildenafil Citrate 20 mg TID@08,14,20 PO 12/11/24 14:00 12/17/24 08:59 20 MG Doxycycline Hyclate 100 ml @ 50 mls/hr Q12H IV 12/12/24 14:30 12/17/24 03:09 50 MLS/HR Fluconazole 100 ml @ 100 mls/hr 10,11 IV 12/13/24 10:00 12/16/24 13:35 100 MLS/HR Hydralazine HCl 10 mg Q2HPRN PRN IV 12/13/24 21:00 UNV Guaifenesin/ Dextromethorphan 10 ml Q6HPRN PRN PO 12/15/24 01:15 12/15/24 01:41 10 ML Acetaminophen 650 mg Q6HP PRN PO 12/15/24 19:45 Meropenem 50 ml @ 17 mls/hr Q8HR IV 12/16/24 22:00 12/17/24 05:54 17 MLS/HR Laboratory Results Laboratory Tests 12/17/24 04:50 Chemistry Test 12/17/24 04:50 Albumin 3.4 g/dL (3.2-4.8) Calcium Level 8.7 mg/dL (8.7-10.4) Magnesium Level 1.8 mg/dL (1.6-2.6) Total Protein 5.9 g/dL (5.7-8.2) Coagulation Test 12/16/24 13:24 Prothrombin Time 11.9 sec (9.3-11.8) H Prothrombin Time INR 1.14 (0.9-1.15) Activated Partial Thromboplast Time 67.7 SEC (24.5-34.5) H LFT Test 12/17/24 04:50 Alanine Aminotransferase (ALT) 114 U/L (7-40) H Alkaline Phosphatase 183 U/L (46-116) H Aspartate Amino Transferase (AST) 289 U/L (13-40) H Total Bilirubin 0.6 mg/dL (0.2-1.0) Urinalysis Test 12/12/24 22:40 Urine Color Colorless (Yellow) Urine Clarity Turbid (Clear) H Urine pH 5.5 (5.0-9.0) Urine Specific [place] 1.007 (1.001-1.035) Urine Protein Trace (Negative) H Urine Ketones Negative (Negative) Urine Blood 3+ /uL (Negative) H Urine Nitrite Negative (Negative) Urine Bilirubin Negative (Negative) Urine Urobilinogen Normal mg/dL (Negative) Urine Leukocyte Esterase Negative /uL (Negative) Urine RBC 924 /hpf (0 - 4) Urine Microscopic WBC 1 /HPF (0-5) Urine Squamous Epithelial Cells None seen /hpf (<5) Urine Bacteria None seen /hpf (None Seen) Urine Glucose Normal mg/dL (Normal) Microbiology Microbiology Date/Time Source Procedure Growth Status 12/15/24 21:06 Blood Blood Culture - Preliminary NO GROWTH AFTER 24 HOURS OF INCUBATION. Resulted 12/14/24 15:35 Pleural Fluid Gram Stain - Final Resulted 12/14/24 15:35 Pleural Fluid Body Fluid Culture - Preliminary Resulted Assessment/Plan Assessment/Plan Acute hypoxic respiratory failure due to CHF exacerbation Diastolic HF Severe pulmonary hypertension Right pleural effusion NSTEMI. Hypertensive urgency. Severe tricuspid valve regurgitation. DM2 Chronic kidney disease stage IIIA. Medical non-adherence. Methamphetamine/tobacco abuse. Obesity. Homeless Hypokalemia Hypomagnesemia Right lower lobe pneumonia Left upper lobe with tree-in-bud nodularity could be due to fungal infection PLAN: Replace K+ & Mg DC [place] IV Lasix DC Ibuprofen due to CKD Heparin drip IV antibiotics Rocephin and doxycycline Diflucan IV Pulmonary consultation Cardiology consult the echocardiogram shows preserved ejection fraction with but very high pulmonary hypertension Full code advance directives discussed for 20 minutes 12/15/2024: IV antibiotics Rocephin and doxycycline and fluconazole Heparin drip Aspirin Lasix IV Lipitor Lisinopril Metoprolol Cardiology consult is following Pulmonary consult is following The patient is homeless: Consult social services specialist Hypokalemia: Replace Hyponatremia Sepsis Leukopenia Thrombocytopenia 12/16/2024: Discontinue Rocephin Switch to meropenem IV Continue doxycycline and Diflucan Discontinue heparin drip Neutropenic isolation Continue side sildenafil Pulmonary consult The patient is homeless 12/17/2024: Discontinue Lasix Add Glucerna 1 can t.i.d. with meals Continue IV antibiotics Infectious disease consult Pulmonary consult Start gentle hydration with normal saline Plan discussed with: Patient My Orders Orders - ANA BLAIR MD Procedure Category Date Status Time Meropenem 1gm Ivpb PHA 12/16/24 In Process (Merrem 1gm/ Ns) 22:00 Date of Service: Dec 17, 2024 Billing Provider: ANA BLAIR MD Common Visit Codes: [id number] INP/OBS CARE(HIGH) ANA BLAIR MD Dec 17, 2024 10:03
[2024-12-17] MEDS: SODIUM CHLORIDE 0.9% 1,000 ML IV SCH (11:08)
[2024-12-17] MEDS: Glucerna Carbsteady SHAKE Vanilla 8oz PO SCH (13:17)
[2024-12-17] MEDS: MEROPENEM 1GM IVPB 50 ML IV SCH (21:40)
--- NOTE | 2024-12-17 23:32 | DVHPN2 ---
Progress Note - Dictate Date Seen: Dec 17, 2024 Medical Necessity Reason Pt with a Central, PICC or Fol: No Subjective Patient seen and examined at bedside. Remains on supplemental oxygen Overnight events reviewed. vital signs Vital Sign Date Time Temp Pulse Resp B/P (MAP) Pulse Ox O2 Delivery O2 Flow Rate FiO2 12/17/24 21:40 80 109/68 12/17/24 21:00 98.1 17 94 98.1 12/17/24 19:00 Nasal Cannula* 6 44 Total Intake and Output 12/16/24 12/16/24 12/17/24 15:00 23:00 07:00 Intake Total 150 ml 850 ml Balance 150 ml 850 ml medications Current Medications Medications Dose Ordered Sig/Carl Route Start Time Stop Time Status Last Admin Dose Admin Aspirin 81 mg DAILY PO 12/11/24 10:00 12/17/24 08:59 81 MG Atorvastatin Calcium 40 mg HS PO 12/11/24 22:00 12/17/24 21:39 40 MG Morphine Sulfate 2 mg Q30MP PRN IV 12/11/24 07:30 Hold Acetaminophen 650 mg Q6HP PRN PO 12/11/24 07:30 Hold 12/11/24 15:09 650 MG Nitroglycerin 0.4 mg Q5MINP PRN SL 12/11/24 07:30 Hold Ipratropium [place] 0.5 mg Q4HPRN PRN NEB 12/11/24 09:15 12/16/24 09:28 0.5 MG Tramadol HCl 30 mg Q4HP PRN PO 12/11/24 09:15 Cancel Tramadol HCl 50 mg Q4HP PRN PO 12/11/24 10:00 12/16/24 20:41 50 MG Lisinopril 5 mg DAILY PO 12/11/24 10:00 12/16/24 09:51 5 MG Metoprolol Tartrate 25 mg BID PO 12/11/24 10:00 12/17/24 21:40 25 MG Sildenafil Citrate 20 mg TID@08,14,20 PO 12/11/24 14:00 12/17/24 21:39 20 MG Doxycycline Hyclate 100 ml @ 50 mls/hr Q12H IV 12/12/24 14:30 12/17/24 14:40 50 MLS/HR Fluconazole 100 ml @ 100 mls/hr 10,11 IV 12/13/24 10:00 12/17/24 12:15 100 MLS/HR Hydralazine HCl 10 mg Q2HPRN PRN IV 12/13/24 21:00 UNV Guaifenesin/ Dextromethorphan 10 ml Q6HPRN PRN PO 12/15/24 01:15 12/15/24 01:41 10 ML Acetaminophen 650 mg Q6HP PRN PO 12/15/24 19:45 Enteral Nutritional Formula 240 ml TIDWM PO 12/17/24 12:00 12/17/24 13:17 240 ML Sodium Chloride 1,000 ml @ 60 mls/hr [id number] IV 12/17/24 10:15 12/17/24 11:08 60 MLS/HR Meropenem 50 ml @ 17 mls/hr Q12HR IV 12/17/24 22:00 12/17/24 21:40 17 MLS/HR objective Gen.: Patient lying in bed in no apparent distress. On supplemental oxygen. Head: Normocephalic, atraumatic. Eyes: EOMI/PERRLA. Ears: Normal hearing. Normal anatomy. Neck/trachea: Trachea midline, supple. Nose: Normal external anatomy. Mouth: Moist mucous membranes. Chest: Decreased air entry bilaterally. No wheezing or rhonchi. Cardiovascular: Positive S1, positive S2. Regular rate and rhythm. Abdomen: Positive bowel sounds in all 4 quadrants. Soft, non-tender, non- distended. : Deferred. Rectal: Deferred. Skin: Warm, dry. Intact. Extremities: 2+ radial pulses bilaterally. No lower extremity edema. Neuro: Awake, alert, oriented x3. No gross motor or sensory deficits. Cranial nerves II through XII intact. Gait not assessed. laboratory and microbiology Laboratory Tests 12/17/24 04:50 Test 12/17/24 04:50 Range/Units Serum Glucose 80 74-106 mg/dL Assessment/Plan Impression: Acute hypoxic respiratory failure Dependence on supplemental oxygen Non-ST elevation CO. Pleural effusion Atelectasis Pneumonia Nicotine dependence Methamphetamine use Homelessness Events: Remains on supplemental oxygen 6 LPM NC Taper O2 as tolerated Continue bronchodilators Revatio for pulmonary hypertension Continue antibiotics Continue Diflucan Incentive spirometry Antitussive for cough Monitor renal function. Monitor electrolytes. Supplement as necessary. S/p right thoracentesis on 12/14/24 w/ 250 mL karina fluid drained from right pleural space. See separate procedure note for details. Pleural fluid cultures showed no growth Labs and imaging reviewed. Rest of plan as noted below. Plan: Supplemental oxygen Titrate to keep O2 sats above 92%. Continue bronchodilators Continue antibiotics Continue Diflucan Incentive spirometry Monitor renal function. Monitor electrolytes. Supplement as necessary. Monitor ins and outs. Maintain euvolemia Smoking cessation discussed for greater than 10 minutes Counseled against drug use. DVT prophylaxis. Prognosis: Poor given patient's multiple co-morbidities. Rest of plan per hospitalist and other consultants. Thank you, [employer] [facility], for allowing me to participate in this patient's care. Further recommendations will depend on the patient's clinical course. Please do not hesitate to contact me if you have any questions or concerns. This medical document was created using an electronic medical record system with [employer] dictation system. Although these documentations are being carefully reviewed, there may still be some phonetic and typographical changes. The errors are purely typographical, due to imperfection on the software program, and do not reflect any compromise in the patient's medical care. Dietary Evaluation Review Comments: 1. Glucerna 240ml BID 2. CCHO 60+ cardiac diet 3. Continue current plan of care Expected Outcomes/Goals: Pt will meet >75% estimated needs Fu 3-5 days Plan discussed with: Patient, Other (RN) ALYSSIA PÉREZ MD Dec 17, 2024 23:32
--- NOTE | 2024-12-17 23:55 | DVHPN2 ---
Progress Note - Dictate Date Seen: Dec 17, 2024 Medical Necessity Reason Pt with a Central, PICC or Fol: No Subjective Patient was seen and evaluated in follow up. Patient reports her shortness of breath is npt improving. Patient's O2 has been increased to 7 LPM NC. Patient is refusing to eat meals. CO2 34, BUN 27, X RAY NURSE 1.62, AST 289, ALT 114. Telemetry reviewed. vital signs Vital Sign Date Time Temp Pulse Resp B/P (MAP) Pulse Ox O2 Delivery O2 Flow Rate FiO2 12/17/24 11:00 71 19 100/64 92 7.0 12/17/24 09:00 98.2 98.2 12/17/24 08:00 Nasal Cannula* 44 Total Intake and Output 12/16/24 12/16/24 12/17/24 15:00 23:00 07:00 Intake Total 150 ml 850 ml Balance 150 ml 850 ml medications Current Medications Medications Dose Ordered Sig/Carl Route Start Time Stop Time Status Last Admin Dose Admin Aspirin 81 mg DAILY PO 12/11/24 10:00 12/17/24 08:59 81 MG Atorvastatin Calcium 40 mg HS PO 12/11/24 22:00 12/15/24 21:34 40 MG Morphine Sulfate 2 mg Q30MP PRN IV 12/11/24 07:30 Hold Acetaminophen 650 mg Q6HP PRN PO 12/11/24 07:30 Hold 12/11/24 15:09 650 MG Nitroglycerin 0.4 mg Q5MINP PRN SL 12/11/24 07:30 Hold Ipratropium [place] 0.5 mg Q4HPRN PRN NEB 12/11/24 09:15 12/16/24 09:28 0.5 MG Tramadol HCl 30 mg Q4HP PRN PO 12/11/24 09:15 Cancel Tramadol HCl 50 mg Q4HP PRN PO 12/11/24 10:00 12/16/24 20:41 50 MG Lisinopril 5 mg DAILY PO 12/11/24 10:00 12/16/24 09:51 5 MG Metoprolol Tartrate 25 mg BID PO 12/11/24 10:00 12/16/24 09:50 25 MG Sildenafil Citrate 20 mg TID@08,14,20 PO 12/11/24 14:00 12/17/24 08:59 20 MG Doxycycline Hyclate 100 ml @ 50 mls/hr Q12H IV 12/12/24 14:30 12/17/24 03:09 50 MLS/HR Fluconazole 100 ml @ 100 mls/hr 10,11 IV 12/13/24 10:00 12/17/24 12:15 100 MLS/HR Hydralazine HCl 10 mg Q2HPRN PRN IV 12/13/24 21:00 UNV Guaifenesin/ Dextromethorphan 10 ml Q6HPRN PRN PO 12/15/24 01:15 12/15/24 01:41 10 ML Acetaminophen 650 mg Q6HP PRN PO 12/15/24 19:45 Meropenem 50 ml @ 17 mls/hr Q8HR IV 12/16/24 22:00 12/17/24 05:54 17 MLS/HR Enteral Nutritional Formula 240 ml TIDWM PO 12/17/24 12:00 Sodium Chloride 1,000 ml @ 60 mls/hr [id number] IV 12/17/24 10:15 12/17/24 11:08 60 MLS/HR objective GENERAL: Awake, alert, oriented. Unkempt. Obese. LUNGS: Clear. CARDIOVASCULAR: Regular rate and rhythm. Diastolic murmur. ABDOMEN: Soft. EXT: 2+ pitting edema. laboratory and microbiology Laboratory Tests 12/17/24 04:50 Test 12/17/24 04:50 Range/Units Serum Glucose 80 74-106 mg/dL Problem List NSTEMI. Hypertensive urgency. 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 Acute on chronic decompensated HFpEF, NYHA class III. Severe torrential tricuspid valve regurgitation. Pyrexia. Nma-[id number] diabetes mellitus. Chronic kidney disease stage IIIA. Medical non-adherence. Methamphetamine/tobacco abuse. Obesity. Assessment/Plan Continued all current supportive medical care. Aspirin, Lipitor, Metoprolol. IV antibiotics as ordered. Diuretics with Lasix. Heparin drip per pharmacy. Lisinopril. Additional plan as per the hospital course. Dietary Evaluation Review Comments: 1. Glucerna 240ml BID 2. CCHO 60+ cardiac diet 3. Continue current plan of care Expected Outcomes/Goals: Pt will meet >75% estimated needs Fu 3-5 days Plan discussed with: Patient LILLIAN LOVE MD Dec 17, 2024 13:09
[2024-12-18] VITALS (27 sets, daily range): BP systolic 99–141; BP diastolic 66–90; PULSE 63–81; RESP 13–22; TEMP 97.7–97.9; O2SAT 84–97
[2024-12-18 13:01] LABS: Basophils # (auto) 0 10 ^3/uL (0-0.2); Basophils % (auto) 0.3 % (0.0-2.0); Eosinophils # (auto) 0 10 ^3/uL (0-0.8); Eosinophils % (auto) 0.1 % (0.0-7.0); Hematocrit 50.3 % (36.0-46.0); Hemoglobin 16.2 g/dL (12.2-16.2); Lymphocytes % (auto) 31.4 % (10.0-50.0); Mean Corpuscular Hemoglobin 29.7 pg (28.0-32.0); Mean Corpuscular Hgb Conc. 32.2 g/dL (32.0-36.0); Mean Corpuscular Volume 92.1 fL (80.0-100.0); Monocytes # (auto) 0.5 10 ^3/uL (0-1.3); Neutrophils # (auto) 1.7 10 ^3/uL (1.6-8.6); Neutrophils % (auto) 54.2 % (37.0-80.0); Nucleated Red Blood Cells % 0.2 %; Platelet Count (auto) 88 10^3/uL (140-450); Red Blood Cells 5.47 10^6/uL (4.0-5.20); White Blood Cell 3.2 10^3/uL (4.4-10.8)
[2024-12-18 13:17] LABS: Albumin 3.2 g/dL (3.2-4.8); Anion Gap 8 (5-15); BUN/Creatinine Ratio 20.5 (10.0-20.0); Bilirubin, Total 0.7 mg/dL (0.2-1.0); Carbon Dioxide 31 mmol/L (20-31); Chloride 98 mmol/L (98-107); Glucose 98 mg/dL (74-106); Magnesium 1.9 mg/dL (1.6-2.6); Potassium 3.9 mmol/L (3.5-5.1); Sodium 137 mmol/L (136-145)
[2024-12-18 13:20] LABS: Alanine Aminotransferase 97 U/L (7-40); Alkaline Phosphatase 213 U/L (46-116); Aspartate Aminotransferase 207 U/L (13-40); Blood Urea Nitrogen 24 mg/dL (9-23); Calcium 8.4 mg/dL (8.7-10.4); Total Protein 5.5 g/dL (5.7-8.2)
--- NOTE | 2024-12-18 14:47 | DVHPN2 ---
Subjective not tolerating oral diet, off O2. escalate diet as tolerated Reviewed: Care Plan, H&P, Labs, Medications, Previous Orders, Radiology Changes from previous H/P or p: No Changes Cardiovascular: Chest Pain Objective Vitals Vital Signs Date Time Temp Pulse Resp B/P (MAP) Pulse Ox O2 Delivery O2 Flow Rate FiO2 12/18/24 12:55 97.8 76 19 99/66 (77) 90 97.8 12/18/24 10:00 Nasal Cannula* 6 44 Intake/Output Intake and Output 12/18/24 07:00 Intake Total 1918 ml Output Total 200 ml Balance 1718 ml Intake Oral 1418 ml IV Total 500 ml Output Urine Total 200 ml # Voids 2 # Bowel Movements 1 General Appearance: Alert, Oriented X3, moderate distress Lungs: Other (Bilateral rhonchi) Cardiovascular: Regular rate, Normal S1, Normal S2 Abdomen: Normal bowel sounds, Soft, No tenderness Extremities: No edema Medications Current Medications Medications Dose Ordered Sig/Carl Route Start Time Stop Time Status Last Admin Dose Admin Aspirin 81 mg DAILY PO 12/11/24 10:00 12/18/24 08:17 81 MG Atorvastatin Calcium 40 mg HS PO 12/11/24 22:00 12/17/24 21:39 40 MG Morphine Sulfate 2 mg Q30MP PRN IV 12/11/24 07:30 Hold Acetaminophen 650 mg Q6HP PRN PO 12/11/24 07:30 Hold 12/11/24 15:09 650 MG Nitroglycerin 0.4 mg Q5MINP PRN SL 12/11/24 07:30 Hold Ipratropium [place] 0.5 mg Q4HPRN PRN NEB 12/11/24 09:15 12/16/24 09:28 0.5 MG Tramadol HCl 30 mg Q4HP PRN PO 12/11/24 09:15 Cancel Tramadol HCl 50 mg Q4HP PRN PO 12/11/24 10:00 12/16/24 20:41 50 MG Lisinopril 5 mg DAILY PO 12/11/24 10:00 12/16/24 09:51 5 MG Metoprolol Tartrate 25 mg BID PO 12/11/24 10:00 12/17/24 21:40 25 MG Sildenafil Citrate 20 mg TID@08,14,20 PO 12/11/24 14:00 12/18/24 08:17 20 MG Doxycycline Hyclate 100 ml @ 50 mls/hr Q12H IV 12/12/24 14:30 12/18/24 01:35 50 MLS/HR Fluconazole 100 ml @ 100 mls/hr 10,11 IV 12/13/24 10:00 12/18/24 10:11 100 MLS/HR Hydralazine HCl 10 mg Q2HPRN PRN IV 12/13/24 21:00 UNV Guaifenesin/ Dextromethorphan 10 ml Q6HPRN PRN PO 12/15/24 01:15 12/15/24 01:41 10 ML Acetaminophen 650 mg Q6HP PRN PO 12/15/24 19:45 Enteral Nutritional Formula 240 ml TIDWM PO 12/17/24 12:00 12/18/24 08:18 240 ML Sodium Chloride 1,000 ml @ 60 mls/hr [id number] IV 12/17/24 10:15 12/18/24 02:11 60 MLS/HR Meropenem 50 ml @ 17 mls/hr Q12HR IV 12/17/24 22:00 12/18/24 12:36 17 MLS/HR Laboratory Results Laboratory Tests 12/18/24 12:50 Chemistry Test 12/18/24 12:50 Albumin 3.2 g/dL (3.2-4.8) Calcium Level 8.4 mg/dL (8.7-10.4) L Magnesium Level 1.9 mg/dL (1.6-2.6) Total Protein 5.5 g/dL (5.7-8.2) L LFT Test 12/18/24 12:50 Alanine Aminotransferase (ALT) 97 U/L (7-40) H Alkaline Phosphatase 213 U/L (46-116) H Aspartate Amino Transferase (AST) 207 U/L (13-40) H Total Bilirubin 0.7 mg/dL (0.2-1.0) Urinalysis Test 12/12/24 22:40 Urine Color Colorless (Yellow) Urine Clarity Turbid (Clear) H Urine pH 5.5 (5.0-9.0) Urine Specific [place] 1.007 (1.001-1.035) Urine Protein Trace (Negative) H Urine Ketones Negative (Negative) Urine Blood 3+ /uL (Negative) H Urine Nitrite Negative (Negative) Urine Bilirubin Negative (Negative) Urine Urobilinogen Normal mg/dL (Negative) Urine Leukocyte Esterase Negative /uL (Negative) Urine RBC 924 /hpf (0 - 4) Urine Microscopic WBC 1 /HPF (0-5) Urine Squamous Epithelial Cells None seen /hpf (<5) Urine Bacteria None seen /hpf (None Seen) Urine Glucose Normal mg/dL (Normal) Microbiology Microbiology Date/Time Source Procedure Growth Status 12/15/24 21:06 Blood Blood Culture - Preliminary NO GROWTH AFTER 48 HOURS OF INCUBATION. Resulted 12/14/24 15:35 Pleural Fluid Gram Stain - Final Resulted 12/14/24 15:35 Pleural Fluid Body Fluid Culture - Preliminary Resulted Assessment/Plan Assessment/Plan Acute hypoxic respiratory failure due to CHF exacerbation Diastolic HF Severe pulmonary hypertension Right pleural effusion NSTEMI. Hypertensive urgency. Severe tricuspid valve regurgitation. DM2 Chronic kidney disease stage IIIA. Medical non-adherence. Methamphetamine/tobacco abuse. Obesity. Homeless Hypokalemia Hypomagnesemia Right lower lobe pneumonia Left upper lobe with tree-in-bud nodularity could be due to fungal infection PLAN: Replace K+ & Mg DC [place] IV Lasix DC Ibuprofen due to CKD Heparin drip IV antibiotics Rocephin and doxycycline Diflucan IV Pulmonary consultation Cardiology consult the echocardiogram shows preserved ejection fraction with but very high pulmonary hypertension Full code advance directives discussed for 20 minutes 12/15/2024: IV antibiotics Rocephin and doxycycline and fluconazole Heparin drip Aspirin Lasix IV Lipitor Lisinopril Metoprolol Cardiology consult is following Pulmonary consult is following The patient is homeless: Consult social media specialist Hypokalemia: Replace Hyponatremia Sepsis Leukopenia Thrombocytopenia 12/16/2024: Discontinue Rocephin Switch to meropenem IV Continue doxycycline and Diflucan Discontinue heparin drip Neutropenic isolation Continue side sildenafil Pulmonary consult The patient is homeless 12/17/2024: Discontinue Lasix Add Glucerna 1 can t.i.d. with meals Continue IV antibiotics Infectious disease consult Pulmonary consult Start gentle hydration with normal saline 12/18/24 escalate diet as tolerated c/w abx Plan discussed with: Patient Date of Service: Dec 18, 2024 Billing Provider: KIMBERLY PELLETIER MD Common Visit Codes: [id number] INP/OBS CARE(HIGH) KIMBERLY PELLETIER MD Dec 18, 2024 14:47
[2024-12-18 22:26] LABS: Base Excess 7.5 mmol/L (-2.0-3.0)
--- NOTE | 2024-12-18 23:41 | DVHPN2 ---
Progress Note - Dictate Date Seen: Dec 18, 2024 Medical Necessity Reason Pt with a Central, PICC or Fol: No Subjective Patient was seen and evaluated in follow up in the ICU. Patient was found to be hypoxic this evening in the mid 80s after removing oxygen and ambulating to the bathroom. Patient was placed on 10 LPM. Patient oxygen was increased to 12 LPM. Patient was transferred to the ICU for closer monitoring. Telemetry reviewed. vital signs Vital Sign Date Time Temp Pulse Resp B/P (MAP) Pulse Ox O2 Delivery O2 Flow Rate FiO2 12/18/24 10:00 91 Nasal Cannula* 6 44 12/18/24 09:12 70 103/67 12/18/24 09:00 97.9 19 97.9 Total Intake and Output 12/17/24 12/17/24 12/18/24 15:00 23:00 07:00 Intake Total 250 ml 1218 ml 450 ml Output Total 200 ml Balance 250 ml 1218 ml 250 ml medications Current Medications Medications Dose Ordered Sig/Carl Route Start Time Stop Time Status Last Admin Dose Admin Aspirin 81 mg DAILY PO 12/11/24 10:00 12/18/24 08:17 81 MG Atorvastatin Calcium 40 mg HS PO 12/11/24 22:00 12/17/24 21:39 40 MG Morphine Sulfate 2 mg Q30MP PRN IV 12/11/24 07:30 Hold Acetaminophen 650 mg Q6HP PRN PO 12/11/24 07:30 Hold 12/11/24 15:09 650 MG Nitroglycerin 0.4 mg Q5MINP PRN SL 12/11/24 07:30 Hold Ipratropium [place] 0.5 mg Q4HPRN PRN NEB 12/11/24 09:15 12/16/24 09:28 0.5 MG Tramadol HCl 30 mg Q4HP PRN PO 12/11/24 09:15 Cancel Tramadol HCl 50 mg Q4HP PRN PO 12/11/24 10:00 12/16/24 20:41 50 MG Lisinopril 5 mg DAILY PO 12/11/24 10:00 12/16/24 09:51 5 MG Metoprolol Tartrate 25 mg BID PO 12/11/24 10:00 12/17/24 21:40 25 MG Sildenafil Citrate 20 mg TID@08,14,20 PO 12/11/24 14:00 12/18/24 08:17 20 MG Doxycycline Hyclate 100 ml @ 50 mls/hr Q12H IV 12/12/24 14:30 12/18/24 01:35 50 MLS/HR Fluconazole 100 ml @ 100 mls/hr 10,11 IV 12/13/24 10:00 12/18/24 10:11 100 MLS/HR Hydralazine HCl 10 mg Q2HPRN PRN IV 12/13/24 21:00 UNV Guaifenesin/ Dextromethorphan 10 ml Q6HPRN PRN PO 12/15/24 01:15 12/15/24 01:41 10 ML Acetaminophen 650 mg Q6HP PRN PO 12/15/24 19:45 Enteral Nutritional Formula 240 ml TIDWM PO 12/17/24 12:00 12/18/24 08:18 240 ML Sodium Chloride 1,000 ml @ 60 mls/hr [id number] IV 12/17/24 10:15 12/18/24 02:11 60 MLS/HR Meropenem 50 ml @ 17 mls/hr Q12HR IV 12/17/24 22:00 12/17/24 21:40 17 MLS/HR objective GENERAL: Awake, alert, oriented. Obese. LUNGS: Decreased breath sounds. CARDIOVASCULAR: Regular rate and rhythm. Diastolic murmur. ABDOMEN: Soft. EXT: 2+ pitting edema. laboratory and microbiology Laboratory Tests 12/17/24 04:50 Test 12/17/24 04:50 Range/Units Serum Glucose 80 74-106 mg/dL Problem List NSTEMI. Hypertensive urgency. 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 Acute on chronic decompensated HFpEF, NYHA class III. Severe torrential tricuspid valve regurgitation. Pyrexia. Vvz-mvinoom-aywiuzsgl diabetes mellitus. Chronic kidney disease stage IIIA. Medical non-adherence. Methamphetamine/tobacco abuse. Obesity. Assessment/Plan Continued all current supportive medical care. Aspirin, Lipitor, Metoprolol. IV antibiotics as ordered. Diuretics with Lasix. Lisinopril. Nebulized breathing treatments. Additional plan as per the hospital course. Critical care time of 45 minutes provided to include time spent evaluation of patient at bedside, when appropriate patient/family education for diagnosis, treatment plan, review of pertinent medical information and discussion of care with specialty providers and PCP. Dietary Evaluation Review Comments: 1. Glucerna 240ml BID 2. CCHO 60+ cardiac diet 3. Continue current plan of care Expected Outcomes/Goals: Pt will meet >75% estimated needs Fu 3-5 days Plan discussed with: Patient LILLIAN LOVE MD Dec 18, 2024 11:32
[2024-12-19] VITALS (64 sets, daily range): BP systolic 80–156; BP diastolic 63–116; PULSE 31–72; RESP 14–22; TEMP 97.3–98.8; O2SAT 86–100
--- NOTE | 2024-12-19 06:08 | DVH ---
CHEST RADIOGRAPH Indication: SOB Technique: Single frontal view of the chest was obtained Comparison: XY CHEST XRAY 1 VIEW on DOS: 12/14/24, XY CHEST XRAY 1 VIEW on DOS: 12/13/24, XY CHEST PORT ABLE on DOS: 12/11/24 IMPRESSION: Heart appears enlarged. Blunting of the left costophrenic angle May relate to effusion or consolidati on. Patchy airspace opacity of the right lower lung. No pneumothorax.
[2024-12-19 06:15] LABS: Basophils # (auto) 0 10 ^3/uL (0-0.2); Basophils % (auto) 0.2 % (0.0-2.0); Eosinophils # (auto) 0 10 ^3/uL (0-0.8); Eosinophils % (auto) 0.3 % (0.0-7.0); Hematocrit 46.8 % (36.0-46.0); Hemoglobin 15.9 g/dL (12.2-16.2); Lymphocytes # (auto) 1.1 10 ^3/uL (0.4-5.4); Lymphocytes % (auto) 35.6 % (10.0-50.0); Mean Corpuscular Hemoglobin 31.1 pg (28.0-32.0); Mean Corpuscular Hgb Conc. 33.9 g/dL (32.0-36.0); Mean Corpuscular Volume 91.6 fL (80.0-100.0); Monocytes # (auto) 0.4 10 ^3/uL (0-1.3); Monocytes % (auto) 12.2 % (0.0-12.0); Neutrophils # (auto) 1.6 10 ^3/uL (1.6-8.6); Neutrophils % (auto) 51.7 % (37.0-80.0); Nucleated Red Blood Cells % 0.6 %; Platelet Count (auto) 114 10^3/uL (140-450); Red Blood Cells 5.11 10^6/uL (4.0-5.20); Red Cell Distribution Width 15.6 % (11.8-14.3); White Blood Cell 3.1 10^3/uL (4.4-10.8)
[2024-12-19 06:31] LABS: Chloride 99 mmol/L (98-107); Potassium 3.8 mmol/L (3.5-5.1); Sodium 137 mmol/L (136-145)
[2024-12-19 06:32] LABS: Anion Gap 9 (5-15); Carbon Dioxide 29 mmol/L (20-31)
[2024-12-19 06:33] LABS: Calcium 8.7 mg/dL (8.7-10.4)
[2024-12-19 06:37] LABS: Glucose 99 mg/dL (74-106)
[2024-12-19 06:38] LABS: BUN/Creatinine Ratio 14.8 (10.0-20.0); Blood Urea Nitrogen 17 mg/dL (9-23); Magnesium 2.2 mg/dL (1.6-2.6)
[2024-12-19 06:40] LABS: Phosphorus 3.4 mg/dL (2.4-5.1)
--- NOTE | 2024-12-19 08:59 | DVHPN2 ---
Progress Note - Dictate Date Seen: Dec 18, 2024 Medical Necessity Reason Pt with a Central, PICC or Fol: No Subjective Patient seen and examined at bedside. Remains on supplemental oxygen Overnight events reviewed. vital signs Vital Sign Date Time Temp Pulse Resp B/P (MAP) Pulse Ox O2 Delivery O2 Flow Rate FiO2 12/19/24 06:00 67 22 117/91 (100) 94 12/19/24 04:00 98.1 98.1 12/19/24 02:14 40.0 80 12/18/24 20:00 Hi-Flow NC Total Intake and Output 12/18/24 12/18/24 12/19/24 14:59 22:59 06:59 Intake Total 200 ml 210 ml 400 ml Output Total 600 ml Balance 200 ml -390 ml 400 ml medications Current Medications Medications Dose Ordered Sig/Carl Route Start Time Stop Time Status Last Admin Dose Admin Aspirin 81 mg DAILY PO 12/11/24 10:00 12/18/24 08:17 81 MG Atorvastatin Calcium 40 mg HS PO 12/11/24 22:00 12/18/24 21:29 40 MG Morphine Sulfate 2 mg Q30MP PRN IV 12/11/24 07:30 Hold Acetaminophen 650 mg Q6HP PRN PO 12/11/24 07:30 Hold 12/11/24 15:09 650 MG Nitroglycerin 0.4 mg Q5MINP PRN SL 12/11/24 07:30 Hold Ipratropium [place] 0.5 mg Q4HPRN PRN NEB 12/11/24 09:15 12/16/24 09:28 0.5 MG Tramadol HCl 30 mg Q4HP PRN PO 12/11/24 09:15 Cancel Tramadol HCl 50 mg Q4HP PRN PO 12/11/24 10:00 12/16/24 20:41 50 MG Lisinopril 5 mg DAILY PO 12/11/24 10:00 12/16/24 09:51 5 MG Metoprolol Tartrate 25 mg BID PO 12/11/24 10:00 12/18/24 21:29 25 MG Sildenafil Citrate 20 mg TID@08,14,20 PO 12/11/24 14:00 12/19/24 07:49 20 MG Doxycycline Hyclate 100 ml @ 50 mls/hr Q12H IV 12/12/24 14:30 12/19/24 03:07 50 MLS/HR Fluconazole 100 ml @ 100 mls/hr 10,11 IV 12/13/24 10:00 12/18/24 10:11 100 MLS/HR Hydralazine HCl 10 mg Q2HPRN PRN IV 12/13/24 21:00 UNV Guaifenesin/ Dextromethorphan 10 ml Q6HPRN PRN PO 12/15/24 01:15 12/15/24 01:41 10 ML Acetaminophen 650 mg Q6HP PRN PO 12/15/24 19:45 Enteral Nutritional Formula 240 ml TIDWM PO 12/17/24 12:00 12/19/24 07:49 240 ML Sodium Chloride 1,000 ml @ 60 mls/hr [id number] IV 12/17/24 10:15 12/19/24 03:04 60 MLS/HR Meropenem 50 ml @ 17 mls/hr Q12HR IV 12/17/24 22:00 12/18/24 12:36 17 MLS/HR objective Gen.: Patient lying in bed in no apparent distress. On supplemental oxygen. Head: Normocephalic, atraumatic. Eyes: EOMI/PERRLA. Ears: Normal hearing. Normal anatomy. Neck/trachea: Trachea midline, supple. Nose: Normal external anatomy. Mouth: Moist mucous membranes. Chest: Decreased air entry bilaterally. No wheezing or rhonchi. Cardiovascular: Positive S1, positive S2. Regular rate and rhythm. Abdomen: Positive bowel sounds in all 4 quadrants. Soft, non-tender, non- distended. : Deferred. Rectal: Deferred. Skin: Warm, dry. Intact. Extremities: 2+ radial pulses bilaterally. No lower extremity edema. Neuro: Awake, alert, oriented x3. No gross motor or sensory deficits. Cranial nerves II through XII intact. Gait not assessed. laboratory and microbiology Laboratory Tests 12/19/24 04:25 Test 12/19/24 04:25 Range/Units Serum Glucose 99 74-106 mg/dL Assessment/Plan Impression: Acute hypoxic respiratory failure Dependence on supplemental oxygen Non-ST elevation PR. Pleural effusion Atelectasis Pneumonia Nicotine dependence Methamphetamine use Homelessness Events: Remains on supplemental oxygen 4 LPM NC Taper O2 as tolerated Patient c/o no appetite - protein shakes ordered Hemoptysis - heparin was discontinued Revatio for pulmonary hypertension Continue antibiotics WBC trending up, currently 3.2 Incentive spirometry Reverse isolation. Monitor renal function. Monitor electrolytes. Supplement as necessary. S/p right thoracentesis on 12/14/24 w/ 250 mL karina fluid drained from right pleural space. See separate procedure note for details. Pleural fluid cultures showed no growth Labs and imaging reviewed. Rest of plan as noted below. Plan: Supplemental oxygen Titrate to keep O2 sats above 92%. Continue antibiotics Incentive spirometry Monitor renal function. Monitor electrolytes. Supplement as necessary. Monitor ins and outs. Maintain euvolemia Smoking cessation discussed for greater than 10 minutes Counseled against drug use. DVT prophylaxis. Prognosis: Poor given patient's multiple co-morbidities. Rest of plan per hospitalist and other consultants. Thank you, MARYA Morrison, for allowing me to participate in this patient's care. Further recommendations will depend on the patient's clinical course. Please do not hesitate to contact me if you have any questions or concerns. This medical document was created using an electronic medical record system with [employer] dictation system. Although these documentations are being carefully reviewed, there may still be some phonetic and typographical changes. The errors are purely typographical, due to imperfection on the software program, and do not reflect any compromise in the patient's medical care. Dietary Evaluation Review Comments: 1. Glucerna 240ml BID 2. CCHO 60+ cardiac diet 3. Continue current plan of care Expected Outcomes/Goals: Pt will meet >75% estimated needs Fu 3-5 days Plan discussed with: Patient, Other (ARPAN Stewart) ALYSSIA PÉREZ MD Dec 19, 2024 08:59
--- NOTE | 2024-12-19 11:25 | DVHPN2 ---
Subjective now stating doesnt like ensure and want solid food. transferred to [facility] overnight, of oxygen desats to 80s however keeps on removing mask. Reviewed: Care Plan, H&P, Labs, Medications, Previous Orders, Radiology Changes from previous H/P or p: No Changes Cardiovascular: Chest Pain Objective Vitals Vital Signs Date Time Temp Pulse Resp B/P (MAP) Pulse Ox O2 Delivery O2 Flow Rate FiO2 12/19/24 11:00 53 16 156/81 (106) 96 12/19/24 10:18 40.0 70 12/19/24 10:00 Hi-Flow Heated NC+ 12/19/24 08:00 98.8 98.8 Intake/Output Intake and Output 12/19/24 07:00 Intake Total 870 ml Output Total 600 ml Balance 270 ml Intake Oral 400 ml IV Total 470 ml Output Urine Total 600 ml # Voids 1 General Appearance: Alert, Oriented X3, moderate distress Lungs: Other (Bilateral rhonchi) Cardiovascular: Regular rate, Normal S1, Normal S2 Abdomen: Normal bowel sounds, Soft, No tenderness Extremities: No edema Medications Current Medications Medications Dose Ordered Sig/Carl Route Start Time Stop Time Status Last Admin Dose Admin Aspirin 81 mg DAILY PO 12/11/24 10:00 12/19/24 09:39 81 MG Atorvastatin Calcium 40 mg HS PO 12/11/24 22:00 12/18/24 21:29 40 MG Morphine Sulfate 2 mg Q30MP PRN IV 12/11/24 07:30 Hold Acetaminophen 650 mg Q6HP PRN PO 12/11/24 07:30 Hold 12/11/24 15:09 650 MG Nitroglycerin 0.4 mg Q5MINP PRN SL 12/11/24 07:30 Hold Ipratropium [place] 0.5 mg Q4HPRN PRN NEB 12/11/24 09:15 12/16/24 09:28 0.5 MG Tramadol HCl 30 mg Q4HP PRN PO 12/11/24 09:15 Cancel Tramadol HCl 50 mg Q4HP PRN PO 12/11/24 10:00 12/16/24 20:41 50 MG Metoprolol Tartrate 25 mg BID PO 12/11/24 10:00 12/19/24 09:39 25 MG Sildenafil Citrate 20 mg TID@08,14,20 PO 12/11/24 14:00 12/19/24 07:49 20 MG Doxycycline Hyclate 100 ml @ 50 mls/hr Q12H IV 12/12/24 14:30 12/19/24 03:07 50 MLS/HR Fluconazole 100 ml @ 100 mls/hr 10,11 IV 12/13/24 10:00 12/19/24 09:39 100 MLS/HR Hydralazine HCl 10 mg Q2HPRN PRN IV 12/13/24 21:00 UNV Guaifenesin/ Dextromethorphan 10 ml Q6HPRN PRN PO 12/15/24 01:15 12/15/24 01:41 10 ML Acetaminophen 650 mg Q6HP PRN PO 12/15/24 19:45 Enteral Nutritional Formula 240 ml TIDWM PO 12/17/24 12:00 12/19/24 07:49 240 ML Sodium Chloride 1,000 ml @ 60 mls/hr [id number] IV 12/17/24 10:15 12/19/24 03:04 60 MLS/HR Meropenem 50 ml @ 17 mls/hr Q12HR IV 12/17/24 22:00 12/19/24 10:14 17 MLS/HR Lisinopril 10 mg DAILY PO 12/20/24 10:00 UNV Laboratory Results Laboratory Tests 12/19/24 04:25 Chemistry Test 12/18/24 12:50 12/19/24 04:25 Albumin 3.2 g/dL (3.2-4.8) Calcium Level 8.4 mg/dL (8.7-10.4) L 8.7 mg/dL (8.7-10.4) Magnesium Level 1.9 mg/dL (1.6-2.6) 2.2 mg/dL (1.6-2.6) Total Protein 5.5 g/dL (5.7-8.2) L Phosphorus Level 3.4 mg/dL (2.4-5.1) LFT Test 12/18/24 12:50 Alanine Aminotransferase (ALT) 97 U/L (7-40) H Alkaline Phosphatase 213 U/L (46-116) H Aspartate Amino Transferase (AST) 207 U/L (13-40) H Total Bilirubin 0.7 mg/dL (0.2-1.0) Urinalysis Test 12/12/24 22:40 Urine Color Colorless (Yellow) Urine Clarity Turbid (Clear) H Urine pH 5.5 (5.0-9.0) Urine Specific [place] 1.007 (1.001-1.035) Urine Protein Trace (Negative) H Urine Ketones Negative (Negative) Urine Blood 3+ /uL (Negative) H Urine Nitrite Negative (Negative) Urine Bilirubin Negative (Negative) Urine Urobilinogen Normal mg/dL (Negative) Urine Leukocyte Esterase Negative /uL (Negative) Urine RBC 924 /hpf (0 - 4) Urine Microscopic WBC 1 /HPF (0-5) Urine Squamous Epithelial Cells None seen /hpf (<5) Urine Bacteria None seen /hpf (None Seen) Urine Glucose Normal mg/dL (Normal) Blood Gas Results Test 12/18/24 22:17 Arterial Blood pH 7.520 (7.350-7.450) FiO2 % 80.0 Microbiology Microbiology Date/Time Source Procedure Growth Status 12/15/24 21:06 Blood Blood Culture - Preliminary NO GROWTH AFTER 72 HOURS OF INCUBATION. Resulted 12/14/24 15:35 Pleural Fluid Gram Stain - Final Complete 12/14/24 15:35 Pleural Fluid Body Fluid Culture - Final Complete Assessment/Plan Assessment/Plan Acute hypoxic respiratory failure due to CHF exacerbation Diastolic HF Severe pulmonary hypertension Right pleural effusion NSTEMI. Hypertensive urgency. Severe tricuspid valve regurgitation. DM2 Chronic kidney disease stage IIIA. Medical non-adherence. Methamphetamine/tobacco abuse. Obesity. Homeless Hypokalemia Hypomagnesemia Right lower lobe pneumonia Left upper lobe with tree-in-bud nodularity could be due to fungal infection PLAN: Replace K+ & Mg DC [place] IV Lasix DC Ibuprofen due to CKD Heparin drip IV antibiotics Rocephin and doxycycline Diflucan IV Pulmonary consultation Cardiology consult the echocardiogram shows preserved ejection fraction with but very high pulmonary hypertension Full code advance directives discussed for 20 minutes 12/15/2024: IV antibiotics Rocephin and doxycycline and fluconazole Heparin drip Aspirin Lasix IV Lipitor Lisinopril Metoprolol Cardiology consult is following Pulmonary consult is following The patient is homeless: Consult social welfare research worker Hypokalemia: Replace Hyponatremia Sepsis Leukopenia Thrombocytopenia 12/16/2024: Discontinue Rocephin Switch to meropenem IV Continue doxycycline and Diflucan Discontinue heparin drip Neutropenic isolation Continue side sildenafil Pulmonary consult The patient is homeless 12/17/2024: Discontinue Lasix Add Glucerna 1 can t.i.d. with meals Continue IV antibiotics Infectious disease consult Pulmonary consult Start gentle hydration with normal saline 12/18/24 escalate diet as tolerated c/w abx 12/19/24 escalate diet, transfered to [facility], on HF 40/40, increased lisinopril. hold iv fluid. considering diuresis critical care time 45 minutes Plan discussed with: Patient My Orders Orders - KIMBERLY PELLETIER MD Procedure Category Date Status Time Lisinopril Tablet PHA 12/20/24 Logged (Zestril Tablet) 10:00 Lisinopril Tablet PHA 12/19/24 Logged (Zestril Tablet) 11:30 Date of Service: Dec 19, 2024 Billing Provider: KIMBERLY PELLETIER MD Common Visit Codes: [id number] CARE 30-74 MIN KIMBERLY PELLETIER MD Dec 19, 2024 11:25
[2024-12-19] MEDS: LISINOPRIL 5 MG TAB PO ONE (11:42)
[2024-12-19 14:49] LABS: Rapid Influenza A Negative (Negative); Rapid Influenza B Negative (Negative)
[2024-12-19 14:50] LABS: COVID19 ANTIGEN SOFIA FIA NEGATIVE (NEGATIVE)
--- NOTE | 2024-12-19 16:46 | DVHPN2 ---
Progress Note - Dictate Date Seen: Dec 19, 2024 Medical Necessity Reason Pt with a Central, PICC or Fol: No Subjective Patient was seen and evaluated in follow up in the ICU. Patient complains of shortness of breath. She is on 40L, high flow heated NC. K 3.1, [employer] 1.15. Chest x-ray shows patchy airspace opacity of the right lower lung. vital signs Vital Sign Date Time Temp Pulse Resp B/P (MAP) Pulse Ox O2 Delivery O2 Flow Rate FiO2 12/19/24 11:00 53 16 156/81 (106) 96 12/19/24 10:18 40.0 70 12/19/24 10:00 Hi-Flow Heated NC+ 12/19/24 08:00 98.8 98.8 Total Intake and Output 12/18/24 12/18/24 12/19/24 15:00 23:00 07:00 Intake Total 200 ml 210 ml 460 ml Output Total 600 ml Balance 200 ml -390 ml 460 ml medications Current Medications Medications Dose Ordered Sig/Carl Route Start Time Stop Time Status Last Admin Dose Admin Aspirin 81 mg DAILY PO 12/11/24 10:00 12/19/24 09:39 81 MG Atorvastatin Calcium 40 mg HS PO 12/11/24 22:00 12/18/24 21:29 40 MG Morphine Sulfate 2 mg Q30MP PRN IV 12/11/24 07:30 Hold Acetaminophen 650 mg Q6HP PRN PO 12/11/24 07:30 Hold 12/11/24 15:09 650 MG Nitroglycerin 0.4 mg Q5MINP PRN SL 12/11/24 07:30 Hold Ipratropium [place] 0.5 mg Q4HPRN PRN NEB 12/11/24 09:15 12/16/24 09:28 0.5 MG Tramadol HCl 30 mg Q4HP PRN PO 12/11/24 09:15 Cancel Tramadol HCl 50 mg Q4HP PRN PO 12/11/24 10:00 12/16/24 20:41 50 MG Metoprolol Tartrate 25 mg BID PO 12/11/24 10:00 12/19/24 09:39 25 MG Sildenafil Citrate 20 mg TID@08,14,20 PO 12/11/24 14:00 12/19/24 07:49 20 MG Doxycycline Hyclate 100 ml @ 50 mls/hr Q12H IV 12/12/24 14:30 12/19/24 03:07 50 MLS/HR Fluconazole 100 ml @ 100 mls/hr 10,11 IV 12/13/24 10:00 12/19/24 09:39 100 MLS/HR Hydralazine HCl 10 mg Q2HPRN PRN IV 12/13/24 21:00 UNV Guaifenesin/ Dextromethorphan 10 ml Q6HPRN PRN PO 12/15/24 01:15 12/15/24 01:41 10 ML Acetaminophen 650 mg Q6HP PRN PO 12/15/24 19:45 Enteral Nutritional Formula 240 ml TIDWM PO 12/17/24 12:00 12/19/24 07:49 240 ML Sodium Chloride 1,000 ml @ 60 mls/hr [id number] IV 12/17/24 10:15 12/19/24 03:04 60 MLS/HR Meropenem 50 ml @ 17 mls/hr Q12HR IV 12/17/24 22:00 12/19/24 10:14 17 MLS/HR Lisinopril 10 mg DAILY PO 12/20/24 10:00 UNV objective GENERAL: Awake, alert, oriented. Obese. LUNGS: Decreased breath sounds. CARDIOVASCULAR: Regular rate and rhythm. Diastolic murmur. ABDOMEN: Soft. EXT: 2+ pitting edema. laboratory and microbiology Laboratory Tests 12/19/24 04:25 Test 12/19/24 04:25 Range/Units Serum Glucose 99 74-106 mg/dL Problem List NSTEMI. Hypertensive urgency. 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 Acute on chronic decompensated HFpEF, NYHA class III. Severe torrential tricuspid valve regurgitation. Pyrexia. [id number] diabetes mellitus. Chronic kidney disease stage IIIA. Medical non-adherence. Methamphetamine/tobacco abuse. Obesity. Assessment/Plan Continued all current supportive medical care. Aspirin, Lipitor, Metoprolol. IV antibiotics as ordered. Diuretics with Lasix. Lisinopril. Nebulized breathing treatments. Additional plan as per the hospital course. Critical care time of 45 minutes provided to include time spent evaluation of patient at bedside, when appropriate patient/family education for diagnosis, treatment plan, review of pertinent medical information and discussion of care with specialty providers and PCP. Dietary Evaluation Review Comments: 1. Glucerna 240ml BID 2. CCHO 60+ cardiac diet 3. Continue current plan of care Expected Outcomes/Goals: Pt will meet >75% estimated needs Fu 3-5 days Plan discussed with: Patient LILLIAN LOVE MD Dec 19, 2024 11:26
--- NOTE | 2024-12-19 19:11 | DVHPN2 ---
Progress Note - Dictate Date Seen: Dec 19, 2024 Medical Necessity Reason Pt with a Central, PICC or Fol: No Subjective Patient seen and examined at bedside. Remains on supplemental oxygen Overnight events reviewed. vital signs Vital Sign Date Time Temp Pulse Resp B/P (MAP) Pulse Ox O2 Delivery O2 Flow Rate FiO2 12/19/24 18:12 72 20 95 30.0 70 12/19/24 18:00 128/73 (91) 12/19/24 16:00 98.3 98.3 12/19/24 10:00 Hi-Flow Heated NC+ Total Intake and Output 12/18/24 12/18/24 12/19/24 15:00 23:00 07:00 Intake Total 200 ml 210 ml 460 ml Output Total 600 ml Balance 200 ml -390 ml 460 ml medications Current Medications Medications Dose Ordered Sig/Carl Route Start Time Stop Time Status Last Admin Dose Admin Aspirin 81 mg DAILY PO 12/11/24 10:00 12/19/24 09:39 81 MG Atorvastatin Calcium 40 mg HS PO 12/11/24 22:00 12/18/24 21:29 40 MG Acetaminophen 650 mg Q6HP PRN PO 12/11/24 07:30 Hold 12/11/24 15:09 650 MG Ipratropium [place] 0.5 mg Q4HPRN PRN NEB 12/11/24 09:15 12/16/24 09:28 0.5 MG Tramadol HCl 30 mg Q4HP PRN PO 12/11/24 09:15 Cancel Tramadol HCl 50 mg Q4HP PRN PO 12/11/24 10:00 12/16/24 20:41 50 MG Metoprolol Tartrate 25 mg BID PO 12/11/24 10:00 12/19/24 09:39 25 MG Sildenafil Citrate 20 mg TID@08,14,20 PO 12/11/24 14:00 12/19/24 14:00 20 MG Doxycycline Hyclate 100 ml @ 50 mls/hr Q12H IV 12/12/24 14:30 12/19/24 14:00 50 MLS/HR Fluconazole 100 ml @ 100 mls/hr 10,11 IV 12/13/24 10:00 12/19/24 09:39 100 MLS/HR Hydralazine HCl 10 mg Q2HPRN PRN IV 12/13/24 21:00 UNV Guaifenesin/ Dextromethorphan 10 ml Q6HPRN PRN PO 12/15/24 01:15 12/15/24 01:41 10 ML Acetaminophen 650 mg Q6HP PRN PO 12/15/24 19:45 Enteral Nutritional Formula 240 ml TIDWM PO 12/17/24 12:00 12/19/24 07:49 240 ML Lisinopril 10 mg DAILY PO 12/20/24 10:00 Alprazolam 0.5 mg Q8HPRN PRN PO 12/19/24 12:45 Meropenem 50 ml @ 17 mls/hr Q8H IV 12/19/24 22:00 objective Gen.: Patient lying in bed in no apparent distress. On supplemental oxygen. Head: Normocephalic, atraumatic. Eyes: EOMI/PERRLA. Ears: Normal hearing. Normal anatomy. Neck/trachea: Trachea midline, supple. Nose: Normal external anatomy. Mouth: Moist mucous membranes. Chest: Decreased air entry bilaterally. No wheezing or rhonchi. Cardiovascular: Positive S1, positive S2. Regular rate and rhythm. Abdomen: Positive bowel sounds in all 4 quadrants. Soft, non-tender, non- distended. : Deferred. Rectal: Deferred. Skin: Warm, dry. Intact. Extremities: 2+ radial pulses bilaterally. No lower extremity edema. Neuro: Awake, alert, oriented x3. No gross motor or sensory deficits. Cranial nerves II through XII intact. Gait not assessed. laboratory and microbiology Laboratory Tests 12/19/24 04:25 Test 12/19/24 04:25 Range/Units Serum Glucose 99 74-106 mg/dL Assessment/Plan Impression: Acute hypoxic respiratory failure Dependence on supplemental oxygen Non-ST elevation AL. Pleural effusion Atelectasis Pneumonia Nicotine dependence Methamphetamine use Homelessness Events: Patient upgraded to [facility] overnight due to hypoxia. Currently on HFNC at flow rate 40 LPM, FiO2 70% Taper O2 as tolerated Patient is very anxious and agitated. Xanax 0.5 mg q.8 hours PRN Continue protein shakes d/t decreased appetite Hemoptysis - heparin was discontinued Revatio for pulmonary hypertension Continue antibiotics WBC currently 3.1 Incentive spirometry Reverse isolation. Monitor renal function. Monitor electrolytes. Supplement as necessary. Replace K, mag Monitor urine output S/p right thoracentesis on 12/14/24 w/ 250 mL karina fluid drained from right pleural space. See separate procedure note for details. Pleural fluid cultures showed no growth Labs and imaging reviewed. Rest of plan as noted below. Plan: Supplemental oxygen Titrate to keep O2 sats above 92%. Continue antibiotics Incentive spirometry Monitor renal function. Monitor electrolytes. Supplement as necessary. Monitor ins and outs. Maintain euvolemia Smoking cessation discussed for greater than 10 minutes Counseled against drug use. DVT prophylaxis. Prognosis: Poor given patient's multiple co-morbidities. Rest of plan per hospitalist and other consultants. Thank you, MARYA Morrison, for allowing me to participate in this patient's care. Further recommendations will depend on the patient's clinical course. Please do not hesitate to contact me if you have any questions or concerns. This medical document was created using an electronic medical record system with [employer] dictation system. Although these documentations are being carefully reviewed, there may still be some phonetic and typographical changes. The errors are purely typographical, due to imperfection on the software program, and do not reflect any compromise in the patient's medical care. Dietary Evaluation Review Comments: 1. Glucerna 240ml BID 2. CCHO 60+ cardiac diet 3. Continue current plan of care Expected Outcomes/Goals: Pt will meet >75% estimated needs Fu 3-5 days Plan discussed with: Patient, Other (ARPAN Castillo) ALYSSIA PÉREZ MD Dec 19, 2024 19:11
[2024-12-19] MEDS: MEROPENEM 1GM IVPB 50 ML IV SCH (21:58)
[2024-12-20] VITALS (51 sets, daily range): BP systolic 90–185; BP diastolic 67–104; PULSE 55–74; RESP 12–25; TEMP 96.7–98.9; O2SAT 84–100
[2024-12-20 05:19] LABS: Basophils # (auto) 0 10 ^3/uL (0-0.2); Basophils % (auto) 0.3 % (0.0-2.0); Eosinophils # (auto) 0 10 ^3/uL (0-0.8); Eosinophils % (auto) 0.5 % (0.0-7.0); Hematocrit 47.3 % (36.0-46.0); Hemoglobin 15.5 g/dL (12.2-16.2); Lymphocytes # (auto) 1.1 10 ^3/uL (0.4-5.4); Lymphocytes % (auto) 27.8 % (10.0-50.0); Mean Corpuscular Hgb Conc. 32.8 g/dL (32.0-36.0); Mean Corpuscular Volume 91.6 fL (80.0-100.0); Monocytes # (auto) 0.5 10 ^3/uL (0-1.3); Neutrophils # (auto) 2.2 10 ^3/uL (1.6-8.6); Neutrophils % (auto) 57.4 % (37.0-80.0); Nucleated Red Blood Cells % 0.5 %; Platelet Count (auto) 133 10^3/uL (140-450); Red Blood Cells 5.16 10^6/uL (4.0-5.20); Red Cell Distribution Width 16.2 % (11.8-14.3); White Blood Cell 3.8 10^3/uL (4.4-10.8)
--- NOTE | 2024-12-20 10:10 | DVHINCON2 ---
Date of service: Dec 18, 2024 Family History: FH: breast cancer Hypertension G8 MOTHER G8 FATHER Allergies: Coded Allergies: Codeine (Verified Allergy, Unknown, 07/16/20) Morphine (Verified Allergy, Unknown, 07/16/20) Home Meds Active Scripts Sildenafil Citrate (SILDENAFIL CITRATE) 20 Mg Tab, 20 MG OR TID for 30 Days, #90 TAB Prov:TAYE ALMONTE RESIDENT 09/12/24 Reported Medications Furosemide (Furosemide) 20 Mg Tab, 1 TAB PO DAILY for 90 Days, #90 12/08/24 Albuterol Sulfate (Albuterol Sulfate Hfa) 108 Mcg/Act Aer, 108 MCG IN UD for 28 Days, #18 09/10/24 Atorvastatin Calcium (Lipitor) 10 Mg Tab, 1 TAB PO DAILY for 90 Days, #90 09/10/24 Amlodipine Besylate (Amlodipine Besylate) 10 Mg Tab, 1 TAB PO DAILY for 90 Days, #90 09/10/24 Metformin Hydrochloride (Metformin Hcl) 500 Mg Tab, 1 TAB PO BID for 90 Days, #180 09/10/24 Aspirin (Aspir-81) 81 Mg Tab, 1 TAB PO DAILY for 30 Days, #30 09/10/24 Metoprolol Tartrate (Lopressor) 50 Mg Tab, 1 TAB PO BID for 90 Days, #180 09/10/24 Lisinopril (Lisinopril) 20 Mg Tab, 1 TAB PO DAILY for 90 Days, #90 09/10/24 Current Medications Current Medications Medications (Trade) Dose Ordered Sig/Carl Route PRN Reason Start Time Stop Time Status Last Admin Lisinopril (Zestril Tablet) 10 mg DAILY PO 12/20/24 10:00 Alprazolam (Xanax Tablet) 0.5 mg Q8HPRN PRN PO ANXIETY 12/19/24 12:45 Meropenem 50 ml @ 17 mls/hr Q8H IV 12/19/24 22:00 12/20/24 06:15 Vital Signs Vital Signs Date Time Temp Pulse Resp B/P (MAP) Pulse Ox O2 Delivery O2 Flow Rate FiO2 12/20/24 08:00 60 12/20/24 08:00 98.6 18 149/86 (107) 98 98.6 12/20/24 08:00 Hi-Flow Heated NC+ 30 55 55 Labs/Diagnostic Data Labs Test 12/20/24 04:47 12/19/24 13:33 12/18/24 22:17 12/17/24 04:50 Range/Units White Blood Count 3.8 L 4.4-10.8 10^3/uL Red Blood Count 5.16 4.0-5.20 10^6/uL Hemoglobin 15.5 12.2-16.2 g/dL Hematocrit 47.3 H 36.0-46.0 % Mean Corpuscular Volume 91.6 80.0-100.0 fL Mean Corpuscular Hemoglobin 30.0 28.0-32.0 pg Mean Corpuscular Hemoglobin Concent 32.8 32.0-36.0 g/dL Red Cell Distribution Width 16.2 H 11.8-14.3 % Platelet Count 133 L 140-450 10^3/uL Mean Platelet Volume 9.0 6.9-10.8 fL Neutrophils (%) (Auto) 57.4 37.0-80.0 % Lymphocytes (%) (Auto) 27.8 10.0-50.0 % Monocytes (%) (Auto) 14.0 H 0.0-12.0 % Eosinophils (%) (Auto) 0.5 0.0-7.0 % Basophils (%) (Auto) 0.3 0.0-2.0 % Neutrophils # (Auto) 2.2 1.6-8.6 10 ^3/uL Lymphocytes # (Auto) 1.1 0.4-5.4 10 ^3/uL Monocytes # (Auto) 0.5 0-1.3 10 ^3/uL Eosinophils # (Auto) 0 0-0.8 10 ^3/uL Basophils # (Auto) 0 0-0.2 10 ^3/uL Nucleated Red Blood Cells 0.5 % Influenza Type A Antigen Negative Negative Influenza Type B Antigen Negative Negative SARS-CoV-2 Antigen (Rapid) Negative NEGATIVE Blood Gas Specimen Type Arterial Blood Gas Sample Site Right brachial Blood Gas Patient Temperature 37.0 Arterial Blood Date Drawn [id number] Arterial Blood pH 7.520 H 7.350-7.450 Arterial Blood Partial Pressure CO2 38.6 32.0-45.0 mmHg Arterial Blood Partial Pressure O2 63.7 L 83.0-108.0 mmHg Arterial Blood HCO3 30.8 H 21.0-28.0 mmol/L Arterial Blood Oxygen Saturation 91.9 L 94.0-98.0 % Arterial Blood Base Excess 7.5 H -2.0-3.0 mmol/L Arterial Blood Oxyhemoglobin 90.9 L 94.0-98.0 % Arterial Blood Carboxyhemoglobin 0.6 0.5-1.5 % Arterial Blood Methemoglobin 0.5 0.0-1.5 % Pieter Test N/a Blood Gas Total Hemoglobin 16.50 H 12.0-16.0 g/dL Blood Gas Liter Flow 40.00 Blood Gas Modality High flow FiO2 % 80.0 Differential Total Cells Counted 100.0 100 Neutrophils % (Manual) 55 37.0-80.0 Band Neutrophils % (Manual) 3 Lymphocytes % (Manual) 42 10.0-50.0 Monocytes % (Manual) 0 0-12 Eosinophils % (Manual) 0 0-7 Basophils % (Manual) 0 0.0-2.0 Metamyelocytes % (manual) 0 Myelocytes % (Manual) 0 Promyelocytes % (Manual) 0 Blast Cells % (Manual) 0 Reactive Lymphocytes 0 Platelet Estimate Decreased Test 12/16/24 13:24 12/16/24 05:17 12/14/24 15:35 12/13/24 13:06 Range/Units Prothrombin Time 11.9 H 9.3-11.8 sec Prothrombin Time INR 1.14 0.9-1.15 Activated Partial Thromboplast Time 67.7 H 24.5-34.5 SEC Giant Platelets Moderate Body Fluid Source Pleural fluid Body Fluid pH 7.0 Body Fluid WBC (Manual) 1378 H 0-200 CUMM Body Fluid RBC (Manual) 72898 H 0-2000 CUMM Body Fluid Mononuclear Cells 93 % Body Fluid Polymorphonuclear Cells 7 0-25 % Body Fluid Glucose 133 . mg/dL Body Fluid Total Protein 3.1 . g/dL Body Fluid Lactate Dehydrogenase 261 . IU/L POC Glucose 100 70-106 mg/dl Test 12/12/24 22:40 12/11/24 15:47 12/11/24 07:39 12/11/24 03:25 Range/Units Urine Color Colorless Yellow Urine Clarity Turbid H Clear Urine pH 5.5 5.0-9.0 Urine Specific [place] 1.007 1.001-1.035 Urine Protein Trace H Negative Urine Ketones Negative Negative Urine Blood 3+ H Negative /uL Urine Nitrite Negative Negative Urine Bilirubin Negative Negative Urine Urobilinogen Normal Negative mg/dL Urine Leukocyte Esterase Negative Negative /uL Urine RBC 924 0 - 4 /hpf Urine Microscopic WBC 1 0-5 /HPF Urine Squamous Epithelial Cells None seen <5 /hpf Urine Bacteria None seen None Seen /hpf Urine Glucose Normal Normal mg/dL Urine Opiates Screen Neg NEGATIVE Urine Fentanyl Screen Neg NEGATIVE Urine Barbiturates Screen Neg NEGATIVE Urine Phencyclidine Screen Neg NEGATIVE Urine Amphetamines Screen Pos NEGATIVE Urine Benzodiazepines Screen Neg NEGATIVE Urine Cocaine Screen Neg NEGATIVE Urine Cannabinoids Screen Neg NEGATIVE Lactic Acid Level 2.2 *H 0.4-2.0 mmol/L Troponin I High Sensitivity 1461 *H </=34 ng/L Triglycerides Level 83 < 150 mg/dL Cholesterol Level 104 < 200 mg/dL LDL Cholesterol 53 < 100 mg/dL HDL Cholesterol 34 L 40-59 mg/dL Thyroid Stimulating Hormone (TSH) 2.40 0.55-4.78 uIU/mL B-Type Natriuretic Peptide 1105.19 0-100 pg/mL Microbiology Date/Time Source Procedure Growth Status 12/18/24 20:10 Nose MRSA Screen - Final Complete 12/15/24 21:06 Blood Blood Culture - Preliminary NO GROWTH AFTER 72 HOURS OF INCUBATION. Resulted 12/14/24 15:35 Pleural Fluid Gram Stain - Final Complete 12/14/24 15:35 Pleural Fluid Body Fluid Culture - Final Complete Problems(with codes): (1) Atypical pneumonia (2) Acute periapical abscess (3) Hypertension (4) Methamphetamine intoxication (5) Hypertensive urgency (6) Elevated troponin (7) Non-STEMI (non-ST elevated myocardial infarction) (8) CHF exacerbation (9) Hypertensive emergency (10) Acute chest pain (11) NSTEMI (non-ST elevated myocardial infarction) Plan/Recommendation ASSESSMENT AND PLAN: ID Problem List: - Hypertension - Hyperlipidemia - Pulmonary hypertension - Asthma - Congestive heart failure - Right pleural effusion - Right lower lobe pneumonia - Possible atypical pneumonia - Cirrhosis - IV drug use (methamphetamine) - Tobacco use disorder - Alcohol use disorder - Homelessness - Elevated troponin (NSTEMI) - Hypoxia - Fever - Leukopenia - Thrombocytopenia - Otitis media (right ear) Assessment This is a 49 y.o. female with a past medical history of hypertension, hyperlipidemia, pulmonary hypertension, asthma, and congestive heart failure, who presents with chest pain rated 10/10, radiating to the right shoulder and head, burning and constant in nature. She is a current smoker (<1 pack/day), with occasional methamphetamine and alcohol use. Patient is homeless. Denies history of myocardial infarction or stroke. Reports headache and right ear pain. Physical exam notable for erythematous right tympanic membrane. Imaging reveals moderate right-sided pleural effusion, right lower lobe airspace consolidation, and left upper lobe tree-in-bud nodularity suggestive of atypical infection or bronchiolitis. Cirrhotic morphology of the liver noted. Laboratory findings include elevated troponin at 1.482, leukopenia (WBC decreased from 6.5 to 3.8), thrombocytopenia (platelets decreased from 179 to 88, now 133), and anemia (hemoglobin decreased from 17 to 16.1). Pleural fluid analysis shows WBC 1,378 (mostly mononuclear), glucose 133, total protein 3.1, LDH 261. Pleural cultures are no growth to date. She remains hypoxic requiring 30-40 L high-flow nasal cannula, has been febrile up to 101F since admission. Initially received ceftriaxone, azithromycin, and doxycycline; transitioned to meropenem when oxygenation worsened. Plan: - Obtain repeat chest X-ray to assess current pulmonary status. - Follow up on pleural fluid cultures and pending biopsy results. - check sputum culture and MRSA nares (note, may be supressed from doxycycline use). start vancomycin empirically - Send pleural fluid for AFB culture and cytology to rule out tuberculosis and malignancy (would hold off on acute tb workup at this time, may need to pursue if no improvement in hypoxia in 1-2 days. - Screen for Legionella urinary antigen given persistent airspace infection; changed Meropenem/doxycyline to Cefepime and azithromycin - stop fluconazole - Screen for HIV and Quantiferon-TB test and hepatitis panel and G/C naat given risk factors (IV drug use, homelessness). - Screen for coccidioidomycosis (coccidioides antibodies) and [id number] levels. - Defer to GI and primary team for management of liver cirrhosis and volume sta tus. - Defer to Cardiology for management of congestive heart failure and pulmonary hypertension. - Monitor oxygenation status; adjust respiratory support as needed. - Pain management for chest and right shoulder pain. - Address otitis media with appropriate antimicrobial therapy if indicated. Isolation Precautions: Standard Assessment and plan were discussed with the patient as written above. Plan is subject to change pending incorporation of new incoming information/diagnostics. Updates may be added as addendum at the bottom (OR TOP) of this note. Thank you for interesting consult. ID will continue to follow. Please contact In fectious Disease for any questions or concerns. Dahlia Andersen M.D. [facility] Ph: ? History: The patient's chart and medications were reviewed in detail, and the patient was seen and examined. History obtained from: patient Miss Charley Guy is a 49 y.o. female with a past medical history of hypertension, hyperlipidemia, pulmonary hypertension, asthma, and congestive heart failure, who presents with chest pain rated 10/10, radiating to the right shoulder and head, burning and constant. She also reports headache and right ear pain. Denies history of myocardial infarction or stroke. She is a current smoker (less than one pack per day), with occasional methamphetamine and alcohol use. Patient is homeless. Review of Systems: A complete 10-system review of systems was completed and negative except as noted in the HPI or here. ROS: - CONSTITUTIONAL: Reports headache. Denies weight loss, fever, and chills. - HEENT: Reports ear pain. Right tympanic membrane erythematous. - RESPIRATORY: Reports chest pain. Denies cough and shortness of breath. - CV: Reports chest pain radiating to right shoulder and head. Denies palpitations. - GI: Denies abdominal pain, nausea, vomiting, and diarrhea. - : Denies dysuria and urinary frequency. - MSK: Reports right shoulder pain. Denies myalgia and joint pain. - SKIN: Denies rash and pruritus. - NEUROLOGICAL: Reports headache. Denies syncope. - PSYCHIATRIC: Denies recent changes in mood. Denies anxiety and depression. Past Medical History: Diagnosis Hypertension Hyperlipidemia Pulmonary hypertension Asthma Congestive heart failure Past Surgical History: Breast surgery section Home Medications: Patient reports not taking any medications at home. Allergies: Codeine Morphine Family History: No pertinent family history provided. Social History: Socioeconomic History Marital status: Not specified Number of children: Not specified Years of education: Not specified Occupational history: Not specified Tobacco Use Smoking status: Current smoker (<1 pack/day) Substance Use Methamphetamine: Occasional use Alcohol: Occasional use Living Situation Homeless Social Determinants of Health Financial Resource Strain: Not assessed Food Insecurity: Not assessed Transportation Needs: Not assessed Physical Activity: Not assessed Stress: Not assessed Social Connections: Not assessed Intimate Partner Violence: Not assessed Objective: Vital Signs on Arrival: Temp: 98.2 F?BP: 161/100?Pulse: 109?Resp: 20?SpO2: 93% Most Recent Vital Signs: Temp: Up to 101 F?BP: [Recent BP]?Pulse: [Recent HR]?Resp: [Recent RR]?SpO2: [On 30-40 L high-flow nasal cannula] Admission Weight: [Weight if available]?BMI: [BMI if available] Physical Exam: General: NAD Neck: Supple. No masses. HEENT: PERRL. Normal lids and conjunctiva. Moist mucous membranes. Oropharynx without lesions, exudates, or excessive erythema. Right tympanic membrane erythematous. Normal appearance of the external aspects of the nose and ears. Heart: Regular rhythm, normal rate. No murmur. No lower extremity edema. Lungs: Normal respiratory effort. Clear to auscultation bilaterally. No wheezes. No crackles. Abdomen: Soft. Non-tender. Non-distended. No masses or abdominal hernia. Msk: No digital cyanosis. Reports right shoulder pain. Skin: Warm and dry, no rashes. Neuro: Alert. No facial droop or slurred speech. Extra-ocular movements intact. Sensation intact to soft touch in all 4 limbs. Psych: Appropriate mood. Full affect. Oriented to person, place, time, and situation. Lines: Active Lines Peripheral IV Line Diagnostic Studies: Available diagnostic studies were reviewed personally. Significant relevant results and findings are outlined below or addressed in the Assessment and Plan above. Pertinent Imaging: Recent Results Chest X-ray Impression: 1. Heart is enlarged. 2. Small right pleural effusion. 3. No focal airspace opacity. Chest CT Impression: 1. Moderate right-sided pleural effusion. 2. Right lower lobe airspace consolidation. 3. Left upper lobe tree-in-bud nodularity suggestive of atypical infection or bronchiolitis. 4. Cardiomegaly. 5. Cirrhotic morphology of the liver. Laboratory Results: Troponin elevated at 1.482 WBC decreased from 6.5 to 3.8 Hemoglobin decreased from 17 to 16.1 Platelets decreased from 179 to 88, now 133 Sodium improved from 133 to 137 BUN 1920, Creatinine 1.21.24 Pleural Fluid Analysis: WBC 1,378 (mostly mononuclear) Glucose 133 Total protein 3.1 LDH 261 Pleural fluid cultures: No growth to date Plan discussed with: Patient DAHLIA ANDERSEN MD Dec 20, 2024 10:10
[2024-12-20] MEDS ORDERED: VANCOMYCIN PER PHARMACY 0 MG IV SCH (11:00)
[2024-12-20] MEDS: LISINOPRIL 5 MG TAB PO SCH (11:15)
[2024-12-20] MEDS: ALPRAZolam 0.5 MG TAB PO PRN (11:16)
[2024-12-20] MEDS ORDERED: MICAFUNGIN SODIUM 100 MG in SODIUM CHL 0.9% 100 ML IV SCH (11:30)
[2024-12-20] MEDS: VANCOMYCIN 1.25GM/250ML 250 ML IV ONE (12:00)
--- NOTE | 2024-12-20 12:45 | DVHPN2 ---
Subjective sleeping comf, on HF . seen by ID Reviewed: Care Plan, H&P, Labs, Medications, Previous Orders, Radiology Changes from previous H/P or p: No Changes Cardiovascular: Chest Pain Objective Vitals Vital Signs Date Time Temp Pulse Resp B/P (MAP) Pulse Ox O2 Delivery O2 Flow Rate FiO2 12/20/24 12:00 96.7 69 18 131/83 (99) 98 96.7 12/20/24 10:48 30.0 45 12/20/24 10:00 Hi-Flow Heated NC+ Intake/Output Intake and Output 12/20/24 07:00 Intake Total 1870 ml Balance 1870 ml Intake Oral 1280 ml IV Total 590 ml # Voids 3 General Appearance: Alert, Oriented X3, moderate distress Lungs: Other (Bilateral rhonchi) Cardiovascular: Regular rate, Normal S1, Normal S2 Abdomen: Normal bowel sounds, Soft, No tenderness Extremities: No edema Medications Current Medications Medications Dose Ordered Sig/Carl Route Start Time Stop Time Status Last Admin Dose Admin Aspirin 81 mg DAILY PO 12/11/24 10:00 12/20/24 11:16 81 MG Atorvastatin Calcium 40 mg HS PO 12/11/24 22:00 12/19/24 21:58 40 MG Acetaminophen 650 mg Q6HP PRN PO 12/11/24 07:30 Hold 12/11/24 15:09 650 MG Ipratropium [place] 0.5 mg Q4HPRN PRN NEB 12/11/24 09:15 12/16/24 09:28 0.5 MG Tramadol HCl 30 mg Q4HP PRN PO 12/11/24 09:15 Cancel Tramadol HCl 50 mg Q4HP PRN PO 12/11/24 10:00 12/16/24 20:41 50 MG Metoprolol Tartrate 25 mg BID PO 12/11/24 10:00 12/20/24 11:16 25 MG Sildenafil Citrate 20 mg TID@08,14,20 PO 12/11/24 14:00 12/20/24 11:13 20 MG Hydralazine HCl 10 mg Q2HPRN PRN IV 12/13/24 21:00 UNV Guaifenesin/ Dextromethorphan 10 ml Q6HPRN PRN PO 12/15/24 01:15 12/15/24 01:41 10 ML Acetaminophen 650 mg Q6HP PRN PO 12/15/24 19:45 Enteral Nutritional Formula 240 ml TIDWM PO 12/17/24 12:00 12/19/24 07:49 240 ML Lisinopril 10 mg DAILY PO 12/20/24 10:00 12/20/24 11:15 10 MG Alprazolam 0.5 mg Q8HPRN PRN PO 12/19/24 12:45 12/20/24 11:16 0.5 MG Vancomycin HCl 0 ml @ 0 mls/hr UD IV 12/20/24 11:00 Cefepime HCl 50 ml @ 12.5 mls/hr Q8HR IV 12/20/24 14:00 Micafungin Sodium 100 mg/Sodium Chloride 100 ml @ 100 mls/hr DAILY IV 12/20/24 11:30 Vancomycin HCl 100 ml @ 100 mls/hr Q16H IV 12/21/24 04:00 Laboratory Results Laboratory Tests 12/20/24 04:47 Chemistry Test 12/20/24 04:47 Albumin Pending Calcium Level Pending Magnesium Level Pending Phosphorus Level Pending Total Protein Pending LFT Test 12/20/24 04:47 Alanine Aminotransferase (ALT) Pending Alkaline Phosphatase Pending Aspartate Amino Transferase (AST) Pending Total Bilirubin Pending Urinalysis Test 12/12/24 22:40 Urine Color Colorless (Yellow) Urine Clarity Turbid (Clear) H Urine pH 5.5 (5.0-9.0) Urine Specific [place] 1.007 (1.001-1.035) Urine Protein Trace (Negative) H Urine Ketones Negative (Negative) Urine Blood 3+ /uL (Negative) H Urine Nitrite Negative (Negative) Urine Bilirubin Negative (Negative) Urine Urobilinogen Normal mg/dL (Negative) Urine Leukocyte Esterase Negative /uL (Negative) Urine RBC 924 /hpf (0 - 4) Urine Microscopic WBC 1 /HPF (0-5) Urine Squamous Epithelial Cells None seen /hpf (<5) Urine Bacteria None seen /hpf (None Seen) Urine Glucose Normal mg/dL (Normal) Microbiology Microbiology Date/Time Source Procedure Growth Status 12/18/24 20:10 Nose MRSA Screen - Final Complete 12/15/24 21:06 Blood Blood Culture - Preliminary NO GROWTH AFTER 72 HOURS OF INCUBATION. Resulted 12/14/24 15:35 Pleural Fluid Gram Stain - Final Complete 12/14/24 15:35 Pleural Fluid Body Fluid Culture - Final Complete Assessment/Plan Assessment/Plan Acute hypoxic respiratory failure due to CHF exacerbation Diastolic HF Severe pulmonary hypertension Right pleural effusion NSTEMI. Hypertensive urgency. Severe tricuspid valve regurgitation. DM2 Chronic kidney disease stage IIIA. Medical non-adherence. Methamphetamine/tobacco abuse. Obesity. Homeless Hypokalemia Hypomagnesemia Right lower lobe pneumonia Left upper lobe with tree-in-bud nodularity could be due to fungal infection PLAN: Replace K+ & Mg DC [place] IV Lasix DC Ibuprofen due to CKD Heparin drip IV antibiotics Rocephin and doxycycline Diflucan IV Pulmonary consultation Cardiology consult the echocardiogram shows preserved ejection fraction with but very high pulmonary hypertension Full code advance directives discussed for 20 minutes 12/15/2024: IV antibiotics Rocephin and doxycycline and fluconazole Heparin drip Aspirin Lasix IV Lipitor Lisinopril Metoprolol Cardiology consult is following Pulmonary consult is following The patient is homeless: Consult social worker psychiatric Hypokalemia: Replace Hyponatremia Sepsis Leukopenia Thrombocytopenia 12/16/2024: Discontinue Rocephin Switch to meropenem IV Continue doxycycline and Diflucan Discontinue heparin drip Neutropenic isolation Continue side sildenafil Pulmonary consult The patient is homeless 12/17/2024: Discontinue Lasix Add Glucerna 1 can t.i.d. with meals Continue IV antibiotics Infectious disease consult Pulmonary consult Start gentle hydration with normal saline 12/18/24 escalate diet as tolerated c/w abx 12/19/24 escalate diet, transfered to [facility]ANCIE, on HF 40/40, increased lisinopril. hold iv fluid. considering diuresis 12/20 seen by ID, ittrate O2 as tolerated critical care time 45 minutes Plan discussed with: Patient Date of Service: Dec 20, 2024 Billing Provider: KIMBERLY PELLETIER MD Common Visit Codes: [id number] CARE 30-74 MIN KIMBERLY PELLETIER MD Dec 20, 2024 12:45
--- NOTE | 2024-12-20 13:54 | DVHPN2 ---
Progress Note - Dictate Date Seen: Dec 20, 2024 Medical Necessity Reason Pt with a Central, PICC or Fol: No Subjective Patient was seen and evaluated in follow up in the ICU. Patient is complaining of shortness of breath and BLE cramping. She is on 30L, high flow heated NC. Chemistry panel is pending at the time of this note. vital signs Vital Sign Date Time Temp Pulse Resp B/P (MAP) Pulse Ox O2 Delivery O2 Flow Rate FiO2 12/20/24 12:00 96.7 69 18 131/83 (99) 98 96.7 12/20/24 10:48 30.0 45 12/20/24 10:00 Hi-Flow Heated NC+ Total Intake and Output 12/19/24 12/19/24 12/20/24 15:00 23:00 07:00 Intake Total 390 ml 1140 ml 340 ml Balance 390 ml 1140 ml 340 ml medications Current Medications Medications Dose Ordered Sig/Carl Route Start Time Stop Time Status Last Admin Dose Admin Aspirin 81 mg DAILY PO 12/11/24 10:00 12/20/24 11:16 81 MG Atorvastatin Calcium 40 mg HS PO 12/11/24 22:00 12/19/24 21:58 40 MG Acetaminophen 650 mg Q6HP PRN PO 12/11/24 07:30 Hold 12/11/24 15:09 650 MG Ipratropium [place] 0.5 mg Q4HPRN PRN NEB 12/11/24 09:15 12/16/24 09:28 0.5 MG Tramadol HCl 30 mg Q4HP PRN PO 12/11/24 09:15 Cancel Tramadol HCl 50 mg Q4HP PRN PO 12/11/24 10:00 12/16/24 20:41 50 MG Metoprolol Tartrate 25 mg BID PO 12/11/24 10:00 12/20/24 11:16 25 MG Sildenafil Citrate 20 mg TID@08,14,20 PO 12/11/24 14:00 12/20/24 11:13 20 MG Hydralazine HCl 10 mg Q2HPRN PRN IV 12/13/24 21:00 UNV Guaifenesin/ Dextromethorphan 10 ml Q6HPRN PRN PO 12/15/24 01:15 12/15/24 01:41 10 ML Acetaminophen 650 mg Q6HP PRN PO 12/15/24 19:45 Enteral Nutritional Formula 240 ml TIDWM PO 12/17/24 12:00 12/19/24 07:49 240 ML Lisinopril 10 mg DAILY PO 12/20/24 10:00 12/20/24 11:15 10 MG Alprazolam 0.5 mg Q8HPRN PRN PO 12/19/24 12:45 12/20/24 11:16 0.5 MG Vancomycin HCl 0 ml @ 0 mls/hr UD IV 12/20/24 11:00 Cefepime HCl 50 ml @ 12.5 mls/hr Q8HR IV 12/20/24 14:00 Micafungin Sodium 100 mg/Sodium Chloride 100 ml @ 100 mls/hr DAILY IV 12/20/24 11:30 Vancomycin HCl 100 ml @ 100 mls/hr Q16H IV 12/21/24 04:00 objective GENERAL: Awake, alert, oriented. Obese. LUNGS: Decreased breath sounds. CARDIOVASCULAR: Regular rate and rhythm. Diastolic murmur. ABDOMEN: Soft. EXT: 2+ pitting edema. laboratory and microbiology Laboratory Tests 12/20/24 04:47 Test 12/20/24 04:47 Range/Units Serum Glucose Pending Problem List NSTEMI. Hypertensive urgency. 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 Acute on chronic decompensated HFpEF, NYHA class III. Severe torrential tricuspid valve regurgitation. Pyrexia. [id number] diabetes mellitus. Chronic kidney disease stage IIIA. Medical non-adherence. Methamphetamine/tobacco abuse. Obesity. Assessment/Plan Continued all current supportive medical care. Aspirin, Lipitor, Metoprolol. IV antibiotics as ordered. Diuretics with Lasix. Lisinopril. Nebulized breathing treatments. Additional plan as per the hospital course. Critical care time of 45 minutes provided to include time spent evaluation of patient at bedside, when appropriate patient/family education for diagnosis, treatment plan, review of pertinent medical information and discussion of care with specialty providers and PCP. Dietary Evaluation Review Comments: 1. Glucerna 240ml BID 2. CCHO 60+ cardiac diet 3. Continue current plan of care Expected Outcomes/Goals: Pt will meet >75% estimated needs Fu 3-5 days Plan discussed with: Patient LILLIAN LOVE MD Dec 20, 2024 13:18
[2024-12-20] MEDS ORDERED: CEFEPIME 2GM/50ML NS 50 ML IV SCH (14:00)
[2024-12-20] MEDS: MICAFUNGIN SODIUM 100 MG in SODIUM CHL 0.9% 100 ML IV SCH (16:00)
[2024-12-20 16:15] LABS: Albumin 3.6 g/dL (3.2-4.8); Anion Gap 9 (5-15); BUN/Creatinine Ratio 13.3 (10.0-20.0); Blood Urea Nitrogen 12 mg/dL (9-23); Carbon Dioxide 28 mmol/L (20-31); Chloride 103 mmol/L (98-107); Sodium 140 mmol/L (136-145); Total Protein 6.3 g/dL (5.7-8.2)
[2024-12-20 16:16] LABS: Bilirubin, Total 0.8 mg/dL (0.2-1.0); Phosphorus 3.1 mg/dL (2.4-5.1)
[2024-12-20 16:22] LABS: Alanine Aminotransferase 70 U/L (7-40); Alkaline Phosphatase 211 U/L (46-116); Aspartate Aminotransferase 100 U/L (13-40); Glucose 133 mg/dL (74-106); Potassium 3.5 mmol/L (3.5-5.1)
[2024-12-20] MEDS: CEFEPIME 2GM/50ML NS 50 ML IV SCH (17:00)
--- NOTE | 2024-12-20 19:41 | DVHPN2 ---
Progress Note - Dictate Date Seen: Dec 20, 2024 Medical Necessity Reason Pt with a Central, PICC or Fol: No Subjective Patient seen and examined at bedside. Remains on supplemental oxygen Overnight events reviewed. vital signs Vital Sign Date Time Temp Pulse Resp B/P (MAP) Pulse Ox O2 Delivery O2 Flow Rate FiO2 12/20/24 18:00 74 17 138/90 (106) 12/20/24 17:00 97 12/20/24 15:03 Oxymizer 15 82 82 12/20/24 12:00 96.9 96.9 Total Intake and Output 12/19/24 12/19/24 12/20/24 15:00 23:00 07:00 Intake Total 390 ml 1140 ml 340 ml Balance 390 ml 1140 ml 340 ml medications Current Medications Medications Dose Ordered Sig/Carl Route Start Time Stop Time Status Last Admin Dose Admin Aspirin 81 mg DAILY PO 12/11/24 10:00 12/20/24 11:16 81 MG Atorvastatin Calcium 40 mg HS PO 12/11/24 22:00 12/19/24 21:58 40 MG Acetaminophen 650 mg Q6HP PRN PO 12/11/24 07:30 Hold 12/11/24 15:09 650 MG Ipratropium [place] 0.5 mg Q4HPRN PRN NEB 12/11/24 09:15 12/16/24 09:28 0.5 MG Tramadol HCl 30 mg Q4HP PRN PO 12/11/24 09:15 Cancel Tramadol HCl 50 mg Q4HP PRN PO 12/11/24 10:00 12/16/24 20:41 50 MG Metoprolol Tartrate 25 mg BID PO 12/11/24 10:00 12/20/24 11:16 25 MG Sildenafil Citrate 20 mg TID@08,14,20 PO 12/11/24 14:00 12/20/24 14:00 20 MG Hydralazine HCl 10 mg Q2HPRN PRN IV 12/13/24 21:00 UNV Guaifenesin/ Dextromethorphan 10 ml Q6HPRN PRN PO 12/15/24 01:15 12/15/24 01:41 10 ML Acetaminophen 650 mg Q6HP PRN PO 12/15/24 19:45 Enteral Nutritional Formula 240 ml TIDWM PO 12/17/24 12:00 12/19/24 07:49 240 ML Lisinopril 10 mg DAILY PO 12/20/24 10:00 12/20/24 11:15 10 MG Alprazolam 0.5 mg Q8HPRN PRN PO 12/19/24 12:45 12/20/24 11:16 0.5 MG Vancomycin HCl 0 ml @ 0 mls/hr UD IV 12/20/24 11:00 Vancomycin HCl 100 ml @ 100 mls/hr Q16H IV 12/21/24 04:00 Micafungin Sodium 100 mg/Sodium Chloride 100 ml @ 100 mls/hr DAILY IV 12/20/24 16:00 12/20/24 16:00 100 MLS/HR Cefepime HCl 50 ml @ 12.5 mls/hr Q8H IV 12/20/24 17:00 12/20/24 17:00 12.5 MLS/HR objective Gen.: Patient lying in bed in no apparent distress. On supplemental oxygen. Head: Normocephalic, atraumatic. Eyes: EOMI/PERRLA. Ears: Normal hearing. Normal anatomy. Neck/trachea: Trachea midline, supple. Nose: Normal external anatomy. Mouth: Moist mucous membranes. Chest: Decreased air entry bilaterally. No wheezing or rhonchi. Cardiovascular: Positive S1, positive S2. Regular rate and rhythm. Abdomen: Positive bowel sounds in all 4 quadrants. Soft, non-tender, non- distended. : Deferred. Rectal: Deferred. Skin: Warm, dry. Intact. Extremities: 2+ radial pulses bilaterally. No lower extremity edema. Neuro: Awake, alert, oriented x3. No gross motor or sensory deficits. Cranial nerves II through XII intact. Gait not assessed. laboratory and microbiology Laboratory Tests 12/20/24 15:45 12/20/24 04:47 Test 12/20/24 15:45 Range/Units Serum Glucose 133 H 74-106 mg/dL Assessment/Plan Impression: Acute hypoxic respiratory failure Dependence on supplemental oxygen Non-ST elevation SD. Pleural effusion Atelectasis Pneumonia Nicotine dependence Methamphetamine use Homelessness Events: Remains on HFNC at flow rate 40 LPM, FiO2 70% --> 45% Improved FiO2 requirements Continue to taper O2 as tolerated Patient continues to be agitated. Xanax 0.5 mg q.8 hours PRN Continue protein shakes d/t decreased appetite Revatio for pulmonary hypertension Continue antibiotics WBC stable at 3.8 Incentive spirometry Reverse isolation. Monitor renal function. Monitor electrolytes. Supplement as necessary. Monitor urine output Strict I and O S/p right thoracentesis on 12/14/24 w/ 250 mL karina fluid drained from right pleural space. See separate procedure note for details. Pleural fluid cultures showed no growth Labs and imaging reviewed. Rest of plan as noted below. Plan: Supplemental oxygen Titrate to keep O2 sats above 92%. Continue antibiotics Incentive spirometry Monitor renal function. Monitor electrolytes. Supplement as necessary. Monitor ins and outs. Maintain euvolemia Smoking cessation discussed for greater than 10 minutes Counseled against drug use. DVT prophylaxis. Prognosis: Poor given patient's multiple co-morbidities. Rest of plan per hospitalist and other consultants. Thank you, MARYA Morrison, for allowing me to participate in this patient's care. Further recommendations will depend on the patient's clinical course. Please do not hesitate to contact me if you have any questions or concerns. This medical document was created using an electronic medical record system with Glyde dictation system. Although these documentations are being carefully reviewed, there may still be some phonetic and typographical changes. The errors are purely typographical, due to imperfection on the software program, and do not reflect any compromise in the patient's medical care. Dietary Evaluation Review Comments: 1. Glucerna 240ml BID 2. CCHO 60+ cardiac diet 3. Continue current plan of care Expected Outcomes/Goals: Pt will meet >75% estimated needs Fu 3-5 days Plan discussed with: Patient, Other (RN Ty) ALYSSIA PÉREZ MD Dec 20, 2024 19:41
[2024-12-21] VITALS (20 sets, daily range): BP systolic 110–139; BP diastolic 64–99; PULSE 66–80; RESP 13–24; TEMP 97.9–98.9; O2SAT 85–100
[2024-12-21] MEDS: VANCOMYCIN 750MG KIT 100 ML IV SCH (04:00)
[2024-12-21 05:48] LABS: Basophils # (auto) 0 10 ^3/uL (0-0.2); Basophils % (auto) 0.3 % (0.0-2.0); Eosinophils # (auto) 0 10 ^3/uL (0-0.8); Eosinophils % (auto) 0.3 % (0.0-7.0); Hematocrit 43.8 % (36.0-46.0); Hemoglobin 14.9 g/dL (12.2-16.2); Lymphocytes # (auto) 0.7 10 ^3/uL (0.4-5.4); Lymphocytes % (auto) 7.8 % (10.0-50.0); Mean Corpuscular Hemoglobin 30.8 pg (28.0-32.0); Mean Corpuscular Hgb Conc. 34.1 g/dL (32.0-36.0); Mean Corpuscular Volume 90.4 fL (80.0-100.0); Monocytes # (auto) 0.6 10 ^3/uL (0-1.3); Monocytes % (auto) 6.8 % (0.0-12.0); Neutrophils # (auto) 7.6 10 ^3/uL (1.6-8.6); Neutrophils % (auto) 84.8 % (37.0-80.0); Nucleated Red Blood Cells % 0.1 %; Platelet Count (auto) 166 10^3/uL (140-450); Red Blood Cells 4.85 10^6/uL (4.0-5.20); Red Cell Distribution Width 15.9 % (11.8-14.3)
[2024-12-21 05:50] LABS: Albumin 3.5 g/dL (3.2-4.8); Anion Gap 10 (5-15); Carbon Dioxide 27 mmol/L (20-31); Chloride 102 mmol/L (98-107); Magnesium 1.8 mg/dL (1.6-2.6); Potassium 3.5 mmol/L (3.5-5.1); Sodium 139 mmol/L (136-145)
[2024-12-21 05:51] LABS: BUN/Creatinine Ratio 17.7 (10.0-20.0); Bilirubin, Total 0.8 mg/dL (0.2-1.0); Blood Urea Nitrogen 17 mg/dL (9-23); Phosphorus 2.5 mg/dL (2.4-5.1); Total Protein 6.2 g/dL (5.7-8.2)
[2024-12-21 06:26] LABS: Alanine Aminotransferase 61 U/L (7-40); Alkaline Phosphatase 226 U/L (46-116); Aspartate Aminotransferase 75 U/L (13-40); Calcium 8.6 mg/dL (8.7-10.4); Glucose 146 mg/dL (74-106)
[2024-12-21 10:38] LABS: Hepatitis A Ab IgM Negative; Hepatitis B Core IgM Negative (Negative); Hepatitis B Surface Antigen Negative (Negative); Hepatitis C Antibody Negative (Negative)
--- NOTE | 2024-12-21 13:35 | DVHPN2 ---
Subjective sleeping comf, on HF . seen by ID, workup pending. c/w titrating meds Reviewed: Care Plan, H&P, Labs, Medications, Previous Orders, Radiology Changes from previous H/P or p: No Changes Cardiovascular: Chest Pain Objective Vitals Vital Signs Date Time Temp Pulse Resp B/P (MAP) Pulse Ox O2 Delivery O2 Flow Rate FiO2 12/21/24 13:00 75 20 134/76 (95) 98 12/21/24 12:00 97.9 97.9 12/21/24 10:26 Oxymizer 7 N/A Intake/Output Intake and Output 12/21/24 07:00 Intake Total 1640 ml Balance 1640 ml Intake Oral 1440 ml IV Total 200 ml # Voids 6 General Appearance: Alert, Oriented X3, moderate distress Lungs: Other (Bilateral rhonchi) Cardiovascular: Regular rate, Normal S1, Normal S2 Abdomen: Normal bowel sounds, Soft, No tenderness Extremities: No edema Medications Current Medications Medications Dose Ordered Sig/Carl Route Start Time Stop Time Status Last Admin Dose Admin Aspirin 81 mg DAILY PO 12/11/24 10:00 12/21/24 09:22 81 MG Atorvastatin Calcium 40 mg HS PO 12/11/24 22:00 12/20/24 21:29 40 MG Acetaminophen 650 mg Q6HP PRN PO 12/11/24 07:30 12/21/24 04:00 650 MG Ipratropium [place] 0.5 mg Q4HPRN PRN NEB 12/11/24 09:15 12/16/24 09:28 0.5 MG Tramadol HCl 30 mg Q4HP PRN PO 12/11/24 09:15 Cancel Tramadol HCl 50 mg Q4HP PRN PO 12/11/24 10:00 12/16/24 20:41 50 MG Metoprolol Tartrate 25 mg BID PO 12/11/24 10:00 12/20/24 21:30 25 MG Sildenafil Citrate 20 mg TID@08,14,20 PO 12/11/24 14:00 12/21/24 09:22 20 MG Hydralazine HCl 10 mg Q2HPRN PRN IV 12/13/24 21:00 UNV Guaifenesin/ Dextromethorphan 10 ml Q6HPRN PRN PO 12/15/24 01:15 12/15/24 01:41 10 ML Acetaminophen 650 mg Q6HP PRN PO 12/15/24 19:45 Enteral Nutritional Formula 240 ml TIDWM PO 12/17/24 12:00 12/19/24 07:49 240 ML Lisinopril 10 mg DAILY PO 12/20/24 10:00 12/21/24 09:24 10 MG Alprazolam 0.5 mg Q8HPRN PRN PO 12/19/24 12:45 12/20/24 11:16 0.5 MG Vancomycin HCl 0 ml @ 0 mls/hr UD IV 12/20/24 11:00 Vancomycin HCl 100 ml @ 100 mls/hr Q16H IV 12/21/24 04:00 12/21/24 04:00 100 MLS/HR Micafungin Sodium 100 mg/Sodium Chloride 100 ml @ 100 mls/hr DAILY IV 12/20/24 16:00 12/21/24 09:22 100 MLS/HR Cefepime HCl 50 ml @ 12.5 mls/hr Q8H IV 12/20/24 17:00 12/21/24 09:22 12.5 MLS/HR Laboratory Results Laboratory Tests 12/21/24 05:10 Chemistry Test 12/20/24 15:45 12/21/24 05:10 Albumin 3.6 g/dL (3.2-4.8) 3.5 g/dL (3.2-4.8) Calcium Level 9.0 mg/dL (8.7-10.4) 8.6 mg/dL (8.7-10.4) L Magnesium Level 2.0 mg/dL (1.6-2.6) 1.8 mg/dL (1.6-2.6) Phosphorus Level 3.1 mg/dL (2.4-5.1) 2.5 mg/dL (2.4-5.1) Total Protein 6.3 g/dL (5.7-8.2) 6.2 g/dL (5.7-8.2) LFT Test 12/20/24 15:45 12/21/24 05:10 Alanine Aminotransferase (ALT) 70 U/L (7-40) H 61 U/L (7-40) H Alkaline Phosphatase 211 U/L (46-116) H 226 U/L (46-116) H Aspartate Amino Transferase (AST) 100 U/L (13-40) H 75 U/L (13-40) H Total Bilirubin 0.8 mg/dL (0.2-1.0) 0.8 mg/dL (0.2-1.0) Urinalysis Test 12/12/24 22:40 Urine Color Colorless (Yellow) Urine Clarity Turbid (Clear) H Urine pH 5.5 (5.0-9.0) Urine Specific [place] 1.007 (1.001-1.035) Urine Protein Trace (Negative) H Urine Ketones Negative (Negative) Urine Blood 3+ /uL (Negative) H Urine Nitrite Negative (Negative) Urine Bilirubin Negative (Negative) Urine Urobilinogen Normal mg/dL (Negative) Urine Leukocyte Esterase Negative /uL (Negative) Urine RBC 924 /hpf (0 - 4) Urine Microscopic WBC 1 /HPF (0-5) Urine Squamous Epithelial Cells None seen /hpf (<5) Urine Bacteria None seen /hpf (None Seen) Urine Glucose Normal mg/dL (Normal) Microbiology Microbiology Date/Time Source Procedure Growth Status 12/18/24 20:10 Nose MRSA Screen - Final Complete 12/15/24 21:06 Blood Blood Culture - Final NO GROWTH AFTER 5 DAYS OF INCUBATION. Complete 12/14/24 15:35 Pleural Fluid Gram Stain - Final Complete 12/14/24 15:35 Pleural Fluid Body Fluid Culture - Final Complete Assessment/Plan Assessment/Plan Acute hypoxic respiratory failure due to CHF exacerbation Diastolic HF Severe pulmonary hypertension Right pleural effusion NSTEMI. Hypertensive urgency. Severe tricuspid valve regurgitation. DM2 Chronic kidney disease stage IIIA. Medical non-adherence. Methamphetamine/tobacco abuse. Obesity. Homeless Hypokalemia Hypomagnesemia Right lower lobe pneumonia Left upper lobe with tree-in-bud nodularity could be due to fungal infection PLAN: Replace K+ & Mg DC [place] IV Lasix DC Ibuprofen due to CKD Heparin drip IV antibiotics Rocephin and doxycycline Diflucan IV Pulmonary consultation Cardiology consult the echocardiogram shows preserved ejection fraction with but very high pulmonary hypertension Full code advance directives discussed for 20 minutes 12/15/2024: IV antibiotics Rocephin and doxycycline and fluconazole Heparin drip Aspirin Lasix IV Lipitor Lisinopril Metoprolol Cardiology consult is following Pulmonary consult is following The patient is homeless: Consult forest supervisor Hypokalemia: Replace Hyponatremia Sepsis Leukopenia Thrombocytopenia 12/16/2024: Discontinue Rocephin Switch to meropenem IV Continue doxycycline and Diflucan Discontinue heparin drip Neutropenic isolation Continue side sildenafil Pulmonary consult The patient is homeless 12/17/2024: Discontinue Lasix Add Glucerna 1 can t.i.d. with meals Continue IV antibiotics Infectious disease consult Pulmonary consult Start gentle hydration with normal saline 12/18/24 escalate diet as tolerated c/w abx 12/19/24 escalate diet, transfered to [facility], on HF 40/40, increased lisinopril. hold iv fluid. considering diuresis 12/20 seen by ID, ittrate O2 as tolerated 12/21 on 7LPM oximizer, c/w titrating critical care time 40 minutes Plan discussed with: Patient Date of Service: Dec 21, 2024 Billing Provider: KIMBERLY PELLETIER MD Common Visit Codes: [id number] CARE 30-74 MIN KIMBERLY PELLETIER MD Dec 21, 2024 13:35
--- NOTE | 2024-12-21 18:12 | DVHPN2 ---
Progress Note - Dictate Date Seen: Dec 21, 2024 Medical Necessity Reason Pt with a Central, PICC or Fol: No Subjective Patient was seen and evaluated in follow up in the ICU. Patient remains on high flow oxygen. Patient is resting in bed. CBC is unremarkable. LFTs are down trending. ID evaluating for TB and HIV. vital signs Vital Sign Date Time Temp Pulse Resp B/P (MAP) Pulse Ox O2 Delivery O2 Flow Rate FiO2 12/21/24 16:00 78 12/21/24 13:00 20 134/76 (95) 98 12/21/24 12:00 97.9 97.9 12/21/24 10:26 Oxymizer 7 N/A Total Intake and Output 12/20/24 12/20/24 12/21/24 15:00 23:00 07:00 Intake Total 530 ml 1110 ml Balance 530 ml 1110 ml medications Current Medications Medications Dose Ordered Sig/Carl Route Start Time Stop Time Status Last Admin Dose Admin Aspirin 81 mg DAILY PO 12/11/24 10:00 12/21/24 09:22 81 MG Atorvastatin Calcium 40 mg HS PO 12/11/24 22:00 12/20/24 21:29 40 MG Acetaminophen 650 mg Q6HP PRN PO 12/11/24 07:30 12/21/24 04:00 650 MG Ipratropium [place] 0.5 mg Q4HPRN PRN NEB 12/11/24 09:15 12/16/24 09:28 0.5 MG Tramadol HCl 30 mg Q4HP PRN PO 12/11/24 09:15 Cancel Tramadol HCl 50 mg Q4HP PRN PO 12/11/24 10:00 12/16/24 20:41 50 MG Metoprolol Tartrate 25 mg BID PO 12/11/24 10:00 12/20/24 21:30 25 MG Sildenafil Citrate 20 mg TID@08,14,20 PO 12/11/24 14:00 12/21/24 14:08 20 MG Hydralazine HCl 10 mg Q2HPRN PRN IV 12/13/24 21:00 UNV Guaifenesin/ Dextromethorphan 10 ml Q6HPRN PRN PO 12/15/24 01:15 12/15/24 01:41 10 ML Acetaminophen 650 mg Q6HP PRN PO 12/15/24 19:45 Enteral Nutritional Formula 240 ml TIDWM PO 12/17/24 12:00 12/19/24 07:49 240 ML Lisinopril 10 mg DAILY PO 12/20/24 10:00 12/21/24 09:24 10 MG Alprazolam 0.5 mg Q8HPRN PRN PO 12/19/24 12:45 12/20/24 11:16 0.5 MG Vancomycin HCl 0 ml @ 0 mls/hr UD IV 12/20/24 11:00 Vancomycin HCl 100 ml @ 100 mls/hr Q16H IV 12/21/24 04:00 12/21/24 04:00 100 MLS/HR Micafungin Sodium 100 mg/Sodium Chloride 100 ml @ 100 mls/hr DAILY IV 12/20/24 16:00 12/21/24 09:22 100 MLS/HR Cefepime HCl 50 ml @ 12.5 mls/hr Q8H IV 12/20/24 17:00 12/21/24 09:22 12.5 MLS/HR objective GENERAL: Awake, alert, oriented. Obese. LUNGS: Decreased breath sounds. CARDIOVASCULAR: Regular rate and rhythm. Diastolic murmur. ABDOMEN: Soft. EXT: 2+ pitting edema. laboratory and microbiology Laboratory Tests 12/21/24 05:10 Test 12/21/24 05:10 Range/Units Serum Glucose 146 H 74-106 mg/dL Problem List NSTEMI. Hypertensive urgency. 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 Acute on chronic decompensated HFpEF, NYHA class III. Severe torrential tricuspid valve regurgitation. Pyrexia. [id number] diabetes mellitus. Chronic kidney disease stage IIIA. Medical non-adherence. Methamphetamine/tobacco abuse. Obesity. Assessment/Plan Continued all current supportive medical care. Aspirin, Lipitor, Metoprolol. IV antibiotics as ordered. Diuretics with Lasix. Lisinopril. Nebulized breathing treatments. Additional plan as per the hospital course. Critical care time of 45 minutes provided to include time spent evaluation of patient at bedside, when appropriate patient/family education for diagnosis, treatment plan, review of pertinent medical information and discussion of care with specialty providers and PCP. Dietary Evaluation Review Comments: 1. Glucerna 240ml BID 2. CCHO 60+ cardiac diet 3. Continue current plan of care Expected Outcomes/Goals: Pt will meet >75% estimated needs Fu 3-5 days Plan discussed with: Patient LILLIAN LOVE MD Dec 21, 2024 18:12
--- NOTE | 2024-12-21 20:14 | DVHDS2 ---
Discharge Summary Date of Admission Dec 11, 2024 at 07:30 Date of Discharge: Dec 21, 2024 Labs/Diagnostic Data: Laboratory Results Test 12/21/24 05:10 12/20/24 15:45 12/20/24 11:30 12/20/24 04:47 White Blood Count 9.0 10^3/uL (4.4-10.8) Red Blood Count 4.85 10^6/uL (4.0-5.20) Hemoglobin 14.9 g/dL (12.2-16.2) Hematocrit 43.8 % (36.0-46.0) Mean Corpuscular Volume 90.4 fL (80.0-100.0) Mean Corpuscular Hemoglobin 30.8 pg (28.0-32.0) Mean Corpuscular Hemoglobin Concent 34.1 g/dL (32.0-36.0) Red Cell Distribution Width 15.9 % (11.8-14.3) Platelet Count 166 10^3/uL (140-450) Mean Platelet Volume 8.8 fL (6.9-10.8) Neutrophils (%) (Auto) 84.8 % (37.0-80.0) Lymphocytes (%) (Auto) 7.8 % (10.0-50.0) Monocytes (%) (Auto) 6.8 % (0.0-12.0) Eosinophils (%) (Auto) 0.3 % (0.0-7.0) Basophils (%) (Auto) 0.3 % (0.0-2.0) Neutrophils # (Auto) 7.6 10 ^3/uL (1.6-8.6) Lymphocytes # (Auto) 0.7 10 ^3/uL (0.4-5.4) Monocytes # (Auto) 0.6 10 ^3/uL (0-1.3) Eosinophils # (Auto) 0 10 ^3/uL (0-0.8) Basophils # (Auto) 0 10 ^3/uL (0-0.2) Nucleated Red Blood Cells 0.1 % Sodium Level 139 mmol/L (136-145) Potassium Level 3.5 mmol/L (3.5-5.1) Chloride Level 102 mmol/L (98-107) Carbon Dioxide Level 27 mmol/L (20-31) Anion Gap 10 (5-15) Blood Urea Nitrogen 17 mg/dL (9-23) Creatinine 0.96 mg/dL (0.550-1.02) Glomerular Filtration Rate Calc 72 mL/min (>90) BUN/Creatinine Ratio 17.7 (10.0-20.0) Serum Glucose 146 mg/dL (74-106) Calcium Level 8.6 mg/dL (8.7-10.4) Phosphorus Level 2.5 mg/dL (2.4-5.1) Magnesium Level 1.8 mg/dL (1.6-2.6) Total Bilirubin 0.8 mg/dL (0.2-1.0) Aspartate Amino Transferase (AST) 75 U/L (13-40) Alanine Aminotransferase (ALT) 61 U/L (7-40) Alkaline Phosphatase 226 U/L (46-116) Total Protein 6.2 g/dL (5.7-8.2) Albumin 3.5 g/dL (3.2-4.8) HIV (1&2) Antibody Negative (Negative) Hepatitis A IgM Antibody Negative Hepatitis B Surface Antigen Negative (Negative) Hepatitis B Core IgM Antibody Negative (Negative) Hepatitis C Antibody Negative (Negative) Test 12/19/24 13:33 12/18/24 22:17 12/17/24 04:50 12/16/24 13:24 Influenza Type A Antigen Negative (Negative) Influenza Type B Antigen Negative (Negative) SARS-CoV-2 Antigen (Rapid) Negative (NEGATIVE) Blood Gas Specimen Type Arterial Blood Gas Sample Site Right brachial Blood Gas Patient Temperature 37.0 Arterial Blood Date Drawn [id number] Arterial Blood pH 7.520 (7.350-7.450) Arterial Blood Partial Pressure CO2 38.6 mmHg (32.0-45.0) Arterial Blood Partial Pressure O2 63.7 mmHg (83.0-108.0) Arterial Blood HCO3 30.8 mmol/L (21.0-28.0) Arterial Blood Oxygen Saturation 91.9 % (94.0-98.0) Arterial Blood Base Excess 7.5 mmol/L (-2.0-3.0) Arterial Blood Oxyhemoglobin 90.9 % (94.0-98.0) Arterial Blood Carboxyhemoglobin 0.6 % (0.5-1.5) Arterial Blood Methemoglobin 0.5 % (0.0-1.5) Pieter Test N/a Blood Gas Total Hemoglobin 16.50 g/dL (12.0-16.0) Blood Gas Liter Flow 40.00 Blood Gas Modality High flow FiO2 % 80.0 Differential Total Cells Counted 100.0 (100) Neutrophils % (Manual) 55 (37.0-80.0) Band Neutrophils % (Manual) 3 Lymphocytes % (Manual) 42 (10.0-50.0) Monocytes % (Manual) 0 (0-12) Eosinophils % (Manual) 0 (0-7) Basophils % (Manual) 0 (0.0-2.0) Metamyelocytes % (manual) 0 Myelocytes % (Manual) 0 Promyelocytes % (Manual) 0 Blast Cells % (Manual) 0 Reactive Lymphocytes 0 Platelet Estimate Decreased Prothrombin Time 11.9 sec (9.3-11.8) Prothrombin Time INR 1.14 (0.9-1.15) Activated Partial Thromboplast Time 67.7 SEC (24.5-34.5) Test 12/16/24 05:17 12/14/24 15:35 12/13/24 13:06 12/12/24 22:40 Giant Platelets Moderate Body Fluid Source Pleural fluid Body Fluid pH 7.0 Body Fluid WBC (Manual) 1378 CUMM (0-200) Body Fluid RBC (Manual) 42320 CUMM (0-2000) Body Fluid Mononuclear Cells 93 % Body Fluid Polymorphonuclear Cells 7 % (0-25) Body Fluid Glucose 133 mg/dL (.) Body Fluid Total Protein 3.1 g/dL (.) Body Fluid Lactate Dehydrogenase 261 IU/L (.) POC Glucose 100 mg/dl (70-106) Urine Color Colorless (Yellow) Urine Clarity Turbid (Clear) Urine pH 5.5 (5.0-9.0) Urine Specific [place] 1.007 (1.001-1.035) Urine Protein Trace (Negative) Urine Ketones Negative (Negative) Urine Blood 3+ /uL (Negative) Urine Nitrite Negative (Negative) Urine Bilirubin Negative (Negative) Urine Urobilinogen Normal mg/dL (Negative) Urine Leukocyte Esterase Negative /uL (Negative) Urine RBC 924 /hpf (0 - 4) Urine Microscopic WBC 1 /HPF (0-5) Urine Squamous Epithelial Cells None seen /hpf (<5) Urine Bacteria None seen /hpf (None Seen) Urine Glucose Normal mg/dL (Normal) Urine Opiates Screen Neg (NEGATIVE) Urine Fentanyl Screen Neg (NEGATIVE) Urine Barbiturates Screen Neg (NEGATIVE) Urine Phencyclidine Screen Neg (NEGATIVE) Urine Amphetamines Screen Pos (NEGATIVE) Urine Benzodiazepines Screen Neg (NEGATIVE) Urine Cocaine Screen Neg (NEGATIVE) Urine Cannabinoids Screen Neg (NEGATIVE) Test 12/11/24 15:47 12/11/24 07:39 12/11/24 03:25 Lactic Acid Level 2.2 mmol/L (0.4-2.0) Troponin I High Sensitivity 1461 ng/L (</=34) Triglycerides Level 83 mg/dL (< 150) Cholesterol Level 104 mg/dL (< 200) LDL Cholesterol 53 mg/dL (< 100) HDL Cholesterol 34 mg/dL (40-59) Thyroid Stimulating Hormone (TSH) 2.40 uIU/mL (0.55-4.78) B-Type Natriuretic Peptide 1105.19 pg/mL (0-100) Other Laboratory Tests 12/21/24 05:10 Brief Hx & Hospital Course: Patient left AMA today, understands that she is currently on high amount of O2 supplementation and leaving AMA might risk respiratory arrest or . Understood Acute hypoxic respiratory failure due to CHF exacerbation Diastolic HF Severe pulmonary hypertension Right pleural effusion NSTEMI. Hypertensive urgency. Severe tricuspid valve regurgitation. DM2 Chronic kidney disease stage IIIA. Medical non-adherence. Methamphetamine/tobacco abuse. Obesity. Homeless Hypokalemia Hypomagnesemia Right lower lobe pneumonia Left upper lobe with tree-in-bud nodularity could be due to fungal infection PLAN: Replace K+ & Mg DC [place] IV Lasix DC Ibuprofen due to CKD Heparin drip IV antibiotics Rocephin and doxycycline Diflucan IV Pulmonary consultation Cardiology consult the echocardiogram shows preserved ejection fraction with but very high pulmonary hypertension Full code advance directives discussed for 20 minutes 12/15/2024: IV antibiotics Rocephin and doxycycline and fluconazole Heparin drip Aspirin Lasix IV Lipitor Lisinopril Metoprolol Cardiology consult is following Pulmonary consult is following The patient is homeless: Consult social group worker Hypokalemia: Replace Hyponatremia Sepsis Leukopenia Thrombocytopenia 12/16/2024: Discontinue Rocephin Switch to meropenem IV Continue doxycycline and Diflucan Discontinue heparin drip Neutropenic isolation Continue side sildenafil Pulmonary consult The patient is homeless 12/17/2024: Discontinue Lasix Add Glucerna 1 can t.i.d. with meals Continue IV antibiotics Infectious disease consult Pulmonary consult Start gentle hydration with normal saline 12/18/24 escalate diet as tolerated c/w abx 12/19/24 escalate diet, transfered to [facility], on HF 40/40, increased lisinopril. hold iv fluid. considering diuresis 12/20 seen by ID, ittrate O2 as tolerated 12/21 on 7LPM oximizer, c/w titrating Condition at Discharge: Critical Final Diagnosis/Problems List per HPI Discharge Disposition: Home Discharge Statement: "Patient was advised to return to the ER or call 911 if any headaches, dizziness, shortness of breath, chest pain, abdominal pain, bleeding, fevers, or worsening of medical condition. Patient was counseled about treatment plan, medications, possible side effects, patientverbalized understanding. All questions were answered to the best of my ability. This discharge took greater then 30 minutes in planning, reviewing documentation, counseling the patient, and discussing with other team members." ASSESSMENT ASSESSMENT Assessment Date of Service: Dec 21, 2024 Billing Provider: KIMBERLY PELLETIER MD Common Visit Codes: [id number] DISCH DAY >30min KIMBERLY PELLETIER MD Dec 21, 2024 20:14
--- NOTE | 2024-12-21 23:27 | DVHPN2 ---
Progress Note - Dictate Date Seen: Dec 21, 2024 Medical Necessity Reason Pt with a Central, PICC or Fol: No Subjective Patient seen and examined at bedside. Remains on supplemental oxygen Overnight events reviewed. vital signs Vital Sign Date Time Temp Pulse Resp B/P (MAP) Pulse Ox O2 Delivery O2 Flow Rate FiO2 12/21/24 17:00 79 21 133/99 (110) 96 12/21/24 16:00 98.3 98.3 12/21/24 10:26 Oxymizer 7 N/A Total Intake and Output 12/20/24 12/20/24 12/21/24 14:59 22:59 06:59 Intake Total 530 ml 1110 ml Balance 530 ml 1110 ml medications Current Medications Medications Dose Ordered Sig/Carl Route Start Time Stop Time Status Last Admin Dose Admin Tramadol HCl 30 mg Q4HP PRN PO 12/11/24 09:15 Cancel Hydralazine HCl 10 mg Q2HPRN PRN IV 12/13/24 21:00 UNV objective Gen.: Patient lying in bed in no apparent distress. On supplemental oxygen. Head: Normocephalic, atraumatic. Eyes: EOMI/PERRLA. Ears: Normal hearing. Normal anatomy. Neck/trachea: Trachea midline, supple. Nose: Normal external anatomy. Mouth: Moist mucous membranes. Chest: Decreased air entry bilaterally. No wheezing or rhonchi. Cardiovascular: Positive S1, positive S2. Regular rate and rhythm. Abdomen: Positive bowel sounds in all 4 quadrants. Soft, non-tender, non- distended. : Deferred. Rectal: Deferred. Skin: Warm, dry. Intact. Extremities: 2+ radial pulses bilaterally. No lower extremity edema. Neuro: Awake, alert, oriented x3. No gross motor or sensory deficits. Cranial nerves II through XII intact. Gait not assessed. laboratory and microbiology Laboratory Tests 12/21/24 05:10 Test 12/21/24 05:10 Range/Units Serum Glucose 146 H 74-106 mg/dL Assessment/Plan Impression: Acute hypoxic respiratory failure Dependence on supplemental oxygen Non-ST elevation ID. Pleural effusion Atelectasis Pneumonia Nicotine dependence Methamphetamine use Homelessness Events: Remains on supplemental oxygen Transitioned from HFNC to 7 LPM Oxymizer Continue to taper O2 as tolerated Continue Revatio for pulmonary hypertension Continue antibiotics WBC is within normal limits Incentive spirometry Note, pt is refusing medications Monitor renal function. Monitor electrolytes. Supplement as necessary. Monitor urine output Strict I and O Patient left AMA today with full knowledge of risks and benefits of doing so S/p right thoracentesis on 12/14/24 w/ 250 mL karina fluid drained from right pleural space. See separate procedure note for details. Pleural fluid cultures showed no growth Labs and imaging reviewed. Rest of plan as noted below. Plan: Supplemental oxygen Titrate to keep O2 sats above 92%. Continue antibiotics Incentive spirometry Monitor renal function. Monitor electrolytes. Supplement as necessary. Monitor ins and outs. Maintain euvolemia Smoking cessation discussed for greater than 10 minutes Counseled against drug use. DVT prophylaxis. Prognosis: Poor given patient's multiple co-morbidities. Rest of plan per hospitalist and other consultants. Thank you, MARYA Morrison, for allowing me to participate in this patient's care. Further recommendations will depend on the patient's clinical course. Please do not hesitate to contact me if you have any questions or concerns. This medical document was created using an electronic medical record system with [employer] dictation system. Although these documentations are being carefully reviewed, there may still be some phonetic and typographical changes. The errors are purely typographical, due to imperfection on the software program, and do not reflect any compromise in the patient's medical care. Dietary Evaluation Review Comments: 1. Glucerna 240ml BID 2. CCHO 60+ cardiac diet 3. Continue current plan of care Expected Outcomes/Goals: Pt will meet >75% estimated needs Fu 3-5 days Plan discussed with: Patient, Other (ARPAN Burger) ALYSSIA PÉREZ MD Dec 21, 2024 23:27
== END 2024-12-21 18:58 | disposition left against medical advice (07) | DRG 720 ==
LOC: ER 03:06 → OVERFLOW 07:30 → TELE-WESTW 07:32 → TELE-EAST 12-15 15:36 → DOU IN ICU 12-18 19:50
PROVIDERS: ADMIT Student in an Organized Health Care Education/Training Program; ATTEND Student in an Organized Health Care Education/Training Program
PROC: 0W993ZX Drainage of Right Pleural Cavity, Percutaneous Approach, Diagnostic (ICD-10-PCS; principal; 2024-12-14)
PROC: 5A0935A Assistance with Respiratory Ventilation, Less than 24 Consecutive Hours, High Flow/Velocity Cannula (ICD-10-PCS; 2024-12-16)
PROC: 5A0935A Assistance with Respiratory Ventilation, Less than 24 Consecutive Hours, High Flow/Velocity Cannula (ICD-10-PCS; 2024-12-17)
PROC: 5A0945A Assistance with Respiratory Ventilation, 24-96 Consecutive Hours, High Flow/Velocity Cannula (ICD-10-PCS; 2024-12-18)
DX: A41.50 Gram-negative sepsis, unspecified (principal); J96.01 Acute respiratory failure with hypoxia; I21.4 Non-ST elevation (NSTEMI) myocardial infarction; I50.33 Acute on chronic diastolic (congestive) heart failure; J15.69 Pneumonia due to other Gram-negative bacteria; D69.6 Thrombocytopenia, unspecified; I27.20 Pulmonary hypertension, unspecified; E87.1 Hypo-osmolality and hyponatremia; I13.0 Hypertensive heart and chronic kidney disease with heart failure and stage 1 through stage 4 chronic kidney disease, or unspecified chronic kidney disease; J15.9 Unspecified bacterial pneumonia; J44.0 Chronic obstructive pulmonary disease with (acute) lower respiratory infection; E11.22 Type 2 diabetes mellitus with diabetic chronic kidney disease; I16.0 Hypertensive urgency; N18.31 Chronic kidney disease, stage 3a; Z59.00 Homelessness unspecified; F15.10 Other stimulant abuse, uncomplicated; F17.210 Nicotine dependence, cigarettes, uncomplicated; Z20.822 Contact with and (suspected) exposure to COVID-19; F10.10 Alcohol abuse, uncomplicated; I36.1 Nonrheumatic tricuspid (valve) insufficiency; E66.9 Obesity, unspecified; Z68.31 Body mass index [BMI] 31.0-31.9, adult; E87.6 Hypokalemia; E83.42 Hypomagnesemia; D64.9 Anemia, unspecified; E78.5 Hyperlipidemia, unspecified; E86.0 Dehydration; H66.91 Otitis media, unspecified, right ear; J98.11 Atelectasis; K74.60 Unspecified cirrhosis of liver; Z53.29 Procedure and treatment not carried out because of patient's decision for other reasons; Z99.81 Dependence on supplemental oxygen; Z88.5 Allergy status to narcotic agent; Z80.3 Family history of malignant neoplasm of breast; Z79.84 Long term (current) use of oral hypoglycemic drugs; Z98.891 History of uterine scar from previous surgery; Z82.49 Family history of ischemic heart disease and other diseases of the circulatory system; Z91.199 Patient's noncompliance with other medical treatment and regimen due to unspecified reason; Z79.899 Other long term (current) drug therapy; Z79.82 Long term (current) use of aspirin; Z79.51 Long term (current) use of inhaled steroids; Z91.148 Patient's other noncompliance with medication regimen for other reason
CPT/HCPCS: 32555; 36415; 36600; 71045; 71250; 80048; 80053; 80061; 80074; 80307; 81001; 82805; 82962; 83605; 83735; 83880; 83986; 84100; 84443; 84484; 85007; 85025; 85027; 85610; 85730; 86635; 86703; 87040; 87081; 87205; 87278; 87426; 87804; 89051; 93005; 93306; 93970; 94640; 96365; 96375; 99291; G0378; J0692; J1450; J2185; J2248

== ENCOUNTER 2025-08-12 21:54 | Inpatient (IN) | payer MEDICAID ==
[~2025-08-12] VITALS: Ht 160 cm; Wt 79.6 kg
--- NOTE | 2025-08-12 22:09 | ECG ---
[facility] Test Date: 2025-08-12 Test Time: 22:07:51 Pat Name: ZOFIA FUNEZ Department: [facility] ED Patient ID: [id number] Room: 0282T Gender: F Business Developer: FARIHA : 1975 Requested By: EMERGENCY EMERGENCY Order Number: [id number] Reading MD: Hugh Guerrero Measurements Intervals [place] Rate: 142 P: 0 MO: 0 QRS: 138 QRSD: 112 T: -49 QT: 301 QTc: 463 Interpretive Statements Atrial fibrillation IRBBB and LPFB Inferior infarct, age indeterminate Abnormal lateral Q waves Anterior infarct, age indeterminate Electronically Signed On 08-17-2025 14:52:46 PST by Hugh Guerrero Please click the below link to view image of tracing.
[2025-08-12 22:24] VITALS: PULSE 142; RESP 19; O2SAT 94
[2025-08-12 22:28] LABS: Hematocrit 49.4 % (36.0-46.0); Hemoglobin 16.3 g/dL (12.2-16.2); Mean Corpuscular Hemoglobin 31.0 pg (28.0-32.0); Mean Corpuscular Volume 93.8 fL (80.0-100.0); Nucleated Red Blood Cells % 0.2 %
[2025-08-12 22:35] LABS: Sodium 144 mmol/L (136-145)
[2025-08-12 22:36] LABS: Anion Gap 11 (5-15); Calcium 9.7 mg/dL (8.7-10.4); Carbon Dioxide 26 mmol/L (20-31)
[2025-08-12 22:41] LABS: BUN/Creatinine Ratio 10.6 (10.0-20.0); Blood Urea Nitrogen 14 mg/dL (9-23)
[2025-08-12 23:00] LABS: Chloride 107 mmol/L (98-107); Glucose 119 mg/dL (74-106); Potassium 5.4 mmol/L (3.5-5.1)
--- NOTE | 2025-08-12 23:03 | ECG ---
[facility] Test Date: 2025-08-12 Test Time: 23:00:24 Pat Name: ZOFIA FUNEZ Department: ED Room: 0282T Gender: F Help Desk Support: SUMI : 1975 Requested By: EMERGENCY EMERGENCY Order Number: [id number] Reading MD: Hugh Guerrero Measurements Intervals [place] Rate: 144 P: 110 CO: 196 QRS: 132 QRSD: 114 T: -41 QT: 290 QTc: 449 Interpretive Statements Sinus tachycardia Atrial premature complex Borderline prolonged CO interval Incomplete right bundle branch block Low voltage, precordial leads Lateral infarct, recent Probable anteroseptal infarct, old Baseline wander in lead(s) II,III,aVL,aVF,V1,V2 Electronically Signed On 08-17-2025 14:56:20 PST by Hugh Guerrero Please click the below link to view image of tracing.
--- NOTE | 2025-08-12 23:06 | ED.PDOC ---
HPI Comments 49-year-old female who came to ER for chest pains. Patient does have history of hypertension, diabetes, CHF, AFib, and methamphetamine abuse. Has been complaining of intermittent episodes of left-sided chest pains radiating to the left arm with shortness of breath for the past 3 days. Progressive worsening prompted checkup to the ER Chief Complaint: Chest Pain Time Seen by MD: 23:06 Primary Care Provider: SHANE Reviewed Notes: Nurses Notes Allergies: Coded Allergies: Codeine (Verified Allergy, Unknown, 07/16/20) Morphine (Verified Allergy, Unknown, 07/16/20) Home Meds Active Scripts Sildenafil Citrate (SILDENAFIL CITRATE) 20 Mg Tab, 20 MG OR TID for 30 Days, #90 TAB Prov:TAYE ALMONTE RESIDENT 09/12/24 Reported Medications Furosemide (Furosemide) 20 Mg Tab, 1 TAB PO DAILY for 90 Days, #90 12/08/24 Albuterol Sulfate (Albuterol Sulfate Hfa) 108 Mcg/Act Aer, 108 MCG IN UD for 28 Days, #18 09/10/24 Atorvastatin Calcium (Lipitor) 10 Mg Tab, 1 TAB PO DAILY for 90 Days, #90 09/10/24 Amlodipine Besylate (Amlodipine Besylate) 10 Mg Tab, 1 TAB PO DAILY for 90 Days, #90 09/10/24 Metformin Hydrochloride (Metformin Hcl) 500 Mg Tab, 1 TAB PO BID for 90 Days, #180 09/10/24 Aspirin (Aspir-81) 81 Mg Tab, 1 TAB PO DAILY for 30 Days, #30 09/10/24 Metoprolol Tartrate (Lopressor) 50 Mg Tab, 1 TAB PO BID for 90 Days, #180 09/10/24 Lisinopril (Lisinopril) 20 Mg Tab, 1 TAB PO DAILY for 90 Days, #90 09/10/24 Information Source: Patient Mode of Arrival: Wheelchair Past Medical History PAST MEDICAL HISTORY: AFIB, Asthma, CHF, DM, HTN Surgical History: Denies all surgeries 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: No Pertinent 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 History Family History Family History: Reviewed,noncontributory to illness, No family hx of Cancer, No family hx of DM, No family hx of Heart boo, No family hx of HTN, No family hx ofKidney boo, No family hx of Liver boo, No family hx of Lung boo, No family hx of Stroke Social History Smoker: Cigarettes, Less Than 1 Pack/Day Alcohol: Denies ETOH Use Drugs: Marijuana, Methamphetamine Lives In: Home Constitutional: denies: chills, diaphoresis, fatigue, fever, malaise, sweats, weakness, others EENTM: denies: blurred vision, double vision, ear bleeding, ear discharge, ear drainage, ear pain, ear ringing, eye pain, eye redness, hearing loss, mouth pain, mouth swelling, nasal discharge, nose bleeding, nose congestion, nose pain, photophobia, tearing, throat pain, throat swelling, voice changes, others Respiratory: reports: shortness of breath; denies: cough, hemoptysis, orthopnea, SOB at rest, SOB with excertion, stridor, wheezing, others Cardiovascular: reports: chest pain, left arm pain; denies: dizzy spells, diaphoresis, Dyspnea on exertion, edema, irregular heart beat, lightheadedness, palpitations, PND, syncope, others Gastrointestinal: denies: abdomen distended, abdominal pain, blood streaked bowels, constipated, diarrhea, dysphagia, difficulty swallowing, hematemesis, melena, nausea, poor appetite, poor fluid intake, rectal bleeding, rectal pain, vomiting, others Genitourinary: denies: abnormal vagina bleeding, burning, dyspareunia, dysuria, flank pain, frequency, hematuria, incontinence, pain, , vagina discharge, urgency, others Neurological: denies: dizziness, fainting, headache, left sided numbness, left sided weakness, numbness, paresthesia, pre-existing deficit, right sided numbness, right sided weakness, seizure, speech problems, tingling, tremors, weakness, others Musculoskeletal: denies: back pain, gout, joint pain, joint swelling, muscle pain, muscle stiffness, neck pain, others Integumetry: denies: bruises, change in color, change in hair/nails, dryness, laceration, lesions, lumps, rash, wounds, others Allergic/Immunocompromised: denies: Difficulty Healing, Frequent Infections, Hives, Itching, others Hematologic/Lymphatic: denies: anemia, blood clots, easy bleeding, easy bruising, swollen glands, others Endocrine: denies: excessive hunger, excessive sweating, excessive thirst, excessive urination, flushing, intolerance to cold, intolerance to heat, unexplained weight gain, unexplained weight loss, others Psychiatric: denies: anxiety, bipolar disorder, depression, hopeless, panic disorder, schizophrenia, sleepless, suicidal, others Physical Exam General Appearance: No Apparent Distress, Normal HEENT: Normal ENT Inspection, Pharynx Normal, TMs Normal Neck: Full Range of Motion, Non-Tender, Normal, Normal Inspection Respiratory: Chest Non-Tender, Lungs Clear, No Accessory Muscle Use, No Respiratory Distress, Normal Breath Sounds Cardiovascular: No Edema, No JVD, No Murmur, No Gallop, Normal Peripheral Pulses, Regular Rate/Rhythm Breast Exam: Deferred Gastrointestinal: No Organomegaly, Non Tender, No Pulsatile Mass, Normal Bowel Sounds, Soft Genitalia: Deferred Pelvic: Deferred Rectal: Deferred Extremities: No calf tenderness, Normal capillary refill, Normal inspection, Normal range of motion, Non-tender, No pedal edema Musculoskeletal : Apperance: Normal Neurologic: Alert, practice clinician II-XII nml as Tested, No Motor Deficits, Normal Affect, Normal Mood, No Sensory Deficits Cerebellar Function: Normal Reflexes: Normal Skin: Dry, Normal Color, Warm Lymphatic: No Adenopathy EKG EKG : Pulse Rate (adult): 142 Cardiac Rhythm: Afib Was a procedure done? Was a procedure done?: No CP Differential Dx Differential Diagnosis: A-fib, Angina, Anxiety / Panic Attack, Electrolyte Disorder Differential Diagnosis: CHF Differential Diagnosis: Angina, Chest Wall Pain, Costochondritis, Esophageal reflux/spasm, Gastritis, Myocardial Infarction X-Ray, Labs, Meds, VS Vital Signs Date Time Temp Pulse Resp B/P (MAP) Pulse Ox O2 Delivery O2 Flow Rate FiO2 08/13/25 01:17 78 08/12/25 23:06 142 08/12/25 23:00 144 08/12/25 22:24 98.0 142 19 156/107 (123) 94 98.0 08/12/25 22:24 142 19 94 Nasal Cannula* 3 32 08/12/25 22:07 142 08/12/25 21:56 97.4 114 20 160/117 94 97.4 Lab Test 08/13/25 00:57 08/12/25 22:55 08/12/25 22:10 Range/Units Troponin I High Sensitivity 1021 *H 973 *H 1077 *H </=34 ng/L White Blood Count 8.2 4.4-10.8 10^3/uL Red Blood Count 5.26 H 4.0-5.20 10^6/uL Hemoglobin 16.3 H 12.2-16.2 g/dL Hematocrit 49.4 H 36.0-46.0 % Mean Corpuscular Volume 93.8 80.0-100.0 fL Mean Corpuscular Hemoglobin 31.0 28.0-32.0 pg Mean Corpuscular Hemoglobin Concent 33.1 32.0-36.0 g/dL Red Cell Distribution Width 16.3 H 11.8-14.3 % Platelet Count 235 140-450 10^3/uL Mean Platelet Volume 7.4 6.9-10.8 fL Neutrophils (%) (Auto) 67.6 37.0-80.0 % Lymphocytes (%) (Auto) 24.6 10.0-50.0 % Monocytes (%) (Auto) 6.4 0.0-12.0 % Eosinophils (%) (Auto) 0.3 0.0-7.0 % Basophils (%) (Auto) 1.1 0.0-2.0 % Neutrophils # (Auto) 5.5 1.6-8.6 10 ^3/uL Lymphocytes # (Auto) 2.0 0.4-5.4 10 ^3/uL Monocytes # (Auto) 0.5 0-1.3 10 ^3/uL Eosinophils # (Auto) 0 0-0.8 10 ^3/uL Basophils # (Auto) 0.1 0-0.2 10 ^3/uL Nucleated Red Blood Cells 0.2 % Prothrombin Time 13.8 H 9.3-11.8 sec Prothrombin Time INR 1.34 H 0.9-1.15 Activated Partial Thromboplast Time 29.4 24.5-34.5 SEC Sodium Level 144 136-145 mmol/L Potassium Level 5.4 H 3.5-5.1 mmol/L Chloride Level 107 98-107 mmol/L Carbon Dioxide Level 26 20-31 mmol/L Anion Gap 11 5-15 Blood Urea Nitrogen 14 9-23 mg/dL Creatinine 1.32 H 0.550-1.02 mg/dL Glomerular Filtration Rate Calc 49 >90 mL/min BUN/Creatinine Ratio 10.6 10.0-20.0 Serum Glucose 119 H 74-106 mg/dL Calcium Level 9.7 8.7-10.4 mg/dL Magnesium Level 1.9 1.6-2.6 mg/dL Total Bilirubin 2.2 H 0.2-1.0 mg/dL Direct Bilirubin 1.0 H <0.3 mg/dL Aspartate Amino Transferase (AST) 33 13-40 U/L Alanine Aminotransferase (ALT) 27 7-40 U/L Alkaline Phosphatase 157 H 46-116 U/L B-Type Natriuretic Peptide 4460.74 0-100 pg/mL Total Protein 6.8 5.7-8.2 g/dL Albumin 3.9 3.2-4.8 g/dL Thyroid Stimulating Hormone (TSH) 3.83 0.55-4.78 uIU/mL Free Thyroxine (T4) Calculated 1.26 0.89-1.76 ng/dL Current Medications Medications (Trade) Dose Ordered Sig/Carl Route Start Time Stop Time Status Last Admin Amiodarone HCl 100 ml @ 600 mls/hr ONCE ONCE IV 08/12/25 23:00 08/12/25 23:09 DC 08/12/25 23:24 Amiodarone HCl 250 ml @ 33.33 mls/ hr Q7H31M ONCE IV 08/12/25 23:15 08/13/25 06:45 08/13/25 00:38 Aspirin 162 mg ONCE ONCE PO 08/12/25 23:00 08/12/25 23:01 DC 08/12/25 23:24 Time of 1ST Reevaluation: 23:03 Reevaluation 1ST: Unchanged Patient Education/Counseling: Diagnosis, Treatment Family Education/Counseling: No Family Present SEPSIS Sepsis Screen Date sepsis recognized/suspect: Aug 12, 2025 Time Sepsis recognized/suspect: 2257 Recent Procedure: No On Antibiotic Therapy: No Respiratory Rate >20: No Heart Rate >90: No Temp<36 C (96.8 F) or >38.3 C: No SBP <90 or MAP <65 mmHG: No New Acute Mental Status Change: No Is the patient on CPAP, BIPAP,: No Physician Orders Chest Portable (08/12/25 22:01) Amiodarone 450mg/250ml Ae (Cordarone) (08/12/25 23:15) Amiodarone 450mg/250ml Ae (Cordarone) (08/13/25 05:15) Urinalysis (08/12/25 22:57) Drug Screen (08/12/25 22:57) Vital Signs Date Time Temp Pulse Resp B/P (MAP) Pulse Ox O2 Delivery O2 Flow Rate FiO2 08/13/25 01:17 78 08/12/25 23:06 142 08/12/25 23:00 144 08/12/25 22:24 98.0 142 19 156/107 (123) 94 98.0 08/12/25 22:24 142 19 94 Nasal Cannula* 3 32 08/12/25 22:07 142 08/12/25 21:56 97.4 114 20 160/117 94 97.4 Laboratory Tests Test 08/12/25 22:10 White Blood Count 8.2 10^3/uL (4.4-10.8) Medications Medications Dose Ordered Sig/Carl Route Start Time Stop Time Status Last Admin Dose Admin Amiodarone HCl 100 ml @ 600 mls/hr ONCE ONCE IV 08/12/25 23:00 08/12/25 23:09 DC 08/12/25 23:24 Amiodarone HCl 250 ml @ 33.33 mls/ hr Q7H31M ONCE IV 08/12/25 23:15 08/13/25 06:45 08/13/25 00:38 Aspirin 162 mg ONCE ONCE PO 08/12/25 23:00 08/12/25 23:01 DC 08/12/25 23:24 Departure 1 Departure Time of Disposition: 01:40 Impression: Primary Impression: Methamphetamine abuse Additional Impression: Acute coronary syndrome Disposition: ADMITTED INPATIENT Admit to: [facility] Condition: Guarded Discharged With: Self Critical Care Note Critical Care Time?: Yes (35 min-critical care time only) Stability Stability form required: No Heart Score Heart Score: Heart Score Response (Comments) Value History Moderate Suspicious 1 EKG Repolarization Disturb 1 Age 45-64 1 Risk Factors >3 or Hx ASHD 2 Troponin >3 x's Normal limit 2 Total 7 I personally scribed for OMAR FRANCO MD ([email or web address]) on 08/12/25 at 23:06. Electronically submitted by Anselmo Arzate ([email or web address]). OMAR FRANCO MD Aug 12, 2025 23:06
[2025-08-12 23:09] LABS: Alanine Aminotransferase 27.0 U/L (7-40); Albumin 3.9 g/dL (3.2-4.8); Magnesium 1.9 mg/dL (1.6-2.6); Total Protein 6.8 g/dL (5.7-8.2)
[2025-08-12 23:12] LABS: INR 1.34 (0.9-1.15); Partial Thromboplastin Time 29.4 SEC (24.5-34.5); Prothrombin Time 13.8 sec (9.3-11.8)
[2025-08-12 23:14] LABS: Alkaline Phosphatase 157.0 U/L (46-116); Bilirubin, Direct 1.0 mg/dL (<0.3); Bilirubin, Total 2.2 mg/dL (0.2-1.0)
[2025-08-12] MEDS: AMIODARONE BOLUS KIT 100 ML IV ONE (23:24)
[2025-08-13] VITALS (14 sets, daily range): BP systolic 103–164; BP diastolic 65–124; PULSE 57–98; RESP 16–19; TEMP 96.9–98.1; O2SAT 71–97
--- NOTE | 2025-08-13 01:21 | DVH ---
CHEST RADIOGRAPH Indication: chest pain Technique: Single frontal view of the chest was obtained COMPARISON: XY CHEST PORTABLE on DOS: 12/19/24, XY CHEST XRAY 1 VIEW on DOS: 12/14/24, XY CHEST XRAY 1 VIEW on DOS: 12/13/24, XY CHEST PORTABLE on DOS: 12/11/24, XY CHEST PORTABLE on DOS: 12/09/24 FINDINGS: Lungs and pleural spaces are clear. Cardiac silhouette and raad are within normal limits. Bones and soft tissues demonstrate no significant abnormality. IMPRESSION: No acute disease.
--- NOTE | 2025-08-13 01:21 | ECG ---
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
[2025-08-13] MEDS ORDERED: ALBUTEROL SULF 2.5 MG/0.5ML(0.5%) NEB SOLN NEB PRN (02:00)
[2025-08-13] MEDS ORDERED: IPRATROPIUM BROM 0.5 MG/2.5ML INH SOL NEB PRN (02:00)
[2025-08-13] MEDS ORDERED: DOCUSATE SOD 100 MG CAP PO PRN (02:00)
[2025-08-13] MEDS ORDERED: ONDANSETRON HCL 4 MG/2 ML VIAL IV PRN (02:00)
[2025-08-13] MEDS ORDERED: DEXTROSE (50%) 50ML SYRG IV PRN (02:00)
[2025-08-13] MEDS ORDERED: ACETAMINOPHEN 325 MG TAB PO PRN (02:00)
--- NOTE | 2025-08-13 02:07 | DVHHP2 ---
History of Present Illness Reason for Visit: Acute chest pain History of Present Illness The patient is a 49-year-old female with past medical history of CHF, AFib, asthma, diabetes mellitus, and hypertension who presented to [facility] ED with complaint of chest pain. Patient reports she has been experiencing intermittent episodes of left-sided chest pain, radiating to the left arm, associated with shortness of breaths for the past 3 days. Patient was seen and evaluated in the ED, laboratory data shows WBC 8.2, hemoglobin 16.3, hematocrit 49.3, platelets 235, sodium 144, potassium 5.4, BUN 14, creatinine 1.32, GFR 49, glucose 119, calcium 9.7, magnesium 1.9, total bilirubin 2.2, direct bilirubin 1.0, alkaline phos 157, TSH 3.83, T4 1.26, BNP 4460.74, troponin 1077, blood pressure 156/106, heart rate 144 trending down to 78, temperature 98.0 F, O2 saturation 94% on oxygen. Chest x-ray show no acute disease. Please see medication orders section in the computer. On my assessment, patient denied chest pain at this moment, no headache, dizziness, currently on oxygen, no diarrhea, nausea, vomiting, fever, no chills. Patient was admitted for further evaluation and medical management. Past Medical History AFIB, Asthma, CHF, DM, HTN Past Surgical History Denies all surgeries Family History Reviewed, noncontributory to the management of this case. Past Social History The patient lives at home, smokes cigarettes less than 1 pack per day, denies alcohol use, uses marijuana and methamphetamine. Review of Systems Constitutional: Yes: Weakness; No: Fever, Chills, Sweats, Malaise, Other Eyes: No: Pain, Vision change, Conjunctivae inflammation, Eyelid inflammation, Other, Redness ENT: No: Ear pain, Ear discharge, Nose pain, Nose discharge, Nose congestion, Mouth pain, Mouth swelling, Throat pain, Throat swelling, Other Respiratory: Shortness of breath; No: Cough, Dry, SOB with excertion, Wheezing, Hemoptysis, Pleuritic Pain, Sputum, Wheezing, Other Cardiovascular: Chest Pain, Other (Left arm pain); No: Palpitations, Orthopnea, Paroxysmal Noc. Dyspnea, Edema, Lt Headedness Gastrointestinal: No: Nausea, Vomiting, Abdominal Pain, Diarrhea, Constipation, Melena, Hematochezia, Other Genitourinary: No Dysuria, No Frequency, No Incontinence, No Hematuria, No Retention, No Other Musculoskeletal: arm pain (Left); No: other, neck pain, shoulder pain, back pain, hand pain, leg pain, foot pain Skin: No: Rash, Lesions, Jaundice, Bruising, Other Neurological: No: Weakness, Numbness, Incoordination, Change in speech, Confusion, Seizures, Other Allergies: Coded Allergies: Codeine (Verified Allergy, Unknown, 07/16/20) Morphine (Verified Allergy, Unknown, 07/16/20) Medications Current Medications Medications Dose Ordered Sig/Carl Route Start Time Stop Time Status Last Admin Dose Admin Amiodarone HCl 250 ml @ 16.66 mls/ hr Q15H1M IV 08/13/25 05:15 Amlodipine Besylate 10 mg DAILY PO 08/13/25 10:00 UNV Aspirin 81 mg DAILY PO 08/13/25 10:00 UNV Atorvastatin Calcium 10 mg HS PO 08/13/25 22:00 UNV Albuterol 2.5 mg Q4HPRN PRN NEB 08/13/25 02:00 UNV Ipratropium [place] 0.5 mg Q4HPRN PRN NEB 08/13/25 02:00 UNV Carvedilol 12.5 mg Q12HR PO 08/13/25 10:00 UNV Furosemide 40 mg DAILY IV 08/13/25 10:00 UNV Hydromorphone HCl 0.5 mg Q4HPRN PRN IV 08/13/25 02:00 UNV Diagnostic Test (Pha) 1 strip ACHS 08/13/25 07:00 UNV Insulin Human Regular ACHS SC 08/13/25 07:00 UNV Dextrose 50 ml UD PRN IV 08/13/25 02:00 UNV Sodium Chloride 10 ml Q8HR IV 08/13/25 06:00 UNV Ondansetron HCl 4 mg Q4HP PRN IV 08/13/25 02:00 UNV Docusate Sodium 100 mg BIDPRN PRN PO 08/13/25 02:00 UNV Acetaminophen 650 mg Q6HP PRN PO 08/13/25 02:00 UNV Exam Vital Signs Vital Signs Date Time Temp Pulse Resp B/P (MAP) Pulse Ox O2 Delivery O2 Flow Rate FiO2 08/13/25 01:17 78 08/12/25 22:24 98.0 19 156/107 (123) 94 98.0 08/12/25 22:24 Nasal Cannula* 3 32 General Appearance: Alert, Oriented X3, Cooperative, No acute distress HEENT: Atraumatic, PERRLA, EOMI, Mucous membr. moist/pink Respiratory: Normal air movement Cardiovascular: Normal S1, Normal S2, No murmurs, Other (Irregular rate and rhythm) Abdominal: Normal bowel sounds, Soft, No tenderness, No hepatospenomegaly, No masses Extremities: No clubbing, No cyanosis, No edema, Normal pulses, No tenderness/swelling Skin: No rashes, No significant lesion Neuro: Normal speech, Normal tone, Sensation intact, Cranial nerves 3-12 NL, Reflexes 2+, Other (Generalized weakness) Psych/Mental Status: Mental status NL, Mood NL Labs/Xrays Labs Test 08/13/25 00:57 08/12/25 22:10 Range/Units Troponin I High Sensitivity 1021 *H </=34 ng/L White Blood Count 8.2 4.4-10.8 10^3/uL Red Blood Count 5.26 H 4.0-5.20 10^6/uL Hemoglobin 16.3 H 12.2-16.2 g/dL Hematocrit 49.4 H 36.0-46.0 % Mean Corpuscular Volume 93.8 80.0-100.0 fL Mean Corpuscular Hemoglobin 31.0 28.0-32.0 pg Mean Corpuscular Hemoglobin Concent 33.1 32.0-36.0 g/dL Red Cell Distribution Width 16.3 H 11.8-14.3 % Platelet Count 235 140-450 10^3/uL Mean Platelet Volume 7.4 6.9-10.8 fL Neutrophils (%) (Auto) 67.6 37.0-80.0 % Lymphocytes (%) (Auto) 24.6 10.0-50.0 % Monocytes (%) (Auto) 6.4 0.0-12.0 % Eosinophils (%) (Auto) 0.3 0.0-7.0 % Basophils (%) (Auto) 1.1 0.0-2.0 % Neutrophils # (Auto) 5.5 1.6-8.6 10 ^3/uL Lymphocytes # (Auto) 2.0 0.4-5.4 10 ^3/uL Monocytes # (Auto) 0.5 0-1.3 10 ^3/uL Eosinophils # (Auto) 0 0-0.8 10 ^3/uL Basophils # (Auto) 0.1 0-0.2 10 ^3/uL Nucleated Red Blood Cells 0.2 % Prothrombin Time 13.8 H 9.3-11.8 sec Prothrombin Time INR 1.34 H 0.9-1.15 Activated Partial Thromboplast Time 29.4 24.5-34.5 SEC Sodium Level 144 136-145 mmol/L Potassium Level 5.4 H 3.5-5.1 mmol/L Chloride Level 107 98-107 mmol/L Carbon Dioxide Level 26 20-31 mmol/L Anion Gap 11 5-15 Blood Urea Nitrogen 14 9-23 mg/dL Creatinine 1.32 H 0.550-1.02 mg/dL Glomerular Filtration Rate Calc 49 >90 mL/min BUN/Creatinine Ratio 10.6 10.0-20.0 Serum Glucose 119 H 74-106 mg/dL Calcium Level 9.7 8.7-10.4 mg/dL Magnesium Level 1.9 1.6-2.6 mg/dL Total Bilirubin 2.2 H 0.2-1.0 mg/dL Direct Bilirubin 1.0 H <0.3 mg/dL Aspartate Amino Transferase (AST) 33 13-40 U/L Alanine Aminotransferase (ALT) 27 7-40 U/L Alkaline Phosphatase 157 H 46-116 U/L B-Type Natriuretic Peptide 4460.74 0-100 pg/mL Total Protein 6.8 5.7-8.2 g/dL Albumin 3.9 3.2-4.8 g/dL Thyroid Stimulating Hormone (TSH) 3.83 0.55-4.78 uIU/mL Free Thyroxine (T4) Calculated 1.26 0.89-1.76 ng/dL PATIENT: ZOFIA FUNEZ ACCT: [id number] UNIT: [id number] : 1975 LOC: ER ROOM / BED: / AGE / SEX: 49 / F ADM STATUS: REG ER SERVICE 00 ORDERING PHYSICIAN: ER PROCEDURE(s): CXRP - CHEST PORTABLE REASON: chest pain ORDER NUMBER(s): [id number], ACCESSION NUMBER(s): [id number] CHEST RADIOGRAPH Indication: chest pain Technique: Single frontal view of the chest was obtained COMPARISON: XY CHEST PORTABLE on DOS: 12/19/24, XY CHEST XRAY 1 VIEW on DOS: 12/14/24, XY CHEST XRAY 1 VIEW on DOS: 12/13/24, XY CHEST PORTABLE on DOS: 12/11/24, XY CHEST PORTABLE on DOS: 12/09/24 FINDINGS: Lungs and pleural spaces are clear. Cardiac silhouette and raad are within normal limits. Bones and soft tissues demonstrate no significant abnormality. IMPRESSION: No acute disease. SEPSIS Sepsis Screen Date sepsis recognized/suspect: Aug 12, 2025 Time Sepsis recognized/suspect: 2257 Recent Procedure: No On Antibiotic Therapy: No Respiratory Rate >20: No Heart Rate >90: No Temp<36 C (96.8 F) or >38.3 C: No SBP <90 or MAP <65 mmHG: No New Acute Mental Status Change: No Is the patient on CPAP, BIPAP,: No Physician Orders Chest Portable (08/12/25 22:01) Amiodarone 450mg/250ml Ae (Cordarone) (08/12/25 23:15) Amiodarone 450mg/250ml Ae (Cordarone) (08/13/25 05:15) Urinalysis (08/12/25 22:57) Drug Screen (08/12/25 22:57) * Cardiology Consult (08/13/25 01:54) Amlodipine Tablet (Norvasc Tablet) (08/13/25 10:00) Aspirin Chewable Tablet (08/13/25 10:00) Atorvastatin (Lipitor) (08/13/25 22:00) Albuterol Medneb (Ventolin Medneb) (08/13/25 02:00) Ipratropium Medneb (Atrovent Medneb) (08/13/25 02:00) Carvedilol Tablet (Coreg Tablet) (08/13/25 10:00) Consistent Carb(Ccho)Diabetes (08/13/25 Breakfast) Sodium Zirconium Cyclosilicate (Lokelma) (08/13/25 02:00) Furosemide Injection (Lasix Injection) (08/13/25 02:00) Furosemide Injection (Lasix Injection) (08/13/25 10:00) Hydromorphone Injection (Dilaudid Inject (08/13/25 02:00) Glucose Blood (Accu-Chek Comfort Curve T (08/13/25 07:00) Insulin R (Human) (Insulin R) (08/13/25 07:00) Dextrose 50% Syringe (08/13/25 02:00) Allergies (08/13/25 01:54) Code Status (08/13/25 01:54) Sodium Chloride Lock (Saline Lock Ns) (08/13/25 06:00) Oxygen Per Hour (08/13/25 01:54) Ondansetron Hcl (Zofran) (08/13/25 02:00) Docusate Sodium Capsule (Colace Capsule) (08/13/25 02:00) Fall Risk Precautions In Place QSHIFT (08/13/25 01:54) Complete Blood Count (08/14/25 04:00) Comprehensive Metabolic Panel (08/14/25 04:00) Echo 2d Mode Cardiac Dop (08/13/25 01:54) Condition: Serious (08/13/25 01:54) Acetaminophen Tablet (Tylenol Tablet) (08/13/25 02:00) Maintain Bed Rest (08/13/25 01:54) Sequential Compression Device (08/13/25 ) Vital Signs Date Time Temp Pulse Resp B/P (MAP) Pulse Ox O2 Delivery O2 Flow Rate FiO2 08/13/25 01:17 78 08/12/25 23:06 142 08/12/25 23:00 144 08/12/25 22:24 98.0 142 19 156/107 (123) 94 98.0 08/12/25 22:24 142 19 94 Nasal Cannula* 3 32 08/12/25 22:07 142 08/12/25 21:56 97.4 114 20 160/117 94 97.4 Laboratory Tests Test 08/12/25 22:10 White Blood Count 8.2 10^3/uL (4.4-10.8) Medications Medications Dose Ordered Sig/Carl Route Start Time Stop Time Status Last Admin Dose Admin Amiodarone HCl 100 ml @ 600 mls/hr ONCE ONCE IV 08/12/25 23:00 08/12/25 23:09 DC 08/12/25 23:24 600 MLS/HR Amiodarone HCl 250 ml @ 33.33 mls/ hr Q7H31M ONCE IV 08/12/25 23:15 08/13/25 06:45 08/13/25 00:38 33.33 MLS/HR Aspirin 162 mg ONCE ONCE PO 08/12/25 23:00 08/12/25 23:01 DC 08/12/25 23:24 162 MG Assessment/Plan Assessment/Plan Acute coronary syndrome Methamphetamine abuse Acute respiratory distress Generalized weakness Acute exacerbation of congestive heart failure Plan 1. Admit to telemetry unit 2. Breathing treatment 3. Pain control management 4. Management of fluids and electrolytes 5. Consultation for Cardiology 6. Diagnostic tests chest x-ray 7. DVT prophylaxis-heparin drip 8. Repeat labs CBC, CMP in a.m. 9. Continue with current medical management 10. Treatment plan discussed with patient and RN. Patient verbalized understanding. Plan discussed with: Patient, Other (RN) My Orders Orders - KEYSHA MATIAS DNP Procedure Category Date Status Time * Cardiology Consult CONS 08/13/25 Transmitted 01:54 Amlodipine Tablet PHA 08/13/25 Logged (Norvasc Tablet) 10:00 Aspirin Chewable PHA 08/13/25 Logged Tablet 10:00 Atorvastatin (Lipitor) PHA 08/13/25 Logged 22:00 Albuterol Medneb PHA 08/13/25 Logged (Ventolin Medneb) 02:00 Ipratropium Medneb PHA 08/13/25 Logged (Atrovent Medneb) 02:00 Carvedilol Tablet PHA 08/13/25 Logged (Coreg Tablet) 10:00 Consistent DIET 08/13/25 Transmitted Carb(Ccho)Diabetes Breakfast Sodium Zirconium PHA 08/13/25 Logged Cyclosilicate 02:00 Furosemide Injection PHA 08/13/25 Logged (Lasix Injection) 02:00 Furosemide Injection PHA 08/13/25 Logged (Lasix Injection) 10:00 Hydromorphone PHA 08/13/25 Logged Injection (Dilaudid 02:00 Glucose Blood PHA 08/13/25 Logged (Accu-Chek Comfort 07:00 Insulin R (Human) PHA 08/13/25 Logged (Insulin R) 07:00 Dextrose 50% Syringe PHA 08/13/25 Logged 02:00 Allergies LIDIA 08/13/25 In Process 01:54 Code Status CODE 08/13/25 Transmitted 01:54 Sodium Chloride Lock PHA 08/13/25 Logged (Saline Lock Ns) 06:00 Oxygen Per Hour RT 08/13/25 Transmitted 01:54 Ondansetron Hcl [facility] 08/13/25 Logged (Zofran) 02:00 Docusate Sodium PHA 08/13/25 Logged Capsule (Colace 02:00 Fall Risk Precautions LIDIA 08/13/[address] 01:54 Complete Blood Count LAB 08/14/25 Verified 04:00 Comprehensive LAB 08/14/25 Verified Metabolic Panel 04:00 Echo 2d Mode Cardiac US 08/13/25 Logged DOP 01:54 Condition: Serious LIDIA 08/13/25 In Process 01:54 Acetaminophen Tablet [facility] 08/13/25 Logged (Tylenol Tablet) 02:00 Maintain Bed Rest LIDIA 08/13/25 In Process 01:54 Sequential LIDIA 08/13/25 In Process Compression Device Problem List: (1) Acute coronary syndrome (2) Methamphetamine abuse (3) Acute respiratory distress (4) Generalized weakness (5) Acute exacerbation of congestive heart failure Date of Service: Aug 13, 2025 Billing Provider: KEYSHA MATIAS DNP Common Visit Codes: [id number] INP/OBS CARE (HIGH) KEYSHA MATIAS DNP Aug 13, 2025 02:07
[2025-08-13] MEDS ORDERED: NITROGLYCERIN 0.4 MG SL TAB SL PRN (02:15)
[2025-08-13] MEDS: SODIUM ZIRCONIUM CYCL 10 GM PAK PO ONE (02:40)
[2025-08-13] MEDS: FUROSEMIDE 40 MG/4 ML VIAL IV ONE (02:40)
[2025-08-13] MEDS: HEPARIN SODIUM (PORCINE) 5000 UNITS/ML 1ML VIAL IV ONE ×2 (02:54→03:13)
[2025-08-13] MEDS ORDERED: HEPARIN SODIUM (PORCINE) 5000 UNITS/ML 1ML VIAL IV ONE (03:00)
[2025-08-13] MEDS: HEPARIN DRIP/D5W 100UNITS/ML 250 ML IV SCH (03:21)
[2025-08-13] MEDS: SODIUM CHLOR 0.9% PF (SALINE LOCK) 10ML VIAL/SYR IV SCH (06:00)
[2025-08-13] MEDS: ACCU-CHEK COMFORT CURVE STRIP VI SCH (06:33)
[2025-08-13] MEDS: InsuLIN REG 1unit/0.01ml Soln (100units/ml) SC SCH (06:33)
[2025-08-13 07:02] LABS: Hematocrit 47.7 % (36.0-46.0); Hemoglobin 16.2 g/dL (12.2-16.2); Mean Corpuscular Hemoglobin 31.4 pg (28.0-32.0); Mean Corpuscular Volume 92.4 fL (80.0-100.0); Nucleated Red Blood Cells % 0.3 %
[2025-08-13 07:31] LABS: Alanine Aminotransferase 28 U/L (7-40); Anion Gap 13 (5-15); BUN/Creatinine Ratio 12.7 (10.0-20.0); Blood Urea Nitrogen 17 mg/dL (9-23); Calcium 9.3 mg/dL (8.7-10.4); Carbon Dioxide 24 mmol/L (20-31); Chloride 103 mmol/L (98-107); Potassium 3.8 mmol/L (3.5-5.1); Sodium 140 mmol/L (136-145); Total Protein 6.8 g/dL (5.7-8.2)
[2025-08-13 07:32] LABS: Albumin 4.0 g/dL (3.2-4.8)
[2025-08-13 07:37] LABS: Alkaline Phosphatase 158 U/L (46-116); Bilirubin, Total 3.1 mg/dL (0.2-1.0); Glucose 132 mg/dL (74-106)
[2025-08-13 07:38] LABS: Urine Protein, UAD Negative (Negative)
[2025-08-13 07:50] LABS: Amphetamine Screen, Urine Pos (NEGATIVE); Barbiturate Scree,Urine Neg (NEGATIVE); Benzodiazephine Screen, Urine Neg (NEGATIVE); Cannabinoid Screen, Urine Neg (NEGATIVE); Cocaine Screen, Urine Neg (NEGATIVE); Opiate Scree,Urine Neg (NEGATIVE); Phencyclidine Screen, Urine Neg (NEGATIVE)
[2025-08-13 08:31] LABS: Triglycerides 89 mg/dL (< 150)
[2025-08-13 08:33] LABS: Cholesterol 107 mg/dL (< 200)
[2025-08-13 08:35] LABS: HDL Cholesterol 39 mg/dL (40-59)
[2025-08-13] MEDS ORDERED: IPRATROPIUM BROM 0.5 MG/2.5ML INH SOL NEB SCH (09:00)
[2025-08-13] MEDS: CARVEDILOL 12.5 MG TAB PO SCH (09:25)
[2025-08-13] MEDS: FUROSEMIDE 40 MG/4 ML VIAL IV SCH (09:26)
[2025-08-13] MEDS: HYDROmorphone HCL 2 MG/ML VL/or syr IV PRN (09:27)
[2025-08-13] MEDS ORDERED: ALBUTEROL SULF 2.5 MG/0.5ML(0.5%) NEB SOLN NEB SCH (10:00)
[2025-08-13] MEDS ORDERED: FUROSEMIDE 40 MG/4 ML VIAL IV SCH (10:00)
[2025-08-13] MEDS: MAGNESIUM SULFATE 1GM/100ML 100 ML IV ONE (10:01)
[2025-08-13 10:12] LABS: INR 1.47 (0.9-1.15); Partial Thromboplastin Time 54.8 SEC (24.5-34.5); Prothrombin Time 15.0 sec (9.3-11.8)
[2025-08-13] MEDS: IPRATROPIUM BROM 0.5 MG/2.5ML INH SOL NEB SCH (11:34)
--- NOTE | 2025-08-13 11:35 | DVHINCON2 ---
[facility] 08/13/25 1135: Date Seen: Aug 13, 2025 Referring Physician MARYA Walker Reason for Consultation Elevated troponin History of Present Illness This is a 49-year-old female patient who presents to the emergency room with chief complaint of chest pain. The patient reports that the pain began three days prior to emergency room arrival. She describes it as unprovoked, intermittent, sharp in nature, initially located at her left ribcage with radiation towards her left chest all the way to her left neck and to the left side of her head. Associated symptoms include shortness of breath. She reports that she has also been experiencing a headache. She states that she is currently homeless and also admits to recent methamphetamine use three days ago. Initial twelve lead electrocardiogram reveals an unspecified atrial tachycardia (reviewed with seed district sales manager). At the time of assessment, the patient is now in a normal sinus rhythm on geothermal field technician. Initial troponin level of 1077ng/L. 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 Patient does not see a seed district sales manager in the outpatient setting. Of note, the patient was seen at this facility in November of this year and underwent sputum culture which came back positive for tuberculosis. During that visit, the patient left against medical advice and was unaware of her diagnosis. The patient is currently in isolation and being ruled out for active tuberculosis infection. Past Medical History Past medical history reviewed. No other significant than mentioned above. Past Surgical History Left lumpectomy x 3 Abortions x4 Family History: FH: breast cancer Hypertension G8 MOTHER G8 FATHER Family History Family history reviewed. Social History Patient has a 11 pack-year history, smokes two cigarettes per day now Patient admits to recent methamphetamine 3 days ago Denies any alcohol use Allergies: Coded Allergies: Codeine (Verified Allergy, Unknown, 07/16/20) Morphine (Verified Allergy, Unknown, 07/16/20) Home Meds Active Scripts Sildenafil Citrate (SILDENAFIL CITRATE) 20 Mg Tab, 20 MG OR TID for 30 Days, #90 TAB Prov:TAYE ALMONTE RESIDENT 09/12/24 Reported Medications Furosemide (Furosemide) 20 Mg Tab, 1 TAB PO DAILY for 90 Days, #90 12/08/24 Albuterol Sulfate (Albuterol Sulfate Hfa) 108 Mcg/Act Aer, 108 MCG IN UD for 28 Days, #18 09/10/24 Atorvastatin Calcium (Lipitor) 10 Mg Tab, 1 TAB PO DAILY for 90 Days, #90 09/10/24 Amlodipine Besylate (Amlodipine Besylate) 10 Mg Tab, 1 TAB PO DAILY for 90 Days, #90 09/10/24 Metformin Hydrochloride (Metformin Hcl) 500 Mg Tab, 1 TAB PO BID for 90 Days, # 180 09/10/24 Aspirin (Aspir-81) 81 Mg Tab, 1 TAB PO DAILY for 30 Days, #30 09/10/24 Metoprolol Tartrate (Lopressor) 50 Mg Tab, 1 TAB PO BID for 90 Days, #180 09/10/24 Lisinopril (Lisinopril) 20 Mg Tab, 1 TAB PO DAILY for 90 Days, #90 09/10/24 Home Meds Home medications reviewed. Current Medications Current Medications Medications (Trade) Dose Ordered Sig/Carl Route PRN Reason Start Time Stop Time Status Last Admin Amiodarone HCl 250 ml @ 16.66 mls/ hr Q15H1M IV 08/13/25 05:15 08/13/25 10:21 DC 08/13/25 05:25 Amlodipine Besylate (Norvasc Tablet) 10 mg DAILY PO 08/13/25 10:00 08/13/25 09:24 Aspirin 81 mg DAILY PO 08/13/25 10:00 08/13/25 09:25 Atorvastatin Calcium (Lipitor) 10 mg HS PO 08/13/25 22:00 08/13/25 08:05 DC Albuterol (Ventolin Medneb) 2.5 mg Q4HPRN PRN NEB SHORTNESS OF BREATH 08/13/25 02:00 08/13/25 08:09 DC Ipratropium [place] (Atrovent Medneb) 0.5 mg Q4HPRN PRN NEB SHORTNESS OF BREATH 08/13/25 02:00 08/13/25 08:09 DC Carvedilol (Coreg Tablet) 12.5 mg Q12HR PO 08/13/25 10:00 08/13/25 09:25 Furosemide (Lasix Injection) 40 mg DAILY IV 08/13/25 10:00 08/13/25 08:07 DC Hydromorphone HCl (Dilaudid Injection) 0.5 mg Q4HPRN PRN IV MODERATE PAIN (4-6 PAIN SCALE) 08/13/25 02:00 08/13/25 09:27 Diagnostic Test (Pha) (Accu-Chek Comfort Curve T) 1 strip ACHS 08/13/25 07:00 08/13/25 06:33 Insulin Human Regular (InsuLIN R) ACHS SC 08/13/25 07:00 08/13/25 06:33 Dextrose 50 ml UD PRN IV Blood Sugar LESS THAN 60 08/13/25 02:00 Sodium Chloride (Saline Lock Ns) 10 ml Q8HR IV 08/13/25 06:00 08/13/25 06:00 Ondansetron HCl (Zofran) 4 mg Q4HP PRN IV NAUSEA / VOMITING 08/13/25 02:00 Docusate Sodium (Colace Capsule) 100 mg BIDPRN PRN PO FOR CONSTIPATION 08/13/25 02:00 Acetaminophen (Tylenol Tablet) 650 mg Q6HP PRN PO PAIN SCALE 1-3 OR TEMP>100.4 08/13/25 02:00 Nitroglycerin (Ntrostat Sublingual) 0.4 mg Q5MINP PRN SL FOR CHEST PAIN 08/13/25 02:15 Heparin Sodium/ Dextrose 250 ml @ 9 mls/hr Q24H IV 08/13/25 03:00 08/13/25 10:21 DC 08/13/25 03:21 Atorvastatin Calcium (Lipitor) 40 mg HS PO 08/13/25 22:00 Furosemide (Lasix Injection) 40 mg BIDD IV 08/13/25 08:13 08/13/25 09:26 Albuterol (Ventolin Medneb) 2.5 mg Q4HPRN NEB 08/13/25 10:00 Hold Ipratropium [place] (Atrovent Medneb) 0.5 mg 6XD NEB 08/13/25 09:00 08/13/25 08:19 DC Ipratropium [place] (Atrovent Medneb) 0.5 mg Q6HR NEB 08/13/25 12:00 Amiodarone HCl (Cordarone Tablet) 200 mg DAILY PO 08/13/25 10:15 Enoxaparin Sodium (Lovenox) 75 mg Q12HR SC 08/13/25 11:12 Nifedipine (Procardia Xl (Time-Release)) 90 mg DAILY PO 08/13/25 11:15 UNV Review of Systems Constitutional: No symptom reported Ears, Nose, & Throat: No symptom reported Eyes: No symptom reported Neurological: No symptoms reported Pulmonary/Respiratory: Shortness of breath Cardiovascular: Chest pain Gastrointestinal: No symptom reported Genitourinary: No symptom reported Musculoskeletal: No symptom reported Skin: No symptom reported Psychiatric: No symptom reported Endocrine: No symptom reported Hematologic/Lymphatic: No symptom reported Vital Signs Vital Signs Date Time Temp Pulse Resp B/P (MAP) Pulse Ox O2 Delivery O2 Flow Rate FiO2 08/13/25 09:57 72 16 180/117 08/13/25 03:47 Nasal Cannula* 2 28 08/13/25 02:00 98.0 97 98.0 Physical Exam General Appearance: Cooperative. Unkempt Pulmonary/Respiratory: Clear, bilateral breaths sounds. Cardiovascular/Chest: Regular rate and rhythm. Peripheral Pulses: 2+ Radial (R). 2+ Radial (L). 2+ Pedal (R). 2+ Pedal (L) Abdominal Exam: Normal bowel sounds. Ankle Exam: Negative ankle edema Lower extremities: Negative lower extremity edema Neuro/Mental Status: A/OX4, coherent. Thoughts/Psych: Normal thought pattern. Appropriate mood and affect. Good judgment and insight. Appearance: No acute distress. Skin Exam: Normal inspection. Normal color. Warm and dry. Labs/Diagnostic Data Labs Test 08/13/25 09:25 08/13/25 06:38 08/13/25 06:22 08/13/25 06:12 Range/Units Prothrombin Time 15.0 H 9.3-11.8 sec Prothrombin Time INR 1.47 H 0.9-1.15 Activated Partial Thromboplast Time 54.8 H 24.5-34.5 SEC Urine Color Light-yellow Yellow Urine Clarity Clear Clear Urine pH 5.0 5.0-9.0 Urine Specific [place] 1.006 1.001-1.035 Urine Protein Negative Negative Urine Ketones Negative Negative Urine Blood Trace H Negative /uL Urine Nitrite Negative Negative Urine Bilirubin Negative Negative Urine Urobilinogen Normal Negative mg/dL Urine Leukocyte Esterase 2+ Negative /uL Urine RBC 1 0 - 4 /hpf Urine Microscopic WBC 4 0-5 /HPF Urine Squamous Epithelial Cells None seen <5 /hpf Urine Bacteria Few H None Seen /hpf Urine Glucose Normal Normal mg/dL Urine Opiates Screen Neg NEGATIVE Urine Fentanyl Screen Neg NEGATIVE Urine Barbiturates Screen Neg NEGATIVE Urine Phencyclidine Screen Neg NEGATIVE Urine Amphetamines Screen Pos NEGATIVE Urine Benzodiazepines Screen Neg NEGATIVE Urine Cocaine Screen Neg NEGATIVE Urine Cannabinoids Screen Neg NEGATIVE POC Glucose 140 H 70-106 mg/dl White Blood Count 7.3 4.4-10.8 10^3/uL Red Blood Count 5.16 4.0-5.20 10^6/uL Hemoglobin 16.2 12.2-16.2 g/dL Hematocrit 47.7 H 36.0-46.0 % Mean Corpuscular Volume 92.4 80.0-100.0 fL Mean Corpuscular Hemoglobin 31.4 28.0-32.0 pg Mean Corpuscular Hemoglobin Concent 34.0 32.0-36.0 g/dL Red Cell Distribution Width 15.8 H 11.8-14.3 % Platelet Count 235 140-450 10^3/uL Mean Platelet Volume 7.9 6.9-10.8 fL Neutrophils (%) (Auto) 66.7 37.0-80.0 % Lymphocytes (%) (Auto) 24.9 10.0-50.0 % Monocytes (%) (Auto) 7.4 0.0-12.0 % Eosinophils (%) (Auto) 0.1 0.0-7.0 % Basophils (%) (Auto) 0.9 0.0-2.0 % Neutrophils # (Auto) 4.9 1.6-8.6 10 ^3/uL Lymphocytes # (Auto) 1.8 0.4-5.4 10 ^3/uL Monocytes # (Auto) 0.5 0-1.3 10 ^3/uL Eosinophils # (Auto) 0 0-0.8 10 ^3/uL Basophils # (Auto) 0.1 0-0.2 10 ^3/uL Nucleated Red Blood Cells 0.3 % Sodium Level 140 136-145 mmol/L Potassium Level 3.8 3.5-5.1 mmol/L Chloride Level 103 98-107 mmol/L Carbon Dioxide Level 24 20-31 mmol/L Anion Gap 13 5-15 Blood Urea Nitrogen 17 9-23 mg/dL Creatinine 1.34 H 0.550-1.02 mg/dL Glomerular Filtration Rate Calc 48 >90 mL/min BUN/Creatinine Ratio 12.7 10.0-20.0 Serum Glucose 132 H 74-106 mg/dL Calcium Level 9.3 8.7-10.4 mg/dL Total Bilirubin 3.1 H 0.2-1.0 mg/dL Aspartate Amino Transferase (AST) 41 H 13-40 U/L Alanine Aminotransferase (ALT) 28 7-40 U/L Alkaline Phosphatase 158 H 46-116 U/L Troponin I High Sensitivity 979 *H </=34 ng/L Total Protein 6.8 5.7-8.2 g/dL Albumin 4.0 3.2-4.8 g/dL Triglycerides Level 89 < 150 mg/dL Cholesterol Level 107 < 200 mg/dL LDL Cholesterol 49 < 100 mg/dL HDL Cholesterol 39 L 40-59 mg/dL Test 08/13/25 02:15 08/12/25 22:10 Range/Units Vitamin D 25-Hydroxy 47.1 30.0-100 ng/mL Folic Acid 21.43 >5.38 ng/mL Magnesium Level 1.9 1.6-2.6 mg/dL Direct Bilirubin 1.0 H <0.3 mg/dL B-Type Natriuretic Peptide 4460.74 0-100 pg/mL Thyroid Stimulating Hormone (TSH) 3.83 0.55-4.78 uIU/mL Free Thyroxine (T4) Calculated 1.26 0.89-1.76 ng/dL Assessment NSTEMI Hypertensive urgency Severe RV failure Acute on chronic decompensated HFmrEF, NYHA class III Severe pulmonary hypertension, likely type 1 secondary to amphetamine abuse Severe tricuspid regurgitation Rule out tuberculosis [id number] diabetes mellitus Chronic kidney disease Medical non-adherence Methamphetamine/tobacco abuse Obesity Plan/Recommendation We will continue with the following plan/recommendations (): Case discussed and reviewed with . A transthoracic echocardiogram reveals an EF of 45%, RVSP 80 mmHg. Severe RV enlargement and failure noted. Continue preload and afterload reduction as tolerated. Consider restarting sildenafil and a pulmonary consultation. At this time, the patient is not an ideal candidate for any invasive cardiac procedures given possible active tuber culosis, methamphetamine use and medical noncompliance. Consider ischemic workup once patient is compliant and can abstain from polysubstance use. Proceed with conservative medical management. Continue with the aggressive blood pressure control and close cardiac surveillance. Thank you for allowing us to care for this patient. Please call with any questions or concerns. Critic al care time spent: 44 minutes This medical document was created using an electronic medical record system with voice recognition software and computerized dictation system. Although this document has been carefully reviewed, there might still be some phonetic and typographical errors. Occasional wrong-word or ``sound-alike substitutions may have occurred due to the inherent limitations of voice recognition software. These areas are purely typographical due to imperfections of the software programs and do not reflect any compromise in the patient's medical care. Please read the chart carefully and recognize, using context, where these substitutions have occurred. Plan discussed with: Patient NYHA Physical activity limitations: Class3(Marked) ordinary (activity causes symtoms) Date of Service: Aug 13, 2025 Billing Provider: [facility] Common Codes: [id number] INP/OBS CARE (High) Cardiology Consultation Codes: [id number] CONSULT <45MIN ROSHNI DAILEY MD 08/13/25 1424: Family History: FH: breast cancer Hypertension G8 MOTHER G8 FATHER Allergies: Coded Allergies: Codeine (Verified Allergy, Unknown, 07/16/20) Morphine (Verified Allergy, Unknown, 07/16/20) Home Meds Active Scripts Sildenafil Citrate (SILDENAFIL CITRATE) 20 Mg Tab, 20 MG OR TID for 30 Days, #90 TAB Prov:TAYE ALMONTE RESIDENT 09/12/24 Reported Medications Furosemide (Furosemide) 20 Mg Tab, 1 TAB PO DAILY for 90 Days, #90 12/08/24 Albuterol Sulfate (Albuterol Sulfate Hfa) 108 Mcg/Act Aer, 108 MCG IN UD for 28 Days, #18 09/10/24 Atorvastatin Calcium (Lipitor) 10 Mg Tab, 1 TAB PO DAILY for 90 Days, #90 09/10/24 Amlodipine Besylate (Amlodipine Besylate) 10 Mg Tab, 1 TAB PO DAILY for 90 Days, #90 09/10/24 Metformin Hydrochloride (Metformin Hcl) 500 Mg Tab, 1 TAB PO BID for 90 Days, # 180 09/10/24 Aspirin (Aspir-81) 81 Mg Tab, 1 TAB PO DAILY for 30 Days, #30 09/10/24 Metoprolol Tartrate (Lopressor) 50 Mg Tab, 1 TAB PO BID for 90 Days, #180 09/10/24 Lisinopril (Lisinopril) 20 Mg Tab, 1 TAB PO DAILY for 90 Days, #90 09/10/24 Plan/Recommendation agree with PERFORMANCE MANAGER assessment and plan pt not examiend 2/2 to possible TB pt has end stage RV failure, and pulm htn, non compliance nstemi could be 2/2 to rv failure, active meth pt had atrial tachycardia cannot rule out afib, on anticoag but is SR now her prognosis is very poor in general Plan discussed with: Patient, Other (rn) [facility] Aug 13, 2025 11:35 ROSHNI DAILEY MD Aug 13, 2025 14:24
[2025-08-13] MEDS: ALBUTEROL SULF 2.5 MG/0.5ML(0.5%) NEB SOLN NEB SCH (11:54)
[2025-08-13] MEDS: AMIODARONE HCL 200 MG TAB PO SCH (12:15)
[2025-08-13] MEDS: ENOXAPARIN SOD 80 MG/0.8ML SYRINGE SC SCH (12:16)
--- NOTE | 2025-08-13 13:25 | DVHPNRES ---
Progress Note Date Seen: Aug 13, 2025 Resident Creating Document: [facility] RESIDENT Has the PT tested + for MRSA If YES, has PT been informed?: No Medical Necessity Reason Pt with a Central, PICC or Fol: No Subjective Review of Systems A 49-year-old female with PMHx of hypertension, hyperlipidemia, methamphetamine abuse, severe pulmonary hypertension, asthma, and chronic heart failure who presents with acute on chronic chest pain, pleuritic on nature. Patient reports that she has had similar chest pain for a long time and was previously admitted in November for the same complaint. 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 Patient left AMA and never received treatment.During the November admission she was also evaluated for NSTEMI. On current presentation, patient arrived with chest pain, found in afib with RVR, and was started on heparin drip and amiodarone infusion. Serial troponins remained elevated without clear downtrend (1000 --> 900 --> 1000 --> 1100 --> 900). Cardiology was consulted; due to suspected active TB and positive drug screen (meth positive), cardiology recommended conservative management. A new transthoracic echocardiogram shows EF 45% with estimated PASP 80 mmHg, consistent with severe pulmonary hypertension. Infectious Disease (Dr. Tino Crockett) was consulted and we are planning on initiation of TB therapy. Pulmonology consulted for pulmonary hypertension management. CBC unremarkable. Chemistry notable for REBEL, creatinine 1.3 (baseline 0.9). Glucose normal, lipid panel normal. Patient was transitioned from heparin drip to therapeutic enoxaparin, amiodarone drip to amiodarone PO. Started on aspirin, carvedilol, and nifedipine 90 mg for blood pressure. Objective vital signs Vital Sign Date Time Temp Pulse Resp B/P (MAP) Pulse Ox O2 Delivery O2 Flow Rate FiO2 08/13/25 12:23 147/103 08/13/25 12:00 92 16 94 08/13/25 11:54 Room Air* 0 21 08/13/25 09:00 98.1 98.1 Total Intake and Output 08/12/25 08/12/25 08/13/25 15:00 23:00 07:00 Intake Total 566.66 ml Balance 566.66 ml medications Current Medications Medications Dose Ordered Sig/Carl Route Start Time Stop Time Status Last Admin Dose Admin Aspirin 81 mg DAILY PO 08/13/25 10:00 08/13/25 09:25 81 MG Carvedilol 12.5 mg Q12HR PO 08/13/25 10:00 08/13/25 09:25 12.5 MG Hydromorphone HCl 0.5 mg Q4HPRN PRN IV 08/13/25 02:00 08/13/25 09:27 0.5 MG Diagnostic Test (Pha) 1 strip ACHS 08/13/25 07:00 08/13/25 12:04 1 STRIP Insulin Human Regular ACHS SC 08/13/25 07:00 08/13/25 12:19 2 UNITS Dextrose 50 ml UD PRN IV 08/13/25 02:00 Sodium Chloride 10 ml Q8HR IV 08/13/25 06:00 08/13/25 06:00 10 ML Ondansetron HCl 4 mg Q4HP PRN IV 08/13/25 02:00 Docusate Sodium 100 mg BIDPRN PRN PO 08/13/25 02:00 Acetaminophen 650 mg Q6HP PRN PO 08/13/25 02:00 Nitroglycerin 0.4 mg Q5MINP PRN SL 08/13/25 02:15 Atorvastatin Calcium 40 mg HS PO 08/13/25 22:00 Furosemide 40 mg BIDD IV 08/13/25 08:13 08/13/25 09:26 40 MG Ipratropium [place] 0.5 mg Q6HR NEB 08/13/25 12:00 08/13/25 11:54 0.5 MG Amiodarone HCl 200 mg DAILY PO 08/13/25 10:15 08/13/25 12:15 200 MG Enoxaparin Sodium 75 mg Q12HR SC 08/13/25 11:12 08/13/25 12:16 75 MG Nifedipine 90 mg DAILY PO 08/13/25 11:15 08/13/25 12:23 90 MG Albuterol 2.5 mg Q6HR NEB 08/13/25 12:00 08/13/25 11:54 2.5 MG Examination General Appearance: Cooperative Pulmonary/Respiratory: Clear, bilateral breaths sounds. Cardiovascular/Chest: Regular rate and rhythm. Abdominal Exam: Normal bowel sounds. Ankle Exam: Negative ankle edema Lower extremities: Negative lower extremity edema Neuro/Mental Status: A/OX4, coherent. Thoughts/Psych: Normal thought pattern. Appropriate mood and affect. Good judgment and insight. Appearance: No acute distress. Skin Exam: Normal inspection. Normal color. Warm and dry. laboratory and microbiology Laboratory Tests 08/13/25 06:12 Test 08/13/25 06:12 Range/Units Serum Glucose 132 H 74-106 mg/dL Problem List/Assessment/Plan Problem List/Assessment/Plan 1.1. Acute Chest Pain 1.2. NSTEMI likely type 2 myocardial injury in the setting of severe pulmonary hypertension, tachyarrhythmia, and stimulant use Serial troponins elevated but fluctuating ([id number]). Cardiology recommends conservative management given active TB concern and methamphetamine use. Continue aspirin 2. Atrial fibrillation with RVR, resolved Initially treated with amiodarone drip, now rate controlled. Continue carvedilol and amiodarone - Therapeutic enoxaparin. 3. Newly Identified Active Tuberculosis (positive sputum January 18; untreated) Infectious Disease (Dr. Tino Crockett) consulted. Airborne isolation. Begin appropriate TB regimen per ID recommendations. Monitor LFTs at baseline and during treatment. 4. Severe Pulmonary Hypertension (PASP 80 mmHg) 4.1. Acute respiratory failure Pulmonology consulted. Consider further pulmonary vasodilator evaluation after stabilization. Supplemental O2 as needed; maintain sats >92%. 5. Acute on Chronic Heart Failure with reduced EF (45%) Continue guideline-directed therapy as tolerated Daily weights, I&O, strict fluid monitoring. Evaluate for volume status 6. Acute Kidney Injury (Cr 1.3; baseline 0.9) due to VMN Likely multifactorial: hypoperfusion, tachyarrhythmia, possible drug effects. Avoid nephrotoxic agents. Monitor renal function daily. 7. Hypertension / Hyperlipidemia Continue nifedipine 90 mg, carvedilol, statin as tolerated. Monitor BP closely. 8. Methamphetamine Abuse Counseled on strict cessation. Case discussed with Dr Hernandez Plan discussed with: Patient, Other (rn) My Orders My Orders Orders - [facility] Procedure Category Date Status Time * Infectious [place]- Dr. VENEGAS 08/13/25 Transmitted Philip Crockett 08:20 Quantiferon-Tb Gold LAB 08/13/25 In Process 08:20 Mtb Complex Pcr TRISTIN 08/14/25 Uncollected 05:00 Mtb Complex Pcr TRISTIN 08/15/25 Uncollected 05:00 Afb Cult/Smear Broth TRISTIN 08/14/25 Uncollected Suscep 05:00 Afb Cult/Smear Broth TRISTIN 08/15/25 Uncollected Suscep 05:00 Afb Cult/Smear Broth TRISTIN 08/16/25 Uncollected Suscep 05:00 Specimen Af[employer] PATHOLOGY 08/13/25 Transmitted 08:20 Covid19 Antigen [facility] 08/13/25 Logged Amiodarone Tablet PHA 08/13/25 In Process (Cordarone Tablet) 10:15 Enoxaparin Sodium PHA 08/13/25 In Process (Lovenox) 11:12 Nifedipine Er PHA 08/13/25 In Process (Procardia Xl 11:15 *Consult CONS 08/13/25 Transmitted 12:05 Date of Service: Aug 13, 2025 Billing Provider: ANA HERNANDEZ MD Common Visit Codes: [id number] INP/OBS CARE(HIGH) [facility] RESIDENT Aug 13, 2025 13:25 ANA HERNANDEZ MD Aug 17, 2025 20:27
--- NOTE | 2025-08-13 13:54 | DVHSR ---
APPROVED REPORT EXAM: Two-dimensional and M-mode echocardiogram with Doppler and color Doppler. Blood Pressure: 159/116 mmHg INDICATION CHF Exacerbation RISK FACTORS Height: 5' 3", Weight: 165 DIMENSIONS LVDd 3.2 (3.8-5.7cm) LA (2D) 3.0 (1.9-4.0cm) Aortic Root 3.6 (2.0-3.7cm) LVDs 2.6 (2.5-4.0cm) LA (MM) (1.9-4.0cm) Aortic Cusp Exc 1.6 (1.5-2.0cm) EF (%) 40.0 (55-70%) Rt. Atrium 7.3 (1.9-4.0cm) Asc. Aorta cm IVSd 1.2 (0.7-1.1cm) RV (D) (1.8-2.4cm) PWd 1.5 (0.7-1.1cm) Mitral Valve Mitral Mitral Stenosis E wave 0.40m/s MV Mean GR. mmHg A wave 0.50m/s MV Peak GR. mmHg E/A ratio 0.8 2D MVA cm2 Aortic Valve Aortic Valve Aortic Stenosis LVOT Diameter 2.1 (1.8-2.4cm) Doppler ETHAN cm2 Pulmonic Valve V2 0.32m/s Tricuspid Valve TR Velocity 4.00m/s RVSP 80mmHg Conclusion lvef 45% flattened IV septum c/w RV failure severe RV enlargement and faiilure right atrium enlarged severe tricuspid regurg severe pulm htn
--- NOTE | 2025-08-13 15:53 | DVHINCON2 ---
Date of service: Aug 13, 2025 Referring Physician ROCHELLE VITAL RESIDENT History of Present Illness Home Meds Active Scripts Sildenafil Citrate (SILDENAFIL CITRATE) 20 Mg Tab, 20 MG OR TID for 30 Days, #90 TAB Prov:TAYE ALMONTE RESIDENT 09/12/24 Reported Medications Furosemide (Furosemide) 20 Mg Tab, 1 TAB PO DAILY for 90 Days, #90 12/08/24 Albuterol Sulfate (Albuterol Sulfate Hfa) 108 Mcg/Act Aer, 108 MCG IN UD for 28 Days, #18 09/10/24 Atorvastatin Calcium (Lipitor) 10 Mg Tab, 1 TAB PO DAILY for 90 Days, #90 09/10/24 Amlodipine Besylate (Amlodipine Besylate) 10 Mg Tab, 1 TAB PO DAILY for 90 Days, #90 09/10/24 Metformin Hydrochloride (Metformin Hcl) 500 Mg Tab, 1 TAB PO BID for 90 Days, #180 09/10/24 Aspirin (Aspir-81) 81 Mg Tab, 1 TAB PO DAILY for 30 Days, #30 09/10/24 Metoprolol Tartrate (Lopressor) 50 Mg Tab, 1 TAB PO BID for 90 Days, #180 09/10/24 Lisinopril (Lisinopril) 20 Mg Tab, 1 TAB PO DAILY for 90 Days, #90 09/10/24 Past Medical History Patient Family History: FH: breast cancer Hypertension G8 MOTHER G8 FATHER H&P Exam Vital Signs Vital Signs Date Time Temp Pulse Resp B/P (MAP) Pulse Ox O2 Delivery O2 Flow Rate FiO2 08/13/25 13:00 96.9 62 16 120/84 (96) 91 96.9 08/13/25 11:54 Room Air* 0 21 Labs/Xrays Labs Test 08/13/25 12:43 08/13/25 11:56 08/13/25 09:25 08/13/25 06:38 Range/Units POC Glucose 155 H 70-106 mg/dl Prothrombin Time 15.0 H 9.3-11.8 sec Prothrombin Time INR 1.47 H 0.9-1.15 Activated Partial Thromboplast Time 54.8 H 24.5-34.5 SEC Urine Color Light-yellow Yellow Urine Clarity Clear Clear Urine pH 5.0 5.0-9.0 Urine Specific [place] 1.006 1.001-1.035 Urine Protein Negative Negative Urine Ketones Negative Negative Urine Blood Trace H Negative /uL Urine Nitrite Negative Negative Urine Bilirubin Negative Negative Urine Urobilinogen Normal Negative mg/dL Urine Leukocyte Esterase 2+ Negative /uL Urine RBC 1 0 - 4 /hpf Urine Microscopic WBC 4 0-5 /HPF Urine Squamous Epithelial Cells None seen <5 /hpf Urine Bacteria Few H None Seen /hpf Urine Glucose Normal Normal mg/dL Urine Opiates Screen Neg NEGATIVE Urine Fentanyl Screen Neg NEGATIVE Urine Barbiturates Screen Neg NEGATIVE Urine Phencyclidine Screen Neg NEGATIVE Urine Amphetamines Screen Pos NEGATIVE Urine Benzodiazepines Screen Neg NEGATIVE Urine Cocaine Screen Neg NEGATIVE Urine Cannabinoids Screen Neg NEGATIVE Test 08/13/25 06:12 08/13/25 02:15 08/12/25 22:10 Range/Units White Blood Count 7.3 4.4-10.8 10^3/uL Red Blood Count 5.16 4.0-5.20 10^6/uL Hemoglobin 16.2 12.2-16.2 g/dL Hematocrit 47.7 H 36.0-46.0 % Mean Corpuscular Volume 92.4 80.0-100.0 fL Mean Corpuscular Hemoglobin 31.4 28.0-32.0 pg Mean Corpuscular Hemoglobin Concent 34.0 32.0-36.0 g/dL Red Cell Distribution Width 15.8 H 11.8-14.3 % Platelet Count 235 140-450 10^3/uL Mean Platelet Volume 7.9 6.9-10.8 fL Neutrophils (%) (Auto) 66.7 37.0-80.0 % Lymphocytes (%) (Auto) 24.9 10.0-50.0 % Monocytes (%) (Auto) 7.4 0.0-12.0 % Eosinophils (%) (Auto) 0.1 0.0-7.0 % Basophils (%) (Auto) 0.9 0.0-2.0 % Neutrophils # (Auto) 4.9 1.6-8.6 10 ^3/uL Lymphocytes # (Auto) 1.8 0.4-5.4 10 ^3/uL Monocytes # (Auto) 0.5 0-1.3 10 ^3/uL Eosinophils # (Auto) 0 0-0.8 10 ^3/uL Basophils # (Auto) 0.1 0-0.2 10 ^3/uL Nucleated Red Blood Cells 0.3 % Sodium Level 140 136-145 mmol/L Potassium Level 3.8 3.5-5.1 mmol/L Chloride Level 103 98-107 mmol/L Carbon Dioxide Level 24 20-31 mmol/L Anion Gap 13 5-15 Blood Urea Nitrogen 17 9-23 mg/dL Creatinine 1.34 H 0.550-1.02 mg/dL Glomerular Filtration Rate Calc 48 >90 mL/min BUN/Creatinine Ratio 12.7 10.0-20.0 Serum Glucose 132 H 74-106 mg/dL Calcium Level 9.3 8.7-10.4 mg/dL Total Bilirubin 3.1 H 0.2-1.0 mg/dL Aspartate Amino Transferase (AST) 41 H 13-40 U/L Alanine Aminotransferase (ALT) 28 7-40 U/L Alkaline Phosphatase 158 H 46-116 U/L Troponin I High Sensitivity 979 *H </=34 ng/L Total Protein 6.8 5.7-8.2 g/dL Albumin 4.0 3.2-4.8 g/dL Triglycerides Level 89 < 150 mg/dL Cholesterol Level 107 < 200 mg/dL LDL Cholesterol 49 < 100 mg/dL HDL Cholesterol 39 L 40-59 mg/dL Vitamin D 25-Hydroxy 47.1 30.0-100 ng/mL Folic Acid 21.43 >5.38 ng/mL Magnesium Level 1.9 1.6-2.6 mg/dL Direct Bilirubin 1.0 H <0.3 mg/dL B-Type Natriuretic Peptide 4460.74 0-100 pg/mL Thyroid Stimulating Hormone (TSH) 3.83 0.55-4.78 uIU/mL Free Thyroxine (T4) Calculated 1.26 0.89-1.76 ng/dL ERIKA PALMER MD Aug 13, 2025 15:53
[2025-08-13] MEDS ORDERED: ATORVASTATIN 20 MG TAB PO SCH (22:00)
[2025-08-13] MEDS: SILDENAFIL CITRATE 20 MG TAB PO SCH (23:07)
[2025-08-13] MEDS: ATORVASTATIN 20 MG TAB PO SCH (23:07)
--- NOTE | 2025-08-13 23:57 | DVHINCON2 ---
Date of service: Aug 13, 2025 Family History: FH: breast cancer Hypertension G8 MOTHER G8 FATHER Allergies: Coded Allergies: Codeine (Verified Allergy, Unknown, 07/16/20) Morphine (Verified Allergy, Unknown, 07/16/20) Home Meds Active Scripts Sildenafil Citrate (SILDENAFIL CITRATE) 20 Mg Tab, 20 MG OR TID for 30 Days, #90 TAB Prov:TAYE ALMONTE RESIDENT 09/12/24 Reported Medications Furosemide (Furosemide) 20 Mg Tab, 1 TAB PO DAILY for 90 Days, #90 12/08/24 Albuterol Sulfate (Albuterol Sulfate Hfa) 108 Mcg/Act Aer, 108 MCG IN UD for 28 Days, #18 09/10/24 Atorvastatin Calcium (Lipitor) 10 Mg Tab, 1 TAB PO DAILY for 90 Days, #90 09/10/24 Amlodipine Besylate (Amlodipine Besylate) 10 Mg Tab, 1 TAB PO DAILY for 90 Days, #90 09/10/24 Metformin Hydrochloride (Metformin Hcl) 500 Mg Tab, 1 TAB PO BID for 90 Days, #180 09/10/24 Aspirin (Aspir-81) 81 Mg Tab, 1 TAB PO DAILY for 30 Days, #30 09/10/24 Metoprolol Tartrate (Lopressor) 50 Mg Tab, 1 TAB PO BID for 90 Days, #180 09/10/24 Lisinopril (Lisinopril) 20 Mg Tab, 1 TAB PO DAILY for 90 Days, #90 09/10/24 Current Medications Current Medications Medications (Trade) Dose Ordered Sig/Carl Route PRN Reason Start Time Stop Time Status Last Admin Amiodarone HCl 250 ml @ 16.66 mls/ hr Q15H1M IV 08/13/25 05:15 08/13/25 10:21 DC 08/13/25 05:25 Amlodipine Besylate (Norvasc Tablet) 10 mg DAILY PO 08/13/25 10:00 08/13/25 11:24 DC 08/13/25 09:24 Aspirin 81 mg DAILY PO 08/13/25 10:00 08/13/25 09:25 Atorvastatin Calcium (Lipitor) 10 mg HS PO 08/13/25 22:00 08/13/25 08:05 DC Albuterol (Ventolin Medneb) 2.5 mg Q4HPRN PRN NEB SHORTNESS OF BREATH 08/13/25 02:00 08/13/25 08:09 DC Ipratropium [place] (Atrovent Medneb) 0.5 mg Q4HPRN PRN NEB SHORTNESS OF BREATH 08/13/25 02:00 08/13/25 08:09 DC Carvedilol (Coreg Tablet) 12.5 mg Q12HR PO 08/13/25 10:00 08/13/25 23:10 Furosemide (Lasix Injection) 40 mg DAILY IV 08/13/25 10:00 08/13/25 08:07 DC Hydromorphone HCl (Dilaudid Injection) 0.5 mg Q4HPRN PRN IV MODERATE PAIN (4-6 PAIN SCALE) 08/13/25 02:00 08/13/25 17:20 Diagnostic Test (Pha) (Accu-Chek Comfort Curve T) 1 strip ACHS 08/13/25 07:00 08/13/25 22:00 Insulin Human Regular (InsuLIN R) ACHS SC 08/13/25 07:00 08/13/25 23:05 Dextrose 50 ml UD PRN IV Blood Sugar LESS THAN 60 08/13/25 02:00 Sodium Chloride (Saline Lock Ns) 10 ml Q8HR IV 08/13/25 06:00 08/13/25 22:00 Ondansetron HCl (Zofran) 4 mg Q4HP PRN IV NAUSEA / VOMITING 08/13/25 02:00 Docusate Sodium (Colace Capsule) 100 mg BIDPRN PRN PO FOR CONSTIPATION 08/13/25 02:00 Acetaminophen (Tylenol Tablet) 650 mg Q6HP PRN PO PAIN SCALE 1-3 OR TEMP>100.4 08/13/25 02:00 Nitroglycerin (Ntrostat Sublingual) 0.4 mg Q5MINP PRN SL FOR CHEST PAIN 08/13/25 02:15 Heparin Sodium/ Dextrose 250 ml @ 9 mls/hr Q24H IV 08/13/25 03:00 08/13/25 10:21 DC 08/13/25 03:21 Atorvastatin Calcium (Lipitor) 40 mg HS PO 08/13/25 22:00 08/13/25 23:07 Furosemide (Lasix Injection) 40 mg BIDD IV 08/13/25 08:13 08/13/25 17:11 Albuterol (Ventolin Medneb) 2.5 mg Q4HPRN NEB 08/13/25 10:00 08/13/25 11:38 DC Ipratropium [place] (Atrovent Medneb) 0.5 mg 6XD NEB 08/13/25 09:00 08/13/25 08:19 DC Ipratropium [place] (Atrovent Medneb) 0.5 mg Q6HR NEB 08/13/25 12:00 08/13/25 23:17 Amiodarone HCl (Cordarone Tablet) 200 mg DAILY PO 08/13/25 10:15 08/13/25 12:15 Enoxaparin Sodium (Lovenox) 75 mg Q12HR SC 08/13/25 11:12 08/13/25 23:08 Nifedipine (Procardia Xl (Time-Release)) 90 mg DAILY PO 08/13/25 11:15 08/13/25 12:23 Albuterol (Ventolin Medneb) 2.5 mg Q6HR [facility] 08/13/25 12:00 08/13/25 23:17 Sildenafil Citrate (Revatio) 20 mg TID@08,14,20 PO 08/13/25 22:45 08/13/25 23:07 Vital Signs Vital Signs Date Time Temp Pulse Resp B/P (MAP) Pulse Ox O2 Delivery O2 Flow Rate FiO2 08/13/25 23:31 57 18 95 08/13/25 23:30 Non-Rebreather 15 N/A 08/13/25 23:10 121/73 08/13/25 21:00 98.0 98.0 Labs/Diagnostic Data Labs Test 08/13/25 22:53 08/13/25 12:43 08/13/25 09:25 08/13/25 06:38 Range/Units POC Glucose 144 H 70-106 mg/dl Prothrombin Time 15.0 H 9.3-11.8 sec Prothrombin Time INR 1.47 H 0.9-1.15 Activated Partial Thromboplast Time 54.8 H 24.5-34.5 SEC Urine Color Light-yellow Yellow Urine Clarity Clear Clear Urine pH 5.0 5.0-9.0 Urine Specific [place] 1.006 1.001-1.035 Urine Protein Negative Negative Urine Ketones Negative Negative Urine Blood Trace H Negative /uL Urine Nitrite Negative Negative Urine Bilirubin Negative Negative Urine Urobilinogen Normal Negative mg/dL Urine Leukocyte Esterase 2+ Negative /uL Urine RBC 1 0 - 4 /hpf Urine Microscopic WBC 4 0-5 /HPF Urine Squamous Epithelial Cells None seen <5 /hpf Urine Bacteria Few H None Seen /hpf Urine Glucose Normal Normal mg/dL Urine Opiates Screen Neg NEGATIVE Urine Fentanyl Screen Neg NEGATIVE Urine Barbiturates Screen Neg NEGATIVE Urine Phencyclidine Screen Neg NEGATIVE Urine Amphetamines Screen Pos NEGATIVE Urine Benzodiazepines Screen Neg NEGATIVE Urine Cocaine Screen Neg NEGATIVE Urine Cannabinoids Screen Neg NEGATIVE Test 08/13/25 06:12 08/13/25 02:15 08/12/25 22:10 Range/Units White Blood Count 7.3 4.4-10.8 10^3/uL Red Blood Count 5.16 4.0-5.20 10^6/uL Hemoglobin 16.2 12.2-16.2 g/dL Hematocrit 47.7 H 36.0-46.0 % Mean Corpuscular Volume 92.4 80.0-100.0 fL Mean Corpuscular Hemoglobin 31.4 28.0-32.0 pg Mean Corpuscular Hemoglobin Concent 34.0 32.0-36.0 g/dL Red Cell Distribution Width 15.8 H 11.8-14.3 % Platelet Count 235 140-450 10^3/uL Mean Platelet Volume 7.9 6.9-10.8 fL Neutrophils (%) (Auto) 66.7 37.0-80.0 % Lymphocytes (%) (Auto) 24.9 10.0-50.0 % Monocytes (%) (Auto) 7.4 0.0-12.0 % Eosinophils (%) (Auto) 0.1 0.0-7.0 % Basophils (%) (Auto) 0.9 0.0-2.0 % Neutrophils # (Auto) 4.9 1.6-8.6 10 ^3/uL Lymphocytes # (Auto) 1.8 0.4-5.4 10 ^3/uL Monocytes # (Auto) 0.5 0-1.3 10 ^3/uL Eosinophils # (Auto) 0 0-0.8 10 ^3/uL Basophils # (Auto) 0.1 0-0.2 10 ^3/uL Nucleated Red Blood Cells 0.3 % Sodium Level 140 136-145 mmol/L Potassium Level 3.8 3.5-5.1 mmol/L Chloride Level 103 98-107 mmol/L Carbon Dioxide Level 24 20-31 mmol/L Anion Gap 13 5-15 Blood Urea Nitrogen 17 9-23 mg/dL Creatinine 1.34 H 0.550-1.02 mg/dL Glomerular Filtration Rate Calc 48 >90 mL/min BUN/Creatinine Ratio 12.7 10.0-20.0 Serum Glucose 132 H 74-106 mg/dL Calcium Level 9.3 8.7-10.4 mg/dL Total Bilirubin 3.1 H 0.2-1.0 mg/dL Aspartate Amino Transferase (AST) 41 H 13-40 U/L Alanine Aminotransferase (ALT) 28 7-40 U/L Alkaline Phosphatase 158 H 46-116 U/L Troponin I High Sensitivity 979 *H </=34 ng/L Total Protein 6.8 5.7-8.2 g/dL Albumin 4.0 3.2-4.8 g/dL Triglycerides Level 89 < 150 mg/dL Cholesterol Level 107 < 200 mg/dL LDL Cholesterol 49 < 100 mg/dL HDL Cholesterol 39 L 40-59 mg/dL Vitamin D 25-Hydroxy 47.1 30.0-100 ng/mL Folic Acid 21.43 >5.38 ng/mL Magnesium Level 1.9 1.6-2.6 mg/dL Direct Bilirubin 1.0 H <0.3 mg/dL B-Type Natriuretic Peptide 4460.74 0-100 pg/mL Thyroid Stimulating Hormone (TSH) 3.83 0.55-4.78 uIU/mL Free Thyroxine (T4) Calculated 1.26 0.89-1.76 ng/dL Problems(with codes): (1) Mycobacterium avium-intracellulare infection (2) Acute exacerbation of congestive heart failure (3) Methamphetamine abuse (4) CHF exacerbation (5) Atypical pneumonia (6) NSTEMI (non-ST elevated myocardial infarction) (7) Acute chest pain Plan/Recommendation ASSESSMENT AND PLAN: ID Problem List: - mycobacterium avium complex pneumonia - Hypertension - Hyperlipidemia - Pulmonary hypertension - Asthma - Congestive heart failure - Right pleural effusion - Right lower lobe pneumonia - Possible atypical pneumonia - Cirrhosis - IV drug use (methamphetamine) - Tobacco use disorder - Alcohol use disorder - Homelessness - Elevated troponin (NSTEMI) - Hypoxia - Fever - Leukopenia - Thrombocytopenia - Otitis media (right ear) Assessment This is a 49 y.o. female with a past medical history of hypertension, hyperlipidemia, pulmonary hypertension, asthma, and congestive heart failure, who presents with chest pain rated 10/10, radiating to the right shoulder and head, burning and constant in nature. She is a current smoker (<1 pack/day), with occasional methamphetamine and alcohol use. Patient is homeless. Denies history of myocardial infarction or stroke. Reports headache and right ear pain. Physical exam notable for erythematous right tympanic membrane. Imaging reveals moderate right-sided pleural effusion, right lower lobe airspace consolidation, and left upper lobe tree-in-bud nodularity suggestive of atypical infection or bronchiolitis. Cirrhotic morphology of the liver noted. Laboratory findings include elevated troponin at 1.482, leukopenia (WBC decreased from 6.5 to 3.8), thrombocytopenia (platelets decreased from 179 to 88, now 133), and anemia (hemoglobin decreased from 17 to 16.1). Pleural fluid analysis shows WBC 1,378 (mostly mononuclear), glucose 133, total protein 3.1, LDH 261. Pleural cultures are no growth to date. She remains hypoxic requiring 30-40 L high-flow nasal cannula, has been febrile up to 101F since admission. Initially received ceftriaxone, azithromycin, and doxycycline; transitioned to meropenem when oxygenation worsened. hypoxia improved and patient left AMA 5 days into hospitalization NOW patient returns with intermittent episodes of left-sided chest pain, radiating to the left arm, associated with shortness of breaths for the past 3 days results form last hospitalization: negative serology for HIV, quantiferon gold, cocci positive AFB culture for mycobacterium avium positive at 3 weeks pleural fluid cytology: reactive mesothelial cells, histiocytes, and inflammator y cells, no malignant cells plueral fluid culture: negative CXR with no acute disease currently ekg qtc 458 Plan: - beta HCG preg screen, HIV screen - recommend chest CT to assess pneumonia and plueral effusion status - can start amikacin, rifampin, azithromycin, and ethambutol. if patient tolerates oral therapy without issue can stop IV amikacin in 24-48 hrs - will need 1 yr of antibiotics and close monitoring of therapy response, recommend outpatient ID fu in 2-4 weeks - Defer to Cardiology/primary team for management of NSTEMI in setting of hx of congestive heart failure and pulmonary hypertension. - Monitor oxygenation status; adjust respiratory support as needed. - Pain management for chest and right shoulder pain. - smoking cessation management per primary team; substance abuse counseling recommended Isolation Precautions: Standard Assessment and plan were discussed with the patient as written above. Plan is subject to change pending incorporation of new incoming information/diagnostics. Updates may be added as addendum at the bottom (OR TOP) of this note. Thank you for interesting consult. ID will continue to follow. Please contact Infectious Disease for any questions or concerns. Dahlia Andersen M.D. [facility] Ph: ? History: The patient's chart and medications were reviewed in detail, and the patient was seen and examined. History obtained from: patient Miss Charley Guy is a 49 y.o. female with a past medical history of hypertension, hyperlipidemia, pulmonary hypertension, asthma, and congestive heart failure, who presents with chest pain rated 10/10, radiating to the right shoulder and head, burning and constant. She also reports headache and right ear pain. Denies history of myocardial infarction or stroke. She is a current smoker (less than one pack per day), with occasional methamphetamine and alcohol use. Patient is homeless. Review of Systems: A complete 10-system review of systems was completed and negative except as noted in the HPI or here. ROS: - CONSTITUTIONAL: Reports headache. Denies weight loss, fever, and chills. - HEENT: Reports ear pain. Right tympanic membrane erythematous. - RESPIRATORY: Reports chest pain. Denies cough and shortness of breath. - CV: Reports chest pain radiating to right shoulder and head. Denies palpitations. - GI: Denies abdominal pain, nausea, vomiting, and diarrhea. - : Denies dysuria and urinary frequency. - MSK: Reports right shoulder pain. Denies myalgia and joint pain. - SKIN: Denies rash and pruritus. - NEUROLOGICAL: Reports headache. Denies syncope. - PSYCHIATRIC: Denies recent changes in mood. Denies anxiety and depression. Past Medical History: Diagnosis Hypertension Hyperlipidemia Pulmonary hypertension Asthma Congestive heart failure Past Surgical History: Breast surgery section Home Medications: Patient reports not taking any medications at home. Allergies: Codeine Morphine Family History: No pertinent family history provided. Social History: Socioeconomic History Marital status: Not specified Number of children: Not specified Years of education: Not specified Occupational history: Not specified Tobacco Use Smoking status: Current smoker (<1 pack/day) Substance Use Methamphetamine: Occasional use Alcohol: Occasional use Living Situation Homeless Social Determinants of Health Financial Resource Strain: Not assessed Food Insecurity: Not assessed Transportation Needs: Not assessed Physical Activity: Not assessed Stress: Not assessed Social Connections: Not assessed Intimate Partner Violence: Not assessed Objective: Vital Signs on Arrival: Temp: 98.2 F?BP: 161/100?Pulse: 109?Resp: 20?SpO2: 93% Most Recent Vital Signs: Temp: Up to 101 F?BP: [Recent BP]?Pulse: [Recent HR]?Resp: [Recent RR]?SpO2: [On 30-40 L high-flow nasal cannula] Admission Weight: [Weight if available]?BMI: [BMI if available] Physical Exam: General: NAD Neck: Supple. No masses. HEENT: PERRL. Normal lids and conjunctiva. Moist mucous membranes. Oropharynx without lesions, exudates, or excessive erythema. Right tympanic membrane erythematous. Normal appearance of the external aspects of the nose and ears. Heart: Regular rhythm, normal rate. No murmur. No lower extremity edema. Lungs: Normal respiratory effort. Clear to auscultation bilaterally. No wheezes. No crackles. Abdomen: Soft. Non-tender. Non-distended. No masses or abdominal hernia. Msk: No digital cyanosis. Reports right shoulder pain. Skin: Warm and dry, no rashes. Neuro: Alert. No facial droop or slurred speech. Extra-ocular movements intact. Sensation intact to soft touch in all 4 limbs. Psych: Appropriate mood. Full affect. Oriented to person, place, time, and situation. Lines: Active Lines Peripheral IV Line Diagnostic Studies: Available diagnostic studies were reviewed personally. Significant relevant results and findings are outlined below or addressed in the Assessment and Plan above. Pertinent Imaging: Recent Results Chest X-ray Impression: 1. Heart is enlarged. 2. Small right pleural effusion. 3. No focal airspace opacity. Chest CT Impression: 1. Moderate right-sided pleural effusion. 2. Right lower lobe airspace consolidation. 3. Left upper lobe tree-in-bud nodularity suggestive of atypical infection or bronchiolitis. 4. Cardiomegaly. 5. Cirrhotic morphology of the liver. Laboratory Results: Troponin elevated at 1.482 WBC decreased from 6.5 to 3.8 Hemoglobin decreased from 17 to 16.1 Platelets decreased from 179 to 88, now 133 Sodium improved from 133 to 137 BUN 1921, Creatinine 1.21.24 Pleural Fluid Analysis: WBC 1,378 (mostly mononuclear) Glucose 133 Total protein 3.1 LDH 261 Pleural fluid cultures: No growth to date Plan discussed with: Patient DAHLIA ANDERSEN MD Aug 13, 2025 23:57
[2025-08-14] VITALS (14 sets, daily range): BP systolic 99–108; BP diastolic 51–73; PULSE 56–72; RESP 18–22; TEMP 96.4–98.8; O2SAT 89–95
[2025-08-14] MEDS ORDERED: AMIKACIN 0 ML IV SCH (00:15)
--- NOTE | 2025-08-14 07:56 | DVHPN2 ---
Consult Progress Note Date Seen: Aug 14, 2025 Subjective Patient reports: Feels better (remains on 4LNC, tolerated oral therapy this am of antibiotics) Objective vital signs Vital Sign Date Time Temp Pulse Resp B/P (MAP) Pulse Ox O2 Delivery O2 Flow Rate FiO2 08/14/25 06:30 95 Nasal Cannula 4.0 08/14/25 06:30 36 08/14/25 05:44 106/67 08/14/25 05:00 98.4 58 20 98.4 Total Intake and Output 08/13/25 08/13/25 08/14/25 15:00 23:00 07:00 Intake Total 0 ml 1080 ml 750 ml Balance 0 ml 1080 ml 750 ml medications Current Medications Medications Dose Ordered Sig/Carl Route Start Time Stop Time Status Last Admin Dose Admin Aspirin 81 mg DAILY PO 08/13/25 10:00 08/13/25 09:25 81 MG Carvedilol 12.5 mg Q12HR PO 08/13/25 10:00 08/13/25 23:10 12.5 MG Hydromorphone HCl 0.5 mg Q4HPRN PRN IV 08/13/25 02:00 08/13/25 17:20 0.5 MG Diagnostic Test (Pha) 1 strip ACHS 08/13/25 07:00 08/14/25 06:18 1 STRIP Insulin Human Regular ACHS SC 08/13/25 07:00 08/13/25 23:05 2 UNITS Dextrose 50 ml UD PRN IV 08/13/25 02:00 Sodium Chloride 10 ml Q8HR IV 08/13/25 06:00 08/14/25 06:18 10 ML Ondansetron HCl 4 mg Q4HP PRN IV 08/13/25 02:00 Docusate Sodium 100 mg BIDPRN PRN PO 08/13/25 02:00 Acetaminophen 650 mg Q6HP PRN PO 08/13/25 02:00 Nitroglycerin 0.4 mg Q5MINP PRN SL 08/13/25 02:15 Atorvastatin Calcium 40 mg HS PO 08/13/25 22:00 08/13/25 23:07 40 MG Furosemide 40 mg BIDD IV 08/13/25 08:13 08/14/25 05:44 40 MG Ipratropium [place] 0.5 mg Q6HR NEB 08/13/25 12:00 08/13/25 23:17 0.5 MG Amiodarone HCl 200 mg DAILY PO 08/13/25 10:15 08/13/25 12:15 200 MG Enoxaparin Sodium 75 mg Q12HR SC 08/13/25 11:12 08/13/25 23:08 75 MG Nifedipine 90 mg DAILY PO 08/13/25 11:15 08/13/25 12:23 90 MG Albuterol 2.5 mg Q6HR NEB 08/13/25 12:00 08/13/25 23:17 2.5 MG Sildenafil Citrate 20 mg TID@08,14,20 PO 08/13/25 22:45 08/13/25 23:07 20 MG Rifampin 600 mg DAILY PO 08/14/25 10:00 Azithromycin 250 ml @ 125 mls/hr DAILY IV 08/14/25 10:00 Ethambutol HCl 1,200 mg DAILY PO 08/14/25 10:00 Amikacin Sulfate 0 ml @ 0 mls/hr PER PHARMACY IV 08/14/25 00:15 UNV laboratory and microbiology Laboratory Tests 08/13/25 06:12 Test 08/13/25 06:12 Range/Units Serum Glucose 132 H 74-106 mg/dL Problem List/Assessment/Plan Problems(with codes): (1) CHF exacerbation (2) NSTEMI (non-ST elevated myocardial infarction) (3) Acute chest pain (4) Atypical pneumonia (5) Mycobacterium avium-intracellulare infection (6) Acute exacerbation of congestive heart failure Problem List/Assessment/Plan ASSESSMENT AND PLAN: ID Problem List: - mycobacterium avium complex pneumonia - Hypertension - Hyperlipidemia - Pulmonary hypertension - Asthma - Congestive heart failure - Right pleural effusion - Right lower lobe pneumonia - Possible atypical pneumonia - Cirrhosis - IV drug use (methamphetamine) - Tobacco use disorder - Alcohol use disorder - Homelessness - Elevated troponin (NSTEMI) - Hypoxia - Fever - Leukopenia - Thrombocytopenia - Otitis media (right ear) Assessment This is a 49 y.o. female with a past medical history of hypertension, hyperlipidemia, pulmonary hypertension, asthma, and congestive heart failure, who presents with chest pain rated 10/10, radiating to the right shoulder and head, burning and constant in nature. She is a current smoker (<1 pack/day), with occasional methamphetamine and alcohol use. Patient is homeless. Denies history of myocardial infarction or stroke. Reports headache and right ear pain. Physical exam notable for erythematous right tympanic membrane. Imaging reveals moderate right-sided pleural effusion, right lower lobe airspace consolidation, and left upper lobe tree-in-bud nodularity suggestive of atypical infection or bronchiolitis. Cirrhotic morphology of the liver noted. Laboratory findings include elevated troponin at 1.482, leukopenia (WBC decreased from 6.5 to 3.8), thrombocytopenia (platelets decreased from 179 to 88, now 133), and anemia (hemoglobin decreased from 17 to 16.1). Pleural fluid analysis shows WBC 1,378 (mostly mononuclear), glucose 133, total protein 3.1, LDH 261. Pleural cultures are no growth to date. She remains hypoxic requiring 30-40 L high-flow nasal cannula, has been febrile up to 101F since admission. Initially received ceftriaxone, azithromycin, and doxycycline; transitioned to meropenem when oxygenation worsened. hypoxia improved and patient left AMA 5 days into hospitalization NOW patient returns with intermittent episodes of left-sided chest pain, radiating to the left arm, associated with shortness of breaths for the past 3 days results form last hospitalization: negative serology for HIV, quantiferon gold, cocci positive AFB culture for mycobacterium avium positive at 3 weeks pleural fluid cytology: reactive mesothelial cells, histiocytes, and inflammatory cells, no malignant cells plueral fluid culture: negative CXR with no acute disease currently ekg qtc 458 Plan: - beta HCG preg screen, HIV screen - recommend chest CT to assess pneumonia and plueral effusion status - can start amikacin, rifampin, azithromycin, and ethambutol. if patient tolerates oral therapy without issue can stop IV amikacin in 24-48 hrs - will need 1 yr of antibiotics and close monitoring of therapy response, recommend outpatient ID fu in 2-4 weeks - Defer to Cardiology/primary team for management of NSTEMI in setting of hx of congestive heart failure and pulmonary hypertension. - Monitor oxygenation status; adjust respiratory support as needed. - Pain management for chest and right shoulder pain. - smoking cessation management per primary team; substance abuse counseling recommended Isolation Precautions: Standard Assessment and plan were discussed with the patient as written above. Plan is subject to change pending incorporation of new incoming information/diagnostics. Updates may be added as addendum at the bottom (OR TOP) of this note. Thank you for interesting consult. ID will continue to follow. Please contact Infectious Disease for any questions or concerns. Dahlia Crockett M.D. [facility] Ph: ? Physical Exam: General: NAD Neck: Supple. No masses. HEENT: PERRL. Normal lids and conjunctiva. Moist mucous membranes. Oropharynx without lesions, exudates, or excessive erythema. Right tympanic membrane erythematous. Normal appearance of the external aspects of the nose and ears. Heart: Regular rhythm, normal rate. No murmur. No lower extremity edema. Lungs: Normal respiratory effort. Clear to auscultation bilaterally. No wheezes. No crackles. Abdomen: Soft. Non-tender. Non-distended. No masses or abdominal hernia. Msk: No digital cyanosis. Reports right shoulder pain. Skin: Warm and dry, no rashes. Neuro: Alert. No facial droop or slurred speech. Extra-ocular movements intact. Sensation intact to soft touch in all 4 limbs. Psych: Appropriate mood. Full affect. Oriented to person, place, time, and situation. Plan discussed with: Patient DAHLIA CROCKETT MD Aug 14, 2025 07:55
[2025-08-14 08:03] LABS: COVID19 ANTIGEN SOFIA FIA NEGATIVE (NEGATIVE)
[2025-08-14] MEDS: rifAMPin 300 MG CAP PO SCH (10:00)
--- NOTE | 2025-08-14 10:58 | DVH ---
CHEST RADIOGRAPH Indication: MAC infection Technique: Single frontal view of the chest was obtained. Comparison: XY CHEST PORTABLE on DOS: 08/13/25 Findings: Patchy opacities in the right lower lung. No significant pleural effusion. No pneumothorax. Stable cardiomediastinal silhouette. IMPRESSION: Patchy opacities in the right lower lung, which could represent pneumonia. Recommend short-term follow-up radiograph after symptom improves to ensure resolution of the opacities and exclude underlying mass.
[2025-08-14 11:32] LABS: Alanine Aminotransferase 22 U/L (7-40); Albumin 3.4 g/dL (3.2-4.8); Anion Gap 10 (5-15); BUN/Creatinine Ratio 12.9 (10.0-20.0); Blood Urea Nitrogen 19 mg/dL (9-23); Carbon Dioxide 25 mmol/L (20-31); Chloride 101 mmol/L (98-107); Potassium 3.5 mmol/L (3.5-5.1); Sodium 136 mmol/L (136-145); Total Protein 6.0 g/dL (5.7-8.2)
[2025-08-14 11:33] LABS: Bilirubin, Total 1.4 mg/dL (0.2-1.0); Calcium 8.7 mg/dL (8.7-10.4); Glucose 112 mg/dL (74-106)
--- NOTE | 2025-08-14 11:33 | DVH ---
Exam: CT CHEST WITH CONTRAST Reason for study/ Clinical History: evaluate pneumonia Comparison Study: CT CHEST WITHOUT CONTRAST on DOS: 12/12/24 Exam Date: 08/14/2025 10:55 AM Radiation Dose Information: CT Dose: CTDI volume is 20 mGy. Dose-length product is 756 mGy*cm Contrast: Type of contrast: Omnipaque 300 Contrast inject: 80 cc Contrast wasted: 0 cc Technique: After the uneventful administration of intravenous contrast intravenously, CT imaging was performed through the chest. Coronal and sagittal reformations were performed by the technologist. Findings: Lower neck: Borderline enlarged lower neck lymph nodes, partially visualized. Lungs and Pleura: Bibasilar atelectasis/scarring. Small right pleural effusion. Lymph nodes: No mediastinal, hilar, or axillary lymphadenopathy. Cardiovascular and Mediastinum: Cardiomegaly. No significant pericardial effusion. No significant coronary calcifications. Osseous and soft tissues: Small sclerotic lesions in the thoracic spine likely bone islands. Upper abdomen: No acute abnormality in the visualized upper abdomen. IMPRESSION: Borderline enlarged lower neck lymph nodes, partially visualized. Recommend short-term follow-up CT neck to exclude cervical lymphadenopathy. Small right pleural effusion. Bibasilar atelectasis/scarring. No lobar pneumonia.
[2025-08-14] MEDS: AZITHROMYCIN 500MG/250ML 250 ML IV SCH (11:48)
[2025-08-14] MEDS: FUROSEMIDE 40 MG/4 ML VIAL IV ONE (11:50)
[2025-08-14] MEDS: ETHAMBUTOL HCL 400 MG TAB PO SCH (11:54)
[2025-08-14 12:01] LABS: Alkaline Phosphatase 122 U/L (46-116)
--- NOTE | 2025-08-14 12:48 | DVHPN2 ---
Progress Note - Dictate Date Seen: Aug 14, 2025 Has the PT tested + for MRSA If YES, has PT been informed?: No Medical Necessity Reason Pt with a Central, PICC or Fol: No vital signs Vital Sign Date Time Temp Pulse Resp B/P (MAP) Pulse Ox O2 Delivery O2 Flow Rate FiO2 08/14/25 11:50 104/62 08/14/25 11:30 59 19 92 08/14/25 11:30 Non-Rebreather 15.0 08/14/25 11:30 N/A 08/14/25 08:47 96.4 96.4 Total Intake and Output 08/13/25 08/13/25 08/14/25 15:00 23:00 07:00 Intake Total 0 ml 1080 ml 750 ml Balance 0 ml 1080 ml 750 ml medications Current Medications Medications Dose Ordered Sig/Carl Route Start Time Stop Time Status Last Admin Dose Admin Aspirin 81 mg DAILY PO 08/13/25 10:00 08/14/25 11:52 81 MG Carvedilol 12.5 mg Q12HR PO 08/13/25 10:00 08/13/25 23:10 12.5 MG Hydromorphone HCl 0.5 mg Q4HPRN PRN IV 08/13/25 02:00 08/14/25 08:16 0.5 MG Diagnostic Test (Pha) 1 strip ACHS 08/13/25 07:00 08/14/25 11:55 1 STRIP Insulin Human Regular ACHS SC 08/13/25 07:00 08/14/25 12:35 2 UNITS Dextrose 50 ml UD PRN IV 08/13/25 02:00 Sodium Chloride 10 ml Q8HR IV 08/13/25 06:00 08/14/25 06:18 10 ML Ondansetron HCl 4 mg Q4HP PRN IV 08/13/25 02:00 Docusate Sodium 100 mg BIDPRN PRN PO 08/13/25 02:00 Acetaminophen 650 mg Q6HP PRN PO 08/13/25 02:00 Nitroglycerin 0.4 mg Q5MINP PRN SL 08/13/25 02:15 Atorvastatin Calcium 40 mg HS PO 08/13/25 22:00 08/13/25 23:07 40 MG Furosemide 40 mg BIDD IV 08/13/25 08:13 08/14/25 05:44 40 MG Ipratropium [place] 0.5 mg Q6HR NEB 08/13/25 12:00 08/14/25 11:24 0.5 MG Amiodarone HCl 200 mg DAILY PO 08/13/25 10:15 08/14/25 11:53 200 MG Enoxaparin Sodium 75 mg Q12HR SC 08/13/25 11:12 08/14/25 11:55 75 MG Nifedipine 90 mg DAILY PO 08/13/25 11:15 08/13/25 12:23 90 MG Albuterol 2.5 mg Q6HR NEB 08/13/25 12:00 08/14/25 11:24 2.5 MG Sildenafil Citrate 20 mg TID@08,14,20 PO 08/13/25 22:45 08/14/25 08:20 20 MG Rifampin 600 mg DAILY PO 08/14/25 10:00 08/14/25 10:00 600 MG Azithromycin 250 ml @ 125 mls/hr DAILY IV 08/14/25 10:00 08/14/25 11:48 125 MLS/HR Ethambutol HCl 1,200 mg DAILY PO 08/14/25 10:00 08/14/25 11:54 1,200 MG Amikacin Sulfate 0 ml @ 0 mls/hr PER PHARMACY IV 08/14/25 00:15 Amikacin Sulfate 750 mg/Dextrose 103 ml @ 103 mls/hr DAILY IV 08/15/25 10:00 laboratory and microbiology Laboratory Tests 08/14/25 10:25 08/13/25 06:12 Test 08/14/25 10:25 Range/Units Serum Glucose 112 H 74-106 mg/dL Assessment/Plan smoker substance abuse pneumonia imaging Borderline enlarged lower neck lymph nodes, partially visualized. Recommend short-term follow-up CT neck to exclude cervical lymphadenopathy. Small right pleural effusion. Bibasilar atelectasis/scarring. No lobar pneumonia. plan abx bronchodilators supportive care Plan discussed with: Patient ERIKA PALMER MD Aug 14, 2025 12:48
--- NOTE | 2025-08-14 13:18 | DVHPNRES ---
Progress Note Date Seen: Aug 14, 2025 Resident Creating Document: TAYE ALMONTE RESIDENT Has the PT tested + for MRSA If YES, has PT been informed?: No Medical Necessity Reason Pt with a Central, PICC or Fol: No Subjective Review of Systems A 49-year-old female with PMHx of hypertension, hyperlipidemia, methamphetamine abuse, severe pulmonary hypertension, asthma, and chronic heart failure who presents with acute on chronic chest pain, pleuritic on nature. Patient reports that she has had similar chest pain for a long time and was previously admitted in November for the same complaint. 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 Patient left AMA and never received treatment.During the November admission she was also evaluated for NSTEMI. At the ER patient arrived with chest pain, found in afib with RVR, and was started on heparin drip and amiodarone infusion. Drawn patient was put on Lovenox and p.o. amiodarone. Serial troponins remained elevated without clear downtrend (1000 --> 900 --> 1000 --> 1100 --> 900). On 08/13/2025 A new transthoracic echocardiogram shows EF 45% with estimated PASP 80 mmHg, right atrial enlargement, severe right ventricular enlargement, flattened interventricular septum, severe tricuspid regurgitation, consistent with severe pulmonary hypertension. Infectious Disease (Dr. Tino Crockett) was consulted and we are planning on initiation of TB therapy. Pulmonology consulted for pulmonary hypertension management.. Chemistry notable for REBEL, creatinine 1.3 (baseline 0.9). Glucose normal, lipid panel normal.Patient was transitioned from heparin drip to therapeutic enoxaparin, amiodarone drip to amiodarone PO. Started on aspirin, carvedilol, and nifedipine 90 mg for blood pressure. Patient was seen today at bedside, labs and chart reviewed patient was hypoxic aspirate, put on rebreather. CT chest revealed-Borderline enlarged lower neck lymph nodes, partially visualized. Recommend short-term follow-up CT neck to exclude cervical lymphadenopathy.Small right pleural effusion. Bibasilar atelectasis/scarring. No lobar pneumonia. Urine culture no growth so far Patient was seen by infectious disease, suspected Mycobacterium avium complex pneumonia, Infectious Disease recommended for beta HCG preg screen, HIV screen - started patient on amikacin, rifampin, azithromycin, and ethambutol. if patient tolerates oral therapy without issue can stop IV amikacin in 24-48 hrs Patient is seen by Pulmonary, recommendation reviewed and appreciated Patient recommended for antibiotics, bronchodilators, supportive care Objective vital signs Vital Sign Date Time Temp Pulse Resp B/P (MAP) Pulse Ox O2 Delivery O2 Flow Rate FiO2 08/14/25 11:50 104/62 08/14/25 11:30 59 19 92 08/14/25 11:30 Non-Rebreather 15.0 08/14/25 11:30 N/A 08/14/25 08:47 96.4 96.4 Total Intake and Output 08/13/25 08/13/25 08/14/25 15:00 23:00 07:00 Intake Total 0 ml 1080 ml 750 ml Balance 0 ml 1080 ml 750 ml medications Current Medications Medications Dose Ordered Sig/Carl Route Start Time Stop Time Status Last Admin Dose Admin Aspirin 81 mg DAILY PO 08/13/25 10:00 08/14/25 11:52 81 MG Carvedilol 12.5 mg Q12HR PO 08/13/25 10:00 08/13/25 23:10 12.5 MG Hydromorphone HCl 0.5 mg Q4HPRN PRN IV 08/13/25 02:00 08/14/25 08:16 0.5 MG Diagnostic Test (Pha) 1 strip ACHS 08/13/25 07:00 08/14/25 11:55 1 STRIP Insulin Human Regular ACHS SC 08/13/25 07:00 08/14/25 12:35 2 UNITS Dextrose 50 ml UD PRN IV 08/13/25 02:00 Sodium Chloride 10 ml Q8HR IV 08/13/25 06:00 08/14/25 06:18 10 ML Ondansetron HCl 4 mg Q4HP PRN IV 08/13/25 02:00 Docusate Sodium 100 mg BIDPRN PRN PO 08/13/25 02:00 Acetaminophen 650 mg Q6HP PRN PO 08/13/25 02:00 Nitroglycerin 0.4 mg Q5MINP PRN SL 08/13/25 02:15 Atorvastatin Calcium 40 mg HS PO 08/13/25 22:00 08/13/25 23:07 40 MG Furosemide 40 mg BIDD IV 08/13/25 08:13 08/14/25 05:44 40 MG Ipratropium [place] 0.5 mg Q6HR NEB 08/13/25 12:00 08/14/25 11:24 0.5 MG Amiodarone HCl 200 mg DAILY PO 08/13/25 10:15 08/14/25 11:53 200 MG Enoxaparin Sodium 75 mg Q12HR SC 08/13/25 11:12 08/14/25 11:55 75 MG Nifedipine 90 mg DAILY PO 08/13/25 11:15 08/13/25 12:23 90 MG Albuterol 2.5 mg Q6HR NEB 08/13/25 12:00 08/14/25 11:24 2.5 MG Sildenafil Citrate 20 mg TID@08,14,20 PO 08/13/25 22:45 08/14/25 08:20 20 MG Rifampin 600 mg DAILY PO 08/14/25 10:00 08/14/25 10:00 600 MG Azithromycin 250 ml @ 125 mls/hr DAILY IV 08/14/25 10:00 08/14/25 11:48 125 MLS/HR Ethambutol HCl 1,200 mg DAILY PO 08/14/25 10:00 08/14/25 11:54 1,200 MG Amikacin Sulfate 0 ml @ 0 mls/hr PER PHARMACY IV 08/14/25 00:15 Amikacin Sulfate 750 mg/Dextrose 103 ml @ 103 mls/hr DAILY IV 08/15/25 10:00 Examination General examination- awake, alert, oriented HEENT- PEERLA, no acute nasal discharge Cardiovascular- S1-S2 audible, rate and rhythm regular, no murmur Respiratory- mild left-sided lung crackles Gastrointestinal-nontender, bowel sound+. Nondistended Musculoskeletal-no acute joint swelling or tenderness or redness Lower extremity- no leg edema Neurological- cranial nerves intact, no acute dysarthria or dysphagia Psychiatry- denies depression or SI or HI Skin- no acute rash or purpura laboratory and microbiology Laboratory Tests 08/14/25 10:25 08/13/25 06:12 Test 08/14/25 10:25 Range/Units Serum Glucose 112 H 74-106 mg/dL Microbiology Date/Time Source Procedure Growth Status 08/13/25 06:38 Voided Urine Urine Culture - Preliminary Resulted Problem List/Assessment/Plan Problem List/Assessment/Plan Assessment and plan # Acute Chest Pain #NSTEMI likely type 2 myocardial injury in the setting of severe pulmonary hypertension, tachyarrhythmia, and stimulant use Serial troponins elevated but fluctuating ([id number]). Cardiology recommends conservative management given active TB concern and methamphetamine use. Continue aspirin # Atrial fibrillation with RVR, resolved -patient was seen by Cardiology, recommendation reviewed and appreciated Initially treated with amiodarone drip, now rate controlled. continue amiodarone 100 mg p.o. daily -continue Lovenox 75 mg q.12 hours subcutaneously -monitor vitals #Newly Identified Active Tuberculosis (positive sputum January 18; untreated) -suspected Mycobacterium avium complex pneumonia -CT chest revealed-Borderline enlarged lower neck lymph nodes, partially visualized. Recommend short-term follow-up CT neck to exclude cervical lymphadenopathy.Small right pleural effusion. Bibasilar atelectasis/scarring. No lobar pneumonia. Infectious Disease (Dr. Tino Crockett) consulted. Airborne isolation. patient was seen by infectious disease, patient was started on amikacin, rifampin, azithromycin and ethambutol -pending repeat sputum culture, interferon, gold test, sputum for AFB -pending HIV 1 and 2 antibody, -pending respiratory culture #Severe Pulmonary Hypertension (PASP 80 mmHg) # Acute hypoxic respiratory failure -patient was seen by Pulmonary-recommended Antibiotic/bronchodilator -continue current antibiotic # Acute on Chronic Heart Failure with reduced EF (45%) Continue guideline-directed therapy as tolerated Daily weights, I&O, strict fluid monitoring. continue carvedilol 12.5 mg p.o. b.i.d. -Lasix 40 mg IV b.i.d. -nifedipine 90 mg p.o. daily # Acute Kidney Injury (Cr 1.3; baseline 0.9) due to VMN Likely multifactorial: hypoperfusion, tachyarrhythmia, possible drug effects. Avoid nephrotoxic agents. Monitor renal function daily. #Hypertension / Hyperlipidemia Continue nifedipine 90 mg, carvedilol, statin as prescribed Monitor BP closely. # Methamphetamine Abuse Counseled on strict cessation. Goals of care, Code status full code ; discussed with >15 minutes PUD prophylaxis: Pantoprazole DVT prophylaxis: Lovenox Plan discussed with , nursing staff, Total time spent on patient evaluation, chart review, assessment and plan, discussion discussion >35 minutes Plan discussed with: Patient (RN) My Orders My Orders Orders - TAYE ALMONTE Procedure Category Date Status Time Chest Xray 1 View XY 08/14/25 Resulted 10:17 Sputum Induction RT 08/14/25 Logged 10:17 Date of Service: Aug 14, 2025 Billing Provider: ANA BLAIR MD Common Visit Codes: [id number] INP/OBS CARE(HIGH) TAYE ALMONTE Aug 14, 2025 13:18
[2025-08-14] MEDS: IOHEXOL 300 MG/ML 100ML BOTTLE IJ ONE (13:24)
[2025-08-14 13:47] LABS: Hematocrit 44.8 % (36.0-46.0); Hemoglobin 15.1 g/dL (12.2-16.2); Mean Corpuscular Hemoglobin 31.0 pg (28.0-32.0); Mean Corpuscular Volume 92.0 fL (80.0-100.0); Nucleated Red Blood Cells % 0.1 %
[2025-08-14] MEDS: MAGNESIUM SULFATE 1GM/100ML 100 ML IV ONE (15:13)
[2025-08-15] VITALS (14 sets, daily range): BP systolic 92–140; BP diastolic 56–77; PULSE 61–79; RESP 17–19; TEMP 97–98.8; O2SAT 92–100
[2025-08-15 06:12] LABS: Hematocrit 43.6 % (36.0-46.0); Hemoglobin 14.6 g/dL (12.2-16.2); Mean Corpuscular Hemoglobin 30.7 pg (28.0-32.0); Mean Corpuscular Volume 92.0 fL (80.0-100.0); Nucleated Red Blood Cells % 0.1 %
[2025-08-15 06:46] LABS: Alanine Aminotransferase 22 U/L (7-40); Albumin 3.7 g/dL (3.2-4.8); Alkaline Phosphatase 141 U/L (46-116); Anion Gap 10 (5-15); BUN/Creatinine Ratio 16.8 (10.0-20.0); Blood Urea Nitrogen 20 mg/dL (9-23); Calcium 8.4 mg/dL (8.7-10.4); Carbon Dioxide 28 mmol/L (20-31); Chloride 98 mmol/L (98-107); Glucose 168 mg/dL (74-106); Magnesium 1.9 mg/dL (1.6-2.6); Potassium 3.0 mmol/L (3.5-5.1); Sodium 136 mmol/L (136-145); Total Protein 6.3 g/dL (5.7-8.2)
[2025-08-15 06:50] LABS: Bilirubin, Total 1.7 mg/dL (0.2-1.0)
--- NOTE | 2025-08-15 11:40 | DVHPNRES ---
Progress Note Date Seen: Aug 15, 2025 Resident Creating Document: DAVID FULLER RESIDENT Has the PT tested + for MRSA If YES, has PT been informed?: No Medical Necessity Reason Pt with a Central, PICC or Fol: No Subjective Review of Systems A 49-year-old female with PMHx of hypertension, hyperlipidemia, methamphetamine abuse, severe pulmonary hypertension, asthma, and chronic heart failure who presents with acute on chronic chest pain, pleuritic on nature. Patient reports that she has had similar chest pain for a long time and was previously admitted in November for the same complaint. 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 Patient left AMA and never received treatment.During the November admission she was also evaluated for NSTEMI. At the ER patient arrived with chest pain, found in afib with RVR, and was started on heparin drip and amiodarone infusion. Drawn patient was put on Lovenox and p.o. amiodarone. Serial troponins remained elevated without clear downtrend (1000 --> 900 --> 1000 --> 1100 --> 900). On 08/13/2025 A new transthoracic echocardiogram shows EF 45% with estimated PASP 80 mmHg, right atrial enlargement, severe right ventricular enlargement, flattened interventricular septum, severe tricuspid regurgitation, consistent with severe pulmonary hypertension. Infectious Disease (Dr. Tino Crockett) was consulted and we are planning on initiation of TB therapy. Pulmonology consulted for pulmonary hypertension management.. Chemistry notable for REBEL, creatinine 1.3 (baseline 0.9). Glucose normal, lipid panel normal.Patient was transitioned from heparin drip to therapeutic enoxaparin, amiodarone drip to amiodarone PO. Started on aspirin, carvedilol, and nifedipine 90 mg for blood pressure. Patient was seen today at bedside, labs and chart reviewed patient was hypoxic aspirate, put on rebreather. CT chest revealed-Borderline enlarged lower neck lymph nodes, partially visualized. Recommend short-term follow-up CT neck to exclude cervical lymphadenopathy.Small right pleural effusion. Bibasilar atelectasis/scarring. No lobar pneumonia. Urine culture no growth so far Patient was seen by infectious disease, suspected Mycobacterium avium complex pneumonia, Infectious Disease recommended for beta HCG preg screen, HIV screen - started patient on amikacin, rifampin, azithromycin, and ethambutol. if patient tolerates oral therapy without issue can stop IV amikacin in 24-48 hrs Patient is seen by Pulmonary, recommendation reviewed and appreciated Patient recommended for antibiotics, bronchodilators, supportive care On 08/15/25, Patient was seen and examined at bedside. Overnight events were reviewed. The patient complained of body aching and vaginal itchiness with brown color vaginal discharge. Patient is currently on 6 L oxygen with SpO2 at 94%. Objective vital signs Vital Sign Date Time Temp Pulse Resp B/P (MAP) Pulse Ox O2 Delivery O2 Flow Rate FiO2 08/15/25 08:59 98.8 67 17 111/68 (82) 96 98.8 08/15/25 05:33 Oxymizer 10 N/A Total Intake and Output 08/14/25 08/14/25 08/15/25 15:00 23:00 07:00 Intake Total 353 ml 500 ml 594 ml Balance 353 ml 500 ml 594 ml medications Current Medications Medications Dose Ordered Sig/Carl Route Start Time Stop Time Status Last Admin Dose Admin Aspirin 81 mg DAILY PO 08/13/25 10:00 08/15/25 09:28 81 MG Carvedilol 12.5 mg Q12HR PO 08/13/25 10:00 08/13/25 23:10 12.5 MG Hydromorphone HCl 0.5 mg Q4HPRN PRN IV 08/13/25 02:00 08/14/25 23:03 0.5 MG Diagnostic Test (Pha) 1 strip ACHS 08/13/25 07:00 08/15/25 06:19 1 STRIP Insulin Human Regular ACHS SC 08/13/25 07:00 08/15/25 06:25 3 UNITS Dextrose 50 ml UD PRN IV 08/13/25 02:00 Sodium Chloride 10 ml Q8HR IV 08/13/25 06:00 08/15/25 05:22 10 ML Ondansetron HCl 4 mg Q4HP PRN IV 08/13/25 02:00 Docusate Sodium 100 mg BIDPRN PRN PO 08/13/25 02:00 Acetaminophen 650 mg Q6HP PRN PO 08/13/25 02:00 Nitroglycerin 0.4 mg Q5MINP PRN SL 08/13/25 02:15 Hold Atorvastatin Calcium 40 mg HS PO 08/13/25 22:00 08/14/25 21:50 40 MG Furosemide 40 mg BIDD IV 08/13/25 08:13 08/14/25 05:44 40 MG Ipratropium [place] 0.5 mg Q6HR NEB 08/13/25 12:00 08/15/25 05:33 0.5 MG Amiodarone HCl 200 mg DAILY PO 08/13/25 10:15 08/14/25 11:53 200 MG Enoxaparin Sodium 75 mg Q12HR SC 08/13/25 11:12 08/15/25 09:30 75 MG Nifedipine 90 mg DAILY PO 08/13/25 11:15 08/13/25 12:23 90 MG Albuterol 2.5 mg Q6HR NEB 08/13/25 12:00 08/15/25 05:33 2.5 MG Sildenafil Citrate 20 mg TID@08,14,20 PO 08/13/25 22:45 08/15/25 09:28 20 MG Rifampin 600 mg DAILY PO 08/14/25 10:00 08/15/25 09:29 600 MG Azithromycin 250 ml @ 125 mls/hr DAILY IV 08/14/25 10:00 08/15/25 09:29 125 MLS/HR Ethambutol HCl 1,200 mg DAILY PO 08/14/25 10:00 08/15/25 09:28 1,200 MG Amikacin Sulfate 0 ml @ 0 mls/hr PER PHARMACY IV 08/14/25 00:15 Amikacin Sulfate 750 mg/Dextrose 103 ml @ 103 mls/hr DAILY IV 08/15/25 10:00 Hold Examination General examination- awake, alert, oriented HEENT- PEERLA, no acute nasal discharge Cardiovascular- S1-S2 audible, rate and rhythm regular, no murmur Respiratory- mild left-sided lung crackles Gastrointestinal-nontender, bowel sound+. Nondistended Musculoskeletal-no acute joint swelling or tenderness or redness Lower extremity- no leg edema Neurological- cranial nerves intact, no acute dysarthria or dysphagia Psychiatry- denies depression or SI or HI Skin- no acute rash or purpura laboratory and microbiology Laboratory Tests 08/15/25 05:40 Test 08/15/25 05:40 Range/Units Serum Glucose 168 H 74-106 mg/dL Microbiology Date/Time Source Procedure Growth Status 08/13/25 06:38 Voided Urine Urine Culture - Final Complete Labs and/or images reviewed: Labs reviewed by me, Image(s) reviewed by me Problem List/Assessment/Plan Problem List/Assessment/Plan Problem List/Assessment/Plan Assessment and plan # Acute Chest Pain #NSTEMI likely type 2 myocardial injury in the setting of severe pulmonary hypertension, tachyarrhythmia, and stimulant use Serial troponins elevated but fluctuating ([id number]). Cardiology recommends conservative management given active TB concern and methamphetamine use. Continue aspirin Chest CT ordered # Atrial fibrillation with RVR, resolved -patient was seen by Cardiology, recommendation reviewed and appreciated Initially treated with amiodarone drip, now rate controlled. continue amiodarone 100 mg p.o. daily -continue Lovenox 75 mg q.12 hours subcutaneously -monitor vitals #Newly Identified Active Tuberculosis (positive sputum January 18; untreated) -suspected Mycobacterium avium complex pneumonia -CT chest revealed-Borderline enlarged lower neck lymph nodes, partially visualized. Recommend short-term follow-up CT neck to exclude cervical lymphadenopathy.Small right pleural effusion. Bibasilar atelectasis/scarring. No lobar pneumonia. Infectious Disease (Dr. Tino Crockett) consulted. Airborne isolation. patient was seen by infectious disease, patient was started on amikacin, rifampin, azithromycin and ethambutol -pending repeat sputum culture, interferon, gold test, sputum for AFB -pending HIV 1 and 2 antibody, -pending respiratory culture #Severe Pulmonary Hypertension (PASP 80 mmHg) # Acute hypoxic respiratory failure -patient was seen by Pulmonary-recommended Antibiotic/bronchodilator -continue current antibiotic # Acute on Chronic Heart Failure with reduced EF (45%) Continue guideline-directed therapy as tolerated Daily weights, I&O, strict fluid monitoring. continue carvedilol 12.5 mg p.o. b.i.d. -Lasix 40 mg IV b.i.d. -nifedipine 90 mg p.o. daily # Acute Kidney Injury (Cr 1.3; baseline 0.9) due to VMN Likely multifactorial: hypoperfusion, tachyarrhythmia, possible drug effects. Avoid nephrotoxic agents. Monitor renal function daily. #Hypertension / Hyperlipidemia Continue nifedipine 90 mg, carvedilol, statin as prescribed Monitor BP closely. # Methamphetamine Abuse Counseled on strict cessation. Goals of care, Code status full code ; discussed with >15 minutes PUD prophylaxis: Pantoprazole DVT prophylaxis: Lovenox Plan discussed with Dr Hernandez, nursing staff, Total time spent on patient evaluation, chart review, assessment and plan, discussion discussion >35 minutes Plan discussed with: Patient Date of Service: Aug 15, 2025 Billing Provider: ANA HERNANDEZ MD Common Visit Codes: [id number] INP/OBS CARE(HIGH) DAVID FULLER RESIDENT Aug 15, 2025 11:40
[2025-08-15] MEDS: POTASSIUM EFFERVESENT TAB 25 MEQ PO ONE (12:08)
--- NOTE | 2025-08-15 13:35 | DVHPN2 ---
Consult Progress Note Date Seen: Aug 15, 2025 Subjective Patient reports: Feels better (on 4L oximizer) Objective vital signs Vital Sign Date Time Temp Pulse Resp B/P (MAP) Pulse Ox O2 Delivery O2 Flow Rate FiO2 08/15/25 12:50 79 18 100 08/15/25 12:49 Oxymizer 6 N/A 08/15/25 12:07 140/86 08/15/25 08:59 98.8 98.8 Total Intake and Output 08/14/25 08/14/25 08/15/25 15:00 23:00 07:00 Intake Total 353 ml 500 ml 594 ml Balance 353 ml 500 ml 594 ml medications Current Medications Medications Dose Ordered Sig/Carl Route Start Time Stop Time Status Last Admin Dose Admin Aspirin 81 mg DAILY PO 08/13/25 10:00 08/15/25 09:28 81 MG Carvedilol 12.5 mg Q12HR PO 08/13/25 10:00 08/15/25 12:07 12.5 MG Hydromorphone HCl 0.5 mg Q4HPRN PRN IV 08/13/25 02:00 08/14/25 23:03 0.5 MG Diagnostic Test (Pha) 1 strip ACHS 08/13/25 07:00 08/15/25 11:30 1 STRIP Insulin Human Regular ACHS SC 08/13/25 07:00 08/15/25 06:25 3 UNITS Dextrose 50 ml UD PRN IV 08/13/25 02:00 Sodium Chloride 10 ml Q8HR IV 08/13/25 06:00 08/15/25 05:22 10 ML Ondansetron HCl 4 mg Q4HP PRN IV 08/13/25 02:00 Docusate Sodium 100 mg BIDPRN PRN PO 08/13/25 02:00 Acetaminophen 650 mg Q6HP PRN PO 08/13/25 02:00 Nitroglycerin 0.4 mg Q5MINP PRN SL 08/13/25 02:15 Hold Atorvastatin Calcium 40 mg HS PO 08/13/25 22:00 08/14/25 21:50 40 MG Furosemide 40 mg BIDD IV 08/13/25 08:13 08/14/25 05:44 40 MG Ipratropium [place] 0.5 mg Q6HR NEB 08/13/25 12:00 08/15/25 12:40 0.5 MG Amiodarone HCl 200 mg DAILY PO 08/13/25 10:15 08/15/25 12:07 200 MG Enoxaparin Sodium 75 mg Q12HR SC 08/13/25 11:12 08/15/25 09:30 75 MG Nifedipine 90 mg DAILY PO 08/13/25 11:15 08/13/25 12:23 90 MG Albuterol 2.5 mg Q6HR NEB 08/13/25 12:00 08/15/25 12:40 2.5 MG Sildenafil Citrate 20 mg TID@08,14,20 PO 08/13/25 22:45 08/15/25 09:28 20 MG Rifampin 600 mg DAILY PO 08/14/25 10:00 08/15/25 09:29 600 MG Azithromycin 250 ml @ 125 mls/hr DAILY IV 08/14/25 10:00 08/15/25 09:29 125 MLS/HR Ethambutol HCl 1,200 mg DAILY PO 08/14/25 10:00 08/15/25 09:28 1,200 MG Amikacin Sulfate 0 ml @ 0 mls/hr PER PHARMACY IV 08/14/25 00:15 Cancel Amikacin Sulfate 750 mg/Dextrose 103 ml @ 103 mls/hr DAILY IV 08/15/25 10:00 Cancel laboratory and microbiology Laboratory Tests 08/15/25 05:40 Test 08/15/25 05:40 Range/Units Serum Glucose 168 H 74-106 mg/dL Problem List/Assessment/Plan Problem List/Assessment/Plan ASSESSMENT AND PLAN: ID Problem List: - mycobacterium avium complex pneumonia - Hypertension - Hyperlipidemia - Pulmonary hypertension - Asthma - Congestive heart failure - Right pleural effusion - Right lower lobe pneumonia - Possible atypical pneumonia - Cirrhosis - IV drug use (methamphetamine) - Tobacco use disorder - Alcohol use disorder - Homelessness - Elevated troponin (NSTEMI) - Hypoxia - Fever - Leukopenia - Thrombocytopenia - Otitis media (right ear) Assessment This is a 49 y.o. female with a past medical history of hypertension, hyperlipidemia, pulmonary hypertension, asthma, and congestive heart failure, who presents with chest pain rated 10/10, radiating to the right shoulder and head, burning and constant in nature. She is a current smoker (<1 pack/day), with occasional methamphetamine and alcohol use. Patient is homeless. Denies history of myocardial infarction or stroke. Reports headache and right ear pain. Physical exam notable for erythematous right tympanic membrane. Imaging reveals moderate right-sided pleural effusion, right lower lobe airspace consolidation, and left upper lobe tree-in-bud nodularity suggestive of atypical infection or bronchiolitis. Cirrhotic morphology of the liver noted. Laboratory findings include elevated troponin at 1.482, leukopenia (WBC decreased from 6.5 to 3.8), thrombocytopenia (platelets decreased from 179 to 88, now 133), and anemia (hemoglobin decreased from 17 to 16.1). Pleural fluid analysis shows WBC 1,378 (mostly mononuclear), glucose 133, total protein 3.1, LDH 261. Pleural cultures are no growth to date. She remains hypoxic requiring 30-40 L high-flow nasal cannula, has been febrile up to 101F since admission. Initially received ceftriaxone, azithromycin, and doxycycline; transitioned to meropenem when oxygenation worsened. hypoxia improved and patient left AMA 5 days into hospitalization NOW patient returns with intermittent episodes of left-sided chest pain, radiating to the left arm, associated with shortness of breaths for the past 3 days results form last hospitalization: negative serology for HIV, quantiferon gold, cocci positive AFB culture for mycobacterium avium positive at 3 weeks pleural fluid cytology: reactive mesothelial cells, histiocytes, and inflammatory cells, no malignant cells plueral fluid culture: negative CXR with no acute disease currently ekg qtc 458 08/14: chest ct IMPRESSION: Borderline enlarged lower neck lymph nodes, partially visualized. Recommend short-term follow-up CT neck to exclude cervical lymphadenopathy. Small right pleural effusion. Bibasilar atelectasis/scarring. No lobar pneumonia. BHCG negative, HIV test neg lung disease stable on chest ct Plan: - can stop amkikacin - continue rifampin, azithromycin, and ethambutol. provide this regimen on discharge x 30 days - recommend sputum culture to rule out any coexisting bacterial pneumonia - will need 1 yr of antibiotics and close monitoring of therapy response, recommend outpatient ID fu in 2-4 weeks - Defer to Cardiology/primary team for management of NSTEMI in setting of hx of congestive heart failure and pulmonary hypertension. - Monitor oxygenation status; adjust respiratory support as needed. - Pain management for chest and right shoulder pain. - smoking cessation management per primary team; substance abuse counseling recommended Isolation Precautions: Standard Assessment and plan were discussed with the patient as written above. Plan is subject to change pending incorporation of new incoming information/diagnostics. Updates may be added as addendum at the bottom (OR TOP) of this note. Thank you for interesting consult. ID will continue to follow. Please contact Infectious Disease for any questions or concerns. Dahlia Crockett M.D. [facility] Ph: ? Physical Exam: General: NAD Neck: Supple. No masses. HEENT: PERRL. Normal lids and conjunctiva. Moist mucous membranes. Oropharynx without lesions, exudates, or excessive erythema. Right tympanic membrane erythematous. Normal appearance of the external aspects of the nose and ears. Heart: Regular rhythm, normal rate. No murmur. No lower extremity edema. Lungs: Normal respiratory effort. Clear to auscultation bilaterally. No wheezes. No crackles. Abdomen: Soft. Non-tender. Non-distended. No masses or abdominal hernia. Msk: No digital cyanosis. Reports right shoulder pain. Skin: Warm and dry, no rashes. Neuro: Alert. No facial droop or slurred speech. Extra-ocular movements intact. Sensation intact to soft touch in all 4 limbs. Psych: Appropriate mood. Full affect. Oriented to person, place, time, and situation. Plan discussed with: Patient DAHLIA CROCKETT MD Aug 15, 2025 13:35
--- NOTE | 2025-08-15 15:25 | DVHPN2 ---
Progress Note - Dictate Date Seen: Aug 15, 2025 Has the PT tested + for MRSA If YES, has PT been informed?: No Medical Necessity Reason Pt with a Central, PICC or Fol: No vital signs Vital Sign Date Time Temp Pulse Resp B/P (MAP) Pulse Ox O2 Delivery O2 Flow Rate FiO2 08/15/25 13:54 77 16 107/65 08/15/25 13:00 97.5 94 97.5 08/15/25 12:49 Oxymizer 6 N/A Total Intake and Output 08/14/25 08/14/25 08/15/25 15:00 23:00 07:00 Intake Total 353 ml 500 ml 594 ml Balance 353 ml 500 ml 594 ml medications Current Medications Medications Dose Ordered Sig/Carl Route Start Time Stop Time Status Last Admin Dose Admin Aspirin 81 mg DAILY PO 08/13/25 10:00 08/15/25 09:28 81 MG Carvedilol 12.5 mg Q12HR PO 08/13/25 10:00 08/15/25 12:07 12.5 MG Hydromorphone HCl 0.5 mg Q4HPRN PRN IV 08/13/25 02:00 08/15/25 13:54 0.5 MG Diagnostic Test (Pha) 1 strip ACHS 08/13/25 07:00 08/15/25 11:30 1 STRIP Insulin Human Regular ACHS SC 08/13/25 07:00 08/15/25 06:25 3 UNITS Dextrose 50 ml UD PRN IV 08/13/25 02:00 Sodium Chloride 10 ml Q8HR IV 08/13/25 06:00 08/15/25 14:00 10 ML Ondansetron HCl 4 mg Q4HP PRN IV 08/13/25 02:00 Docusate Sodium 100 mg BIDPRN PRN PO 08/13/25 02:00 Acetaminophen 650 mg Q6HP PRN PO 08/13/25 02:00 Nitroglycerin 0.4 mg Q5MINP PRN SL 08/13/25 02:15 Hold Atorvastatin Calcium 40 mg HS PO 08/13/25 22:00 08/14/25 21:50 40 MG Furosemide 40 mg BIDD IV 08/13/25 08:13 08/14/25 05:44 40 MG Ipratropium [place] 0.5 mg Q6HR NEB 08/13/25 12:00 08/15/25 12:40 0.5 MG Amiodarone HCl 200 mg DAILY PO 08/13/25 10:15 08/15/25 12:07 200 MG Enoxaparin Sodium 75 mg Q12HR SC 08/13/25 11:12 08/15/25 09:30 75 MG Nifedipine 90 mg DAILY PO 08/13/25 11:15 08/13/25 12:23 90 MG Albuterol 2.5 mg Q6HR NEB 08/13/25 12:00 08/15/25 12:40 2.5 MG Sildenafil Citrate 20 mg TID@08,14,20 PO 08/13/25 22:45 08/15/25 09:28 20 MG Rifampin 600 mg DAILY PO 08/14/25 10:00 08/15/25 09:29 600 MG Azithromycin 250 ml @ 125 mls/hr DAILY IV 08/14/25 10:00 08/15/25 09:29 125 MLS/HR Ethambutol HCl 1,200 mg DAILY PO 08/14/25 10:00 08/15/25 09:28 1,200 MG Amikacin Sulfate 0 ml @ 0 mls/hr PER PHARMACY IV 08/14/25 00:15 Cancel Amikacin Sulfate 750 mg/Dextrose 103 ml @ 103 mls/hr DAILY IV 08/15/25 10:00 Cancel laboratory and microbiology Laboratory Tests 08/15/25 05:40 Test 08/15/25 05:40 Range/Units Serum Glucose 168 H 74-106 mg/dL Assessment/Plan impression smoker substance abuse pneumonia CARL patient seen and examined events on 6 liters oxymizer patient de-isolated imaging Borderline enlarged lower neck lymph nodes, partially visualized. Recommend short-term follow-up CT neck to exclude cervical lymphadenopathy. Small right pleural effusion. Bibasilar atelectasis/scarring. No lobar pneumonia. plan abx bronchodilators supportive care Plan discussed with: Patient ERIKA PALMER MD Aug 15, 2025 15:25
--- NOTE | 2025-08-15 17:02 | DVHPN2 ---
Subjective No cardiac events reported Remained in sinus rhythm Changes from previous H/P or p: No Changes Eyes: No Pain, No Vision change, No Conjunctivae inflammation, No Eyelid inflammation, No Other, No Redness ENT: No Ear pain, No Ear discharge, No Nose pain, No Nose discharge, No Nose congestion, No Mouth pain, No Mouth swelling, No Throat pain, No Throat swelling, No Other Cardiovascular: Chest Pain; No Palpitations, No Orthopnea, No Paroxysmal Noc. Dyspnea, No Edema, No Lt Headedness; Other (Left arm pain) Respiratory: No Cough, No Dry; Shortness of breath; No SOB with excertion, No Wheezing, No Hemoptysis, No Pleuritic Pain, No Sputum, No Other Gastrointestinal: No Nausea, No Vomiting, No Abdominal Pain, No Diarrhea, No Constipation, No Melena, No Hematochezia, No Other Genitourinary: No Dysuria, No Frequency, No Incontinence, No Hematuria, No Retention, No Other Musculoskeletal: No other, No neck pain, No shoulder pain; arm pain (Left); No back pain, No hand pain, No leg pain, No foot pain Skin: No Rash, No Lesions, No Jaundice, No Bruising, No Other Objective Vitals Vital Signs Date Time Temp Pulse Resp B/P (MAP) Pulse Ox O2 Delivery O2 Flow Rate FiO2 08/15/25 13:54 77 16 107/65 08/15/25 13:00 97.5 94 97.5 08/15/25 12:49 Oxymizer 6 N/A Intake/Output Intake and Output 08/15/25 07:00 Intake Total 1447 ml Balance 1447 ml Intake Oral 994 ml IV Total 453 ml # Voids 6 Medications Current Medications Medications Dose Ordered Sig/Carl Route Start Time Stop Time Status Last Admin Dose Admin Aspirin 81 mg DAILY PO 08/13/25 10:00 08/15/25 09:28 81 MG Carvedilol 12.5 mg Q12HR PO 08/13/25 10:00 08/15/25 12:07 12.5 MG Hydromorphone HCl 0.5 mg Q4HPRN PRN IV 08/13/25 02:00 08/15/25 13:54 0.5 MG Diagnostic Test (Pha) 1 strip ACHS 08/13/25 07:00 08/15/25 11:30 1 STRIP Insulin Human Regular ACHS SC 08/13/25 07:00 08/15/25 06:25 3 UNITS Dextrose 50 ml UD PRN IV 08/13/25 02:00 Sodium Chloride 10 ml Q8HR IV 08/13/25 06:00 08/15/25 14:00 10 ML Ondansetron HCl 4 mg Q4HP PRN IV 08/13/25 02:00 Docusate Sodium 100 mg BIDPRN PRN PO 08/13/25 02:00 Acetaminophen 650 mg Q6HP PRN PO 08/13/25 02:00 Nitroglycerin 0.4 mg Q5MINP PRN SL 08/13/25 02:15 Hold Atorvastatin Calcium 40 mg HS PO 08/13/25 22:00 08/14/25 21:50 40 MG Furosemide 40 mg BIDD IV 08/13/25 08:13 08/14/25 05:44 40 MG Ipratropium Asp[place] 0.5 mg Q6HR NEB 08/13/25 12:00 08/15/25 12:40 0.5 MG Amiodarone HCl 200 mg DAILY PO 08/13/25 10:15 08/15/25 12:07 200 MG Enoxaparin Sodium 75 mg Q12HR SC 08/13/25 11:12 08/15/25 09:30 75 MG Nifedipine 90 mg DAILY PO 08/13/25 11:15 08/13/25 12:23 90 MG Albuterol 2.5 mg Q6HR NEB 08/13/25 12:00 08/15/25 12:40 2.5 MG Sildenafil Citrate 20 mg TID@08,14,20 PO 08/13/25 22:45 08/15/25 09:28 20 MG Rifampin 600 mg DAILY PO 08/14/25 10:00 08/15/25 09:29 600 MG Azithromycin 250 ml @ 125 mls/hr DAILY IV 08/14/25 10:00 08/15/25 09:29 125 MLS/HR Ethambutol HCl 1,200 mg DAILY PO 08/14/25 10:00 08/15/25 09:28 1,200 MG Amikacin Sulfate 0 ml @ 0 mls/hr PER PHARMACY IV 08/14/25 00:15 Cancel Amikacin Sulfate 750 mg/Dextrose 103 ml @ 103 mls/hr DAILY IV 08/15/25 10:00 Cancel Laboratory Results Laboratory Tests 08/15/25 05:40 Chemistry Test 08/15/25 05:40 Albumin 3.7 g/dL (3.2-4.8) Calcium Level 8.4 mg/dL (8.7-10.4) L Magnesium Level 1.9 mg/dL (1.6-2.6) Total Protein 6.3 g/dL (5.7-8.2) LFT Test 08/15/25 05:40 Alanine Aminotransferase (ALT) 22 U/L (7-40) Alkaline Phosphatase 141 U/L (46-116) H Aspartate Amino Transferase (AST) 26 U/L (13-40) Total Bilirubin 1.7 mg/dL (0.2-1.0) H Urinalysis Test 08/13/25 06:38 Urine Color Light-yellow (Yellow) Urine Clarity Clear (Clear) Urine pH 5.0 (5.0-9.0) Urine Specific [place] 1.006 (1.001-1.035) Urine Protein Negative (Negative) Urine Ketones Negative (Negative) Urine Blood Trace /uL (Negative) H Urine Nitrite Negative (Negative) Urine Bilirubin Negative (Negative) Urine Urobilinogen Normal mg/dL (Negative) Urine Leukocyte Esterase 2+ /uL (Negative) Urine RBC 1 /hpf (0 - 4) Urine Microscopic WBC 4 /HPF (0-5) Urine Squamous Epithelial Cells None seen /hpf (<5) Urine Bacteria Few /hpf (None Seen) H Urine Glucose Normal mg/dL (Normal) Microbiology Microbiology Date/Time Source Procedure Growth Status 08/13/25 06:38 Voided Urine Urine Culture - Final Complete Assessment/Plan Assessment/Plan Assessment NSTEMI Hypertensive urgency Severe RV failure Acute on chronic decompensated HFmrEF, NYHA class III Severe pulmonary hypertension, likely type 1 secondary to amphetamine abuse Severe tricuspid regurgitation Rule out tuberculosis Ist-[id number] diabetes mellitus Chronic kidney disease Medical non-adherence Methamphetamine/tobacco abuse Obesity Plan/Recommendation We will continue with the following plan/recommendations (): 08/15/25 - patient remained in sinus rhythm. Telemetry reviewed, No episodes of AFib noted. Continue with current cardiology plan. Case discussed and reviewed with . A transthoracic echocardiogram reveals an EF of 45%, RVSP 80 mmHg. Severe RV enlargement and failure noted. Continue preload and afterload reduction as tolerated. Consider restarting sildenafil and a pulmonary consultation. At this time, the patient is not an ideal candidate for any invasive cardiac procedures given possible active tuberculosis, methamphetamine use and medical noncompliance. Consider ischemic workup once patient is compliant and can abstain from polysubstance use. Proceed with conservative medical management. Continue with the aggressive blood pressure control and close cardiac surveillance. Thank you for allowing us to care for this patient. Please call with any questions or concerns. Critical care time spent: 44 minutes Plan discussed with: Patient Date of Service: Aug 15, 2025 Billing Provider: ROSHNI DAILEY MD Common Visit Codes: NOT BILLABLE Consultation Codes: [id number] CONSULT <45MIN TERI BRAUN Aug 15, 2025 17:02
[2025-08-16] VITALS (12 sets, daily range): BP systolic 107–157; BP diastolic 68–99; PULSE 61–77; RESP 16–20; TEMP 80–98.8; O2SAT 94–100
[2025-08-16 06:36] LABS: Hematocrit 42.6 % (36.0-46.0); Hemoglobin 14.3 g/dL (12.2-16.2); Mean Corpuscular Hemoglobin 30.9 pg (28.0-32.0); Mean Corpuscular Volume 92.1 fL (80.0-100.0); Nucleated Red Blood Cells % 0.1 %
[2025-08-16 06:57] LABS: Alanine Aminotransferase 20 U/L (7-40); Anion Gap 11 (5-15); BUN/Creatinine Ratio 13.3 (10.0-20.0); Blood Urea Nitrogen 17 mg/dL (9-23); Carbon Dioxide 28 mmol/L (20-31); Chloride 100 mmol/L (98-107); Potassium 3.5 mmol/L (3.5-5.1); Sodium 139 mmol/L (136-145); Total Protein 6.5 g/dL (5.7-8.2)
[2025-08-16 06:58] LABS: Albumin 3.6 g/dL (3.2-4.8)
[2025-08-16 07:09] LABS: Alkaline Phosphatase 142 U/L (46-116); Bilirubin, Total 1.3 mg/dL (0.2-1.0); Calcium 8.7 mg/dL (8.7-10.4); Glucose 127 mg/dL (74-106)
--- NOTE | 2025-08-16 12:10 | DVH ---
Indication: chest pain Technique: CT axial images of the chest are obtained without contrast. Coronal and sagittal reformats were obtained. Radiation Dose Information: CTDI volume is 9.2 mGy. Dose-length product is 317.43 mGy*cm Comparison: CT CHEST WITH CONTRAST on DOS: 08/14/25 FINDINGS: The trachea is patent. No pneumothorax. Bibasilar atelectasis. Small right, tiny left pleural effusions, slightly increased from prior. Cardiomegaly. Small pericardial effusion. Pericardial cyst on the right cardiac border measuring 5.4 cm. There is left supraclavicular lymph node measuring 8 mm. No axillary lymphadenopathy. Soft tissue edema / anasarca. Right breast calcification measuring 10 mm. Left breast calcification measuring 9 mm. Cirrhotic morphology liver. Ascites. No aggressive osseous process. IMPRESSION: Limited evaluation without contrast. Cardiomegaly. Pericardial cyst measuring 5.4 cm. Small right, tiny left pleural effusions increased from prior. Cirrhotic morphology liver and ascites. Soft tissue edema /anasarca. Other findings as described
--- NOTE | 2025-08-16 12:22 | DVHPNRES ---
Progress Note Date Seen: Aug 16, 2025 Resident Creating Document: TAYE ALMONTE RESIDENT Has the PT tested + for MRSA If YES, has PT been informed?: No Medical Necessity Reason Pt with a Central, PICC or Fol: No Subjective Review of Systems A 49-year-old female with PMHx of hypertension, hyperlipidemia, methamphetamine abuse, severe pulmonary hypertension, asthma, and chronic heart failure who presents with acute on chronic chest pain, pleuritic on nature. Patient reports that she has had similar chest pain for a long time and was previously admitted in November for the same complaint. 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 Patient left AMA and never received treatment.During the November admission she was also evaluated for NSTEMI. At the ER patient arrived with chest pain, found in afib with RVR, and was started on heparin drip and amiodarone infusion. Drawn patient was put on Lovenox and p.o. amiodarone. Serial troponins remained elevated without clear downtrend (1000 --> 900 --> 1000 --> 1100 --> 900). On 08/13/2025 A new transthoracic echocardiogram shows EF 45% with estimated PASP 80 mmHg, right atrial enlargement, severe right ventricular enlargement, flattened interventricular septum, severe tricuspid regurgitation, consistent with severe pulmonary hypertension. Infectious Disease (Dr. Tino Crockett) was consulted and we are planning on initiation of TB therapy. Pulmonology consulted for pulmonary hypertension management.. Chemistry notable for REBEL, creatinine 1.3 (baseline 0.9). Glucose normal, lipid panel normal.Patient was transitioned from heparin drip to therapeutic enoxaparin, amiodarone drip to amiodarone PO. Started on aspirin, carvedilol, and nifedipine 90 mg for blood pressure. Patient was seen today at bedside labs and chart reviewed Patient reported her breathing is better today Serum bilirubin trending down Pending gamma interferon gold test Urine culture no growth Respiratory culture no growth so far Repeat CT scan today on 08/16/2025 revealed-Cardiomegaly. Pericardial cyst measuring 5.4 cm. Small right, tiny left pleural effusions increased from prior. Cirrhotic morphology liver and ascites. Soft tissue edema /anasarca Spoke to infectious disease doctor Dr. Jiménez, recommended patient is cleared for discharge. DC patient with 1 month of antibiotics rifampin+ azithromycin+ ethambutol, patient is treatment for MAC for at least 12 months. Objective vital signs Vital Sign Date Time Temp Pulse Resp B/P (MAP) Pulse Ox O2 Delivery O2 Flow Rate FiO2 08/16/25 11:29 73 138/84 08/16/25 09:00 80.0 16 95 80.0 08/16/25 01:59 6.0 08/16/25 01:37 Oxymizer N/A Total Intake and Output 08/15/25 08/15/25 08/16/25 15:00 23:00 07:00 Intake Total 700 ml 600 ml Balance 700 ml 600 ml medications Current Medications Medications Dose Ordered Sig/Carl Route Start Time Stop Time Status Last Admin Dose Admin Aspirin 81 mg DAILY PO 08/13/25 10:00 08/16/25 11:15 81 MG Carvedilol 12.5 mg Q12HR PO 08/13/25 10:00 08/16/25 11:29 12.5 MG Hydromorphone HCl 0.5 mg Q4HPRN PRN IV 08/13/25 02:00 08/15/25 13:54 0.5 MG Diagnostic Test (Pha) 1 strip ACHS 08/13/25 07:00 08/16/25 11:55 1 STRIP Insulin Human Regular ACHS SC 08/13/25 07:00 08/16/25 06:14 2 UNITS Dextrose 50 ml UD PRN IV 08/13/25 02:00 Sodium Chloride 10 ml Q8HR IV 08/13/25 06:00 08/16/25 06:12 10 ML Ondansetron HCl 4 mg Q4HP PRN IV 08/13/25 02:00 Docusate Sodium 100 mg BIDPRN PRN PO 08/13/25 02:00 Acetaminophen 650 mg Q6HP PRN PO 08/13/25 02:00 Nitroglycerin 0.4 mg Q5MINP PRN SL 08/13/25 02:15 Hold Atorvastatin Calcium 40 mg HS PO 08/13/25 22:00 08/15/25 21:56 40 MG Furosemide 40 mg BIDD IV 08/13/25 08:13 08/14/25 05:44 40 MG Ipratropium [place] 0.5 mg Q6HR NEB 08/13/25 12:00 08/16/25 01:37 0.5 MG Amiodarone HCl 200 mg DAILY PO 08/13/25 10:15 08/16/25 11:15 200 MG Enoxaparin Sodium 75 mg Q12HR SC 08/13/25 11:12 08/16/25 11:15 75 MG Albuterol 2.5 mg Q6HR NEB 08/13/25 12:00 08/16/25 01:37 2.5 MG Sildenafil Citrate 20 mg TID@08,14,20 PO 08/13/25 22:45 08/15/25 20:07 20 MG Rifampin 600 mg DAILY PO 08/14/25 10:00 08/16/25 11:17 600 MG Azithromycin 250 ml @ 125 mls/hr DAILY IV 08/14/25 10:00 08/16/25 11:16 125 MLS/HR Ethambutol HCl 1,200 mg DAILY PO 08/14/25 10:00 08/16/25 11:15 1,200 MG Amikacin Sulfate 0 ml @ 0 mls/hr PER PHARMACY IV 08/14/25 00:15 Cancel Amikacin Sulfate 750 mg/Dextrose 103 ml @ 103 mls/hr DAILY IV 08/15/25 10:00 Cancel Examination General examination- awake, alert, oriented HEENT- PEERLA, no acute nasal discharge Cardiovascular- S1-S2 audible, rate and rhythm regular, no murmur Respiratory- mild left-sided lung crackles Gastrointestinal-nontender, bowel sound+. Nondistended Musculoskeletal-no acute joint swelling or tenderness or redness Lower extremity- no leg edema Neurological- cranial nerves intact, no acute dysarthria or dysphagia Psychiatry- denies depression or SI or HI Skin- no acute rash or purpura laboratory and microbiology Laboratory Tests 08/16/25 06:08 Test 08/16/25 06:08 Range/Units Serum Glucose 127 H 74-106 mg/dL Microbiology Date/Time Source Procedure Growth Status 08/15/25 11:29 Sputum Gram Stain - Final Resulted 08/15/25 11:29 Sputum Respiratory Culture - Preliminary Resulted 08/13/25 06:38 Voided Urine Urine Culture - Final Complete Problem List/Assessment/Plan Problem List/Assessment/Plan Assessment and plan # Acute Chest Pain likely due to meth induced cardiac ischemia/pneumonia #NSTEMI likely type 2 myocardial injury in the setting of severe pulmonary hypertension, tachyarrhythmia, and stimulant use Serial troponins elevated but fluctuating ([id number]). Cardiology recommends conservative management given active MAC concern and methamphetamine use. Continue aspirin 81 mg daily -monitor vitals # Atrial fibrillation with RVR, resolved -patient was seen by Cardiology, recommendation reviewed and appreciated Initially treated with amiodarone drip, now rate controlled. continue amiodarone 100 mg p.o. daily -continue carvedilol 12.5 mg p.o. b.i.d. 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 Recommend short-term follow-up CT neck to exclude cervical lymphadenopathy.Small right pleural effusion. Bibasilar atelectasis/scarring. No lobar pneumonia. -Repeat CT scan today on 08/16/2025 revealed-Cardiomegaly. -Pericardial cyst measuring 5.4 cm. Small right, tiny left pleural effusions Infectious Disease (Dr. Tino Crockett) consulted. Airborne isolation. patient was seen by infectious disease, patient was started on rifampin, azithromycin and ethambutol, as per Infectious Disease patient needs MAC treatment at least for 12 months -pending repeat interferon, gold test, sputum for AFB - HIV 1 and 2 antibody negative, - respiratory culture no growth so far -infectious Disease cleared patient for discharge,as per Infectious Disease patient needs MAC treatment at least for 12 months #Severe Pulmonary Hypertension (PASP 80 mmHg) # Acute hypoxic respiratory failure -patient is breathing improving, oxygen requirement trending down -patient was seen by Pulmonary-recommended Antibiotic/bronchodilator -continue current antibiotic # Acute on Chronic Heart Failure with reduced EF (45%) Continue guideline-directed therapy as tolerated Daily weights, I&O, strict fluid monitoring. continue carvedilol 12.5 mg p.o. b.i.d. -started patient on Jardiance 10 mg p.o. daily -discontinued IV Lasix, started patient on Lasix 20 mg p.o. daily on 08/16/2025 -monitor vitals # Acute Kidney Injury (Cr 1.3; baseline 0.9) due to VMN Likely multifactorial: hypoperfusion, tachyarrhythmia, possible drug effects. Avoid dehydration and nephrotoxic agents. Monitor renal function daily. #Hypertension / Hyperlipidemia Continue nifedipine 90 mg, carvedilol, statin as prescribed Monitor BP closely. # Methamphetamine Abuse Counseled on strict cessation. #Cirrhotic morphology liver and ascites. # Soft tissue edema /anasarca -continue current conservative management -patient is counseled about the effect of substance abuse on health -follow up outpatient with the primary care physician for further evaluation and care Goals of care, Code status full code ; PUD prophylaxis: Pantoprazole DVT prophylaxis: Lovenox Plan discussed with Dr. Hernandez , nursing staff, RN Total time spent on patient evaluation, chart review, assessment and plan, discussion discussion >35 minutes Plan discussed with: Patient, Other (RN) Date of Service: Aug 16, 2025 Billing Provider: ANA HERNANDEZ MD Common Visit Codes: [id number] INP/OBS CARE(HIGH) TAYE ALMONTE RESIDENT Aug 16, 2025 12:22 RADHA SNEED RESIDENT Aug 17, 2025 08:15
--- NOTE | 2025-08-16 15:12 | DVHPN2 ---
Progress Note - Dictate Date Seen: Aug 16, 2025 Has the PT tested + for MRSA If YES, has PT been informed?: No Medical Necessity Reason Pt with a Central, PICC or Fol: No vital signs Vital Sign Date Time Temp Pulse Resp B/P (MAP) Pulse Ox O2 Delivery O2 Flow Rate FiO2 08/16/25 12:29 72 127/69 08/16/25 09:00 80.0 16 95 80.0 08/16/25 01:59 6.0 08/16/25 01:37 Oxymizer N/A Total Intake and Output 08/15/25 08/15/25 08/16/25 15:00 23:00 07:00 Intake Total 700 ml 600 ml Balance 700 ml 600 ml medications Current Medications Medications Dose Ordered Sig/Carl Route Start Time Stop Time Status Last Admin Dose Admin Aspirin 81 mg DAILY PO 08/13/25 10:00 08/16/25 11:15 81 MG Carvedilol 12.5 mg Q12HR PO 08/13/25 10:00 08/16/25 11:29 12.5 MG Diagnostic Test (Pha) 1 strip ACHS 08/13/25 07:00 08/16/25 11:55 1 STRIP Insulin Human Regular ACHS SC 08/13/25 07:00 08/16/25 06:14 2 UNITS Dextrose 50 ml UD PRN IV 08/13/25 02:00 Sodium Chloride 10 ml Q8HR IV 08/13/25 06:00 08/16/25 14:01 10 ML Ondansetron HCl 4 mg Q4HP PRN IV 08/13/25 02:00 Docusate Sodium 100 mg BIDPRN PRN PO 08/13/25 02:00 Acetaminophen 650 mg Q6HP PRN PO 08/13/25 02:00 Nitroglycerin 0.4 mg Q5MINP PRN SL 08/13/25 02:15 Hold Atorvastatin Calcium 40 mg HS PO 08/13/25 22:00 08/15/25 21:56 40 MG Furosemide 40 mg BIDD IV 08/13/25 08:13 08/14/25 05:44 40 MG Ipratropium [place] 0.5 mg Q6HR NEB 08/13/25 12:00 08/16/25 01:37 0.5 MG Amiodarone HCl 200 mg DAILY PO 08/13/25 10:15 08/16/25 11:15 200 MG Enoxaparin Sodium 75 mg Q12HR SC 08/13/25 11:12 08/16/25 11:15 75 MG Albuterol 2.5 mg Q6HR NEB 08/13/25 12:00 08/16/25 01:37 2.5 MG Sildenafil Citrate 20 mg TID@08,14,20 PO 08/13/25 22:45 08/16/25 13:53 20 MG Rifampin 600 mg DAILY PO 08/14/25 10:00 08/16/25 11:17 600 MG Azithromycin 250 ml @ 125 mls/hr DAILY IV 08/14/25 10:00 08/16/25 11:16 125 MLS/HR Ethambutol HCl 1,200 mg DAILY PO 08/14/25 10:00 08/16/25 11:15 1,200 MG Amikacin Sulfate 0 ml @ 0 mls/hr PER PHARMACY IV 08/14/25 00:15 Cancel Amikacin Sulfate 750 mg/Dextrose 103 ml @ 103 mls/hr DAILY IV 08/15/25 10:00 Cancel Hydromorphone HCl 0.25 mg Q6HPRN PRN IV 08/16/25 15:00 laboratory and microbiology Laboratory Tests 08/16/25 06:08 Test 08/16/25 06:08 Range/Units Serum Glucose 127 H 74-106 mg/dL Assessment/Plan impression smoker substance abuse pneumonia CARL patient seen and examined events on 6 liters oxymizer patient de-isolated started on treatment for CARL imaging Borderline enlarged lower neck lymph nodes, partially visualized. Recommend short-term follow-up CT neck to exclude cervical lymphadenopathy. Small right pleural effusion. Bibasilar atelectasis/scarring. No lobar pneumonia. plan abx bronchodilators supportive care Plan discussed with: Patient ERIKA PALMER MD Aug 16, 2025 15:12
[2025-08-16] MEDS: HYDROmorphone HCL 2 MG/ML VL/or syr IV PRN (15:19)
[2025-08-17 01:00] VITALS: BP 117/68; PULSE 64; RESP 17; TEMP 98.4; O2SAT 97
[2025-08-17 05:00] VITALS: BP 133/89; PULSE 61; RESP 17; TEMP 98.5; O2SAT 99
[2025-08-17 08:00] VITALS: RESP 18
[2025-08-17] MEDS ORDERED: FUROSEMIDE 20 MG TAB PO SCH (10:00)
[2025-08-17] MEDS ORDERED: EMPAGLIFLOZIN 10 MG TAB PO SCH (10:00)
--- NOTE | 2025-08-17 11:35 | DVHPN2 ---
Progress Note - Dictate Date Seen: Aug 17, 2025 Has the PT tested + for MRSA If YES, has PT been informed?: No Medical Necessity Reason Pt with a Central, PICC or Fol: No vital signs Vital Sign Date Time Temp Pulse Resp B/P (MAP) Pulse Ox O2 Delivery O2 Flow Rate FiO2 08/17/25 05:00 98.5 61 17 133/89 (104) 99 98.5 08/16/25 20:00 Nasal Cannula* 2 28 Total Intake and Output 08/16/25 08/16/25 08/17/25 15:00 23:00 07:00 Intake Total 800 ml 900 ml Balance 800 ml 900 ml medications Current Medications Medications Dose Ordered Sig/Carl Route Start Time Stop Time Status Last Admin Dose Admin Amikacin Sulfate 0 ml @ 0 mls/hr PER PHARMACY IV 08/14/25 00:15 Cancel Amikacin Sulfate 750 mg/Dextrose 103 ml @ 103 mls/hr DAILY IV 08/15/25 10:00 Cancel laboratory and microbiology Laboratory Tests 08/16/25 06:08 Test 08/16/25 06:08 Range/Units Serum Glucose 127 H 74-106 mg/dL Assessment/Plan impression smoker substance abuse pneumonia CARL patient seen and examined events on 6 liters oxymizer patient de-isolated on treatment for CARL imaging Borderline enlarged lower neck lymph nodes, partially visualized. Recommend short-term follow-up CT neck to exclude cervical lymphadenopathy. Small right pleural effusion. Bibasilar atelectasis/scarring. No lobar pneumonia. plan abx bronchodilators supportive care Plan discussed with: Patient ERIKA PALMER MD Aug 17, 2025 11:35
--- NOTE | 2025-08-17 12:35 | DVHPN2 ---
Consult Progress Note Date Seen: Aug 16, 2025 Subjective Patient reports: Feels better (sputum sample acquired, typically dry cough) Objective vital signs Vital Sign Date Time Temp Pulse Resp B/P (MAP) Pulse Ox O2 Delivery O2 Flow Rate FiO2 08/17/25 05:00 98.5 61 17 133/89 (104) 99 98.5 08/16/25 20:00 Nasal Cannula* 2 28 Total Intake and Output 08/16/25 08/16/25 08/17/25 15:00 23:00 07:00 Intake Total 800 ml 900 ml Balance 800 ml 900 ml medications Current Medications Medications Dose Ordered Sig/Carl Route Start Time Stop Time Status Last Admin Dose Admin Amikacin Sulfate 0 ml @ 0 mls/hr PER PHARMACY IV 08/14/25 00:15 Cancel Amikacin Sulfate 750 mg/Dextrose 103 ml @ 103 mls/hr DAILY IV 08/15/25 10:00 Cancel laboratory and microbiology Laboratory Tests 08/16/25 06:08 Test 08/16/25 06:08 Range/Units Serum Glucose 127 H 74-106 mg/dL Problem List/Assessment/Plan Problem List/Assessment/Plan ASSESSMENT AND PLAN: ID Problem List: - mycobacterium avium complex pneumonia - Hypertension - Hyperlipidemia - Pulmonary hypertension - Asthma - Congestive heart failure - Right pleural effusion - Right lower lobe pneumonia - Possible atypical pneumonia - Cirrhosis - IV drug use (methamphetamine) - Tobacco use disorder - Alcohol use disorder - Homelessness - Elevated troponin (NSTEMI) - Hypoxia - Fever - Leukopenia - Thrombocytopenia - Otitis media (right ear) Assessment This is a 49 y.o. female with a past medical history of hypertension, hyperlipidemia, pulmonary hypertension, asthma, and congestive heart failure, who presents with chest pain rated 10/10, radiating to the right shoulder and head, burning and constant in nature. She is a current smoker (<1 pack/day), with occasional methamphetamine and alcohol use. Patient is homeless. Denies history of myocardial infarction or stroke. Reports headache and right ear pain. Physical exam notable for erythematous right tympanic membrane. Imaging reveals moderate right-sided pleural effusion, right lower lobe airspace consolidation, and left upper lobe tree-in-bud nodularity suggestive of atypical infection or bronchiolitis. Cirrhotic morphology of the liver noted. Laboratory findings include elevated troponin at 1.482, leukopenia (WBC decreased from 6.5 to 3.8), thrombocytopenia (platelets decreased from 179 to 88, now 133), and anemia (hemoglobin decreased from 17 to 16.1). Pleural fluid analysis shows WBC 1,378 (mostly mononuclear), glucose 133, total protein 3.1, LDH 261. Pleural cultures are no growth to date. She remains hypoxic requiring 30-40 L high-flow nasal cannula, has been febrile up to 101F since admission. Initially received ceftriaxone, azithromycin, and doxycycline; transitioned to meropenem when oxygenation worsened. hypoxia improved and patient left AMA 5 days into hospitalization NOW patient returns with intermittent episodes of left-sided chest pain, radiating to the left arm, associated with shortness of breaths for the past 3 days results form last hospitalization: negative serology for HIV, quantiferon gold, cocci positive AFB culture for mycobacterium avium positive at 3 weeks pleural fluid cytology: reactive mesothelial cells, histiocytes, and inflammatory cells, no malignant cells plueral fluid culture: negative CXR with no acute disease currently ekg qtc 458 08/14: chest ct IMPRESSION: Borderline enlarged lower neck lymph nodes, partially visualized. Recommend short-term follow-up CT neck to exclude cervical lymphadenopathy. Small right pleural effusion. Bibasilar atelectasis/scarring. No lobar pneumonia. BHCG negative, HIV test neg lung disease stable on chest ct Plan: - continue rifampin, azithromycin, and ethambutol. provide this regimen on discharge x 30 days - will fu on sputum culture - will need 1 yr of antibiotics and close monitoring of therapy response, recommend outpatient ID fu in 2-4 weeks - Defer to Cardiology/primary team for management of NSTEMI in setting of hx of congestive heart failure and pulmonary hypertension. - Monitor oxygenation status; adjust respiratory support as needed. - Pain management for chest and right shoulder pain. - smoking cessation management per primary team; substance abuse counseling recommended Isolation Precautions: Standard Assessment and plan were discussed with the patient as written above. Plan is subject to change pending incorporation of new incoming information/diagnostics. Updates may be added as addendum at the bottom (OR TOP) of this note. Thank you for interesting consult. ID will continue to follow. Please contact Infectious Disease for any questions or concerns. Dahlia Crockett M.D. [facility] Ph: ? Physical Exam: General: NAD Neck: Supple. No masses. HEENT: PERRL. Normal lids and conjunctiva. Moist mucous membranes. Oropharynx without lesions, exudates, or excessive erythema. Right tympanic membrane erythematous. Normal appearance of the external aspects of the nose and ears. Heart: Regular rhythm, normal rate. No murmur. No lower extremity edema. Lungs: Normal respiratory effort. Clear to auscultation bilaterally. No wheezes. No crackles. Abdomen: Soft. Non-tender. Non-distended. No masses or abdominal hernia. Msk: No digital cyanosis. Reports right shoulder pain. Skin: Warm and dry, no rashes. Neuro: Alert. No facial droop or slurred speech. Extra-ocular movements intact. Sensation intact to soft touch in all 4 limbs. Psych: Appropriate mood. Full affect. Oriented to person, place, time, and situation. Plan discussed with: Patient DAHLIA CROCKETT MD Aug 17, 2025 12:35
[2025-08-17] MEDS ORDERED: RIFA300C58 PO (12:38)
[2025-08-17] MEDS ORDERED: AZIT-185 PO (12:39)
[2025-08-17] MEDS ORDERED: ETHA400T20 PO (12:40)
--- NOTE | 2025-08-17 14:53 | DVHDSRES ---
Discharge Summary Date of Admission Resident Creating Document: TAYE ALMONTE RESIDENT Aug 13, 2025 at 02:04 Date of Discharge: Aug 17, 2025 Admitting Diagnosis Atrial fibrillation with a rapid ventricular rate Acute hypoxic respiratory failure Labs/Diagnostic Data: Laboratory Results Test 08/16/25 21:52 08/16/25 06:08 08/15/25 12:00 08/15/25 05:40 POC Glucose 103 mg/dl (70-106) White Blood Count 4.8 10^3/uL (4.4-10.8) Red Blood Count 4.63 10^6/uL (4.0-5.20) Hemoglobin 14.3 g/dL (12.2-16.2) Hematocrit 42.6 % (36.0-46.0) Mean Corpuscular Volume 92.1 fL (80.0-100.0) Mean Corpuscular Hemoglobin 30.9 pg (28.0-32.0) Mean Corpuscular Hemoglobin Concent 33.6 g/dL (32.0-36.0) Red Cell Distribution Width 16.0 % (11.8-14.3) Platelet Count 218 10^3/uL (140-450) Mean Platelet Volume 7.5 fL (6.9-10.8) Neutrophils (%) (Auto) 64.4 % (37.0-80.0) Lymphocytes (%) (Auto) 22.9 % (10.0-50.0) Monocytes (%) (Auto) 10.6 % (0.0-12.0) Eosinophils (%) (Auto) 1.0 % (0.0-7.0) Basophils (%) (Auto) 1.1 % (0.0-2.0) Neutrophils # (Auto) 3.1 10 ^3/uL (1.6-8.6) Lymphocytes # (Auto) 1.1 10 ^3/uL (0.4-5.4) Monocytes # (Auto) 0.5 10 ^3/uL (0-1.3) Eosinophils # (Auto) 0 10 ^3/uL (0-0.8) Basophils # (Auto) 0.1 10 ^3/uL (0-0.2) Nucleated Red Blood Cells 0.1 % Sodium Level 139 mmol/L (136-145) Potassium Level 3.5 mmol/L (3.5-5.1) Chloride Level 100 mmol/L (98-107) Carbon Dioxide Level 28 mmol/L (20-31) Anion Gap 11 (5-15) Blood Urea Nitrogen 17 mg/dL (9-23) Creatinine 1.28 mg/dL (0.550-1.02) Glomerular Filtration Rate Calc 51 mL/min (>90) BUN/Creatinine Ratio 13.3 (10.0-20.0) Serum Glucose 127 mg/dL (74-106) Calcium Level 8.7 mg/dL (8.7-10.4) Total Bilirubin 1.3 mg/dL (0.2-1.0) Aspartate Amino Transferase (AST) 24 U/L (13-40) Alanine Aminotransferase (ALT) 20 U/L (7-40) Alkaline Phosphatase 142 U/L (46-116) Total Protein 6.5 g/dL (5.7-8.2) Albumin 3.6 g/dL (3.2-4.8) Influenza Type A Antigen Negative (Negative) Influenza Type B Antigen Negative (Negative) Magnesium Level 1.9 mg/dL (1.6-2.6) Test 08/14/25 22:57 08/14/25 13:17 08/14/25 10:25 08/14/25 05:56 Random Amikacin Level 8.0 ug/mL (1.0-30.0) Hemoglobin A1c 6.1 % A1C (<5.7) Beta HCG, Quantitative 3.5 mIU/mL (1.5-4.2) HIV (1&2) Antibody Negative (Negative) SARS-CoV-2 Antigen (Rapid) Negative (NEGATIVE) Test 08/13/25 12:43 08/13/25 09:25 08/13/25 06:38 08/13/25 06:12 Prothrombin Time 15.0 sec (9.3-11.8) Prothrombin Time INR 1.47 (0.9-1.15) Activated Partial Thromboplast Time 54.8 SEC (24.5-34.5) Urine Color Light-yellow (Yellow) Urine Clarity Clear (Clear) Urine pH 5.0 (5.0-9.0) Urine Specific Driscoll 1.006 (1.001-1.035) Urine Protein Negative (Negative) Urine Ketones Negative (Negative) Urine Blood Trace /uL (Negative) Urine Nitrite Negative (Negative) Urine Bilirubin Negative (Negative) Urine Urobilinogen Normal mg/dL (Negative) Urine Leukocyte Esterase 2+ /uL (Negative) Urine RBC 1 /hpf (0 - 4) Urine Microscopic WBC 4 /HPF (0-5) Urine Squamous Epithelial Cells None seen /hpf (<5) Urine Bacteria Few /hpf (None Seen) Urine Glucose Normal mg/dL (Normal) Urine Opiates Screen Neg (NEGATIVE) Urine Fentanyl Screen Neg (NEGATIVE) Urine Barbiturates Screen Neg (NEGATIVE) Urine Phencyclidine Screen Neg (NEGATIVE) Urine Amphetamines Screen Pos (NEGATIVE) Urine Benzodiazepines Screen Neg (NEGATIVE) Urine Cocaine Screen Neg (NEGATIVE) Urine Cannabinoids Screen Neg (NEGATIVE) Troponin I High Sensitivity 979 ng/L (</=34) Triglycerides Level 89 mg/dL (< 150) Cholesterol Level 107 mg/dL (< 200) LDL Cholesterol 49 mg/dL (< 100) HDL Cholesterol 39 mg/dL (40-59) Test 08/13/25 02:15 08/12/25 22:10 Vitamin D 25-Hydroxy 47.1 ng/mL (30.0-100) Folic Acid 21.43 ng/mL (>5.38) Direct Bilirubin 1.0 mg/dL (<0.3) B-Type Natriuretic Peptide 4460.74 pg/mL (0-100) Thyroid Stimulating Hormone (TSH) 3.83 uIU/mL (0.55-4.78) Free Thyroxine (T4) Calculated 1.26 ng/dL (0.89-1.76) Other Laboratory Tests 08/16/25 06:08 Brief Hx & Hospital Course: A 49-year-old female with PMHx of hypertension, hyperlipidemia, methamphetamine abuse, severe pulmonary hypertension, asthma, and chronic heart failure who presents with acute on chronic chest pain, pleuritic on nature. Patient reports that she has had similar chest pain for a long time and was previously admitted in November for the same complaint. 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 Patient left AMA and never received treatment.During the November admission she was also evaluated for NSTEMI. At the ER patient arrived with chest pain, found in afib with RVR, and was started on heparin drip and amiodarone infusion. Drawn patient was put on Lovenox and p.o. amiodarone. Serial troponins remained elevated without clear downtrend (1000 --> 900 --> 1000 --> 1100 --> 900). HIV 1 and 2 antibody negative, pending interferon gamma gold test, sirs and COVID flu negative. On 08/13/2025 A new transthoracic echocardiogram shows EF 45% with estimated PASP 80 mmHg, right atrial enlargement, severe right ventricular enlargement, flattened interventricular septum, severe tricuspid regurgitation, consistent with severe pulmonary hypertension. Infectious Disease (Dr. Tino Crockett) was consulted and we are planning on initiation of TB therapy. Pulmonology consulted for pulmonary hypertension management.. Patient was on isolation precaution. Chemistry notable for REBEL, creatinine 1.3 (baseline 0.9). Glucose normal, lipid panel normal.Patient was transitioned from heparin drip to therapeutic enoxaparin, amiodarone drip to amiodarone PO. Started on aspirin, carvedilol, and nifedipine 90 mg for blood pressure.Repeat CT scan today on 08/16/2025 revealed-Cardiomegaly. Pericardial cyst measuring 5.4 cm. Small right, tiny left pleural effusions increased from prior. Cirrhotic morphology liver and ascites. Soft tissue edema /anasarca. Patient was treated conservatively with amikacin, rifampin,azithromycin,ethambutol. Then amikacin was discontinued. Patient also seen by Cardiology for heart failure, recommended conservative management based on patient's substance abuse methamphetamine. Patient's AFib was treated with amiodarone orally after loading dose, patient was also heparin for AFib. Urine culture no growth. Respiratory culture no growth. Patient was on rebreather at some point due to severe hypoxia which was transition to 2 L of NC O2. As per Infectious Disease patients need to be on rifampin, ethambutol and azithromycin for 12 months. Patient also needed to be on GDM T for heart failure. But patient's left AMA. Patient's condition was undetermined during discharge Physical exam could not be done on discharge as patient left AMA Plan of care discussed with Dr. Hernandez Consults/Reason for consult Patient: ZOFIA FUNEZ Acct: [id number] : 1975 Loc: [facility] Age/Sex: 49/F [id number] Consult Progress Note Date Seen: Aug 17, 2025 Subjective Patient reports: Feels better (no nausea or vomitting on antibiotics) Objective vital signs Vital Sign Date Time Temp Pulse Resp B/P (MAP) Pulse Ox O2 Delivery O2 Flow Rate FiO2 08/17/25 05:00 98.5 61 17 133/89 (104) 99 98.5 08/16/25 20:00 Nasal Cannula* 2 28 Total Intake and Output 08/16/25 08/16/25 08/17/25 15:00 23:00 07:00 Intake Total 800 ml 900 ml Balance 800 ml 900 ml medications Current Medications Medications Dose Ordered Sig/Carl Route Start Time Stop Time Status Last Admin Dose Admin Amikacin Sulfate 0 ml @ 0 mls/hr PER PHARMACY IV 08/14/25 00:15 Cancel Amikacin Sulfate 750 mg/Dextrose 103 ml @ 103 mls/hr DAILY IV 08/15/25 10:00 Cancel laboratory and microbiology Laboratory Tests 08/16/25 06:08 Test 08/16/25 06:08 Range/Units Serum Glucose 127 H 74-106 mg/dL Problem List/Assessment/Plan Problem List/Assessment/Plan ASSESSMENT AND PLAN: ID Problem List: - mycobacterium avium complex pneumonia - Hypertension - Hyperlipidemia - Pulmonary hypertension - Asthma - Congestive heart failure - Right pleural effusion - Right lower lobe pneumonia - Possible atypical pneumonia - Cirrhosis - IV drug use (methamphetamine) - Tobacco use disorder - Alcohol use disorder - Homelessness - Elevated troponin (NSTEMI) - Hypoxia - Fever - Leukopenia - Thrombocytopenia - Otitis media (right ear) Assessment This is a 49 y.o. female with a past medical history of hypertension, hyperlipidemia, pulmonary hypertension, asthma, and congestive heart failure, who presents with chest pain rated 10/10, radiating to the right shoulder and head, burning and constant in nature. She is a current smoker (<1 pack/day), with occasional methamphetamine and alcohol use. Patient is homeless. Denies history of myocardial infarction or stroke. Reports headache and right ear pain. Physical exam notable for erythematous right tympanic membrane. Imaging reveals moderate right-sided pleural effusion, right lower lobe airspace consolidation, and left upper lobe tree-in-bud nodularity suggestive of atypical infection or bronchiolitis. Cirrhotic morphology of the liver noted. Laboratory findings include elevated troponin at 1.482, leukopenia (WBC decreased from 6.5 to 3.8), thrombocytopenia (platelets decreased from 179 to 88, now 133), and anemia (hemoglobin decreased from 17 to 16.1). Pleural fluid analysis shows WBC 1,378 (mostly mononuclear), glucose 133, total protein 3.1, LDH 261. Pleural cultures are no growth to date. She remains hypoxic requiring 30-40 L high-flow nasal cannula, has been febrile up to 101F since admission. Initially received ceftriaxone, azithromycin, and doxycycline; transitioned to meropenem when oxygenation worsened. hypoxia improved and patient left AMA 5 days into hospitalization NOW patient returns with intermittent episodes of left-sided chest pain, radiating to the left arm, associated with shortness of breaths for the past 3 days results form last hospitalization: negative serology for HIV, quantiferon gold, cocci positive AFB culture for mycobacterium avium positive at 3 weeks pleural fluid cytology: reactive mesothelial cells, histiocytes, and inflammatory cells, no malignant cells plueral fluid culture: negative CXR with no acute disease currently ekg qtc 458 08/14: chest ct IMPRESSION: Borderline enlarged lower neck lymph nodes, partially visualized. Recommend short-term follow-up CT neck to exclude cervical lymphadenopathy. Small right pleural effusion. Bibasilar atelectasis/scarring. No lobar pneumonia. BHCG negative, HIV test neg lung disease stable on chest ct Plan: - continue rifampin, azithromycin, and ethambutol. provide this regimen on discharge x 30 days - will fu on sputum culture - will need 1 yr of antibiotics and close monitoring of therapy response, recommend outpatient ID fu in 2-4 weeks - Defer to Cardiology/primary team for management of NSTEMI in setting of hx of congestive heart failure and pulmonary hypertension. - Monitor oxygenation status; adjust respiratory support as needed. - Pain management for chest and right shoulder pain. - smoking cessation management per primary team; substance abuse counseling recommended Isolation Precautions: Standard Assessment and plan were discussed with the patient as written above. Plan is subject to change pending incorporation of new incoming information/diagnostics. Updates may be added as addendum at the bottom (OR TOP) of this note. Thank you for interesting consult. ID will continue to follow. Please contact Infectious Disease for any questions or concerns. Tino Crockett M.D. [facility] Ph: ? Physical Exam: General: NAD Neck: Supple. No masses. HEENT: PERRL. Normal lids and conjunctiva. Moist mucous membranes. Oropharynx without lesions, exudates, or excessive erythema. Right tympanic membrane erythematous. Normal appearance of the external aspects of the nose and ears. Heart: Regular rhythm, normal rate. No murmur. No lower extremity edema. Lungs: Normal respiratory effort. Clear to auscultation bilaterally. No wheezes. No crackles. Abdomen: Soft. Non-tender. Non-distended. No masses or abdominal hernia. Msk: No digital cyanosis. Reports right shoulder pain. Skin: Warm and dry, no rashes. Neuro: Alert. No facial droop or slurred speech. Extra-ocular movements intact. Sensation intact to soft touch in all 4 limbs. Psych: Appropriate mood. Full affect. Oriented to person, place, time, and situation. Plan discussed with: Patient TINO CROCKETT MD Aug 17, 2025 12:36 E/M VISIT PERFORMED BY: TRANSCRIBED BY:TINO CROCKETT MD TRANSCRIBED DATE/TIME:08/17/25 123 ELECTRONICALLY SIGNED BY:TINO CROCKETT MD 08/17/25 1236 ELECTRONICALLY CO-SIGNED BY: Patient Name: ZOFIA FUNEZ Acct: [id number] Room: [facility] /Bed: A Attending Physician: KEYSHA MATIAS DNP Loc: [facility] Unit: [id number] CONSULTATION REPORT . ................................................................................ ............................................................................... [facility] 08/13/25 1135: Date Seen: Aug 13, 2025 Referring Physician MARYA Matias Reason for Consultation Elevated troponin History of Present Illness This is a 49-year-old female patient who presents to the emergency room with chief complaint of chest pain. The patient reports that the pain began three days prior to emergency room arrival. She describes it as unprovoked, intermittent, sharp in nature, initially located at her left ribcage with radiation towards her left chest all the way to her left neck and to the left side of her head. Associated symptoms include shortness of breath. She reports that she has also been experiencing a headache. She states that she is currently homeless and also admits to recent methamphetamine use three days ago. Initial twelve lead electrocardiogram reveals an unspecified atrial tachycardia (reviewed with featherer). At the time of assessment, the patient is now in a normal sinus rhythm on packer and carry out. Initial troponin level of 1077ng/L. 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 Patient does not see a featherer in the outpatient setting. Of note, the patient was seen at this facility in November of this year and underwent sputum culture which came back positive for tuberculosis. During that visit, the patient left against medical advice and was unaware of her diagnosis. The patient is currently in isolation and being ruled out for active tuberculosis infection. Past Medical History Past medical history reviewed. No other significant than mentioned above. Past Surgical History Left lumpectomy x 3 Abortions x4 Family History: FH: breast cancer Hypertension G8 MOTHER G8 FATHER Family History Family history reviewed. Social History Patient has a 11 pack-year history, smokes two cigarettes per day now Patient admits to recent methamphetamine 3 days ago Denies any alcohol use Allergies: Coded Allergies: Codeine (Verified Allergy, Unknown, 07/16/20) Morphine (Verified Allergy, Unknown, 07/16/20) Home Meds Active Scripts Sildenafil Citrate (SILDENAFIL CITRATE) 20 Mg Tab, 20 MG OR TID for 30 Days, #90 TAB Prov:TAYE ALMONTE RESIDENT 09/12/24 Reported Medications Furosemide (Furosemide) 20 Mg Tab, 1 TAB PO DAILY for 90 Days, #90 12/08/24 Albuterol Sulfate (Albuterol Sulfate Hfa) 108 Mcg/Act Aer, 108 MCG IN UD for 28 Days, #18 09/10/24 Atorvastatin Calcium (Lipitor) 10 Mg Tab, 1 TAB PO DAILY for 90 Days, #90 09/10/24 Amlodipine Besylate (Amlodipine Besylate) 10 Mg Tab, 1 TAB PO DAILY for 90 Days, #90 09/10/24 Metformin Hydrochloride (Metformin Hcl) 500 Mg Tab, 1 TAB PO BID for 90 Days, #180 09/10/24 Aspirin (Aspir-81) 81 Mg Tab, 1 TAB PO DAILY for 30 Days, #30 09/10/24 Metoprolol Tartrate (Lopressor) 50 Mg Tab, 1 TAB PO BID for 90 Days, #180 09/10/24 Lisinopril (Lisinopril) 20 Mg Tab, 1 TAB PO DAILY for 90 Days, #90 09/10/24 Home Meds Home medications reviewed. Current Medications Current Medications Medications (Trade) Dose Ordered Sig/Carl Route PRN Reason Start Time Stop Time Status Last Admin Amiodarone HCl 250 ml @ 16.66 mls/ hr Q15H1M IV 08/13/25 05:15 08/13/25 10:21 DC 08/13/25 05:25 Amlodipine Besylate (Norvasc Tablet) 10 mg DAILY PO 08/13/25 10:00 08/13/25 09:24 Aspirin 81 mg DAILY PO 08/13/25 10:00 08/13/25 09:25 Atorvastatin Calcium (Lipitor) 10 mg HS PO 08/13/25 22:00 08/13/25 08:05 DC Albuterol (Ventolin Medneb) 2.5 mg Q4HPRN PRN NEB SHORTNESS OF BREATH 08/13/25 02:00 08/13/25 08:09 DC Ipratropium Media (Atrovent Medneb) 0.5 mg Q4HPRN PRN NEB SHORTNESS OF BREATH 08/13/25 02:00 08/13/25 08:09 DC Carvedilol (Coreg Tablet) 12.5 mg Q12HR PO 08/13/25 10:00 08/13/25 09:25 Furosemide (Lasix Injection) 40 mg DAILY IV 08/13/25 10:00 08/13/25 08:07 DC Hydromorphone HCl (Dilaudid Injection) 0.5 mg Q4HPRN PRN IV MODERATE PAIN (4-6 PAIN SCALE) 08/13/25 02:00 08/13/25 09:27 Diagnostic Test (Pha) (Accu-Chek Comfort Curve T) 1 strip ACHS 08/13/25 07:00 08/13/25 06:33 Insulin Human Regular (InsuLIN R) ACHS SC 08/13/25 07:00 08/13/25 06:33 Dextrose 50 ml UD PRN IV Blood Sugar LESS THAN 60 08/13/25 02:00 Sodium Chloride (Saline Lock Ns) 10 ml Q8HR IV 08/13/25 06:00 08/13/25 06:00 Ondansetron HCl (Zofran) 4 mg Q4HP PRN IV NAUSEA / VOMITING 08/13/25 02:00 Docusate Sodium (Colace Capsule) 100 mg BIDPRN PRN PO FOR CONSTIPATION 08/13/25 02:00 Acetaminophen (Tylenol Tablet) 650 mg Q6HP PRN PO PAIN SCALE 1-3 OR TEMP>100.4 08/13/25 02:00 Nitroglycerin (Ntrostat Sublingual) 0.4 mg Q5MINP PRN SL FOR CHEST PAIN 08/13/25 02:15 Heparin Sodium/ Dextrose 250 ml @ 9 mls/hr Q24H IV 08/13/25 03:00 08/13/25 10:21 DC 08/13/25 03:21 Atorvastatin Calcium (Lipitor) 40 mg HS PO 08/13/25 22:00 Furosemide (Lasix Injection) 40 mg BIDD IV 08/13/25 08:13 08/13/25 09:26 Albuterol (Ventolin Medneb) 2.5 mg Q4HPRN NEB 08/13/25 10:00 Hold Ipratropium Media (Atrovent Medneb) 0.5 mg 6XD NEB 08/13/25 09:00 08/13/25 08:19 DC Ipratropium Media (Atrovent Medneb) 0.5 mg Q6HR NEB 08/13/25 12:00 Amiodarone HCl (Cordarone Tablet) 200 mg DAILY PO 08/13/25 10:15 Enoxaparin Sodium (Lovenox) 75 mg Q12HR SC 08/13/25 11:12 Nifedipine (Procardia Xl (Time-Release)) 90 mg DAILY PO 08/13/25 11:15 UNV Review of Systems Constitutional: No symptom reported Ears, Nose, & Throat: No symptom reported Eyes: No symptom reported Neurological: No symptoms reported Pulmonary/Respiratory: Shortness of breath Cardiovascular: Chest pain Gastrointestinal: No symptom reported Genitourinary: No symptom reported Musculoskeletal: No symptom reported Skin: No symptom reported Psychiatric: No symptom reported Endocrine: No symptom reported Hematologic/Lymphatic: No symptom reported Vital Signs Vital Signs Date Time Temp Pulse Resp B/P (MAP) Pulse Ox O2 Delivery O2 Flow Rate FiO2 08/13/25 09:57 72 16 180/117 08/13/25 03:47 Nasal Cannula* 2 28 08/13/25 02:00 98.0 97 98.0 Physical Exam General Appearance: Cooperative. Unkempt Pulmonary/Respiratory: Clear, bilateral breaths sounds. Cardiovascular/Chest: Regular rate and rhythm. Peripheral Pulses: 2+ Radial (R). 2+ Radial (L). 2+ Pedal (R). 2+ Pedal (L) Abdominal Exam: Normal bowel sounds. Ankle Exam: Negative ankle edema Lower extremities: Negative lower extremity edema Neuro/Mental Status: A/OX4, coherent. Thoughts/Psych: Normal thought pattern. Appropriate mood and affect. Good judgment and insight. Appearance: No acute distress. Skin Exam: Normal inspection. Normal color. Warm and dry. Labs/Diagnostic Data Labs Test 08/13/25 09:25 08/13/25 06:38 08/13/25 06:22 08/13/25 06:12 Range/Units Prothrombin Time 15.0 H 9.3-11.8 sec Prothrombin Time INR 1.47 H 0.9-1.15 Activated Partial Thromboplast Time 54.8 H 24.5-34.5 SEC Urine Color Light-yellow Yellow Urine Clarity Clear Clear Urine pH 5.0 5.0-9.0 Urine Specific Driscoll 1.006 1.001-1.035 Urine Protein Negative Negative Urine Ketones Negative Negative Urine Blood Trace H Negative /uL Urine Nitrite Negative Negative Urine Bilirubin Negative Negative Urine Urobilinogen Normal Negative mg/dL Urine Leukocyte Esterase 2+ Negative /uL Urine RBC 1 0 - 4 /hpf Urine Microscopic WBC 4 0-5 /HPF Urine Squamous Epithelial Cells None seen <5 /hpf Urine Bacteria Few H None Seen /hpf Urine Glucose Normal Normal mg/dL Urine Opiates Screen Neg NEGATIVE Urine Fentanyl Screen Neg NEGATIVE Urine Barbiturates Screen Neg NEGATIVE Urine Phencyclidine Screen Neg NEGATIVE Urine Amphetamines Screen Pos NEGATIVE Urine Benzodiazepines Screen Neg NEGATIVE Urine Cocaine Screen Neg NEGATIVE Urine Cannabinoids Screen Neg NEGATIVE POC Glucose 140 H 70-106 mg/dl White Blood Count 7.3 4.4-10.8 10^3/uL Red Blood Count 5.16 4.0-5.20 10^6/uL Hemoglobin 16.2 12.2-16.2 g/dL Hematocrit 47.7 H 36.0-46.0 % Mean Corpuscular Volume 92.4 80.0-100.0 fL Mean Corpuscular Hemoglobin 31.4 28.0-32.0 pg Mean Corpuscular Hemoglobin Concent 34.0 32.0-36.0 g/dL Red Cell Distribution Width 15.8 H 11.8-14.3 % Platelet Count 235 140-450 10^3/uL Mean Platelet Volume 7.9 6.9-10.8 fL Neutrophils (%) (Auto) 66.7 37.0-80.0 % Lymphocytes (%) (Auto) 24.9 10.0-50.0 % Monocytes (%) (Auto) 7.4 0.0-12.0 % Eosinophils (%) (Auto) 0.1 0.0-7.0 % Basophils (%) (Auto) 0.9 0.0-2.0 % Neutrophils # (Auto) 4.9 1.6-8.6 10 ^3/uL Lymphocytes # (Auto) 1.8 0.4-5.4 10 ^3/uL Monocytes # (Auto) 0.5 0-1.3 10 ^3/uL Eosinophils # (Auto) 0 0-0.8 10 ^3/uL Basophils # (Auto) 0.1 0-0.2 10 ^3/uL Nucleated Red Blood Cells 0.3 % Sodium Level 140 136-145 mmol/L Potassium Level 3.8 3.5-5.1 mmol/L Chloride Level 103 98-107 mmol/L Carbon Dioxide Level 24 20-31 mmol/L Anion Gap 13 5-15 Blood Urea Nitrogen 17 9-23 mg/dL Creatinine 1.34 H 0.550-1.02 mg/dL Glomerular Filtration Rate Calc 48 >90 mL/min BUN/Creatinine Ratio 12.7 10.0-20.0 Serum Glucose 132 H 74-106 mg/dL Calcium Level 9.3 8.7-10.4 mg/dL Total Bilirubin 3.1 H 0.2-1.0 mg/dL Aspartate Amino Transferase (AST) 41 H 13-40 U/L Alanine Aminotransferase (ALT) 28 7-40 U/L Alkaline Phosphatase 158 H 46-116 U/L Troponin I High Sensitivity 979 *H </=34 ng/L Total Protein 6.8 5.7-8.2 g/dL Albumin 4.0 3.2-4.8 g/dL Triglycerides Level 89 < 150 mg/dL Cholesterol Level 107 < 200 mg/dL LDL Cholesterol 49 < 100 mg/dL HDL Cholesterol 39 L 40-59 mg/dL Test 08/13/25 02:15 08/12/25 22:10 Range/Units Vitamin D 25-Hydroxy 47.1 30.0-100 ng/mL Folic Acid 21.43 >5.38 ng/mL Magnesium Level 1.9 1.6-2.6 mg/dL Direct Bilirubin 1.0 H <0.3 mg/dL B-Type Natriuretic Peptide 4460.74 0-100 pg/mL Thyroid Stimulating Hormone (TSH) 3.83 0.55-4.78 uIU/mL Free Thyroxine (T4) Calculated 1.26 0.89-1.76 ng/dL Assessment NSTEMI Hypertensive urgency Severe RV failure Acute on chronic decompensated HFmrEF, NYHA class III Severe pulmonary hypertension, likely type 1 secondary to amphetamine abuse Severe tricuspid regurgitation Rule out tuberculosis [id number] diabetes mellitus Chronic kidney disease Medical non-adherence Methamphetamine/tobacco abuse Obesity Plan/Recommendation We will continue with the following plan/recommendations (): Case discussed and reviewed with . A transthoracic echocardiogram reveals an EF of 45%, RVSP 80 mmHg. Severe RV enlargement and failure noted. Continue preload and afterload reduction as tolerated. Consider restarting sildenafil and a pulmonary consultation. At this time, the patient is not an ideal candidate for any invasive cardiac procedures given possible active tuberculosis, methamphetamine use and medical noncompliance. Consider ischemic workup once patient is compliant and can abstain from polysubstance use. Proceed with conservative medical management. Continue with the aggressive blood pressure control and close cardiac surveillance. Thank you for allowing us to care for this patient. Please call with any questions or concerns. Critical care time spent: 44 minutes This medical document was created using an electronic medical record system with voice recognition software and computerized dictation system. Although this document has been carefully reviewed, there might still be some phonetic and typographical errors. Occasional wrong-word or ``sound-alike substitutions may have occurred due to the inherent limitations of voice recognition software. These areas are purely typographical due to imperfections of the software programs and do not reflect any compromise in the patient's medical care. Please read the chart carefully and recognize, using context, where these substitutions have occurred. Plan discussed with: Patient NYHA 2 Physical activity limitations: Class3(Marked) ordinary (activity causes symtoms) Date of Service: Aug 13, 2025 Billing Provider: KING OLSON [employer] CHIEF ENGINEER Cardiology Common Codes: 78420-UVAUWLB INP/OBS CARE (High) Cardiology Consultation Codes: 30331-[id number] CONSULT <45MIN ROSHNI DAILEY MD 08/13/25 1424: Family History: FH: breast cancer Hypertension G8 MOTHER G8 FATHER Allergies: Coded Allergies: Codeine (Verified Allergy, Unknown, 07/16/20) Morphine (Verified Allergy, Unknown, 07/16/20) Home Meds Active Scripts Sildenafil Citrate (SILDENAFIL CITRATE) 20 Mg Tab, 20 MG OR TID for 30 Days, #90 TAB Prov:TAYE ALMONTE RESIDENT 09/12/24 Reported Medications Furosemide (Furosemide) 20 Mg Tab, 1 TAB PO DAILY for 90 Days, #90 12/08/24 Albuterol Sulfate (Albuterol Sulfate Hfa) 108 Mcg/Act Aer, 108 MCG IN UD for 28 Days, #18 09/10/24 Atorvastatin Calcium (Lipitor) 10 Mg Tab, 1 TAB PO DAILY for 90 Days, #90 09/10/24 Amlodipine Besylate (Amlodipine Besylate) 10 Mg Tab, 1 TAB PO DAILY for 90 Days, #90 12/26/24 Metformin Hydrochloride (Metformin Hcl) 500 Mg Tab, 1 TAB PO BID for 90 Days, #180 09/10/24 Aspirin (Aspir-81) 81 Mg Tab, 1 TAB PO DAILY for 30 Days, #30 09/10/24 Metoprolol Tartrate (Lopressor) 50 Mg Tab, 1 TAB PO BID for 90 Days, #180 09/10/24 Lisinopril (Lisinopril) 20 Mg Tab, 1 TAB PO DAILY for 90 Days, #90 09/10/24 Plan/Recommendation agree with GRAPHICS INTERN assessment and plan pt not examiend 2/2 to possible TB pt has end stage RV failure, and pulm htn, non compliance nstemi could be 2/2 to rv failure, active meth pt had atrial tachycardia cannot rule out afib, on anticoag but is SR now her prognosis is very poor in general Plan discussed with: Patient, Other (rn) KING OLSON Aug 13, 2025 11:35 ROSHNI DAILEY MD Aug 13, 2025 14:24 DICTATED BY:KING OLSON DICTATED DATE/TIME:08/13/25 1135 ELECTRONICALLY SIGNED BY:KING OLSON 08/13/25 1402 ELECTRONICALLY CO-SIGNED BY:ROSHNI DAILEY MD08/13/25 1425 Patient: ZOFIA FUNEZ Acct: [id number] : 1975 Loc: [facility] Age/Sex: 49/F [id number] Subjective No cardiac events reported Remained in sinus rhythm Changes from previous H/P or p: No Changes Eyes: No Pain, No Vision change, No Conjunctivae inflammation, No Eyelid inflammation, No Other, No Redness ENT: No Ear pain, No Ear discharge, No Nose pain, No Nose discharge, No Nose congestion, No Mouth pain, No Mouth swelling, No Throat pain, No Throat swelling, No Other Cardiovascular: Chest Pain; No Palpitations, No Orthopnea, No Paroxysmal Noc. Dyspnea, No Edema, No Lt Headedness; Other (Left arm pain) Respiratory: No Cough, No Dry; Shortness of breath; No SOB with excertion, No Wheezing, No Hemoptysis, No Pleuritic Pain, No Sputum, No Other Gastrointestinal: No Nausea, No Vomiting, No Abdominal Pain, No Diarrhea, No Constipation, No Melena, No Hematochezia, No Other Genitourinary: No Dysuria, No Frequency, No Incontinence, No Hematuria, No Retention, No Other Musculoskeletal: No other, No neck pain, No shoulder pain; arm pain (Left); No back pain, No hand pain, No leg pain, No foot pain Skin: No Rash, No Lesions, No Jaundice, No Bruising, No Other Objective Vitals Vital Signs Date Time Temp Pulse Resp B/P (MAP) Pulse Ox O2 Delivery O2 Flow Rate FiO2 08/15/25 13:54 77 16 107/65 08/15/25 13:00 97.5 94 97.5 08/15/25 12:49 Oxymizer 6 N/A Intake/Output Intake and Output 08/15/25 07:00 Intake Total 1447 ml Balance 1447 ml Intake Oral 994 ml IV Total 453 ml # Voids 6 Medications Current Medications Medications Dose Ordered Sig/Carl Route Start Time Stop Time Status Last Admin Dose Admin Aspirin 81 mg DAILY PO 08/13/25 10:00 08/15/25 09:28 81 MG Carvedilol 12.5 mg Q12HR PO 08/13/25 10:00 08/15/25 12:07 12.5 MG Hydromorphone HCl 0.5 mg Q4HPRN PRN IV 08/13/25 02:00 08/15/25 13:54 0.5 MG Diagnostic Test (Pha) 1 strip ACHS 08/13/25 07:00 08/15/25 11:30 1 STRIP Insulin Human Regular ACHS SC 08/13/25 07:00 08/15/25 06:25 3 UNITS Dextrose 50 ml UD PRN IV 08/13/25 02:00 Sodium Chloride 10 ml Q8HR IV 08/13/25 06:00 08/15/25 14:00 10 ML Ondansetron HCl 4 mg Q4HP PRN IV 08/13/25 02:00 Docusate Sodium 100 mg BIDPRN PRN PO 08/13/25 02:00 Acetaminophen 650 mg Q6HP PRN PO 08/13/25 02:00 Nitroglycerin 0.4 mg Q5MINP PRN SL 08/13/25 02:15 Hold Atorvastatin Calcium 40 mg HS PO 08/13/25 22:00 08/14/25 21:50 40 MG Furosemide 40 mg BIDD IV 08/13/25 08:13 08/14/25 05:44 40 MG Ipratropium Media 0.5 mg Q6HR NEB 08/13/25 12:00 08/15/25 12:40 0.5 MG Amiodarone HCl 200 mg DAILY PO 08/13/25 10:15 08/15/25 12:07 200 MG Enoxaparin Sodium 75 mg Q12HR SC 08/13/25 11:12 08/15/25 09:30 75 MG Nifedipine 90 mg DAILY PO 08/13/25 11:15 08/13/25 12:23 90 MG Albuterol 2.5 mg Q6HR NEB 08/13/25 12:00 08/15/25 12:40 2.5 MG Sildenafil Citrate 20 mg TID@08,14,20 PO 08/13/25 22:45 08/15/25 09:28 20 MG Rifampin 600 mg DAILY PO 08/14/25 10:00 08/15/25 09:29 600 MG Azithromycin 250 ml @ 125 mls/hr DAILY IV 08/14/25 10:00 08/15/25 09:29 125 MLS/HR Ethambutol HCl 1,200 mg DAILY PO 08/14/25 10:00 08/15/25 09:28 1,200 MG Amikacin Sulfate 0 ml @ 0 mls/hr PER PHARMACY IV 08/14/25 00:15 Cancel Amikacin Sulfate 750 mg/Dextrose 103 ml @ 103 mls/hr DAILY IV 08/15/25 10:00 Cancel Laboratory Results Laboratory Tests 08/15/25 05:40 Chemistry Test 08/15/25 05:40 Albumin 3.7 g/dL (3.2-4.8) Calcium Level 8.4 mg/dL (8.7-10.4) L Magnesium Level 1.9 mg/dL (1.6-2.6) Total Protein 6.3 g/dL (5.7-8.2) LFT Test 08/15/25 05:40 Alanine Aminotransferase (ALT) 22 U/L (7-40) Alkaline Phosphatase 141 U/L (46-116) H Aspartate Amino Transferase (AST) 26 U/L (13-40) Total Bilirubin 1.7 mg/dL (0.2-1.0) H Urinalysis Test 08/13/25 06:38 Urine Color Light-yellow (Yellow) Urine Clarity Clear (Clear) Urine pH 5.0 (5.0-9.0) Urine Specific Driscoll 1.006 (1.001-1.035) Urine Protein Negative (Negative) Urine Ketones Negative (Negative) Urine Blood Trace /uL (Negative) H Urine Nitrite Negative (Negative) Urine Bilirubin Negative (Negative) Urine Urobilinogen Normal mg/dL (Negative) Urine Leukocyte Esterase 2+ /uL (Negative) Urine RBC 1 /hpf (0 - 4) Urine Microscopic WBC 4 /HPF (0-5) Urine Squamous Epithelial Cells None seen /hpf (<5) Urine Bacteria Few /hpf (None Seen) H Urine Glucose Normal mg/dL (Normal) Microbiology Microbiology Date/Time Source Procedure Growth Status 08/13/25 06:38 Voided Urine Urine Culture - Final Complete Assessment/Plan Assessment/Plan Assessment NSTEMI Hypertensive urgency Severe RV failure Acute on chronic decompensated HFmrEF, NYHA class III Severe pulmonary hypertension, likely type 1 secondary to amphetamine abuse Severe tricuspid regurgitation Rule out tuberculosis Hxu-jwkampg-nvzqavske diabetes mellitus Chronic kidney disease Medical non-adherence Methamphetamine/tobacco abuse Obesity Plan/Recommendation We will continue with the following plan/recommendations (): 08/15/25 - patient remained in sinus rhythm. Telemetry reviewed, No episodes of AFib noted. Continue with current cardiology plan. Case discussed and reviewed with . A transthoracic echocardiogram reveals an EF of 45%, RVSP 80 mmHg. Severe RV enlargement and failure noted. Continue preload and afterload reduction as tolerated. Consider restarting sildenafil and a pulmonary consultation. At this time, the patient is not an ideal candidate for any invasive cardiac procedures given possible active tuberculosis, methamphetamine use and medical noncompliance. Consider ischemic workup once patient is compliant and can abstain from polysubstance use. Proceed with conservative medical management. Continue with the aggressive blood pressure control and close cardiac surveillance. Thank you for allowing us to care for this patient. Please call with any questions or concerns. Critical care time spent: 44 minutes Plan discussed with: Patient Date of Service: Aug 15, 2025 Billing Provider: ROSHNI DAILEY MD Common Visit Codes: NOT BILLABLE Consultation Codes: [id number] CONSULT <45MIN TERI BRAUN Aug 15, 2025 17:02 E/M VISIT PERFORMED BY: TRANSCRIBED BY:TERI BRAUN TRANSCRIBED DATE/TIME:08/15/251701 ELECTRONICALLY SIGNED BY:TERI BRAUN 08/15/251705 ELECTRONICALLY CO-SIGNED BY:ROSHNI DAILEY MD08/16/25 0731 Patient: ZOFIA FUNEZ Acct: [id number] : 1975 Loc: [facility] Age/Sex: 49/F [id number] Progress Note - Dictate Date Seen: Aug 17, 2025 Has the PT tested + for MRSA If YES, has PT been informed?: No Medical Necessity Reason Pt with a Central, PICC or Fol: No vital signs Vital Sign Date Time Temp Pulse Resp B/P (MAP) Pulse Ox O2 Delivery O2 Flow Rate FiO2 08/17/25 05:00 98.5 61 17 133/89 (104) 99 98.5 08/16/25 20:00 Nasal Cannula* 2 28 Total Intake and Output 08/16/25 08/16/25 08/17/25 15:00 23:00 07:00 Intake Total 800 ml 900 ml Balance 800 ml 900 ml medications Current Medications Medications Dose Ordered Sig/Carl Route Start Time Stop Time Status Last Admin Dose Admin Amikacin Sulfate 0 ml @ 0 mls/hr PER PHARMACY IV 08/14/25 00:15 Cancel Amikacin Sulfate 750 mg/Dextrose 103 ml @ 103 mls/hr DAILY IV 08/15/25 10:00 Cancel laboratory and microbiology Laboratory Tests 08/16/25 06:08 Test 08/16/25 06:08 Range/Units Serum Glucose 127 H 74-106 mg/dL Assessment/Plan impression smoker substance abuse pneumonia CARL patient seen and examined events on 6 liters oxymizer patient de-isolated on treatment for CARL imaging Borderline enlarged lower neck lymph nodes, partially visualized. Recommend short-term follow-up CT neck to exclude cervical lymphadenopathy. Small right pleural effusion. Bibasilar atelectasis/scarring. No lobar pneumonia. plan abx bronchodilators supportive care Plan discussed with: Patient ERIKA PALMER MD Aug 17, 2025 11:35 E/M VISIT PERFORMED BY: TRANSCRIBED BY:ERIKA PALMER MD TRANSCRIBED DATE/TIME:08/17/251134 ELECTRONICALLY SIGNED BY:ERIKA PALMER MD 08/17/251134 ELECTRONICALLY CO-SIGNED BY: Operations or Procedures [place] [address] Ph: [phone] DIAGNOSTIC IMAGING Diagnostic Imaging Report : [id number] Signed PATIENT: ZOFIA FUNEZ ACCT: [id number] UNIT: [id number] : 1975 LOC: [facility] ROOM / BED: [facility] / A AGE / SEX: 49 / F ADM STATUS: ADM IN SERVICE 07 ORDERING PHYSICIAN: DAVID FULLER PROCEDURE(s): CX2CT - CHEST WITHOUT CONTRAST REASON: chest pain ORDER NUMBER(s): [id number], ACCESSION NUMBER(s): [id number] Indication: chest pain Technique: CT axial images of the chest are obtained without contrast. Coronal and sagittal reformats were obtained. Radiation Dose Information: CTDI volume is 9.2 mGy. Dose-length product is 317.43 mGy*cm Comparison: CT CHEST WITH CONTRAST on DOS: 08/14/25 FINDINGS: The trachea is patent. No pneumothorax. Bibasilar atelectasis. Small right, tiny left pleural effusions, slightly increased from prior. Cardiomegaly. Small pericardial effusion. Pericardial cyst on the right cardiac border measuring 5.4 cm. There is left supraclavicular lymph node measuring 8 mm. No axillary lymphadenopathy. Soft tissue edema / anasarca. Right breast calcification measuring 10 mm. Left breast calcification measuring 9 mm. Cirrhotic morphology liver. Ascites. No aggressive osseous process. IMPRESSION: Limited evaluation without contrast. Cardiomegaly. Pericardial cyst measuring 5.4 cm. Small right, tiny left pleural effusions increased from prior. Cirrhotic morphology liver and ascites. Soft tissue edema /anasarca. Other findings as described ATED BY: WILL GONCALVES MD DICTATED DATE/TIME: 08/16/251211 SIGNED BY: WILL GONCALVES MD SIGNED DATE/TIME: 08/16/251211 CC: [place] [address] Ph: [phone] DIAGNOSTIC IMAGING Diagnostic Imaging Report : [id number] Signed PATIENT: ZOFIA FUNEZ ACCT: [id number] UNIT: [id number] : 1975 LOC: [facility] ROOM / BED: 0282T / A AGE / SEX: 49 / F ADM STATUS: ADM IN SERVICE 0749 ORDERING PHYSICIAN: TINO CROCKETT MD PROCEDURE(s): CXICT - CHEST WITH CONTRAST REASON: evaluate pneumonia ORDER NUMBER(s): [id number], ACCESSION NUMBER(s): [id number] Exam: CT CHEST WITH CONTRAST Reason for study/ Clinical History: evaluate pneumonia Comparison Study: CT CHEST WITHOUT CONTRAST on DOS: 12/12/24 Exam Date: 08/14/2025 10:55 AM Radiation Dose Information: CT Dose: CTDI volume is 20 mGy. Dose-length product is 756 mGy*cm Contrast: Type of contrast: Omnipaque 300 Contrast inject: 80 cc Contrast wasted: 0 cc Technique: After the uneventful administration of intravenous contrast intravenously, CT imaging was performed through the chest. Coronal and sagittal reformations were performed by the technologist. Findings: Lower neck: Borderline enlarged lower neck lymph nodes, partially visualized. Lungs and Pleura: Bibasilar atelectasis/scarring. Small right pleural effusion. Lymph nodes: No mediastinal, hilar, or axillary lymphadenopathy. Cardiovascular and Mediastinum: Cardiomegaly. No significant pericardial effusion. No significant coronary calcifications. Osseous and soft tissues: Small sclerotic lesions in the thoracic spine likely bone islands. Upper abdomen: No acute abnormality in the visualized upper abdomen. IMPRESSION: Borderline enlarged lower neck lymph nodes, partially visualized. Recommend short-term follow-up CT neck to exclude cervical lymphadenopathy. Small right pleural effusion. Bibasilar atelectasis/scarring. No lobar pneumonia. ATED BY: CHAVO SHETH MD DICTATED DATE/TIME: 08/14/25 1131 SIGNED BY: CHAVO SHETH MD SIGNED DATE/TIME: 08/14/25 1131 CC: [address] [id number] Ph: [phone] DIAGNOSTIC IMAGING Diagnostic Imaging Report : [id number] Signed PATIENT: ZOFIA FUNEZ ACCT: [id number] UNIT: [id number] : 1975 LOC: [facility] ROOM / BED: [facility]T / A AGE / SEX: 49 / F ADM STATUS: ADM IN SERVICE 1017 ORDERING PHYSICIAN: TAYE ALMONTE PROCEDURE(s): CXR1 - CHEST XRAY 1 VIEW REASON: MAC infection ORDER NUMBER(s): [id number], ACCESSION NUMBER(s): [id number] CHEST RADIOGRAPH Indication: MAC infection Technique: Single frontal view of the chest was obtained. Comparison: XY CHEST PORTABLE on DOS: 08/13/25 Findings: Patchy opacities in the right lower lung. No significant pleural effusion. No pneumothorax. Stable cardiomediastinal silhouette. IMPRESSION: Patchy opacities in the right lower lung, which could represent pneumonia. Recommend short-term follow-up radiograph after symptom improves to ensure resolution of the opacities and exclude underlying mass. ATED BY: CHAVO SHETH MD DICTATED DATE/TIME: 08/14/25 105 SIGNED BY: CHAVO SHETH MD SIGNED DATE/TIME: 08/14/25 105 CC: [address] [id number] Ph: [phone] DIAGNOSTIC IMAGING Diagnostic Imaging Report : [id number] Signed PATIENT: ZOFIA FUNEZ ACCT: [id number] UNIT: [id number] : 1975 LOC: [facility] AGE / SEX: 49 / F ADM STATUS: ADM IN SERVICE 0700 ORDERING PHYSICIAN: DAVID FULLER PROCEDURE(s): CX2CT - CHEST WITHOUT CONTRAST REASON: chest pain ORDER NUMBER(s): [id number], ACCESSION NUMBER(s): [id number] Indication: chest pain Technique: CT axial images of the chest are obtained without contrast. Coronal and sagittal reformats were obtained. Radiation Dose Information: CTDI volume is 9.2 mGy. Dose-length product is 317.43 mGy*cm Comparison: CT CHEST WITH CONTRAST on DOS: 08/14/25 FINDINGS: The trachea is patent. No pneumothorax. Bibasilar atelectasis. Small right, tiny left pleural effusions, slightly increased from prior. Cardiomegaly. Small pericardial effusion. Pericardial cyst on the right cardiac border measuring 5.4 cm. There is left supraclavicular lymph node measuring 8 mm. No axillary lymphadenopathy. Soft tissue edema / anasarca. Right breast calcification measuring 10 mm. Left breast calcification measuring 9 mm. Cirrhotic morphology liver. Ascites. No aggressive osseous process. IMPRESSION: Limited evaluation without contrast. Cardiomegaly. Pericardial cyst measuring 5.4 cm. Small right, tiny left pleural effusions increased from prior. Cirrhotic morphology liver and ascites. Soft tissue edema /anasarca. Other findings as described ATED BY: WILL GONCALVES MD DICTATED DATE/TIME: 08/16/25 121 SIGNED BY: WILL GONCALVES MD SIGNED DATE/TIME: 08/16/25 121 CC: [place] [address] Ph: [phone] DIAGNOSTIC IMAGING Diagnostic Imaging Report : [id number] Signed PATIENT: ZOFIA FUNEZ ACCT: [id number] UNIT: [id number] : 1975 LOC: ER ROOM / BED: / AGE / SEX: 49 / F ADM STATUS: REG ER SERVICE 00 ORDERING PHYSICIAN: ER PROCEDURE(s): CXRP - CHEST PORTABLE REASON: chest pain ORDER NUMBER(s): [id number], ACCESSION NUMBER(s): [id number] CHEST RADIOGRAPH Indication: chest pain Technique: Single frontal view of the chest was obtained COMPARISON: XY CHEST PORTABLE on DOS: 12/19/24, XY CHEST XRAY 1 VIEW on DOS: 12/14/24, XY CHEST XRAY 1 VIEW on DOS: 12/13/24, XY CHEST PORTABLE on DOS: 12/11/24, XY CHEST PORTABLE on DOS: 12/09/24 FINDINGS: Lungs and pleural spaces are clear. Cardiac silhouette and raad are within normal limits. Bones and soft tissues demonstrate no significant abnormality. IMPRESSION: No acute disease. ATED BY: CHAVO SHETH MD DICTATED DATE/TIME: 08/13/25118 SIGNED BY: CHAVO SHETH MD SIGNED DATE/TIME: 08/13/25118 CC: Condition at Discharge: Undetermined Final Diagnosis/Problems List # Acute Chest Pain likely due to meth induced cardiac ischemia/pneumonia #NSTEMI likely type 2 myocardial injury in the setting of severe pulmonary hypertension, tachyarrhythmia, and stimulant use # Atrial fibrillation with RVR, resolved #Newly Identified Active MAC -#Suspected Mycobacterium avium complex pneumonia # suspected tuberculosis, pending sputum culture/QuantiFERON gold test, patient left AMA #Severe Pulmonary Hypertension (PASP 80 mmHg) # Acute hypoxic respiratory failure # Acute on Chronic Heart Failure with reduced EF (45%) # Acute Kidney Injury (Cr 1.3; baseline 0.9) due to VMN #Hypertension / Hyperlipidemia # Methamphetamine Abuse #Cirrhosis. # anasarca Discharge Disposition: AMA Discharge Instruct/Medications Diet: See Comment Diet comment: Patient left AMA Activity: Activity comment: Patient left AMA Follow Up/Referral: Patient left AMA Medications: Patient left AMA Scheduled Albuterol Sulfate (Albuterol Sulfate Hfa), 108 MCG IN UD, (Reported) Amlodipine Besylate (Amlodipine Besylate), 1 TAB PO DAILY, (Reported) Aspirin (Aspir-81), 1 TAB PO DAILY, (Reported) Atorvastatin Calcium (Lipitor), 1 TAB PO DAILY, (Reported) Azithromycin (Zithromax Tablet), 500 MG PO DAILY Ethambutol Hcl (Ethambutol Hcl), 1,200 MG PO DAILY Furosemide (Furosemide), 1 TAB PO DAILY, (Reported) Lisinopril (Lisinopril), 1 TAB PO DAILY, (Reported) Metformin Hydrochloride (Metformin Hcl), 1 TAB PO BID, (Reported) Metoprolol Tartrate (Lopressor), 1 TAB PO BID, (Reported) Rifampin (Rifampin), 600 MG PO DAILY Sildenafil Citrate (Sildenafil Citrate), 20 MG OR TID Discharge Statement: "Patient was advised to return to the ER or call 911 if any headaches, dizziness, shortness of breath, chest pain, abdominal pain, bleeding, fevers, or worsening of medical condition. Patient was counseled about treatment plan, medications, possible side effects, patientverbalized understanding. All questions were answered to the best of my ability. This discharge took greater then 30 minutes in planning, reviewing documentation, counseling the patient, and discussing with other team members." ASSESSMENT ASSESSMENT Assessment Visit Coding STANDARD RES Date of Service if different f: Aug 17, 2025 Visit Coding STANDARD RES Billing Provider: ANA HERNANDEZ MD Date of Service if different f: Aug 17, 2025 Common Visit Codes: 77060-KQO/OBS DISCH DAY >30min Date of Service: Aug 17, 2025 TAYE ALMONTE RESIDENT Aug 17, 2025 14:53
[2025-08-19 15:07] LABS: Vitamin B1, Whole Blood 97.8 nmol/L (66.5-200.0)
== END 2025-08-17 10:15 | disposition left against medical advice (07) | DRG 812 ==
LOC: ER 21:54 → OVERFLOW 08-13 02:04 → TELE-WESTW 08-13 03:30
PROVIDERS: ADMIT Internal Medicine Geriatric Medicine; ATTEND Internal Medicine Geriatric Medicine
DX: T43.651A Poisoning by methamphetamines accidental (unintentional), initial encounter (principal); N17.0 Acute kidney failure with tubular necrosis; J96.01 Acute respiratory failure with hypoxia; I50.23 Acute on chronic systolic (congestive) heart failure; J15.8 Pneumonia due to other specified bacteria; A31.0 Pulmonary mycobacterial infection; D69.6 Thrombocytopenia, unspecified; D72.819 Decreased white blood cell count, unspecified; J44.0 Chronic obstructive pulmonary disease with (acute) lower respiratory infection; H66.91 Otitis media, unspecified, right ear; I27.20 Pulmonary hypertension, unspecified; I13.0 Hypertensive heart and chronic kidney disease with heart failure and stage 1 through stage 4 chronic kidney disease, or unspecified chronic kidney disease; D64.9 Anemia, unspecified; E11.22 Type 2 diabetes mellitus with diabetic chronic kidney disease; E66.9 Obesity, unspecified; F10.10 Alcohol abuse, uncomplicated; F15.10 Other stimulant abuse, uncomplicated; I07.1 Rheumatic tricuspid insufficiency; K74.60 Unspecified cirrhosis of liver; N18.9 Chronic kidney disease, unspecified; I21.A1 Myocardial infarction type 2; R18.8 Other ascites; Z20.822 Contact with and (suspected) exposure to COVID-19; I47.19 Other supraventricular tachycardia; I16.0 Hypertensive urgency; E78.5 Hyperlipidemia, unspecified; I48.91 Unspecified atrial fibrillation; Z53.29 Procedure and treatment not carried out because of patient's decision for other reasons; F17.210 Nicotine dependence, cigarettes, uncomplicated; J98.11 Atelectasis; Z88.5 Allergy status to narcotic agent; Z59.00 Homelessness unspecified; Z80.3 Family history of malignant neoplasm of breast; Z82.49 Family history of ischemic heart disease and other diseases of the circulatory system; Z79.84 Long term (current) use of oral hypoglycemic drugs; Z91.199 Patient's noncompliance with other medical treatment and regimen due to unspecified reason; Z68.31 Body mass index [BMI] 31.0-31.9, adult; Z79.899 Other long term (current) drug therapy; Z79.82 Long term (current) use of aspirin; Z78.9 Other specified health status; Y92.89 Other specified places as the place of occurrence of the external cause
CPT/HCPCS: 36415; 71045; 71250; 71260; 80048; 80053; 80061; 80076; 80150; 80307; 81001; 82306; 82746; 82962; 83036; 83735; 83880; 84425; 84439; 84443; 84484; 84702; 85025; 85610; 85730; 86703; 87070; 87086; 87205; 87426; 87804; 93005; 93306; 94640; 96365; 96375; 99291; G0378; J1815; J7060